=== PATIENT | female | born 1950 | race Caucasian/White ===

== ENCOUNTER 2017-11-17 15:12 | Emergency (ER) | payer MEDICARE ==
[~2017-11-17] VITALS: Ht 167.6 cm; Wt 109.3 kg
[~2017-11-17 15:12] MED LIST: CETIRIZINE HCL10 MG PO; COLACE100 MG PO; FLONASE16 GM INH; FUROSEMIDE40 MG PO; GABAPENTIN300 MG PO; HYDROCHLOROTH12.5 M1 PO; HYDROCODON-ACE1 EA11 PO; LIPITOR20 MG PO; LOPRESSOR25 MG PO; NORVASC5 MG PO; OMEPRAZOLE20 MG PO; POTASSIUM CHLO10 MEQ PO; PREMPRO 0.625-1 EAC1 PO; PREVACID15 M1 PO; PROVENTIL HFA6.7 GM INH; TIZANIDINE HCL4 MG PO; TORSEMIDE20 MG PO; ULTRAM 50MG50 MG PO; VENLAFAXINE H37.5 MG PO
--- OUTSIDE RECORDS SUMMARY | 2017-11-17 15:16 | XMS REPORT ---
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 Allergies, Adverse Reactions, Alerts This patient has no known allergies or adverse reactions. Medications This patient has no known medications. Encounters Start Date/Time End Date/Time Encounter Type Admission Type Attending [facility] Care Department Encounter ID 2017-11-21 00:00:00 2017-11-21 00:00:00 Outpatient [facility] [id number] 2017-10-26 18:53:00 2017-10-27 12:40:00 Outpatient Daljit LOVINGJESSE IGNACIO [facility] [id number] 2017-10-25 00:00:00 2017-10-25 00:00:00 Outpatient [facility] [id number] 2017-10-17 12:36:10 2017-10-17 12:36:10 Outpatient [facility] [id number] 2017-10-17 00:00:00 2017-10-17 00:00:00 Outpatient [facility] [id number] 2017-10-10 15:33:21 2017-10-10 15:33:21 Outpatient [facility] [id number] 2017-10-10 15:11:53 2017-10-10 15:11:53 Outpatient [facility] [id number] 2017-10-10 13:46:59 2017-10-10 13:46:59 Outpatient [facility] [id number] 2017-09-05 13:04:43 2017-09-05 13:04:43 Outpatient [facility] [id number] 2017-08-22 00:00:00 2017-08-22 00:00:00 Outpatient [facility] [id number] 2017-08-01 12:55:54 2017-08-01 12:55:54 Outpatient [facility] [id number] 2017-07-16 00:00:00 2017-07-16 00:00:00 Outpatient [facility] [id number] 2017-06-27 13:20:10 2017-06-27 13:20:10 Outpatient [facility] [id number] 2017-05-23 13:05:08 2017-05-23 13:05:08 Outpatient [facility] [id number] 2017-05-23 00:00:00 2017-05-23 00:00:00 Outpatient [facility] [id number] 2017-04-25 10:42:46 2017-04-25 10:42:46 Outpatient [facility] [id number] 2017-04-25 09:07:51 2017-04-25 09:07:51 Outpatient [facility] [id number] 2017-03-28 00:00:00 2017-03-28 00:00:00 Outpatient [facility] [id number] 2017-03-14 13:04:01 2017-03-14 13:04:01 Outpatient [facility] [id number] 2017-02-15 00:00:00 2017-02-15 00:00:00 Outpatient [facility] [id number] 2017-02-05 00:00:00 2017-02-05 00:00:00 Outpatient [facility] [id number] 2017-01-31 14:04:33 2017-01-31 14:04:33 Outpatient [facility] [id number] Results Test Description Test Time Test Comments Text Results Atomic Results Result Comments CARDIAC PROFILE 2017-10-27 10:29:00 TROPONIN I (test code=A84) <0.015 ng/mL 0.000-0.045 CKMB (test code=A49) <1.0 ng/mL <=3.6 CPK (test code=32A) 60 IU/L 26-192 GLUCOMETER GLUCOSE- LAB USE [id number] 05:54:00* Test Item Value Reference Range Comments GLUCOMETER (test code=GMG) 246 mg/dL 70-100 CLEANED METERMeter ID: [id number]: [id number] [address]RISTI CHAIREZ CARDIAC [id number] 05:17:00* Test Item Value Reference Range Comments TROPONIN I (test code=A84) <0.015 ng/mL 0.000-0.045 CKMB (test code=A49) <1.0 ng/mL <=3.6 CPK (test code=32A) 61 IU/L 26-192 BASIC METABOLIC [id number] 05:10:00* Test Item Value Reference Range Comments GLUCOSE (test code=06D) 203 mg/dL 75-100 SODIUM (test code=01A) 136 mmol/L 136-145 POTASSIUM (test code=01B) 3.5 mmol/L 3.6-5.1 CHLORIDE (test code=04A) 94 mmol/L 98-107 CO2 (test code=02A) 33 mmol/L 22-32 ANION GAP (test code=ANG) 12.5 mmol/L BUN (test code=05D) 24 mg/dL 7-18 CREATININE (test code=03E) 0.9 mg/dL 0.4-1.1 BUN/CREA (test code=BCR) 27 12-20 CALCIUM (test code=09D) 9.1 mg/dL 8.3-9.5 CBC (INCLUDES AUTOMATED DIFFERENTIAL)2017-10-27 05:03:00* Test Item Value Reference Range Comments WBC (test code=WBC) 9.8 10\S\3/uL 4.5-11.0 RBC (test code=RBC) 4.19 10\S\6/uL 3.80-5.80 HGB (test code=HBG) 12.3 g/dL 12.0-15.5 HCT (test code=HCT) 37.0 % 35.0-44.0 MCV (test code=MCV) 88.3 fL 81.0-99.0 MCH (test code=MCH) 29.4 pg 27.0-31.0 MCHC (test code=MCHC) 33.2 g/dL 32.0-36.0 RDW (test code=RDW) 13.2 % 11.5-14.5 PLT (test code=PLT) 243 10\S\3/uL 130-400 MPV (test code=MPV) 11.2 fL 9.4-12.4 NEUTROP # (test code=NE#) 6.7 10\S\3/uL 1.6-8.0 LYMPH # (test code=LY#) 2.0 10\S\3/uL 1.1-3.5 MONOCYTE # (test code=MO#) 0.9 10\S\3/uL 0.0-1.1 EOSINOPH # (test code=EO#) 0.1 10\S\3/uL 0.0-0.7 BASOPHIL # (test code=BA#) 0.1 10\S\3/uL 0.0-0.3 IG # (test code=IG#) 0.04 10\S\3/uL 0.00-0.06 NRBC # (test code=NRBC#) 0.00 10\S\3/uL 0.00-0.01 NEUTROPH % (test code=NE%) 68.4 % 35.0-73.0 LYMPH % (test code=LY%) 20.3 % 20.0-55.0 MONO % (test code=MO%) 8.9 % 2.5-10.0 EOSINOPH % (test code=EO%) 1.2 % 0.0-5.0 BASOPHIL % (test code=BA%) 0.8 % 0.0-2.0 IG % (test code=IG%) 0.4 % 0.0-0.8 NRBC% (test code=NRBC%) 0.0 % 0.0-0.2 MANDIFF (test code=MDIFF) NO NO RBC MORPH (test code=RBCMOR) NORMAL GLUCOMETER GLUCOSE- LAB USE [id number] 20:39:00* Test Item Value Reference Range Comments GLUCOMETER (test code=GMG) 238 mg/dL 70-100 CLEANED METERMeter ID: [id number]: [id number] ABDOMEN AND PELVIS W/O [id number] 19:24:15EXAM: CT ABDOMEN AND PELVIS W/O CONTRASTHISTORY: R52: PAIN, UNSPECIFIED TECHNIQUE: Axial imaging of the abdomen and pelvis from the lung base to thepubic symphysis without administration of intravenous contrast. Sagittal and coronal reconstructions. ACR accredited facility. CT scanperformed using appropriate/ available dose optimization/reductiontechniques.DLP 1222 mGy*cmCOMPARISON: None.FINDINGS:Liver/spleen: The liver is mildly enlarged measuring 20.0 cm in length. Uselow-density of the liver compatible with hepatic steatosis is present. Thespleen is unremarkable.Biliary system: The gallbladder surgically absent. No biliary duct dilatation.Pancreas: Unremarkable.Adrenal glands: Normal. Kidneys: Unremarkable. Vascular: Moderate atherosclerosis normal caliber abdominal aorta. 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 Lymph nodes: No upper abdominal or retroperitoneal lymphadenopathy. Pelvic structures: The urinary bladder is unremarkably distended. No pelviclymphadenopathy or free fluid. The uterus and adnexa are normal for age. Gastrointestinal tract: No abnormal bowel dilatation. No pathologicallydilated appendix or focal inflammatory changes in the right lower quadrant. .No focal fluid collections, ascites or evidence of pneumoperitoneum. Bones and soft tissues: Multilevel degenerative disc disease. Osseousstructures are intact. IMPRESSION: Hepatomegaly and hepatic steatosis.CT CHEST W/O [id number] 19:20:50EXAM : CT CHEST W/O CONTRASTHISTORY: R52: PAIN, UNSPECIFIED TECHNIQUE: Axial imaging of the chest from the base of the neck through theupper abdomen without the administration of intravenous contrast. [place] coronal reconstructions.CT scan performed using appropriate/available dose optimization/ reductiontechniques. DLP 786 mGy*cmCOMPARISON:NoneFINDINGS:The visualized thyroid gland is unremarkable.No mediastinal, hilar or axillary lymphadenopathy.Mild atherosclerosis along the thoracic aorta. The ascending thoracic aorta isnormal in size measuring 4.0 x 4.0 cm above the level of the right pulmonaryartery. The heart size is normal. No pericardial effusion.No pleural effusions.Mild scarring at the lung apices. Patchy groundglass density in the inferiorright upper lobe may be due to atelectasis or developing pneumonia. 5 x 2 mmfissural nodule on the left upper lobe, axial image 27. The lungs are otherwiseclear. The trachea and central bronchi are patent.The visualized portion of the upper abdomen, a 14 mm calcified splenic arteryaneurysms present. There are postsurgical changes of prior cholecystectomy.Probable fatty infiltration of the liver.The osseous structures are intact. IMPRESSION:Patchy groundglass density infiltrate in the inferior right upper lobe mayrepresent atelectasis or developing pneumonia.5 x 2 mm left upper lobe nodule for which [facility]. In a low-risk patient, no specific follow-upis necessary. In a patient with increased risk factors, consider a one-yearinterval follow-up.D- [id number] 18:49:00* Test Item Value Reference Range Comments D-DIMER (test code=DDI) 234 ng/mL D-DU 0-234 D-DIMER COMMENT (test code=DDCOM) *Level to rule out DVT or PE: <235 ng/mL D- DU* CARDIAC [id number] 18:33:00* Test Item Value Reference Range Comments TROPONIN I (test code=A84) <0.015 ng/mL 0.000-0.045 CKMB (test code=A49) <1.0 ng/mL <=3.6 CPK (test code=32A) 84 IU/L 26-192 COMPREHENSIVE METABOLIC [id number] 18:33:00* Test Item Value Reference Range Comments GLUCOSE (test code=06D) 250 mg/dL 75-100 SODIUM (test code=01A) 134 mmol/L 136-145 POTASSIUM (test code=01B) 3.7 mmol/L 3.6-5.1 CHLORIDE (test code=04A) 92 mmol/L 98-107 CO2 (test code=02A) 32 mmol/L 22-32 ANION GAP (test code=ANG) 13.7 mmol/L BUN (test code=05D) 25 mg/dL 7-18 CREATININE (test code=03E) 1.0 mg/dL 0.4-1.1 BUN/CREA (test code=BCR) 26 12-20 CALCIUM (test code=09D) 9.1 mg/dL 8.3-9.5 BILI TOTAL (test code=11A) 0.6 mg/dL 0.2-1.0 PROTEIN (test code=07D) 7.7 g/dL 6.4-8.2 ALBUMIN (test code=08D) 3.7 g/dL 3.5-4.8 GLOBULIN (test code=GLB) 4.0 g/dL 1.5-3.8 ALB/GLOB (test code=AGRR) 0.9 1.0-2.6 ALK PHOS (test code=35A) 96 IU/L 42-121 AST (test code=30A) 20 IU/L <=42 ALT (test code=31A) 20 IU/L <=78 PTT (PARTIAL THROMBOPLASTIN TIME)2017-10-26 18:11:00* Test Item Value Reference Range Comments PTT (test code=PTT) 25.8 s 20.2-38.0 PTTH (test code=PTTH) To monitor the effectiveness of heparin, we offer the Anti-Xa (Heparin Assay). It can be used for either unfractionated or LMW Heparin. Order Code is ANTI-XA PROTHROMBIN [id number] 18:11:00* Test Item Value Reference Range Comments PT (test code=TT) 11.4 s 9.8-13.6 INR (test code=INR) 1.0 INRH (test code=INRH) SUGGESTED THERAPEUTIC RANGE FOR INR: 2.5 - 3.5 For Patients with Prosthetic Valves or Patients with recurrent Thromboembolic Events 2.0 - 3.0 For Most Other Applications CBC (INCLUDES AUTOMATED DIFFERENTIAL)2017-10-26 18:03:00* Test Item Value Reference Range Comments WBC (test code=WBC) 11.7 10\S\3/uL 4.5-11.0 RBC (test code=RBC) 4.61 10\S\6/uL 3.80-5.80 HGB (test code=HBG) 13.4 g/dL 12.0-15.5 HCT (test code=HCT) 40.0 % 35.0-44.0 MCV (test code=MCV) 86.8 fL 81.0-99.0 MCH (test code=MCH) 29.1 pg 27.0-31.0 MCHC (test code=MCHC) 33.5 g/dL 32.0-36.0 RDW (test code=RDW) 13.2 % 11.5-14.5 PLT (test code=PLT) 253 10\S\3/uL 130-400 MPV (test code=MPV) 10.8 fL 9.4-12.4 NEUTROP # (test code=NE#) 8.2 10\S\3/uL 1.6-8.0 LYMPH # (test code=LY#) 2.4 10\S\3/uL 1.1-3.5 MONOCYTE # (test code=MO#) 0.9 10\S\3/uL 0.0-1.1 EOSINOPH # (test code=EO#) 0.2 10\S\3/uL 0.0-0.7 BASOPHIL # (test code=BA#) 0.1 10\S\3/uL 0.0-0.3 IG # (test code=IG#) 0.04 10\S\3/uL 0.00-0.06 NRBC # (test code=NRBC#) 0.00 10\S\3/uL 0.00-0.01 NEUTROPH % (test code=NE%) 70.3 % 35.0-73.0 LYMPH % (test code=LY%) 20.3 % 20.0-55.0 MONO % (test code=MO%) 7.2 % 2.5-10.0 EOSINOPH % (test code=EO%) 1.3 % 0.0-5.0 BASOPHIL % (test code=BA%) 0.6 % 0.0-2.0 IG % (test code=IG%) 0.3 % 0.0-0.8 NRBC% (test code=NRBC%) 0.0 % 0.0-0.2 MANDIFF (test code=MDIFF) NO NO RBC MORPH (test code=RBCMOR) NORMAL XR CHEST 1 VIEW [id number] 18:02:22EXAM: XR CHEST 1 VIEW PORTABLEHISTORY : R07.89: OTHER CHEST PAIN TECHNIQUE: Frontal view of the chest.COMPARISON: None.FINDINGS:The lungs are well inflated and clear. No evidence of pneumothorax or pleural effusion. The heart is normal in size. Atherosclerotic calcification of the thoracicaorta. Osseous structures are intact. IMPRESSION: No evidence of acute cardiopulmonary disease.[facility] [place] [address] Patient Name: DENNY LEIGH MR #: [id number] : Age/Sex: 67/F Req #: [id number] Adm Physician: Ordered by: JANINE CHRISTINA MD Report #: [id number] Location: [facility] Room/ Bed: Procedure: [id number] MG/MAMMOGRAPHY DIGITAL SCR BILAT Exam Date: 06/25/17 Exam Time: 1333 REPORT STATUS: Signed #[id number] - MGSCRBIL #BILATERAL DIGITAL SCREENING MAMMOGRAM WITH CAD: 06/25/2017 CLINICAL: Routine screening. Comparison is made to exams dated: 01/27/2014 mammogram and 07/12/2011 mammogram - [facility]. Current study contains 4 films. The tissue of both breasts is extremely dense, which lowers the sensitivity of mammography. Current study was also evaluated with a Computer Aided Detection (CAD) system. There are benign calcifications in both breasts. There also is a benign density in the left breast seen only on the CC view in the outer aspect that appears stable. No significant masses, calcifications, or other findings are seen in either breast. There has been no significant interval change. IMPRESSION: BENIGN There is no mammographic evidence of malignancy. A 1 year screening mammogram is recommended. The patient will be notified by letter of the results. Angel Juarez Jr., D.O. cw/:07/10/2017 13:37:56 Fence Laborer: Nya SILVA)(M), [facility] letter sent: Compared to Prior B9 Mammogram BI-RADS: 2 Benign Dictated By: ANGEL JUAREZ DO 4073 Transcribed By: VINOD on 07/10/172 COPY TO: JANINE CHRISTINA MD
[2017-11-17 15:57] LABS: BASOPHILS # (AUTO) 0.1 (0.0-0.1); BASOPHILS % 0.4 % (0.0-1.0); EOSINOPHILS # (AUTO) 0.1 (0.0-0.4); EOSINOPHILS % 0.4 % (0.0-6.0); HEMATOCRIT 41.1 % (34.2-44.1); HEMOGLOBIN 13.9 g/dL (12.0-16.0); LYMPHOCYTES % 14.6 % (18.0-39.1); MEAN CORPUSCULAR HEMOGLOBIN 28.8 pg (28-32); MEAN CORPUSCULAR HGB CONC 33.8 g/dL (31-35); MEAN CORPUSCULAR VOLUME 85.1 fL (81-99); MONOCYTES # (AUTO) 0.9 (0.2-0.8); MONOCYTES % 6.3 % (4.4-11.3); NEUTROPHILS # (AUTO) 10.6 (2.1-6.9); NEUTROPHILS % 77.7 % (38.7-80.0); PLATELET COUNT 266 x10e3/uL (140-360); RED BLOOD COUNT 4.83 x10e6/uL (3.6-5.1); RED CELL DISTRIBUTION WIDTH 13.5 % (11.7-14.4)
[2017-11-17] MEDS ORDERED: ONDANSETRON HCL INJ 2 MG/ML VIAL IV STA (16:03)
[2017-11-17 16:17] LABS: ALANINE AMINOTRANSFERASE 22 IU/L (0-55); ALBUMIN 3.6 g/dL (3.5-5.0); ALBUMIN/GLOBULIN RATIO 0.8 (0.8-2.0); ALKALINE PHOSPHATASE 74 IU/L (40-150); AMYLASE 46 U/L (25-125); ANION GAP 16.8 mmol/L (8-16); BLOOD UREA NITROGEN 18 mg/dL (7-26); BUN/CREATININE RATIO 17 (6-25); CALCIUM 9.6 mg/dL (8.4-10.2); CARBON DIOXIDE 29 mmol/L (22-29); CHLORIDE 93 mmol/L (98-107); CREATINE KINASE 49 IU/L (29-168); CREATININE, SERUM 1.07 mg/dL (0.57-1.11); EST GLOMERULAR FILTRATION RATE 51 ML/MIN (60-); GLUCOSE 152 mg/dL (74-118); LIPASE 25 U/L (8-78); POTASSIUM 3.8 mmol/L (3.5-5.1); SODIUM 135 mmol/L (136-145)
[2017-11-17 17:01] LABS: BILIRUBIN,URINE NEGATIVE (NEGATIVE); CLARITY,URINE CLEAR (CLEAR); COLOR,URINE YELLOW (YELLOW); KETONES,URINE NEGATIVE (NEGATIVE); LEUKOCYTE ESTERASE ,URINE NEGATIVE (NEGATIVE); NITRITE,URINE NEGATIVE (NEGATIVE); PROTEIN,URINE DIPSTICK NEGATIVE (NEGATIVE); URINE UROBILINOGEN 0.2 mg/dL (0.2 - 1)
--- NOTE | 2017-11-17 17:56 | Diagnostic Imaging Report ---
EXAMINATION: CHEST SINGLE (PORTABLE) INDICATION: \S\ERMD ORDER \S\Y COMPARISON: CT abdomen and pelvis from 11/17/2017, chest x-ray from 09/15/2015, CT chest from 09/12/2014 FINDINGS: AP view TUBES and LINES: None. LUNGS: Lungs are well inflated. Subsegmental atelectasis in both lung bases, unchanged. There is no evidence of pneumonia or pulmonary edema. PLEURA: No pleural effusion or pneumothorax. HEART AND MEDIASTINUM: The cardiomediastinal silhouette is unremarkable. Tortuous thoracic aorta, unchanged. BONES AND SOFT TISSUES: No acute osseous lesion. Soft tissues are unremarkable. UPPER ABDOMEN: No free air under the diaphragm. IMPRESSION: No acute thoracic abnormality. Signed by: Dr. Vivien Daly M.D. on 11/17/2017 5:52 PM
[2017-11-17] MEDS ORDERED: SODIUM CHLORIDE 0.9% 50ML 50 ML ONE (18:06)
[2017-11-17] MEDS ORDERED: IOPAMIDOL 370 MG/ML 200 ML INFUS..BTL INJ ONE (18:06)
--- NOTE | 2017-11-17 18:22 | Diagnostic Imaging Report ---
EXAM: CT Abdomen and Pelvis WITH contrast INDICATION: Upper abdominal pain COMPARISON: CT abdomen and pelvis from 09/15/2015 TECHNIQUE: Abdomen and pelvis were scanned utilizing a multidetector helical scanner from the lung base to the pubic symphysis after administration of IV contrast. Coronal and sagittal reformations were obtained. Routine protocol was performed. Scan was performed when during portal venous phase. IV CONTRAST: 100 mL of Isovue-370 ORAL CONTRAST: None RADIATION DOSE: Total DLP: 873 mGy*cm Estimated effective dose: (DLP x 0.015 x size factor) mSv COMPLICATIONS: None FINDINGS: LINES and TUBES: Morales catheter within the urinary bladder. LOWER THORAX: Mild scarring in the right middle lobe. HEPATOBILIARY: Hepatomegaly, unchanged. Improved hepatic steatosis. Focal area of low attenuation density in the left lobe of the liver on series 2, image 25 may represent focal area of fatty infiltration. No biliary ductal dilation. GALLBLADDER: Cholecystectomy. SPLEEN: No splenomegaly. PANCREAS: Diffuse fatty replacement of the pancreas. ADRENALS: No adrenal nodules KIDNEYS/URETERS: Kidneys enhance symmetrically. No hydronephrosis. No cystic or solid mass lesions. No stones. GI TRACT: No abnormal distention, wall thickening, or evidence of bowel obstruction. Appendix is nonvisualized. PELVIC ORGANS/BLADDER: The urinary bladder is decompressed with Morales catheter in place. The uterus appears unremarkable. No adnexal masses. LYMPH NODES: No lymphadenopathy. VESSELS: There is moderate atherosclerotic disease in the aorta and major arterial branches. Unchanged peripherally calcified aneurysm of the splenic artery, measuring 1.6 cm (series 2, image 29). Accessory bilateral renal arteries. PERITONEUM / RETROPERITONEUM: No free air or fluid. BONES: Unremarkable. SOFT TISSUES: Soft tissue calcifications noted in the anterior left thigh compartment may represent calcified lymph nodes or myositis ossificans. IMPRESSION: 1. Improvement of hepatic steatosis with persistent focal area of low attenuation liver parenchyma in the left lobe of the liver. Consider follow-up ultrasound in 6 months to demonstrate stability. 2. No acute intra-abdominal or pelvic abnormality. Signed by: Dr. Vivien Daly M.D. on 11/17/2017 6:19 PM
[2017-11-17] MEDS ORDERED: PROMETHAZINE 12.5MG/ NACL 0.9% 12.5 MG/50 ML BAG IV ONE (18:30)
[2017-11-17] MEDS ORDERED: PREGABALIN 50 MG CAP PO ONE (19:30)
== END 2017-11-17 20:00 | disposition home or self-care (01) ==
LOC: ER 15:12
DX: R10.84 Generalized abdominal pain (principal); R19.7 Diarrhea, unspecified; R11.0 Nausea; E87.1 Hypo-osmolality and hyponatremia; I10 Essential (primary) hypertension; E11.65 Type 2 diabetes mellitus with hyperglycemia
CPT/HCPCS: 36415; 51700; 71045; 74177; 80053; 81001; 82150; 82550; 82553; 83690; 83880; 84484; 85025; 93005; 99284; J2405; J2550; Q9967

== ENCOUNTER 2019-04-17 19:13 | Emergency (ER) | payer MEDICARE, OTHER ==
[~2019-04-17] VITALS: Ht 167.6 cm; Wt 109.3 kg
--- OUTSIDE RECORDS SUMMARY | 2019-04-17 19:16 | XMS REPORT | Clinical Summary ---
Author Author [facility] Organization [facility] Address Unknown Phone Unavailable Care Team Providers Care Operations Intern Name Role Phone Alex Forrester MD PCP Allergies No Known Allergies Medications End Date Status Medication Sig Dispensed Refills Start Date Active docusate sodium (COLACE) Take 100 mg 0 100 MG capsule by mouth 2 (two) times a day. Active acetaminophen (TYLENOL) Take 650 mg 0 325 MG tablet by mouth every 6 (six) hours as needed for fever. Active Lactobacillus Take 2 0 acidoph-L.bulgar tablets by (FLORANEX) 1 million cell mouth 2 (two) tablet times a day. Active famotidine (PEPCID) 20 MG Take 20 mg by 0 tablet mouth 2 (two) times a day as needed for heartburn. Active insulin lispro (HumaLOG) Inject under 0 100 unit/mL injection the skin 3 (three) times a day with meals. Per Sliding Scale Active ondansetron (ZOFRAN) 4 MG Take 4 mg by 0 tablet mouth every 6 (six) hours as needed for nausea or vomiting. Active estradiol (ESTRACE) 2 MG Take 2 mg by 0 tablet mouth daily. Active pravastatin (PRAVACHOL) Take 80 mg by 0 80 MG tablet mouth nightly. Active metoprolol succinate XL Take 50 mg by 0 (TOPROL-XL) 50 mg 24 hr mouth 2 (two) tablet times a day. Active insulin detemir U-100 Inject 30 0 (LEVEMIR) 100 unit/mL Units under injection the skin 2 (two) times a day. Active pregabalin (LYRICA) 200 Take 200 mg 0 MG capsule by mouth 2 (two) times a day. Active acetaminophen-codeine Take 1 tablet 0 (TYLENOL WITH CODEINE #3) by mouth 300-30 mg per tablet every 6 (six) hours as needed for moderate pain. Active albuterol (PROAIR Inhale 2 0 HFA,PROVENTIL puffs every 6 HFA,VENTOLIN HFA) 90 (six) hours mcg/actuation inhaler as needed for wheezing or shortness of breath (asthma). Active pantoprazole (PROTONIX) Take 40 mg by 0 40 MG EC tablet mouth daily. Active metFORMIN (GLUCOPHAGE) Take 1,000 mg 0 1,000 mg tablet by mouth 2 (two) times a day with meals. 05/01/2019 Active montelukast (SINGULAIR) Take 1 tablet 30 tablet 0 10 mg tablet (10 mg total) 9 by mouth nightly for 30 days. 05/01/2019 Active montelukast (SINGULAIR) Take 1 tablet 30 tablet 0 10 mg tablet (10 mg total) 9 by mouth nightly for 30 days. 05/01/2019 Active ipratropium-albuterol Take 3 mL by 360 mL 0 (DUO-NEB) 0.5-2.5 mg/3 mL nebulization 9 nebulizer 4 (four) times a day for 30 days. 10/06/2018 Discontinued metoprolol succinate XL Take 200 mg 0 (TOPROL-XL) 200 mg 24 hr by mouth tablet daily. 10/13/2018 Discontinued (Stop Taking at Discharge) polyethylene glycol Take 17 g by 0 (MIRALAX) 17 gram packet mouth daily. 03/31/2019 Discontinued (Med List Cleanup) senna (SENOKOT) 8.6 mg Take 2 0 tablet tablets by mouth daily. 03/31/2019 Discontinued HYDROcodone-acetaminophen Take 1 tablet 0 (NORCO) 10-325 mg per by mouth tablet every 6 (six) hours as needed for moderate pain. 10/13/2018 Discontinued (Stop Taking at Discharge) levoFLOXacin (LEVAQUIN) Take 500 mg 0 500 MG tablet by mouth daily. 10/08/2018 Discontinued (Error) cholestyramine (QUESTRAN) Take 1 packet 0 4 gram packet by mouth 2 (two) times a day with meals. 03/31/2019 Discontinued (Med List Cleanup) dicyclomine (BENTYL) 20 Take 20 mg by 0 mg tablet mouth 3 (three) times a day. 10/08/2018 Discontinued (Error) enoxaparin (LOVENOX) 40 Inject 40 mg 0 mg/0.4 mL syringe under the skin daily. 03/31/2019 Discontinued (Med List Cleanup) pregabalin (LYRICA) 200 Take 150 mg 0 MG capsule by mouth 2 (two) times a day. 03/31/2019 Discontinued (Med List Cleanup) insulin GLARGINE (LANTUS) Inject 14 0 100 unit/mL injection Units under (vial) the skin daily. 03/31/2019 Discontinued (Med List Cleanup) INSULIN LISPRO SUBQ Inject under 0 the skin 3 (three) times a day before meals. Low dose sliding scale 10/08/2018 Discontinued (Error) hydrALAZINE (APRESOLINE) Infuse 10 mg 0 20 mg/mL injection into a venous catheter every 2 (two) hours as needed for high blood pressure. 11/07/2018 lactulose 20 gram/30 mL Take 30 mL 1800 mL 0 solution (20 g total) 9 by mouth 2 (two) times a day for 30 days. 10/22/2018 naproxen (NAPROSYN) 500 Take 1 tablet 28 tablet 0 MG tablet (500 mg 9 total) by mouth 2 (two) times a day with meals for 14 days. 11/07/2018 morPHINE (MS CONTIN) 30 Take 1 tablet 0 MG 12 hr tablet (30 mg total) 9 by mouth every 12 (twelve) hours for 30 days. Max Daily Amount: 60 mg 10/23/2018 oxyCODone-acetaminophen Take 1 tablet 0 (PERCOCET) 10-325 mg per by mouth 9 tablet every 4 (four) hours as needed for moderate pain for up to 15 days. Max Daily Amount: 6 tablets 04/01/2019 Discontinued (Stop Taking at Discharge) montelukast (SINGULAIR) Take 10 mg by 0 10 mg tablet mouth nightly. 04/06/2019 ciprofloxacin (CIPRO) 500 Take 1 tablet 10 tablet 0 MG tablet (500 mg 9 total) by mouth 2 (two) times a day for 5 days. Active Problems Problem Noted Date CHF (congestive heart failure) 04/01/2019 Acute on chronic congestive heart failure 03/31/2019 Severe dehydration 10/06/2018 Chronic bilateral thoracic back pain 10/06/2018 Encounters Care Team Description Date Type Specialty Cornelius Willingham NP-C Acute on chronic diastolic congestive heart failure (HCC) (Primary Dx) 04/06/2019 Orders Only Transplant Tata Foster RN 04/01/2019 Patient Quality Outreach Oren Bolton DO Bavare, Arusha Amod, MD Patel, Latonya Joy MD Acute on chronic congestive heart failure, unspecified heart failure type (HCC) (Primary Dx); Anasarca; Urinary tract infection in female 03/31/2019 Emergency General Internal Medicine - 04/01/2019 Ihsan Babcock MD Joglekar, Swati, MD Patel, MD Nael Escalante Sahar, MD Chronic bilateral thoracic back pain (Primary Dx); Controlled type 2 diabetes mellitus with other specified complication, without long-term current use of insulin (HCC); Chronic hypertension; Chronic bilateral low back pain without sciatica; Leukocytosis, unspecified type; Anemia, unspecified type; Hypoalbuminemia; Tachycardia; SIRS (systemic inflammatory response syndrome) (HCC); Severe dehydration; Abdominal pain, acute, generalized 10/05/2018 Hospital General Internal Medicine - Encounter 10/13/2018 after 04/16/2018 Social History Date Tobacco Use Types Packs/Day Years Used Former Smoker Cigarettes 0.5 Tobacco Cessation: Counseling Given: No Comments: Smoked as teenager ,quit longtime ago Drinks/Week oz/Week Comments Alcohol Use Never Alcohol Habits Answer Date Recorded How often do you have a drink containing alcohol? Never 03/31/2019 How many drinks containing alcohol do you have on Not asked a typical day when you are drinking? How often do you have six or more drinks on one Not asked occasion? Sex Assigned at Date Recorded Not on file Industry Job Start Date Occupation Not on file Not on file Not on file Travel End Travel History Travel Start No recent travel history available. Last Filed Vital Signs Reading Time Taken Comments Vital Sign 145/81 04/01/2019 11:18 AM CDT Blood Pressure 82 04/01/2019 11:18 AM CDT Pulse 36.6 C (97.9 F) 04/01/2019 11:18 AM CDT Temperature 18 04/01/2019 11:18 AM CDT Respiratory Rate 94% 04/01/2019 11:18 AM CDT Oxygen Saturation - - Inhaled Oxygen Concentration 117 kg (256 lb 13.4 oz) 04/01/2019 6:11 AM CDT Weight 157.5 cm (5' 2") 03/31/2019 1:33 AM CDT Height 46.98 03/31/2019 1:33 AM CDT Body Mass Index Plan of Treatment Health Maintenance Due Date Last Done Comments DIABETIC RETINAL EYE EXAM 1950 DIABETIC FOOT EXAM 1960 URINE MICROALBUMIN 1960 BREAST CANCER SCREENING 2000 COLONOSCOPY SCREENING 2000 SHINGLES VACCINES (#1) 2000 65+ PNEUMOCOCCAL VACCINE 2015 (1 of 2 - PCV13) INFLUENZA VACCINE 03/12/2019 Procedures Comments Procedure Name Priority Date/Time Associated Diagnosis POC GLUCOSE Routine 04/01/2019 12:44 PM CDT POC GLUCOSE Routine 04/01/2019 10:31 AM CDT POC GLUCOSE Routine 03/31/2019 5:15 PM CDT US DUPLEX VENOUS LOWER Routine 03/31/2019 EXTREMITY BILATERAL 2:00 PM CDT POC GLUCOSE Routine 03/31/2019 12:11 PM CDT ECHOCARDIOGRAM 2D Routine 03/31/2019 COMPLETE W MMODE SPECTRAL 11:55 AM CDT COLOR DOPPLER (64019) POC GLUCOSE Routine 03/31/2019 9:09 AM CDT URINE CULTURE STAT 03/31/2019 4:10 AM CDT GRAM STAIN STAT 03/31/2019 4:10 AM CDT URINALYSIS SCREEN AND STAT 03/31/2019 MICROSCOPY, WITH REFLEX 3:33 AM CDT TO CULTURE XR CHEST 1 VW PORTABLE STAT 03/31/2019 1:55 AM CDT ESTIMATED GFR STAT 03/31/2019 1:50 AM CDT B NATRIURETIC PEPTIDE STAT 03/31/2019 1:50 AM CDT TROPONIN STAT 03/31/2019 1:50 AM CDT LACTIC ACID LEVEL STAT 03/31/2019 1:50 AM CDT COMPREHENSIVE METABOLIC STAT 03/31/2019 PANEL 1:50 AM CDT PARTIAL THROMBOPLASTIN STAT 03/31/2019 TIME (PTT) 1:50 AM CDT PROTHROMBIN TIME WITH INR STAT 03/31/2019 1:50 AM CDT HC COMPLETE BLD COUNT STAT 03/31/2019 W/AUTO DIFF 1:50 AM CDT ECG 12-LEAD STAT 03/31/2019 1:40 AM CDT ECG ED PRELIMINARY Routine 03/31/2019 INTERPRETATION 1:32 AM CDT POC GLUCOSE Routine 10/13/2018 8:43 PM TELESERVICES REPRESENTATIVE POC GLUCOSE Routine 10/13/2018 5:14 PM TELESERVICES REPRESENTATIVE POC GLUCOSE Routine 10/13/2018 11:27 AM TELESERVICES REPRESENTATIVE POC GLUCOSE Routine 10/13/2018 7:42 AM TELESERVICES REPRESENTATIVE POC GLUCOSE Routine 10/12/2018 8:34 PM TELESERVICES REPRESENTATIVE POC GLUCOSE Routine 10/12/2018 5:27 PM TELESERVICES REPRESENTATIVE POC GLUCOSE Routine 10/12/2018 11:39 AM TELESERVICES REPRESENTATIVE POC GLUCOSE Routine 10/12/2018 7:24 AM TELESERVICES REPRESENTATIVE HC COMPLETE BLD COUNT Routine 10/12/2018 W/AUTO DIFF 5:20 AM TELESERVICES REPRESENTATIVE ESTIMATED GFR Routine 10/12/2018 4:00 AM TELESERVICES REPRESENTATIVE BASIC METABOLIC PANEL Routine 10/12/2018 4:00 AM TELESERVICES REPRESENTATIVE POC GLUCOSE Routine 10/11/2018 9:17 PM TELESERVICES REPRESENTATIVE XR ABDOMEN 1 VW PORTABLE STAT 10/11/2018 5:20 PM TELESERVICES REPRESENTATIVE POC GLUCOSE Routine 10/11/2018 4:35 PM TELESERVICES REPRESENTATIVE POC GLUCOSE Routine 10/11/2018 12:32 PM TELESERVICES REPRESENTATIVE POC GLUCOSE Routine 10/11/2018 7:38 AM TELESERVICES REPRESENTATIVE POC GLUCOSE Routine 10/10/2018 8:58 PM TELESERVICES REPRESENTATIVE POC GLUCOSE Routine 10/10/2018 5:22 PM TELESERVICES REPRESENTATIVE POC GLUCOSE Routine 10/10/2018 11:51 AM TELESERVICES REPRESENTATIVE POC GLUCOSE Routine 10/10/2018 8:18 AM TELESERVICES REPRESENTATIVE POC GLUCOSE Routine 10/09/2018 8:37 PM TELESERVICES REPRESENTATIVE POC GLUCOSE Routine 10/09/2018 3:44 PM TELESERVICES REPRESENTATIVE POC GLUCOSE Routine 10/09/2018 12:30 PM TELESERVICES REPRESENTATIVE POC GLUCOSE Routine 10/09/2018 8:01 AM TELESERVICES REPRESENTATIVE POC GLUCOSE Routine 10/08/2018 8:55 PM TELESERVICES REPRESENTATIVE POC GLUCOSE Routine 10/08/2018 5:18 PM TELESERVICES REPRESENTATIVE POC GLUCOSE Routine 10/08/2018 11:54 AM TELESERVICES REPRESENTATIVE POC GLUCOSE Routine 10/08/2018 9:04 AM TELESERVICES REPRESENTATIVE POC GLUCOSE Routine 10/07/2018 8:15 PM TELESERVICES REPRESENTATIVE POC GLUCOSE Routine 10/07/2018 5:36 PM TELESERVICES REPRESENTATIVE POC GLUCOSE Routine 10/07/2018 12:41 PM TELESERVICES REPRESENTATIVE SMEAR REVIEW Routine 10/07/2018 8:39 AM TELESERVICES REPRESENTATIVE ESTIMATED GFR Routine 10/07/2018 8:39 AM TELESERVICES REPRESENTATIVE COMPREHENSIVE METABOLIC Routine 10/07/2018 PANEL 8:39 AM TELESERVICES REPRESENTATIVE CBC WITH PLATELET AND Routine 10/07/2018 DIFFERENTIAL 8:39 AM TELESERVICES REPRESENTATIVE POC GLUCOSE Routine 10/07/2018 8:29 AM TELESERVICES REPRESENTATIVE MRI LUMBAR SPINE WO Routine 10/07/2018 CONTRAST 7:22 AM TELESERVICES REPRESENTATIVE MRI THORACIC SPINE WO Routine 10/07/2018 CONTRAST 7:02 AM TELESERVICES REPRESENTATIVE POC GLUCOSE Routine 10/06/2018 8:16 PM TELESERVICES REPRESENTATIVE XR PELVIS 3+ VW Routine 10/06/2018 6:23 PM TELESERVICES REPRESENTATIVE XR KNEE 1 OR 2 VW Routine 10/06/2018 BILATERAL 6:22 PM TELESERVICES REPRESENTATIVE POC GLUCOSE Routine 10/06/2018 4:24 PM TELESERVICES REPRESENTATIVE POC GLUCOSE Routine 10/06/2018 12:09 PM TELESERVICES REPRESENTATIVE POC GLUCOSE Routine 10/06/2018 7:52 AM TELESERVICES REPRESENTATIVE B NATRIURETIC PEPTIDE Routine 10/06/2018 5:23 AM TELESERVICES REPRESENTATIVE RESPIRATORY PATHOGEN Routine 10/06/2018 PANEL 3:28 AM TELESERVICES REPRESENTATIVE LACTIC ACID LEVEL Timed 10/06/2018 3:[address] ABDOMEN PELVIS W STAT 10/06/2018 CONTRAST 1:08 AM TELESERVICES REPRESENTATIVE XR CHEST 1 VW PORTABLE STAT 10/06/2018 12:03 AM TELESERVICES REPRESENTATIVE BLOOD CULTURE, AEROBIC & Routine 10/05/2018 ANAEROBIC 11:16 PM TELESERVICES REPRESENTATIVE URINALYSIS SCREEN AND STAT 10/05/2018 MICROSCOPY, WITH REFLEX 11:10 PM TELESERVICES REPRESENTATIVE TO CULTURE URINE CULTURE STAT 10/05/2018 11:10 PM TELESERVICES REPRESENTATIVE BLOOD CULTURE, AEROBIC & Routine 10/05/2018 ANAEROBIC 11:00 PM TELESERVICES REPRESENTATIVE ESTIMATED GFR STAT 10/05/2018 9:45 PM TELESERVICES REPRESENTATIVE COMPREHENSIVE METABOLIC STAT 10/05/2018 PANEL 9:45 PM TELESERVICES REPRESENTATIVE HC COMPLETE BLD COUNT STAT 10/05/2018 W/AUTO DIFF 9:45 PM TELESERVICES REPRESENTATIVE LACTIC ACID LEVEL Timed 10/05/2018 11:34 AM TELESERVICES REPRESENTATIVE after 04/16/2018 Results * POC glucose (04/01/2019 12:44 PM CDT) Only the most recent of 37 results within the time period is included. POC glucose 139 (H) 65 - 99 mg/dL [place] Comment: [facility] RE[facility]ACED BY [facility] Notified RN HOSPITAL Meter ID: [id number] Fashion Marketer: Michael Santa Specimen Performing Organization Address City/State/Zipcode Phone Number [facility] DEPARTMENT OF [address] [place] [address] PATHOLOGY AND GENOMIC MEDICINE [place] [facility] [address] [place] [address] HOSPITAL * Us duplex venous lower extremity (03/31/2019 2:00 PM CDT) Specimen Narrative Performed At [facility] Vascular Ultrasound Laboratory Lower Extremity Venous Report [address] [place] [address] Pat.Name:Nick LEIGH.ID:[id number] .Date: 03/31/2019 Refer.MD:LATONYA CHRISTINA MD Exam Time: 1:38:00 PMStudy Type:LE Venous Height:62inWeight:240lb BSA: 2.07 m2 DOBAge:1950,68Y Sex: FEMALESonogrphr: Gabbie Butcher RVT Pat. Stat.:Inpatient Room:[address] TapeVol: LN, CPT - 4: 06911 Echo Event ID:[id number] Order ID:[id number] Reason for Study:Leg swelling and pain. History of HTN, DM, CHF, and asthma Procedures:Colorflow, Grayscale/2D, Pulsed wave Doppler Race:C SUMMARY: DUPLEX SCAN OBSERVATIONS Deep VeinsSuperficial Veins RightLeft RightLeft GSV (prox) NormalNormal CFV Normal Normal (above knee) Femoral Normal Normal GSV (dist) Normal Not Visualized Profunda Normal Normal (below knee) Popliteal Normal Normal PT (prox) Normal NormalSSV Normal Normal PT (dist) Normal Normal Peroneal Normal Not Visualized Gastrocs Normal Normal RIGHT: There is normal compressibility with no evidence of echogenic material noted within the lumen of the visualized veins. Colorflow and Doppler signals are normal. LEFT: There is normal compressibility with no evidence of echogenic material noted within the lumen of the visualized veins. Colorflow and Doppler signals are normal. The peroneal and below the knee great saphenous veins are not visualized. PRELIMINARY FINDINGS 1. No evidence of venous thrombosis in the visualized veins. 2. Technically difficult study due to legs pain. PHYSICIAN INTERPRETATION Venous examination of the both lower extremities demonstrated no evidence of venous thrombosis in the visualized veins.Normal compressibility and augmentation of all veins visualized. Signed 03/31/2019 02:20 PM Edis Jacobson MD, RPVI Procedure Note Interface, Radiology Results In - 03/31/2019 2:21 PM CDT Vascular Ultrasound Laboratory Lower Extremity Venous Report [address] [place] [address] Pat.Name: HEIDE LEIGH Pat.ID: [id number] St.Date: 03/31/2019 Refer.MD: LATONYA CHRISTINA MD Exam Time: 1:38:00 PM Study Type:LE Venous Height: 62in Weight: 240lb BSA: 2.07 m2 Age: 11 1950,68Y Sex: FEMALE Sonogrphr: Gabbie Butcher RVT Pat. Stat.:Inpatient Room: [address] Tape Vol: LN, CPT - 4: 29177 Echo Event ID:[id number] Order ID: [id number] Reason for Study:Leg swelling and pain. History of HTN, DM, CHF, and asthma Procedures:Colorflow, Grayscale/2D, Pulsed wave Doppler Race: C SUMMARY: DUPLEX SCAN OBSERVATIONS Deep Veins Superficial Veins Right Left Right Left GSV (prox) Normal Normal CFV Normal Normal (above knee) Femoral Normal Normal GSV (dist) Normal Not Visualized Profunda Normal Normal (below knee) Popliteal Normal Normal PT (prox) Normal Normal SSV Normal Normal PT (dist) Normal Normal Peroneal Normal Not Visualized Gastrocs Normal Normal RIGHT: There is normal compressibility with no evidence of echogenic material noted within the lumen of the visualized veins. Colorflow and Doppler signals are normal. LEFT: There is normal compressibility with no evidence of echogenic material noted within the lumen of the visualized veins. Colorflow and Doppler signals are normal. The peroneal and below the knee great saphenous veins are not visualized. PRELIMINARY FINDINGS 1. No evidence of venous thrombosis in the visualized veins. 2. Technically difficult study due to legs pain. PHYSICIAN INTERPRETATION Venous examination of the both lower extremities demonstrated no evidence of venous thrombosis in the visualized veins. Normal compressibility and augmentation of all veins visualized. Signed 03/31/2019 02:20 PM Edis Jacobson MD, RPVI Performing Organization Address [facility]/State/Zipcode Phone Number [facility] [address] [place] [address] * Echocardiogram complete w contrast and 3D if needed (03/31/2019 11:55 AM CDT) Specimen Narrative Performed At [facility] Echocardiography Report [address] [place] [address] Pat.Name:Nick LEIGH.ID:[id number] .Date: 03/31/2019 Refer.:LATONYA CHRISTINA MD Exam Time: 11:12:00 AM Study Type:Routine Echo Height:62inWeight:240lb BSA: 2.07 m2 DOBAge:1950,68Y Sex: FEMALEBP:124/72 HR:87 bpmSonogrphr: SHELDON Hu, RVS Pat. Stat.:Inpatient Room:[facility] Study Status:Final Echo Event ID:[id number] Order ID:[id number] Reason for Study:CHF Procedures:2D Echo, Colorflow Doppler, Strain, Portable Race:C SUMMARY: Hyperdynamic LV systolic function and normal filling pressure. Normal RV systolic function. Normal RAP estimate. Mild aortic root dilation (4.2 cm). FINDINGS: LV: LV size is normal. LV EF is hyperdynamic.Global longitudinal strainaverage is -19% (normal). Overall wall motion is hyperdynamic.Estimated EF is >70%. RV: RV size is normal. RV systolic function is normal. LA: LA size is normal. RA: RA size is normal. AO: Aortic root diameter is mildly enlarged (4.2 cm at SOV). KRYSTAL: No pericardial effusion. SVn:Inferior vena cava is normal. Normal collapse of IVC during inspirationis consistent with normal RA pressure. AV: Focal calcification of AV leaflets. Tri cuspid aortic valve. MV: No structural MV abnormalities noted. PV: No structural PV abnormalities noted. TV: No structural TV abnormalities noted. Gonzalez: LV filling pressure is normal. Other:Insufficient TR jet to estimate PA systolic pressure. MEASUREMENTS: 2D Parasternal Long [place] LVOT 2 cmLA Ds4.3 cm LVIDd3.6 cmIndex1.7 cm/m Ao An2.2 cm LVIDs2 cmAo Rtd 4.2 cm Index2 cm/m LV%fs 44.4 % LV Ccmp686.9 g(87-129) IVSd 1.5 cmLVM Index 86.9 g/m2 LVPWd1.3 cmRWT0.7 LA Sng Plane LA Area 20.5 cm2(8.8-23.4) LA Vol62.5 ml Index30.2 ml/m LA LngAx 5.5 cm DOPPLER LVOT Stroke Vol LVOT 2 cmLVOT CO7.9 l/min LVOT TVI25.3 cmLVOT CI3.8 l/m/m2 LVOT Tm243 msecHR 100 bpm LVOT SV 79.4 ml Signed 03/31/2019 06:51 PM Brayan Marroquin M.D. Procedure Note Interface, Radiology Results In - 03/31/2019 6:53 PM CDT Echocardiography Report [address] [place] [address] Pat.Name: HEIDE LEIGH.ID: [id number] St.Date: 03/31/2019 Refer.MD: LATONYA CHRISTINA MD Exam Time: 11:12:00 AM Study Type:Routine Echo Height: 62in Weight: 240lb BSA: 2.07 m2 Age: 11 1950,68Y Sex: FEMALE BP: 124/72 HR: 87 bpm Sonogrphr: SHELDON Hu RVS Pat. Stat.:Inpatient Room: [facility] Study Status:Final Echo Event ID:[id number] Order ID: [id number] Reason for Study:CHF Procedures:2D Echo, Colorflow Doppler, Strain, Portable Race: C SUMMARY: Hyperdynamic LV systolic function and normal filling pressure. Normal RV systolic function. Normal RAP estimate. Mild aortic root dilation (4.2 cm). FINDINGS: LV: LV size is normal. LV EF is hyperdynamic.Global longitudinal strain average is -19% (normal). Overall wall motion is hyperdynamic. Estimated EF is >70%. RV: RV size is normal. RV systolic function is normal. LA: LA size is normal. RA: RA size is normal. AO: Aortic root diameter is mildly enlarged (4.2 cm at SOV). KRYSTAL: No pericardial effusion. SVn: Inferior vena cava is normal. Normal collapse of IVC during inspiration is consistent with normal RA pressure. AV: Focal calcification of AV leaflets. Tri cuspid aortic valve. MV: No structural MV abnormalities noted. PV: No structural PV abnormalities noted. TV: No structural TV abnormalities noted. Gonzalez: LV filling pressure is normal. Other: Insufficient TR jet to estimate PA systolic pressure. MEASUREMENTS: 2D Parasternal Long [place] LVOT 2 cm LA Ds 4.3 cm LVIDd 3.6 cm Index 1.7 cm/m Ao An 2.2 cm LVIDs 2 cm Ao Rtd 4.2 cm Index 2 cm/m LV%fs 44.4 % LV Mass 179.9 g (87-129) IVSd 1.5 cm LVM Index 86.9 g/m2 LVPWd 1.3 cm RWT 0.7 LA Sng Plane LA Area 20.5 cm2 (8.8-23.4) LA Vol 62.5 ml Index 30.2 ml/m LA LngAx 5.5 cm DOPPLER LVOT Stroke Vol LVOT 2 cm LVOT CO 7.9 l/min LVOT TVI 25.3 cm LVOT CI 3.8 l/m/m2 LVOT Tm 243 msec HR 100 bpm LVOT SV 79.4 ml Signed 03/31/2019 06:51 PM Brayan Marroquin M.D. Performing Organization Address City/State/Zipcode Phone Number [facility] [address] [place] [address] * Gram stain (03/31/2019 4:10 AM CDT) Gram stain Rare WBC's [facility]ERNARD result Moderate Gram negative rods [facility] Comment: HOSPITAL Specimen Information Specimen Source: Urine Specimen Site: Clean catch Specimen Urine Performing Organization Address City/State/Zipcode Phone Number [facility] DEPARTMENT OF [address] [place] [address] PATHOLOGY AND GENOMIC MEDICINE [facility] [address] [place] [address] HOSPITAL * Urine culture (03/31/2019 4:10 AM CDT) Only the most recent of 2 results within the time period is included. Urine culture Escherichia coli [place] isolate >10-5 cfu/ml [facility] The performance HOSPITAL characteristics of this assay on this isolate were validated by the Microbiology Laboratory at [facility].This source has not been approved by the U.S. Food and Drug Administration.The results are not intended to be used as the sole means for clinical diagnosis or patient management.The Microbiology Laboratory is authorized under the clinical Laboratory Improvement Amendments of 1988 (CLIA-88) to perform high complexity testing. This isolate is a national investigative producer of ESBL (extended spectrum beta lactamase).This organism may be clinically resistant to penicillins, cephalosporins or aztreonam despite apparent in vitro susceptibility to some of these agents. (A) Comment: Specimen Information Specimen Source: Urine Specimen Site: Clean catch Specimen Urine Antibiotic Method Susceptibility Organism Ampicillin JAYLEEN >16 mcg/mL: Resistant Escherichia coli Amoxicillin/Clavulanate JAYLEEN 16/8 mcg/mL: Resistant Escherichia coli Amikacin JAYLEEN <=4 mcg/mL: Susceptible Escherichia coli Aztreonam JAYLEEN 8 mcg/mL: Resistant Escherichia coli Ceftazidime JAYLEEN 2 mcg/mL: Resistant Escherichia coli Ciprofloxacin JAYLEEN >2 mcg/mL: Resistant Escherichia coli Ceftriaxone JAYLEEN >32 mcg/mL: Resistant Escherichia coli Cefuroxime Sodium JAYLEEN >16 mcg/mL: Resistant Escherichia coli Cefazolin JAYLEEN >32 mcg/mL: Resistant Escherichia coli Cefepime JAYLEEN 8 mcg/mL: Resistant Escherichia coli Nitrofurantoin JAYLEEN >64 mcg/mL: Resistant Escherichia coli Gentamicin JAYLEEN <=1 mcg/mL: Susceptible Escherichia coli Imipenem JAYLEEN 1 mcg/mL: Susceptible Escherichia coli Levofloxacin JAYLEEN >4 mcg/mL: Resistant Escherichia coli Meropenem JAYLEEN <=0.125 mcg/mL: Susceptible Escherichia coli Tobramycin JAYLEEN 1 mcg/mL: Susceptible Escherichia coli Ampicillin/Sulbactam JAYLEEN >16/8 mcg/mL: Resistant Escherichia coli Trimethoprim/Sulfamethoxazole JAYLEEN <=0.5/9.5 mcg/mL: Susceptible Escherichia coli Tetracycline JAYLEEN <=1 mcg/mL: Susceptible Escherichia coli Ertapenem JAYLEEN <=0.125 mcg/mL: Susceptible Escherichia coli Tigecycline JAYLEEN 1 mcg/mL: Susceptible Escherichia coli Cefotaxime JAYLEEN mcg/mL: Resistant Escherichia coli Cephalothin JAYLEEN mcg/mL: Resistant Escherichia coli Fosfomycin KB mm: Susceptible Escherichia coli Meropenem/Vaborbactam KB mm: Susceptible Escherichia coli Performing Organization Address [facility] Phone Number [facility] [place] [address] PATHOLOGY AND GENOMIC MEDICINE [address] * Urinalysis screen and microscopy, with reflex to culture (03/31/2019 3:33 AM CDT) Only the most recent of 2 results within the time period is included. Specimen site Clean catch [facility] Color, UA Yellow [facility] Appearance, UA Hazy [facility] Specific 1.023 1.001 - 1.035 [place] gravity, [facility] pH, UA 6.0 5.0 - 8.5 [facility] Protein, UA Negative Negative [facility] Glucose, UA Negative Negative [facility] Ketones, UA Negative Negative [facility] Bilirubin, UA Negative Negative [facility] Blood, UA Small (A) Negative [facility] Nitrite, UA Negative Negative [facility] Urobilinogen, <2.0 <2.0 [facility] Leukocyte Negative Negative [place] [facility] Epithelial 2 /HPF [place] cells, [facility] WBC, UA 10 (H) 0 - 4 /HPF [facility] RBC, UA 2 0 - 5 /HPF [facility] Bacteria, UA Moderate (A) None seen [facility] Yeast, UA None seen [facility] Yeast with None seen [place] [facility] Specimen Urine Performing Organization Address [facility] Phone Number [facility] [place] [place] [address] PATHOLOGY AND GENOMIC MEDICINE [address] * XR Chest 1 Vw Portable (03/31/2019 1:55 AM CDT) Only the most recent of 2 results within the time period is included. Specimen Narrative Performed At Examination:XR CHEST 1 VW PORTABLE [facility] Clinical History:SOB Comparison: None. Technique: Single frontal view of the chest is obtained. Findings: Cardiomegaly with mild vascular crowding or congestion are noted. No pleural effusion is seen. No pneumothorax is seen. Impression: Cardiomegaly with mild vascular crowding or congestion. [facility]-[id number] Procedure Note Interface, Radiology Results Incoming - 03/31/2019 2:38 AM CDT Examination: XR CHEST 1 VW PORTABLE Clinical History: SOB Comparison: None. Technique: Single frontal view of the chest is obtained. Findings: Cardiomegaly with mild vascular crowding or congestion are noted. No pleural effusion is seen. No pneumothorax is seen. Impression: Cardiomegaly with mild vascular crowding or congestion. [facility]-[id number] Performing Organization Address City/[facility]/Zipcode [place] [address] * Estimated GFR (03/31/2019 1:50 AM CDT) Only the most recent of 4 results within the time period is included. [facility] Estimated GFR >=90 mL/min/1.73 m2 [place] Comment: [facility] rpretation G1 >=90 Normal or high G2 60-89Mildly decreased [id number] Mildly to moderately decreased [id number] Moderately to severely decreased G4 15-29Severely decreased G5 <15Kidney failure The eGFR was calculated using the Chronic Kidney Disease Epidemiology Collaboration (CKD-EPI) equation. Interpretation is based on recommendations of the National Kidney Foundation-Kidney Disease Outcomes Quality Initiative (NKF-KDOQI) published in 2014. Specimen Plasma specimen Performing Organization Address City/[facility]/Zipcode Phone Number [facility] [place] [address] PATHOLOGY AND GENOMIC MEDICINE [address] * Troponin (03/31/2019 1:50 AM CDT) Pathologist [facility] Troponin <0.006 0.000 - 0.040 ng/mL [place] Comment: [facility] changed methodology effective: 12/16/2018 at 10:00 am The new method has a 99th percentile cutoff of 0.040 ng/mL Specimen Plasma specimen Performing Organization Address City/[facility] Phone Number [facility] [place] [address] PATHOLOGY AND [facility] MEDICINE [address] * Partial thromboplastin time, activated (03/31/2019 1:50 AM CDT) [facility] PTT 27.6 23.0 - 36.0 sec [place] Comment: [facility] PTT therapeutic range for HOSPITAL unfractionated heparin is 61.0-112.0 seconds which corresponds to Anti-Xa 0.3-0.7 U/ml. Specimen Blood Performing Organization Address City/[facility] Phone Number [facility] [place] [address] PATHOLOGY AND [facility] MEDICINE [address] * Prothrombin time with INR (03/31/2019 1:50 AM CDT) [facility] Prothrombin 13.4 11.5 - 14.[address] [facility] INR 1.0 [place] Comment: [facility] The International Normalized HOSPITAL Ratio (INR) is a therapeutic monitoring tool for patients who are stable on oral anticoagulant therapy. An INR of 2.0-3.0 is suggested for deep vein thrombosis/pulmonary embolism. Specimen Blood Performing Organization Address City/[facility] Phone Number [facility] DEPARTMENT OF [address] [place] [address] PATHOLOGY AND [facility] MEDICINE [address] * CBC with platelet and differential (03/31/2019 1:50 AM CDT) Only the most recent of 4 results within the time period is included. [facility] WBC 9.04 4.50 - 11.00 k/uL [facility] RBC 3.99 (L) 4.20 - 5.50 m/uL [facility] HGB 10.9 (L) 12.0 - 16.0 g/dL [facility] HCT 36.6 (L) 37.0 - 47.0 % [facility] MCV 91.7 82.0 - 100.0 fL [facility] MCH 27.3 27.0 - 34.0 pg [facility] MCHC 29.8 (L) 31.0 - 37.0 g/dL [facility] RDW - SD 53.2 37.0 - 55.0 fL [facility] MPV 10.3 8.8 - 13.2 fL [facility] Platelet count 264 150 - 400 k/uL [facility] Nucleated RBC 0.00 /100 WBC [facility] Neutrophils 67.7 39.0 - 69.0 % [facility] Lymphocytes 22.3 (L) 25.0 - 45.0 % [facility] Monocytes 7.2 0.0 - 10.0 % [facility] Eosinophils 1.7 0.0 - 5.0 % [facility] Basophils 0.4 0.0 - 1.0 % [facility] Immature 0.7Comment: "Immature 0.0 - 1.0 % [place] granulocytes granulocytes" (promyelocytes, [facility] myelocytes, metamyelocytes) HOSPITAL Specimen Blood Performing Organization Address City/[facility] Phone Number [facility] [place] [address] PATHOLOGY AND GENOMIC MEDICINE [address] * B natriuretic peptide (03/31/2019 1:50 AM CDT) Only the most recent of 2 results within the time period is included. BNP 13 0 - 100 pg/mL [facility] Specimen Blood Performing Organization Address City/[facility] [place] [address] PATHOLOGY AND GENOMIC MEDICINE [address] * Lactic acid level (03/31/2019 1:50 AM CDT) Only the most recent of 3 results within the time period is included. Lactic acid 2.3 (H) 0.5 - 2.2 mmol/L [facility] Specimen Plasma specimen Performing Organization Address City/[facility] Phone Number [facility] [place] [address] PATHOLOGY AND GENOMIC MEDICINE [address] * Comprehensive metabolic panel (03/31/2019 1:50 AM CDT) Only the most recent of 3 results within the time period is included. Sodium 140 135 - 148 mEq/L [facility] Potassium 4.2 3.5 - 5.0 mEq/L [facility] Chloride 100 98 - 112 mEq/L [facility] CO2 28 24 - 31 mEq/L [facility] Anion gap 12@ANIO 7 - 15 mEq/L [facility] BUN 21 8 - 23 mg/dL [facility] Creatinine 0.66 0.50 - 0.90 mg/dL [facility] Glucose 207 (H) 65 - 99 mg/dL [facility] Calcium 9.3 8.8 - 10.2 mg/dL [facility] Protein 7.2 6.3 - 8.3 g/dL [place] Comment: [facility] HOSPITAL 4.6-7.0 g/dL 1 week 4.4-7.6 g/dL 7 months-1year 5.1-7.3 g/dL 1-2 years5.6-7 .5 g/dL >3 years6.0-8 .0 g/dL 18-150 6.3-8.3 g/dL Albumin 3.1 (L) 3.5 - 5.0 g/dL [facility] A/G ratio 0.8 0.7 - 3.8 [facility] Alkaline 102 35 - 104 U/L [place] phosphatase [facility] AST 20 10 - 35 U/L [facility] ALT 26 5 - 50 U/L [facility] Total bilirubin 0.4 0.0 - 1.2 mg/dL [facility] Specimen Plasma specimen Performing Organization Address City/State/Zipcode Phone Number [facility] DEPARTMENT OF [address] [place] [address] PATHOLOGY AND GENOMIC MEDICINE [address] * ECG 12 lead (03/31/2019 1:40 AM CDT) [facility] Ventricular 108 [facility] MUSE rate Atrial rate 108 [facility] MUSE [place] interval 164 [facility] MUSE QRSD interval 90 [facility] MUSE QT interval 352 [facility] QTC interval 471 [facility] MUSE P axis 1 43 [facility] MUSE QRS axis 1 263 [facility] MUSE T wave axis 34 [facility] MUSE EKG impression Sinus tachycardia-Right [facility] MUSE superior axis deviation-RSR' or QR pattern in V1 suggests right ventricular conduction delay-Poor R Wave Progression-Abnormal ECG-No previous ECGs available- Specimen Narrative Performed At Performing Organization Address City/[facility]/Zipcode Phone Number [facility] [address] [place] [address] * ECG ED Preliminary Interpretation - Not an Order (03/31/2019 1:32 AM CDT) Narrative Performed At Oren Bolton DO 03/31/20195:05 AM ECG ED Preliminary Interpretation - Not an Order Performed by: Oren Bolton DO Authorized by: Oren Bolton DO ECG reviewed by ED Physician in the absence of a clinical team lead: yes Interpretation: Interpretation: abnormal Rate: ECG rate:108 ECG rate assessment: tachycardic Rhythm: Rhythm: sinus tachycardia Ectopy: Ectopy: none QRS: QRS axis:Right QRS intervals:Normal Conduction: Conduction: normal ST segments: ST segments:Normal T waves: T waves: normal * Basic metabolic panel (10/12/2018 4:00 AM TELESERVICES REPRESENTATIVE) Sodium 141 135 - 148 mEq/L [facility] Potassium 4.3 3.5 - 5.0 mEq/L [facility] Chloride 102 98 - 112 mEq/L [facility] CO2 26 24 - 31 mEq/L [facility] Anion gap 13@ANIO 7 - 15 mEq/L [facility] BUN 17 8 - 23 mg/dL [facility] Creatinine 0.72 0.50 - 0.90 mg/dL [facility] Glucose 166 (H) 65 - 99 mg/dL [facility] Calcium 9.1 8.8 - 10.2 mg/dL [facility] Specimen Plasma specimen Performing Organization Address City/[facility]/Zipcode Phone Number [facility] DEPARTMENT OF [address] [place] [address] PATHOLOGY AND GENOMIC MEDICINE [address] * XR Abdomen 1 Vw Portable (10/11/2018 5:20 PM TELESERVICES REPRESENTATIVE) Specimen Narrative Performed At XR ABDOMEN 1 VW PORTABLE [facility] CLINICAL INDICATION:Abdominal distention COMPARISON:None. IMPRESSION: A moderate amount stool is present within the colon. Atherosclerotic changes involving the splenic artery and the left upper quadrant abdomen. The bowel gas pattern is nonspecific. No evidence for free intraperitoneal air. Clips in right upper quadrant abdomen related prior cholecystectomy. [id number] Procedure Note Interface, Radiology Results Incoming - 10/11/2018 5:27 PM TELESERVICES REPRESENTATIVE XR ABDOMEN 1 VW PORTABLE CLINICAL INDICATION: Abdominal distention COMPARISON: None. IMPRESSION: A moderate amount stool is present within the colon. Atherosclerotic changes involving the splenic artery and the left upper quadrant abdomen. The bowel gas pattern is nonspecific. No evidence for free intraperitoneal air. Clips in right upper quadrant abdomen related prior cholecystectomy. [facility]-[id number] Performing Organization Address City/[facility] Phone Number [facility] [address] [place] [address] * Smear review (10/07/2018 8:39 AM TELESERVICES REPRESENTATIVE) Platelet slide Increased (A) [facility] Anisocytosis Moderate [facility] Polychromasia Moderate [facility] Ovalocytes Moderate [facility] Enlarged Moderate (A) [facility] Specimen Performing Organization Address City/[facility] Phone Number [facility] DEPARTMENT OF [address] [place] [address] PATHOLOGY AND GENOMIC MEDICINE [address] * MRI Lumbar Spine Wo Contrast (10/07/2018 7:22 AM TELESERVICES REPRESENTATIVE) Specimen Narrative Performed At EXAMINATION:MRI LUMBAR SPINE WO CONTRAST [facility] CLINICAL HISTORY:severe back pain COMPARISON: None. FINDINGS: Noncontrast MRI lumbar spine is interpreted. The lowest fully formed disc space is designated L5-S1. The conus terminates in a normal position and is normal in signal intensity. There is bone edema in the facet processes about the left L4-5 facet joint and in the adjacent soft tissues. There is bone edema in the facet processes about the right L5-S1 facet joint and in the adjacent soft tissues. L1-2: Moderate disc degenerative changes ventrally. Slight grade 1 anterolisthesis. Minimal disc bulge. Minimal bilateral facet arthrosis. L2-3: Moderate disc degenerative changes. Slight grade 1 retrolisthesis. Minimal disc bulge. Mild canal narrowing. L3-4: Mild disc degenerative changes. Mild disc bulge. Mild bilateral facet arthrosis. Mild canal narrowing. L4-5: Mild disc degenerative changes. Mild disc bulge. Mild/moderate bilateral facet arthrosis. Mild canal narrowing. L5-S1: Mild disc bulge. Mild right facet arthrosis. There is deconditioning of the posterior paraspinous musculature. IMPRESSION: Moderate lumbar spondylosis. No significant canal or foraminal stenosis. Bone edema about the facet processes on the left at L4-5 and on the right at L5-S1. This is likely degenerative or inflammatory. An infectious etiology is not entirely excluded.. [id number] Procedure Note Interface, Radiology Results - 10/07/2018 8:10 AM TELESERVICES REPRESENTATIVE EXAMINATION: MRI LUMBAR SPINE WO CONTRAST CLINICAL HISTORY: severe back pain COMPARISON: None. FINDINGS: Noncontrast MRI lumbar spine is interpreted. The lowest fully formed disc space is designated L5-S1. The conus terminates in a normal position and is normal in signal intensity. There is bone edema in the facet processes about the left L4-5 facet joint and in the adjacent soft tissues. There is bone edema in the facet processes about the right L5-S1 facet joint and in the adjacent soft tissues. L1-2: Moderate disc degenerative changes ventrally. Slight grade 1 anterolisthesis. Minimal disc bulge. Minimal bilateral facet arthrosis. L2-3: Moderate disc degenerative changes. Slight grade 1 retrolisthesis. Minimal disc bulge. Mild canal narrowing. L3-4: Mild disc degenerative changes. Mild disc bulge. Mild bilateral facet arthrosis. Mild canal narrowing. L4-5: Mild disc degenerative changes. Mild disc bulge. Mild/moderate bilateral facet arthrosis. Mild canal narrowing. L5-S1: Mild disc bulge. Mild right facet arthrosis. There is deconditioning of the posterior paraspinous musculature. IMPRESSION: Moderate lumbar spondylosis. No significant canal or foraminal stenosis. Bone edema about the facet processes on the left at L4-5 and on the right at L5- S1. This is likely degenerative or inflammatory. An infectious etiology is not entirely excluded.. [id number] Performing Organization Address City/State/Zipcode Phone Number [facility] [address] [place] [address] * MRI Thoracic Spine Wo Contrast (10/07/2018 7:02 AM TELESERVICES REPRESENTATIVE) Specimen Narrative Performed At [facility] EXAMINATION:MRI THORACIC SPINE WO CONTRAST CLINICAL HISTORY:severe back pain COMPARISON: None. FINDINGS: Noncontrast MRI of the thoracic spine is interpreted. The thoracic cord is normal in volume and in signal intensity. There is bone edema about the left T7-8 facet joint and about the left T11-12 facet joint. Mild edema is noted in the adjacent soft tissues.. Vertebral heights are preserved. Mild multilevel spondylotic changes are present. No significant disc bulge or herniation is seen. No canal or foraminal stenosis is identified. IMPRESSION: Bone edema about the left T7-8 and left T11-12 facet joints, as well as mild edema in the adjacent soft tissues. Differential includes degenerative/inflammatory arthropathy as well as infection. Clinical correlation is recommended. [facility]-[id number] Procedure Note Interface, Radiology Results Incoming - 10/07/2018 8:15 AM TELESERVICES REPRESENTATIVE EXAMINATION: MRI THORACIC SPINE WO CONTRAST CLINICAL HISTORY: severe back pain COMPARISON: None. FINDINGS: Noncontrast MRI of the thoracic spine is interpreted. The thoracic cord is normal in volume and in signal intensity. There is bone edema about the left T7-8 facet joint and about the left T11-12 facet joint. Mild edema is noted in the adjacent soft tissues.. Vertebral heights are preserved. Mild multilevel spondylotic changes are present. No significant disc bulge or herniation is seen. No canal or foraminal stenosis is identified. IMPRESSION: Bone edema about the left T7-8 and left T11-12 facet joints, as well as mild edema in the adjacent soft tissues. Differential includes degenerative/inflammatory arthropathy as well as infection. Clinical correlation is recommended. [facility]-[id number] Performing Organization Address City/State/Zipcode Phone Number [facility] [address] [place] [address] * XR Pelvis 3+ Vw (10/06/2018 6:23 PM TELESERVICES REPRESENTATIVE) Specimen Narrative Performed At EXAMINATION:XR PELVIS 3VW HM [facility] CLINICAL HISTORY:severe hip pain COMPARISON:None. IMPRESSION: There is no evidence of fracture dislocation Degenerative changes present in the hips bilaterally with joint space narrowing and marginal osteophyte formation No evidence of focal lesion [facility]-[id number] Procedure Note Interface, Radiology Results Incoming - 10/06/2018 6:46 PM TELESERVICES REPRESENTATIVE EXAMINATION: XR PELVIS 3 VW CLINICAL HISTORY: severe hip pain COMPARISON: None. IMPRESSION: There is no evidence of fracture dislocation Degenerative changes present in the hips bilaterally with joint space narrowing and marginal osteophyte formation No evidence of focal lesion [facility]-[id number] Performing Organization Address City/[facility]/Zipcode Phone Number [facility] [address] [place] [address] * XR Knee 1 Or 2 Vw Bilateral (10/06/2018 6:22 PM TELESERVICES REPRESENTATIVE) Specimen Narrative Performed At EXAMINATION:XR KNEE 1 OR 2 [facility]W [facility]AL [facility] CLINICAL H[facility]:Knee paininitial exam COMPARISON:None available at this time. IMPRESSION: Marked degenerative change with extensive joint space narrowing in the medial and patellofemoral compartments with extensive osteophyte formation present. Small joint effusion is present No evidence of fracture [facility]-[id number] Procedure Note [facility], Radiology Results Incoming - 10/06/2018 6:46 PM TELESERVICES REPRESENTATIVE EXAMINATION: XR KNEE 1 OR 2 VW BILATERAL CLINICAL HISTORY: Knee pain initial exam COMPARISON: None available at this time. IMPRESSION: Marked degenerative change with extensive joint space narrowing in the medial and patellofemoral compartments with extensive osteophyte formation present. Small joint effusion is present No evidence of fracture [id number] Performing Organization Address [facility] Phone Number [facility] [address] [place] [address] * Respiratory pathogen panel (10/06/2018 3:28 AM TELESERVICES REPRESENTATIVE) Pathologist [facility] Respiratory Negative for all pathogens [place] pathogen panel tested: [facility] Negative for Adenovirus HOSPITAL Negative for Coronavirus HKU1 Negative for Coronavirus NL63 Negative for Coronavirus 229E Negative for Coronavirus OC43 Negative for Human Metapneumovirus Negative for Rhinovirus/Enterovirus Negative for Influenza A Negative for Influenza A/H1 Negative for Influenza A/H3 Negative for Influenza A/H1-2009 Negative for Influenza B Negative for Parainfluenza Virus 1 Negative for Parainfluenza Virus 2 Negative for Parainfluenza Virus 3 Negative for Parainfluenza Virus 4 Negative for Respiratory Syncytial Virus Negative for Bordetella pertussis Negative for Chlamydophila pneumoniae Negative for Mycoplasma pneumoniae This real-time PCR assay detects the presence of nucleic acids (RNA or DNA) for the respiratory pathogens listed. A result of "Not-detected" does not exclude the possibility of the presence of one or more pathogens at concentrations less than the detectable limits of the assay. Comment: Specimen Information Specimen Source: Nares Specimen Site: Right Specimen Nares - Right Performing Organization Address City/State/Zipcode Phone Number [facility] DEPARTMENT OF [address] [place] [address] PATHOLOGY AND GENOMIC MEDICINE [facility] [address] [place] [address] HOSPITAL * CT Abdomen Pelvis W Contrast (10/06/2018 1:08 AM TELESERVICES REPRESENTATIVE) Specimen Narrative Performed At CT ABDOMEN PELVIS W CONTRAST [facility] CLINICAL INDICATION: tachy abd pain TECHNIQUE:Multidetector CT imaging of the abdomen and pelvis was performed following the intravenous administration of iodinated contrast with multiplanar reconstructions.CT imaging was performed with iterative reconstruction technique and/or automated exposure control to reduce radiation dose. COMPARISON:None FINDINGS: LOWER THORAX:Clear. LIVER:Normal. BILIARY:There are surgical changes related to cholecystectomy. There is no abnormal biliary ductal dilation. SPLEEN:Normal. PANCREAS:The pancreas is atrophic. No focal pancreatic lesion is identified. ADRENALS:Normal. KIDNEYS:No mass or hydronephrosis. GI:Large and small bowel are normal in caliber.There are no inflammatory changes.Appendix is visualized and appears normal. VASCULAR:There is calcified atherosclerotic disease of the abdominal aorta and iliac arteries. The abdominal aorta is normal in caliber. There is a peripherally calcified 1.7 cm splenic artery aneurysm. LYMPH NODES:No enlarged lymph nodes in the abdomen or pelvis. PELVIS:The urinary bladder is normal. There is a 1.8 cm fibroid at the posterior aspect of the uterine fundus. BONES:There are no acute osseous abnormalities. OTHER:No ascites or pneumoperitoneum. IMPRESSION: No acute intra-abdominal abnormality is identified. [facility]-[id number] Procedure Note Interface, Radiology Results Incoming - 10/06/2018 1:[address] ABDOMEN PELVIS W CONTRAST CLINICAL INDICATION: tachy abd pain TECHNIQUE: Multidetector CT imaging of the abdomen and pelvis was performed following the intravenous administration of iodinated contrast with multiplanar reconstructions. CT imaging was performed with iterative reconstruction technique and/or automated exposure control to reduce radiation dose. COMPARISON: None FINDINGS: LOWER THORAX: Clear. LIVER: Normal. BILIARY: There are surgical changes related to cholecystectomy. There is no abnormal biliary ductal dilation. SPLEEN: Normal. PANCREAS: The pancreas is atrophic. No focal pancreatic lesion is identified. ADRENALS: Normal. KIDNEYS: No mass or hydronephrosis. GI: Large and small bowel are normal in caliber. There are no inflammatory changes. Appendix is visualized and appears normal. VASCULAR: There is calcified atherosclerotic disease of the abdominal aorta and iliac arteries. The abdominal aorta is normal in caliber. There is a peripherally calcified 1.7 cm splenic artery aneurysm. LYMPH NODES: No enlarged lymph nodes in the abdomen or pelvis. PELVIS: The urinary bladder is normal. There is a 1.8 cm fibroid at the posterior aspect of the uterine fundus. BONES: There are no acute osseous abnormalities. OTHER: No ascites or pneumoperitoneum. IMPRESSION: No acute intra-abdominal abnormality is identified. [facility]-[id number] Performing Organization Address City/[facility] Phone Number [facility] [address] [place] [address] * Blood culture, aerobic & anaerobic (10/05/2018 11:16 PM TELESERVICES REPRESENTATIVE) Only the most recent of 2 results within the time period is included. Blood culture No growth after 5 days of [place] isolate incubation. [facility] Comment: HOSPITAL Specimen Information Specimen Source: Blood Specimen Site: Hand Left Specimen Blood Performing Organization Address City/[facility]ode Phone Number [facility] DEPARTMENT OF [address] [place] [address] PATHOLOGY AND GENOMIC MEDICINE [place] [facility] [address] [place], [place] [id number] HOSPITAL after 04/16/2018 Insurance Type Payer Benefit Subscriber ID Effective Phone Address Plan / Dates Group HMO AETNA MEDICARE AETNA xxxxxxxx [id number] MEDICARE resent HMO PRIME Advance Directives For more information, please contact: [phone] Patient Clothing Presser Explanation Type Date Recorded Medical Power of Land Commissioner- NO BLOOD Advance Directives, 10/05/2018 12:00 AM Living Will and Medical Power of Land Commissioner Advance Directives, 10/24/2018 1:48 AM Living Will and Medical Power of Land Commissioner
--- OUTSIDE RECORDS SUMMARY | 2019-04-17 19:17 | XMS REPORT | Continuity of Care Document ---
Author Author [place] Address Unknown Phone Unavailable Care Team Providers Care Filter Tip Inspector Name Role Phone [employer] Unavailable Unavailable Problems Problem Status Onset Date Classification Date Reported Comments Source Pain in left foot 08/01/2018 02/09/2019 [facility] Left foot pain 07/23/2018 02/09/2019 [facility] FALL Active 07/23/2018 [facility] Constipation, unspecified 03/11/2018 09/21/2018 [facility] Leukocytosis 03/04/2018 09/21/2018 [facility] Acute constipation 03/04/2018 09/21/2018 [facility] Abdominal pain in female. 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 [facility] I72.8 Active 02/20/2018 [facility] R10.9 - UNSPECIFIED ABDOMINAL PAIN Active 09/15/2015 [facility] [place] 571.9 - CHRONIC LIVER D Active 02/16/2015 [facility] [place] Dyspnea Active 09/09/2014 Problem 11/18/2017 [facility] Fever Active 09/09/2014 Problem 11/18/2017 [facility] Leukocytosis Active 09/09/2014 Problem 11/18/2017 [facility] Pneumonia Active 09/09/2014 Problem 11/18/2017 [facility] UTI Active 09/09/2014 Problem 11/18/2017 [facility] FLANK PAIN Active 08/10/2011 [facility] Knee pain Active 07/05/2009 Problem 03/11/2018 [facility] LVH Active 07/05/2009 Problem 03/11/2018 [facility] HTN Active 07/05/2009 Problem 03/11/2018 [facility] URI Active 07/05/2009 Problem 03/11/2018 [facility] Aneurysm1 Active Problem 02/09/2019 [facility] Asthma Active Problem 02/09/2019 [facility] Chronic CHF Active Problem 02/09/2019 [facility] Constipation Active Problem 02/09/2019 [facility] Diabetic neuropathy Active Problem 02/09/2019 [facility] Diabetic nephropathy Active Problem 02/09/2019 [facility] Pedal edema Active Problem 02/09/2019 [facility] Body mass index 45.0-49.9, adult(Confirmed) Active Problem 02/09/2019 [facility] Glaucoma Active Problem 02/09/2019 [facility] Hormone replacement therapy Active Problem 02/09/2019 [facility] Hyperlipidemia Active Problem 02/09/2019 [facility] Hypertension Active Problem 02/09/2019 [facility] Cognitive deficits Active Problem 02/09/2019 [facility] Chronic knee pain Active Problem 02/09/2019 [facility] Post menopausal syndrome Active Problem 02/09/2019 [facility] Physical deconditioning Active Problem 02/09/2019 [facility] Polypharmacy Active Problem 02/09/2019 [facility] Subclinical hypothyroidism Active Problem 02/09/2019 [facility] Uncontrolled type 2 diabetes mellitus Active Problem 02/09/2019 [facility] Unsteady gait Active Problem 02/09/2019 [facility] Aneurysm of other specified arteries 09/21/2018 [facility] Elevated white blood cell count, unspecified 09/21/2018 [facility] Fever, unspecified 09/21/2018 [facility] Hypertensive heart disease with heart failure 02/09/2019 [facility] Heart failure, unspecified 02/09/2019 [facility] Type 2 diabetes mellitus with diabetic nephropathy 09/21/2018 [facility] Type 2 diabetes mellitus with diabetic neuropathy, unspecified 09/21/2018 [facility] Hyperlipidemia, unspecified 02/09/2019 [facility] Obesity, unspecified 09/21/2018 [facility] USP use of insulin 02/09/2019 [facility] Type 2 diabetes mellitus without complications 02/09/2019 [facility] Fall on same level from slipping, tripping and stumbling without subsequent striking against object, initial encounter 02/09/2019 [facility] Bed confinement status 02/09/2019 [facility] Hypothyroidism, unspecified 02/09/2019 [facility] Aneurysm Active Problem 03/11/2018 [facility] Medications Medication Details Route Status Patient Instructions Ordering Provider Order Date Source meloxicam 15 mg oral tablet See Instructions, # 90 unknown unit, Refill(s) 1, 1 tab PO Daily,x90 day,PRN:arthritis, Pharmacy: [facility] Active 04/18/2018 [facility] pantoprazole 40 mg oral enteric coated tablet See Instructions, # 90 unknown unit, Refill(s) 1, Take 1 tablet by mouth daily., Pharmacy: [facility] Active 04/18/[facility] Metoprolol Tartrate 25 mg oral tablet See Instructions, # 180 unknown unit, Refill(s) 1, Take 1 tablet by mouth twice daily., Pharmacy: [facility] Active 04/18/2018 [facility] Furosemide 40 MG Oral Tablet See Instructions, # 270 unknown unit, Refill(s) 1, Take 1 and 1/2 tablets by mouth twice daily., Pharmacy: [facility] Active 04/18/2018 [facility] Clonidine Hydrochloride 0.2 MG Oral Tablet See Instructions, # 90 unknown unit, Refill(s) 1, Take 1 tablet by mouth daily., Pharmacy: [facility] Active 04/18/2018 [facility] spironolactone 25 mg oral tablet See Instructions, # 90 unknown unit, Refill(s) 1, Take 1 tablet by mouth daily., Pharmacy: [facility] Active 04/18/2018 [facility] atorvastatin 20 mg oral tablet See Instructions, # 90 unknown unit, Refill(s) 1, Take 1 tablet by mouth at bedtime., Pharmacy: [facility] Active 04/18/2018 [facility] 3 ML Insulin, Aspart, Human 100 UNT/ML Pen Injector [NovoLog] See Instructions, # 60 unknown unit, Refill(s) 1, Inject 18 units subcutaneously three times daily before meals., Pharmacy: [facility] Active 03/24/2018 [facility] 3 ML Insulin, Aspart, Human 100 UNT/ML Pen Injector [NovoLog] 18 unit, SUB-Q, TID-Before Meals, # 90 unit, 1 Refill(s), Pharmacy: [facility], 90 day rx No Longer Active 03/19/2018 [facility] POLYETHYLENE GLYCOL 3350 142 MG/ML Oral Solution [Miralax] 17 gm, PO, Daily, X 31 day, # 527 gm, 0 Refill(s) No Longer Active 03/05/2018 [facility] Docusate Sodium 100 MG Oral Capsule [Colace] 100 mg=1 cap, PO, BID, PRN Constipation, # 60 cap, 0 Refill(s) Active 03/05/2018 [facility] Metronidazole 500 MG Oral Tablet [Flagyl] 500 mg=1 tab, PO, Q8H, X 10 day, # 30 tab, 0 Refill(s) No Longer Active 03/05/2018 [facility] Fentanyl 50 microgram, 1 mL, Route: IVP, Drug form: INJ, ONCE, Dosing Weight 111.364, kg, Priority: STAT, Start date: 03/04/18 20:10:00 CDT, Stop date: 03/04/18 20:10:00 CDTNotes: (Same as: Sublimaze) Preservative free. Inactive 03/05/2018 [facility] Saline Flush 0.9% 10 mL, Route: IVP, Drug Form: INJ, Dosing Weight 110.455, kg, PRN, PRN Line Flush, Start date: 03/04/18 15:12:00 CDT, Duration: 30 day, Stop date: 04/03/18 15:11:00 CDTNotes: (Same as: BD Posiflush) No Longer Active 03/04/2018 [facility] Ceftriaxone 1 Gram Solution For Injection Intramuscular Inactive 03/03/2018 [facility] Lidocaine 10 Mg/Ml (1 %) Injection Solution Injection Inactive 03/03/2018 [facility] Levofloxacin 500 Mg Tablet Levaquin 500 Mg Tablet Take 1 tablet by mouth daily for 10 days. Oral Active 03/03/2018 [facility] Zolpidem 5 Mg Tablet Ambien 5 Mg Tablet Take 1 tablet by mouth at bedtime nightly. Oral Active 03/03/2018 [facility] Estradiol 0.5 Mg Tablet TAKE 1 TABLET BY MOUTH EVERY DAY Active 02/24/2018 [facility] Medroxyprogesterone 5 Mg Tablet Take 1 tablet by mouth daily. Active 02/21/2018 [facility] Lyrica 200 Mg Capsule TAKE ONE CAPSULE BY MOUTH THREE TIMES DAILY. Active 02/20/2018 [facility] Hydrocodone 10 Mg-Acetaminophen 325 Mg Tablet Take 1.5 tablets by mouth 6 times daily. Oral Active 02/20/2018 [facility] Amoxicillin 875 Mg-Potassium Clavulanate 125 Mg Tablet Augmentin 875 Mg-125 Mg Tablet Take 1 tablet by mouth 2 times daily for 14 days. Oral No Longer Active 02/20/2018 [facility] Metformin 1,000 Mg Tablet Take 1 tablet by mouth twice daily with meals. Active 02/17/2018 [facility] Clopidogrel 75 Mg Tablet Take 1 tablet by mouth daily. Oral Active 02/17/2018 [facility] Diclofenac 3 % Topical Gel APPLY 1-2 GRAMS TOPICALLY TO AFFECTED AREA 2-3 TIMES PER DAY Active 02/13/2018 [facility] Clonidine Hcl 0.2 Mg Tablet TAKE 1 TABLET BY MOUTH DAILY Oral Active 02/11/2018 [facility] Fluocinonide 0.1 % Topical Cream APPLY 1-2 GRAMS TOPICALLY TO AFFECTED AREA 1-2 TIMES PER DAY. Active 02/07/2018 [facility] Levemir Flextouch U-100 Insulin 100 Unit/Ml (3 Ml) Subcutaneous Pen Inject 35 Units under the skin daily for 184 days. Subcutaneous Active 02/07/2018 [facility] Acetaminophen 300 MG / Codeine Phosphate 30 MG Oral Tablet [Tylenol with Codeine #3] 1 tab, PO, TID, PRN Pain, X 10 day, # 30 tab, 0 Refill(s) Active 02/04/2018 [facility] Levemir Flextouch U-100 Insulin 100 Unit/Ml (3 Ml) Subcutaneous Pen Inject 35 Units under the skin daily for 184 days. Subcutaneous No Longer Active 02/04/2018 [facility] Fluocinonide 0.1 % Topical Cream APPLY 1-2 GRAMS TOPICALLY TO AFFECTED AREA 1-2 TIMES PER DAY. No Longer Active 01/31/2018 [facility] Medroxyprogesterone 5 Mg Tablet Take 1 tablet by mouth daily. No Longer Active 01/30/2018 [facility] Metolazone 10 Mg Tablet Take 1 tablet by mouth daily 30 minutes prior to the bumex in the morning. Active 01/29/2018 [facility] Metformin hydrochloride 1000 MG Oral Tablet 1,000 mg=1 tab, PO, BID-Meals, # 180 tab, 0 Refill(s), Pharmacy: [facility] [id number] Active 01/08/2018 [facility] Medroxyprogesterone 5 Mg Tablet Take 1 tablet by mouth daily. No Longer Active 12/18/2017 [facility] Meloxicam 15 Mg Tablet Take 1 tablet by mouth daily. Oral Active 12/17/2017 [facility] meloxicam 15 mg oral tablet 15 mg=1 tab, PO, Daily, PRN arthritis, # 90 tab, 1 Refill(s), Pharmacy: [facility] Active 12/05/2017 [facility] Symbicort 160/4.5 inhalation aerosol with adapter 2 puff, INHALER, BID, # 3 ea, 3 Refill(s), Pharmacy: [facility] Active 12/05/2017 [facility] Fluticasone propionate 0.05 MG/ACTUAT Metered Dose Nasal [place] 1 spray, NASAL, Daily, # 3 ea, 3 Refill(s), Pharmacy: [facility] Active 12/05/2017 [facility] Diclofenac 3 % Topical Gel Apply to affected area 4 times daily. Topical Inactive 12/04/2017 [facility] pantoprazole 40 mg oral enteric coated tablet 40 mg=1 tab, PO, Daily, # 90 tab, 1 Refill(s) Active 11/27/2017 [facility] 3 ML Insulin, Aspart, Human 100 UNT/ML Pen Injector [NovoLog] 18 unit, SUB-Q, TID-Before Meals, # 4 box, 1 Refill(s) Active 11/27/2017 [facility] Linagliptin 5 MG Oral Tablet [Tradjenta] 5 mg=1 tab, PO, Daily, # 90 tab, 1 Refill(s) Active 11/27/2017 [facility] Estradiol 0.5 Mg Tablet TAKE 1 TABLET BY MOUTH EVERY DAY No Longer Active 11/26/2017 [facility] Furosemide 40 MG Oral Tablet 60 mg=1.5 tab, PO, BID, # 270 tab, 1 Refill(s) Active 11/22/2017 [facility] Clonidine Hydrochloride 0.2 MG Oral Tablet 0.2 mg=1 tab, PO, Daily, # 90 tab, 1 Refill(s) Active 11/22/2017 [facility] atorvastatin 20 mg oral tablet 20 mg=1 tab, PO, Bedtime, # 90 tab, 1 Refill(s) Active 11/22/2017 [facility] spironolactone 25 mg oral tablet 25 mg=1 tab, PO, Daily, # 90 tab, 1 Refill(s) Active 11/22/2017 [facility] metoprolol tartrate 25 mg oral tablet 25 mg=1 tab, PO, BID, # 180 tab, 1 Refill(s) Active 11/22/2017 [facility] Tradjenta 5 Mg Tablet Take 1 tablet by mouth daily. Oral Active 11/21/2017 [facility] Meloxicam 15 Mg Tablet Take 1 tablet by mouth daily. Oral No Longer Active 11/21/2017 [facility] Lyrica 200 Mg Capsule TAKE ONE CAPSULE BY MOUTH TWICE DAILY. No Longer Active 11/21/2017 [facility] Hydrocodone 10 Mg-Acetaminophen 325 Mg Tablet Take 1.5 tablets by mouth 6 times daily. Oral No Longer Active 11/21/2017 [facility] Amoxicillin 500 Mg Capsule Take 1 capsule by mouth 3 times daily for 14 days. Oral No Longer Active 11/21/2017 [facility] Phentermine 37.5 Mg Capsule Adipex-P 37.5 Mg Capsule Take 1 capsule by mouth 2 times daily. Oral Active 11/21/2017 [facility] Metformin 1,000 Mg Tablet Take 1 tablet by mouth 2 times daily (with meals). Oral No Longer Active 11/21/2017 [facility] 3 ML Insulin, Aspart, Human 100 UNT/ML Pen Injector [NovoLog] 18 unit, SUB-Q, TID-Before Meals, X 90 day, # 4 box, 1 Refill(s), Pharmacy: [facility] [id number] No Longer Active 11/07/2017 [facility] Metformin hydrochloride 1000 MG Oral Tablet 1,000 mg=1 tab, PO, BID-Meals, # 30 tab, 0 Refill(s) No Longer Active 11/07/2017 [facility] Lyrica 200 Mg Capsule TAKE ONE CAPSULE BY MOUTH TWICE DAILY Inactive 10/25/2017 [facility] Acetaminophen 325 MG / Hydrocodone Bitartrate 10 MG Oral Tablet 1 tab, PO, Q6H, 0 Refill(s) Active 10/18/2017 [facility] Lyrica PO, BID, 0 Refill(s) Active 10/18/2017 [facility] spironolactone 25 mg oral tablet 25 mg=1 tab, PO, Daily, # 30 tab, 3 Refill(s) No Longer Active 10/18/2017 [facility] Glucosamine Chondroitin MSM Complex 0 Refill(s) Active 10/18/2017 [facility] Medroxyprogesterone 2.5 mg, PO, Daily, 0 Refill(s) Active 10/18/2017 [facility] tizanidine 4 mg oral capsule 4 mg=1 cap, PO, Bedtime, PRN for muscle spasm, # 30 cap, 0 Refill(s) No Longer Active 10/18/2017 [facility] Estradiol 0.5 MG Oral Tablet [Estrace] 0.5 mg=1 tab, PO, Daily, # 30 tab, 0 Refill(s) Active 10/18/2017 [facility] Metolazone 10 MG Oral Tablet 10 mg=1 tab, PO, Daily, # 30 tab, 0 Refill(s) Active 10/18/2017 [facility] clopidogrel 75 mg oral tablet 75 mg=1 tab, PO, Daily, # 90 tab, 0 Refill(s) Active 10/18/2017 [facility] Linagliptin 5 MG Oral Tablet [Tradjenta] 5 mg=1 tab, PO, Daily, # 30 tab, 3 Refill(s) No Longer Active 10/18/2017 [facility] Super B Complex oral tablet 1 tab, PO, Daily, 0 Refill(s) Active 10/18/2017 [facility] Humalog 16 unit, SUB-Q, 0 Refill(s) No Longer Active 10/18/2017 [facility] Levemir 40 unit, SUB-Q, BID, 0 Refill(s) Active 10/18/2017 [facility] metoprolol tartrate 25 mg oral tablet 25 mg=1 tab, PO, BID, # 180 tab, 0 Refill(s) No Longer Active 10/18/2017 [facility] atorvastatin 20 mg oral tablet 20 mg=1 tab, PO, Bedtime, # 30 tab, 0 Refill(s) No Longer Active 10/18/2017 [facility] Clonidine Hydrochloride 0.2 MG Oral Tablet 0.2 mg=1 tab, PO, Daily, 0 Refill(s) No Longer Active 10/18/2017 [facility] Furosemide 40 MG Oral Tablet 1.5, PO, BID, 0 Refill(s) No Longer Active 10/18/2017 [facility] pantoprazole 40 mg oral granule =1 Pack, PO, Daily, # 30 ea, 0 Refill(s) No Longer Active 10/18/2017 [facility] meloxicam 15 mg oral tablet 15 mg=1 tab, PO, Daily, # 30 tab, 0 Refill(s) No Longer Active 10/18/2017 [facility] Tradjenta 5 Mg Tablet Take 1 tablet by mouth daily. Oral No Longer Active 10/17/2017 [facility] Bisacodyl 5 Mg Tablet,Delayed Release Dulcolax (Bisacodyl) 5 Mg Tablet,Delayed Release Take 1 tablet by mouth at bedtime nightly. Oral Active 10/17/2017 [facility] Hydrocortisone Acetate 25 Mg Rectal Suppository Anusol-Hc 25 Mg Rectal Suppository Insert 1 Suppository rectally 2 times daily for 10 days. Rectal No Longer Active 10/17/2017 [facility] Hydrocodone 10 Mg-Acetaminophen 325 Mg Tablet Take 1.5 tablets by mouth 6 times daily. Oral No Longer Active 10/17/2017 [facility] Movantik 12.5 Mg Tablet Take 1 tablet by mouth daily. Oral Active 10/17/2017 [facility] Blood Sugar Diagnostic Strips 1 Each 2 times daily to test blood sugar. Active 10/14/2017 [facility] Hydrocodone 10 Mg-Acetaminophen 325 Mg Tablet Take 1.5 tablets by mouth 6 times daily. Oral No Longer Active 10/10/2017 [facility] Medroxyprogesterone 2.5 Mg Tablet Provera 2.5 Mg Tablet Take 1 tablet by mouth daily. Oral Active 10/10/2017 [facility] Metolazone 10 Mg Tablet Take 1 tablet by mouth daily Take one tablet 30 minutes prior to the bumex in the morning. Oral No Longer Active 10/10/2017 [facility] Levemir Flextouch U-100 Insulin 100 Unit/Ml (3 Ml) Subcutaneous Pen Inject 35 Units under the skin daily for 184 days. Subcutaneous No Longer Active 10/10/2017 [facility] Humalog U-100 Insulin 100 Unit/Ml Subcutaneous Solution Inject 20 Units under the skin 2 times daily (before meals). Subcutaneous Active 10/10/2017 [facility] Blood Sugar Diagnostic Strips True Metrix Glucose Test Strip Check blood sugar 3 times daily. Active 10/10/2017 [facility] Omeprazole 40 Mg Capsule,Delayed Release TAKE 1 CAPSULE BY MOUTH TWICE DAILY Active 09/19/2017 [facility] Hydrocodone 10 Mg-Acetaminophen 325 Mg Tablet Take 1.5 tablets by mouth 6 times daily. Oral No Longer Active 09/05/2017 [facility] Sucralfate 100 Mg/Ml Oral Suspension Carafate 100 Mg/Ml Oral Suspension Take 10 mL by mouth 4 times daily. Oral Active 09/05/2017 [facility] Tradjenta 5 Mg Tablet Take 1 tablet by mouth daily. Oral No Longer Active 09/05/2017 [facility] budesonide-formoterol (SYMBICORT HFA) 160-4.5 mcg/actuation inhaler Inhale 2 Puffs by mouth 2 times daily for 360 days. Inhalation Active 09/05/2017 [facility] Hydrocodone 10 Mg-Acetaminophen 325 Mg Tablet Take 1.5 tablets by mouth 6 times daily. Oral No Longer Active 08/01/2017 [facility] Lyrica 200 Mg Capsule Take 1 capsule by mouth 2 times daily. Oral Active 08/01/2017 [facility] Bisacodyl 5 mg Tab Take 10 mg by mouth. Oral Active 08/01/2017 [facility] Lactulose 10 Gram/15 Ml Oral Solution Constulose 10 Gram/15 Ml Oral Solution Take 30 mL by mouth 3 times daily. Oral Active 08/01/2017 [facility] Prempro 0.625 Mg-2.5 Mg Tablet Take 1 tablet by mouth daily. Oral Active 08/01/2017 [facility] Amoxicillin 875 Mg-Potassium Clavulanate 125 Mg Tablet Augmentin 875 Mg-125 Mg Tablet Take 1 tablet by mouth 2 times daily for 14 days. Oral No Longer Active 08/01/2017 [facility] Montelukast 10 Mg Tablet Singulair 10 Mg Tablet Take 1 tablet by mouth at bedtime nightly. Oral Active 08/01/2017 [facility] Fluconazole 200 Mg Tablet Diflucan 200 Mg Tablet Take 2 tablets by mouth 2 times weekly. Oral Active 06/27/2017 [facility] Amoxicillin 875 Mg-Potassium Clavulanate 125 Mg Tablet Augmentin 875 Mg-125 Mg Tablet Take 1 tablet by mouth 2 times daily for 14 days. Oral No Longer Active 06/27/2017 [facility] Hydrocodone 10 Mg-Acetaminophen 325 Mg Tablet Take 1.5 tablets by mouth 6 times daily. Oral No Longer Active 06/27/2017 [facility] Meloxicam 15 Mg Tablet Take 1 tablet by mouth daily. Oral No Longer Active 06/27/2017 [facility] Estradiol 2 Mg Tablet Take 1 tablet by mouth daily. Oral Active 06/27/2017 [facility] Medroxyprogesterone 5 Mg Tablet Provera 5 Mg Tablet Take 1 tablet by mouth daily. Oral No Longer Active 06/27/2017 [facility] Montelukast 10 Mg Tablet Singulair 10 Mg Tablet Take 1 tablet by mouth at bedtime nightly. Oral Active 06/27/2017 [facility] Fluticasone 50 McG/Actuation Nasal [place],Suspension Flonase 50 McG/Actuation Nasal [place],Suspension Use 2 Sprays in each nostril daily. Active 06/27/2017 [facility] Glimepiride 2 Mg Tablet TAKE 1 TABLET BY MOUTH EVERY MORNING BEFORE BREAKFAST Active 06/10/2017 [facility] Ceftriaxone 1 Gram Solution For Injection Intramuscular Inactive 05/23/2017 [facility] Lidocaine 10 Mg/Ml (1 %) Injection Solution Injection Inactive 05/23/2017 [facility] triamcinolone acetonide (KENALOG-40) injection 80 mg Intramuscular Inactive 05/23/2017 [facility] Hydrocodone 10 Mg-Acetaminophen 325 Mg Tablet Take 1.5 tablets by mouth 6 times daily. Oral No Longer Active 05/23/2017 [facility] Azithromycin 500 Mg Tablet Zithromax 500 Mg Tablet Take 1 tablet by mouth daily. Oral Active 05/23/2017 [facility] Blood Sugar Diagnostic Strips 1 Each 2 times daily to test blood sugar. No Longer Active 05/23/2017 [facility] Clopidogrel 75 Mg Tablet Plavix 75 Mg Tablet Take 1 tablet by mouth daily. Oral No Longer Active 05/23/2017 [facility] budesonide-formoterol (SYMBICORT HFA) 160-4.5 mcg/actuation inhaler Inhale 2 Puffs by mouth 2 times daily for 360 days. Inhalation No Longer Active 05/23/2017 [facility] Albuterol Sulfate Hfa 90 McG/Actuation Aerosol Inhaler Inhale 2 Puffs by mouth 4 times daily as needed for Wheezing. Inhalation Active 05/23/2017 [facility] Ergocalciferol (Vitamin D2) 50,000 Unit Capsule Take 1 capsule by mouth weekly. Oral Active 05/23/2017 [facility] Clonidine Hcl 0.2 Mg Tablet Take 1 tablet by mouth daily. Oral Active 05/23/2017 [facility] Mupirocin 2 % Topical Ointment Apply to affected area 3 times daily. Topical Active 05/23/2017 [facility] Albuterol Sulfate 2.5 Mg/3 Ml (0.083 %) Solution For Nebulization Inhale 3 mL by mouth every 4 hours as needed for Wheezing or Shortness of Breath. Inhalation Active 05/23/2017 [facility] Meloxicam 15 Mg Tablet Take 1 tablet by mouth daily. Oral No Longer Active 05/23/2017 [facility] Clonidine Hcl 0.2 Mg Tablet TAKE 1 TABLET BY MOUTH DAILY Oral No Longer Active 05/09/2017 [facility] Hydrocodone 10 Mg-Acetaminophen 325 Mg Tablet Take 1.5 tablets by mouth 6 times daily. Oral No Longer Active 04/25/2017 [facility] Azithromycin 500 Mg Tablet Zithromax 500 Mg Tablet Take 1 tablet by mouth daily. Oral No Longer Active 04/25/2017 [facility] Hydrocodone 10 Mg-Acetaminophen 325 Mg Tablet Take 1.5 tablets by mouth 6 times daily. Oral No Longer Active 03/14/2017 [facility] Movantik 12.5 Mg Tablet Take 12.5 mg by mouth daily as needed. Oral Inactive 03/14/2017 [facility] Ondansetron 4 Mg Disintegrating Tablet Zofran Odt 4 Mg Disintegrating Tablet Take 1 tablet by mouth every 8 hours as needed for Nausea. Oral Inactive 03/14/2017 [facility] Lyrica 200 Mg Capsule Take 1 capsule by mouth 2 times daily. Oral No Longer Active 03/14/2017 [facility] Metformin 1,000 Mg Tablet Take 1 tablet by mouth 2 times daily (with meals). Oral No Longer Active 03/07/2017 [facility] Metolazone 10 Mg Tablet Take 1 tablet by mouth daily Take one tablet 30 minutes prior to the bumex in the morning. Oral No Longer Active 03/07/2017 [facility] Ergocalciferol (Vitamin D2) 50,000 Unit Capsule Take 1 capsule by mouth weekly. Oral No Longer Active 01/31/2017 [facility] Blood-Glucose Meter Any glucometer as allowed by insurance carrier. Active 01/31/2017 [facility] Lancets by MISCELLANEOUS route 2 times daily. Active 01/31/2017 [facility] Blood Sugar Diagnostic Strips 1 Each 2 times daily to test blood sugar. No Longer Active 01/31/2017 [facility] Hydrocodone 10 Mg-Acetaminophen 325 Mg Tablet Take 1.5 tablets by mouth 6 times daily. Oral No Longer Active 01/31/2017 [facility] Clopidogrel 75 Mg Tablet Plavix 75 Mg Tablet Take 1 tablet by mouth daily. Oral No Longer Active 01/31/2017 [facility] Amoxicillin 500 Mg Capsule Take 1 capsule by mouth 3 times daily for 10 days. Oral No Longer Active 01/31/2017 [facility] Estradiol 2 Mg Tablet Take 1 tablet by mouth daily. Oral No Longer Active 10/18/2016 [facility] Medroxyprogesterone 5 Mg Tablet Provera 5 Mg Tablet Take 1 tablet by mouth daily. Oral No Longer Active 10/18/2016 [facility] budesonide-formoterol (SYMBICORT HFA) 160-4.5 mcg/actuation inhaler Inhale 2 Puffs by mouth 2 times daily. Inhalation Active 10/18/2016 [facility] Movantik 12.5 Mg Tablet Take 12.5 mg by mouth daily as needed. Oral No Longer Active 09/13/2016 [facility] Estradiol 0.5 Mg Tablet Take 1 tablet by mouth daily. Oral No Longer Active 09/13/2016 [facility] Ondansetron 4 Mg Disintegrating Tablet Zofran Odt 4 Mg Disintegrating Tablet Take 1 tablet by mouth every 8 hours as needed for Nausea. Oral No Longer Active 09/13/2016 [facility] Azithromycin 500 Mg Tablet Zithromax 500 Mg Tablet Take 1 tablet by mouth daily. Oral No Longer Active 08/09/2016 [facility] Omeprazole 40 Mg Capsule,Delayed Release Take 1 capsule by mouth 2 times daily. Oral Active 08/09/2016 [facility] budesonide-formoterol (SYMBICORT HFA) 160-4.5 mcg/actuation inhaler Inhale 2 Puffs by mouth 2 times daily for 360 days. Inhalation No Longer Active 08/09/2016 [facility] Metoprolol Tartrate 50 Mg Tablet Lopressor 50 Mg Tablet Take 1 tablet by mouth 2 times daily. Oral Active 08/09/2016 [facility] Metformin 1,000 Mg Tablet Take 1 tablet by mouth 2 times daily (with meals). Oral No Longer Active 08/09/2016 [facility] Lyrica 200 Mg Capsule Take 1 capsule by mouth 2 times daily. Oral No Longer Active 08/09/2016 [facility] Montelukast 10 Mg Tablet Singulair 10 Mg Tablet Take 1 tablet by mouth at bedtime nightly. Oral No Longer Active 08/09/2016 [facility] Venlafaxine Er 37.5 Mg Capsule,Extended Release 24 Hr Effexor Xr 37.5 Mg Capsule,Extended Release Take 1 capsule by mouth 2 times daily. Oral Active 08/09/2016 [facility] Potassium Chloride Er 8 Meq Tablet,Extended Release Take 1 tablet by mouth daily. Oral Active 08/09/2016 [facility] Loratadine 10 Mg Tablet Claritin 10 Mg Tablet Take 1 tablet by mouth daily. Oral Active 08/09/2016 [facility] Theophylline Er 200 Mg Tablet,Extended Release,12 Hr Theochron 200 Mg Tablet,Extended Release Take 1 tablet by mouth daily. Oral Active 08/09/2016 [facility] Clonidine Hcl 0.2 Mg Tablet Catapres 0.2 Mg Tablet Take 1 tablet by mouth daily. Oral No Longer Active 04/26/2016 [facility] Medroxyprogesterone 2.5 Mg Tablet Provera 2.5 Mg Tablet Take 1 tablet by mouth daily. Oral No Longer Active 03/08/2016 [facility] Lyrica 200 Mg Capsule Take 1 capsule by mouth 2 times daily. Oral Active 03/08/2016 [facility] Glimepiride 2 Mg Tablet Amaryl 2 Mg Tablet Take 1 tablet by mouth every morning (before breakfast). Oral No Longer Active 03/08/2016 [facility] Theophylline Er 200 Mg Tablet,Extended Release,12 Hr Theochron 200 Mg Tablet,Extended Release Take 1 tablet by mouth 2 times daily. Oral Active 02/02/2016 [facility] Theophylline Er 100 Mg Tablet,Extended Release,12 Hr Theochron 100 Mg Tablet,Extended Release Take 1 tablet by mouth 2 times daily. Oral Active 02/02/2016 [facility] Simethicone 80 Mg Chewable Tablet Chew and swallow 1 tablet by mouth every 6 hours as needed for Flatulence. Active 02/02/2016 [facility] Lyrica 200 Mg Capsule Take 1 capsule by mouth 2 times daily. Oral Active 12/29/2015 [facility] Meclizine 25 Mg Tablet Take 1 tablet by mouth 3 times daily as needed for Other (dizziness). Oral Active 12/29/2015 [facility] Ondansetron Hcl 4 Mg Tablet Zofran 4 Mg Tablet Take 1 tablet by mouth every 6 hours. Oral Active 12/01/2015 [facility] Promethazine 25 Mg Tablet Take 1 tablet by mouth every 8 hours as needed for Nausea or Vomiting. Oral Active 10/27/2015 [facility] Pantoprazole 40 Mg Tablet,Delayed Release Protonix 40 Mg Tablet,Delayed Release Take 1 tablet by mouth daily. Oral Active 10/27/2015 [facility] Premarin 0.625 Mg Tablet Take 1 tablet by mouth daily. Oral Active 10/27/2015 [facility] Estrace 0.01% (0.1 Mg/Gram) Vaginal Cream Insert 1 g vaginally 3 times weekly. Vaginal Active 09/30/2015 [facility] Advair Diskus 250 McG-50 McG/Dose Powder For Inhalation Inhale 1 Puff by mouth 2 times daily. Inhalation Active 09/29/2015 [facility] Premarin 0.625 Mg/Gram Vaginal Cream Insert 1 g vaginally 3 times weekly. Vaginal Active 09/23/2015 [facility] Metolazone 10 Mg Tablet Take 1 tablet by mouth daily Take one tablet 30 minutes prior to the bumex in the morning. Oral No Longer Active 09/01/2015 [facility] Xifaxan 550 Mg Tablet Take 1 tablet by mouth 2 times daily. Oral Active 09/01/2015 [facility] estrogen, conjugated,-medroxyprogesterone (PREMPRO) 0.625-2.5 mg per tablet Take 1 tablet by mouth daily. Oral Active 09/01/2015 [facility] Bumetanide 1 Mg Tablet TAKE 2 TABLET BY MOUTH TWICE DAILY Active 08/25/2015 [facility] Xifaxan 550 Mg Tablet IN BASKET MD FOR FCCTake 1 tablet by mouth 2 times daily. Oral Active 08/01/2015 [facility] Tramadol 50 Mg Tablet Take 1 tablet by mouth every 6 hours as needed for Pain. Oral Active 07/28/2015 [facility] Scalpicin Anti-Itch 1 % Topical Solution Apply to affected area 2 times daily. Topical Active 07/28/2015 [facility] Ergocalciferol (Vitamin D2) 50,000 Unit Capsule Vitamin D2 50,000 Unit Capsule Take 1 capsule by mouth weekly. Oral Active 07/28/2015 [facility] Fluconazole 200 Mg Tablet Diflucan 200 Mg Tablet Take 2 tablets by mouth 2 times weekly. Oral Active 06/23/2015 [facility] Lyrica 100 Mg Capsule Take 1 capsule by mouth 3 times daily. Oral Active 04/28/2015 [facility] Tizanidine 4 Mg Tablet Take 1 tablet by mouth 2 times daily as needed for Muscle Spasms. Oral Active 12/23/2014 [facility] Atorvastatin 20 Mg Tablet Take 1 tablet by mouth at bedtime nightly. Oral Active 12/23/2014 [facility] Cetirizine 10 Mg Tablet Zyrtec 10 Mg Tablet Take 1 tablet by mouth daily. Oral Active 12/23/2014 [facility] Benzonatate 200 Mg Capsule Take 1 capsule by mouth 3 times daily as needed for Cough. Oral Active 12/23/2014 [facility] Albuterol Sulfate Hfa 90 McG/Actuation Aerosol Inhaler Inhale 2 Puffs by mouth every 4 hours as needed for Wheezing or Shortness of Breath. Inhalation Active 11/04/2014 [facility] Qvar 80 McG/Actuation Metered Aerosol Oral Inhaler Inhale 2 Puffs by mouth 2 times daily. Inhalation Active 11/04/2014 [facility] Hydrochlorothiazide 12.5 Mg Capsule, Mg Oral Daily Active 09/19/2014 [facility] Lansoprazole (Prevacid) 15 Mg Tab.rap.dr, Mg Oral Daily Active 09/19/2014 [facility] Torsemide 20 Mg Tablet, 40 Mg Oral Daily Active 09/19/2014 [facility] Gabapentin 300 Mg Capsule, 300 Mg Oral Three Times A Day Active 09/09/2014 [facility] Azithromycin 500 Mg Tablet Take 1 tablet by mouth daily. Oral Active 04/22/2014 [facility] Ergocalciferol (Vitamin D2) 50,000 Unit Capsule Vitamin D2 50,000 Unit Capsule Take 1 capsule by mouth weekly. Oral Active 04/22/2014 [facility] Lidocaine 5 % Topical Patch PLACE ONE PATCH ON EACH KNEE FOR 12 HOURS TO RELIEVE PAIN. Active 04/22/2014 [facility] Spironolactone 25 Mg Tablet Take 1 tablet by mouth daily. Oral Active 12/10/2013 [facility] Tramadol 50 Mg Tablet Take 1 tablet by mouth every 6 hours as needed for Pain. Oral Active 12/10/2013 [facility] Docusate Sodium 100 Mg Capsule Take 1 capsule by mouth 2 times daily as needed for Constipation. Oral Active 12/10/2013 [facility] Albuterol Sulfate (Proventil Hfa) 6.7 Gm Hfa.aer.ad, 90 Mcg Inhalation Every 4 Hours as needed Active 05/06/2013 [facility] Hydrochlorothiazide 12.5 Mg Capsule Take 1 capsule by mouth every morning. Oral Active 04/30/2013 [facility] Mupirocin 2 % Topical Ointment Apply to affected area 3 times daily. Topical Active 03/05/2013 [facility] Atorvastatin 20 Mg Tablet Take 1 tablet by mouth at bedtime. Oral Active 10/16/2012 [facility] Amlodipine 5 Mg Tablet Take 1 tablet by mouth daily. Oral Active 10/16/2012 [facility] esomeprazole (NEXIUM) 40 mg delayed release capsule Take 1 capsule by mouth every morning (before breakfast). Oral Active 10/16/2012 [facility] Mupirocin 2 % Topical Ointment Apply to affected area 3 times daily. Topical Active 05/01/2012 [facility] Lansoprazole 15 Mg Capsule,Delayed Release Take 2 capsules by mouth daily. Oral Active 05/01/2012 [facility] Losartan 50 Mg Tablet Take 1 tablet by mouth daily. Oral Active 01/31/2012 [facility] Dilaudid 1 mg, Route: IV, ONCE, Priority: STAT, Start date: 08/11/11 1:39:00, Stop date: 08/11/11 1:39:00 IV No Longer Active [place] 08/11/2011 [facility] acetaminophen-hydrocodone 500 mg-7.5 mg oral tablet 1 tab, PO, Q6H, 20 tab, Substitution Allowed, Maintenance PO Active [place] 08/11/2011 [facility] Dilaudid 1 mg, 1 mL, Route: IV, Drug form: SOLN, ONCE, Priority: STAT, Start date: 08/10/11 23:03:00, Stop date: 08/10/11 23:03:00 IV No Longer Active [place] 08/11/2011 [facility] Zofran 4 mg, 2 mL, Route: IV, Drug form: INJ, ONCE, Priority: STAT, Start date: 08/10/11 21:27:00, Stop date: 08/10/11 21:27:00 IV No Longer Active [place] 08/11/2011 [facility] Dilaudid 1 mg, 1 mL, Route: IV, Drug form: SOLN, ONCE, Priority: STAT, Start date: 08/10/11 21:27:00, Stop date: 08/10/11 21:27:00 IV No Longer Active [place] 08/11/2011 [facility] Nitroglycerin 0.[address] 1 Tab under tongue every 5 minutes as needed for Chest pain. Sublingual Active 07/13/2010 [facility] Amlodipine Besylate (Norvasc) 5 Mg Tab Twice A Day Active [facility] Atorvastatin Calcium (Lipitor) 20 Mg Tablet Bedtime Active [facility] Cetirizine Hcl 10 Mg Tablet Daily Active [facility] Docusate Sodium (Colace) 100 Mg Cap Daily Active [facility] Estrogen,Con/M-Progest Acet (Prempro 0.625-2.5 Mg Tablet) 1 Each Tablet Daily Active [facility] Fluticasone Propionate (Flonase) 16 Gm [place].susp Twice A Day Active [facility] Furosemide 40 Mg Tablet Twice A Day Active [facility] Hydrocodone Bit/Acetaminophen (Hydrocodon-Acetaminophen 5-325) 1 Each Tablet Every 4-6 Hours Prn Active [facility] Metoprolol Tartrate (Lopressor) 25 Mg Tab Twice A Day [facility] Omeprazole 20 Mg Capsule.dr Before Breakfast [facility] Potassium Chloride 10 Meq Tablet.er Daily Active [facility] Tizanidine Hcl 4 Mg Tablet Bd Active [facility] Tramadol Hcl (Ultram 50MG*) 50 Mg Tab Every 6 Hours as needed [facility] Venlafaxine Hcl 37.5 Mg Tablet Daily [facility] Allergies, Adverse Reactions, Alerts Substance Category Reaction Severity Reaction type Status Date Reported Comments Source Enalapril Propensity to adverse reactions to drug Active 10/04/2009 [facility] No Known Medication Allergies Assertion Drug allergy [facility] Immunizations Immunization Date Given Site Status Last Updated Comments Source Influenza Vaccine, Seasonal, Injectable 06/27/2017 Not Given Deferred: Patient already had this immunization [facility] Influenza Vaccine 06/23/2015 completed [facility] Lidocaine 1% 5ml Inj 12/23/2014 completed [facility] Influenza Vaccine 08/27/2013 Not Given Deferred: Patient Refused [facility] Influenza Vaccine 05/17/2011 completed [facility] Influenza Vaccine 05/25/2010 completed [facility] Results Order Name Results Value Reference Range Date Interpretation Comments Source UA CHEMISTRIES Color Yellow 03/06/2018 [facility] UA CHEMISTRIES Clarity Hazy 03/06/2018 [facility] UA CHEMISTRIES Spec [place] 1.013 1.001 - 1.035 03/06/2018 [facility] UA CHEMISTRIES pH 6.0 5 - 8 03/06/2018 [facility] UA CHEMISTRIES Protein Negative NEG 03/06/2018 [facility] UA CHEMISTRIES Glucose Negative NEG 03/06/2018 [facility] UA CHEMISTRIES Ketone Negative NEG 03/06/2018 [facility] UA CHEMISTRIES Bilirubin Negative NEG 03/06/2018 [facility] UA CHEMISTRIES Nitrate Negative NEG 03/06/2018 [facility] UA CHEMISTRIES Urobilinogen <1.0 0.2 - 1 03/06/2018 [facility] UA CHEMISTRIES Leukocyte 1+ NEG 03/06/2018 Abnormal [facility] UA CHEMISTRIES Blood Negative NEG 03/06/2018 [facility] UA CHEMISTRIES RBC 1 /HPF 0 - 4 03/06/2018 [facility] UA CHEMISTRIES WBC 11 /HPF 0 - 5 03/06/2018 High [facility] UA CHEMISTRIES Epithelial Cell 2 /HPF 03/06/2018 [facility] UA CHEMISTRIES Hyaline Cast 14 /LPF 03/06/2018 [facility] UA CHEMISTRIES Lab Interpretation Abnormal 03/06/2018 [facility] CBC WBC 10.4 4.5 - 11 03/06/2018 [facility] CBC RBC 4.30 M/uL 4.20 - 5.40 03/06/2018 [facility] CBC Hemoglobin 12.8 12 - 16 03/06/2018 [facility] CBC Hematocrit 38.7 37 - 47 03/06/2018 [facility] CBC MCV 90 82 - 92 03/06/2018 [facility] CBC MCH 29.8 27 - 32 03/06/2018 [facility] CBC MCHC 33.1 32 - 36 03/06/2018 [facility] CBC RDW 50.4 36.4 - 46.3 03/06/[address] [facility] CBC Platelet 288 150 - 400 03/06/2018 [facility] CBC Mean Platelet Volume 12.0 9.4 - 12.4 03/06/2018 [facility] CBC Percent NRBC 0.0 03/06/2018 [facility] CBC Absolute NRBC 0.00 03/06/2018 [facility] CBC Lab Interpretation Abnormal 03/06/2018 [facility] ELECTROLYTES Sodium 142 136 - 145 03/06/2018 [facility] ELECTROLYTES Potassium 3.4 3.5 - 5.1 03/06/2018 Low [facility] ELECTROLYTES Chloride 95 98 - 107 03/06/2018 Low [facility] ELECTROLYTES CO2 30 21 - 31 03/06/2018 [facility] ELECTROLYTES Anion Gap 17 03/06/2018 [facility] ELECTROLYTES Lab Interpretation Abnormal 03/06/2018 [facility] GLUCOSE, FASTING Glucose, Fasting 268 74 - 106 03/06/2018 High [facility] GLUCOSE, FASTING Lab Interpretation Abnormal 03/06/2018 [facility] LIPID PROFILE Cholesterol 130 03/06/2018 REFERENCE RANGE:
Desirable: <200 mg/dL
Borderline: 200-240 mg/dL
High Risk: >240 mg/dL

[facility] LIPID PROFILE Triglyceride 513 <150 03/06/2018 High REFERENCE RANGE:
Normal: <150 mg/dL
Borderline High: 150- 199 mg/dL
High: 200-499 mg/dL
Very High: >cc=412 mg/dL

[facility] LIPID PROFILE HDL 22 03/06/2018 Increased CHD risk: <40 mg/dL
Decreased CHD risk: >60 mg/dL

[facility] LIPID PROFILE LDL Calculated LDL unreliable with levels of Triglyceride above 400 mg/dL mg/dL 03/06/2018 REFERENCE RANGE:
Optimal: <100 mg/dL
Near Optimal: 100-129 mg/dL
Borderline High: 130-159 mg/dL
High: 160-189 mg/dL
Very High: >np=305 mg/dL

[facility] LIPID PROFILE Lab Interpretation Abnormal 03/06/2018 [facility] LIVER PROFILE T Protein 6.6 6 - 8.3 03/06/2018 [facility] LIVER PROFILE Albumin 3.8 3.7 - 5.3 03/06/2018 [facility] LIVER PROFILE T Bilirubin 0.3 0.2 - 1.2 03/06/2018 [facility] LIVER PROFILE Alk Phos 82 34 - 104 03/06/2018 [facility] LIVER PROFILE AST 15 13 - 39 03/06/2018 [facility] LIVER PROFILE ALT 15 7 - 52 03/06/2018 [facility] LIVER PROFILE D Bilirubin 0.1 0 - 0.2 03/06/2018 [facility] UREA NITROGEN/CREA Urea Nitrogen 35 7 - 25 03/06/2018 High [facility] UREA NITROGEN/CREA Creatinine 1.30 0.6 - 1.2 03/06/2018 High [facility] UREA NITROGEN/CREA GFR, Estimated 41 mL/min/1.73 m2 03/06/2018 [facility] UREA NITROGEN/CREA GFR, Estim, Afr-Am 49 mL/min/1.73 m2 03/06/2018 [facility] UREA NITROGEN/CREA Lab Interpretation Abnormal 03/06/2018 [facility] URINE AND STOOL UA Color [place] 03/05/2018 [facility] URINE AND STOOL UA Urobilinogen <=1.0 mg/dL 0.1 - 1.0 03/05/2018 [facility] URINE AND STOOL UA Bili Negative *NA* (03/04/18 8:18 PM) Negative 03/05/2018 [facility] URINE AND STOOL UA Ketones Negative mg/dL Negative mg/dL 03/05/2018 [facility] URINE AND STOOL UA Blood Negative (03/04/18 8:18 PM) Negative 03/05/2018 [facility] URINE AND STOOL UA Nitrite Negative (03/04/18 8:18 PM) Negative 03/05/2018 [facility] URINE AND STOOL UA pH 5.0 5.0 - 8.0 03/05/2018 [facility] URINE AND STOOL UA Leuk Est Negative (03/04/18 8:18 PM) Negative 03/05/2018 [facility] URINE AND STOOL UA Sq Epi Occasional /LPF Few /LPF 03/05/2018 [facility] URINE AND STOOL UA Hyal Cast 17 0 - 2 03/05/2018 [facility] URINE AND STOOL UA Glucose Negative mg/dL Negative mg/dL 03/05/2018 [facility] URINE AND STOOL UA Protein Negative mg/dL Negative mg/dL 03/05/2018 [facility] URINE AND STOOL UA Spec Grav 1.013 <=1.030 03/05/2018 [facility] URINE AND STOOL UA Turbidity Marked *ABN* (03/04/18 8:18 PM) Clear 03/05/2018 [facility] URINE AND STOOL UA WBC 2 0 - 5 03/05/2018 [facility] URINE AND STOOL UA Mucus Few /LPF None Seen /LPF 03/05/2018 [facility] CARDIAC ENZYMES Troponin-I <0.02 0.00 - 0.40 03/04/2018 [facility] CHEM PANEL eGFR 37 03/04/2018 Result Comment: The eGFR is calculated using the CKD-EPI formula. In most young, healthy individuals the eGFR will be >90 mL/min/1.73m2. The eGFR declines with age. An eGFR of 60-89 may be normal in some populations, particularly the elderly, for whom the CKD-EPI formula has not been extensively validated. Use of the eGFR is not recommended in the following populations:

Individuals with unstable creatinine concentrations, including patients and those with serious co-morbid conditions.

Patients with extremes in muscle mass or diet.

The data above are obtained from the National Kidney Disease Education Program (NKDEP) which additionally recommends that when the eGFR is used in patients with extremes of body mass index for purposes of drug dosing, the eGFR should be multiplied by the estimated BMI. [facility] CHEM PANEL Bili Total 0.5 0.2 - 1.3 03/04/2018 [facility] CHEM PANEL Total Protein 7.8 6.4 - 8.4 03/04/2018 [facility] CHEM PANEL Calcium Lvl 8.5 8.5 - 10.5 03/04/2018 [facility] CHEM PANEL Chloride Lvl 95 95 - 109 03/04/2018 [facility] CHEM PANEL CO2 30 24 - 32 03/04/2018 [facility] CHEM PANEL Alk Phos 90 39 - 136 03/04/2018 [facility] CHEM PANEL AST 17 0 - 37 03/04/2018 [facility] CHEM PANEL ALT 25 0 - 65 03/04/2018 [facility] CHEM PANEL Albumin Lvl 3.5 3.5 - 5.0 03/04/2018 [facility] CHEM PANEL Glucose Lvl 246 70 - 99 03/04/2018 [facility] CHEM PANEL Sodium Lvl 141 135 - 145 03/04/2018 [facility] CHEM PANEL Potassium Lvl 3.2 3.5 - 5.1 03/04/2018 [facility] CHEM PANEL Creatinine Lvl 1.47 0.50 - 1.40 03/04/2018 [facility] CHEM PANEL BUN 29 7 - 22 03/04/2018 [facility] CHEM PANEL Globulin 4.3 2.7 - 4.2 03/04/2018 [facility] CHEM PANEL A/G Ratio 0.8 0.7 - 1.6 03/04/2018 [facility] CHEM PANEL B/C Ratio 20 6 - 25 03/04/2018 [facility] CHEM PANEL AGAP 19.2 10.0 - 20.0 03/04/2018 [facility] HEMATOLOGY Basophils # 0.1 0.0 - 0.2 03/04/2018 [facility] HEMATOLOGY Lymphocytes 17.6 20.0 - 40.0 03/04/2018 [facility] HEMATOLOGY Segs 75.1 45.0 - 75.0 03/04/2018 [facility] HEMATOLOGY Neutrophils # 10.1 1.5 - 8.1 03/04/2018 [facility] HEMATOLOGY Eosinophils # 0.2 0.0 - 0.5 03/04/2018 [facility] HEMATOLOGY Monocytes # 0.7 0.0 - 0.8 03/04/2018 [facility] HEMATOLOGY Lymphocytes # 2.4 1.0 - 5.5 03/04/2018 [facility] HEMATOLOGY Monocytes 5.5 2.0 - 12.0 03/04/2018 [facility] HEMATOLOGY Eosinophils 1.3 0.0 - 4.0 03/04/2018 [facility] HEMATOLOGY Basophils 0.5 0.0 - 1.0 03/04/2018 [facility] HEMATOLOGY PTT 27.3 22.9 - 35.8 03/04/2018 [facility] INR 1.06 0.85 - 1.17 03/04/2018 [facility] PT 13.8 12.0 - 14.7 03/04/2018 [facility] RDW 15.4 11.5 - 14.5 03/04/2018 [facility] MPV 9.9 7.4 - 10.4 03/04/2018 [facility] Platelet 262 133 - 450 03/04/2018 [facility] Hct 40.7 36.0 - 48.0 03/04/2018 [facility] MCV 87.4 80.0 - 98.0 03/04/2018 [facility] RBC 4.66 4.20 - 5.40 03/04/2018 [facility] MCHC 33.2 32.0 - 36.0 03/04/2018 [facility] MCH 29.0 27.0 - 31.0 03/04/2018 [facility] Hgb 13.5 12.0 - 16.0 03/04/2018 [facility] WBC 13.5 3.7 - 10.4 03/04/2018 [facility] Automated urine sediment leukocyte count by microscopy (number/high power field) Automated urine sediment leukocyte count by microscopy (number/high power field) NONE 0 - 5 11/17/2017 [facility] Bacteria detection in urine sediment by light microscopy Bacteria detection in urine sediment by light microscopy NONE NONE 11/17/2017 [facility] Epithelial cells detection in urine sediment by light microscopy Epithelial cells detection in urine sediment by light microscopy NONE NONE 11/17/2017 [facility] Erythrocytes detection in urine sediment by light microscopy Erythrocytes detection in urine sediment by light microscopy NONE 0 - 5 11/17/2017 [facility] Specific gravity of Urine by Test strip Specific gravity of Urine by Test strip 1.015 1.010 - 1.025 11/17/2017 [facility] Urine clarity Urine clarity CLEAR CLEAR 11/17/2017 [facility] Urine color determination Urine color determination YELLOW YELLOW 11/17/2017 [facility] Urine erythrocytes detection Urine erythrocytes detection NEGATIVE NEGATIVE 11/17/2017 [facility] Urine glucose detection Urine glucose detection NEGATIVE NEGATIVE 11/17/2017 [facility] Urine ketones detection by automated test strip Urine ketones detection by automated test strip NEGATIVE NEGATIVE 11/17/2017 [facility] Urine leukocyte esterase detection by dipstick Urine leukocyte esterase detection by dipstick NEGATIVE NEGATIVE 11/17/2017 [facility] Urine nitrite detection Urine nitrite detection NEGATIVE NEGATIVE 11/17/2017 [facility] Urine pH measurement by automated test strip Urine pH measurement by automated test strip 5 5 - 7 11/17/2017 [facility] Urine protein measurement by test strip (mass/volume) Urine protein measurement by test strip (mass/volume) NEGATIVE NEGATIVE 11/17/2017 [facility] Urine total bilirubin measurement (mass/volume) Urine total bilirubin measurement (mass/volume) NEGATIVE NEGATIVE 11/17/2017 [facility] Urine urobilinogen measurement by test strip (mass/volume) Urine urobilinogen measurement by test strip (mass/volume) 0.2 0.2 - 1 11/17/2017 [facility] Automated blood basophil count (count/volume) Automated blood basophil count (count/volume) 0.1 0.0 - 0.1 11/17/2017 [facility] Automated blood basophil count as percentage of total leukocytes Automated blood basophil count as percentage of total leukocytes 0.4 0.0 - 1.0 11/17/2017 [facility] Automated blood eosinophil count Automated blood eosinophil count 0.1 0.0 - 0.4 11/17/2017 [facility] Automated blood eosinophil count as percentage of total leukocytes Automated blood eosinophil count as percentage of total leukocytes 0.4 0.0 - 6.0 11/17/2017 [facility] Automated blood hematocrit (volume fraction) Automated blood hematocrit (volume fraction) 41.1 34.2 - 44.1 11/17/2017 [facility] Automated blood lymphocyte count as percentage ot total leukocytes Automated blood lymphocyte count as percentage ot total leukocytes 14.6 18.0 - 39.1 11/17/2017 [facility] Automated blood monocyte count as percentage of total leukocytes Automated blood monocyte count as percentage of total leukocytes 6.3 4.4 - 11.3 11/17/2017 [facility] Automated blood neutrophil count Automated blood neutrophil count 10.6 2.1 - 6.9 11/17/2017 [facility] Automated blood platelet count (count/volume) Automated blood platelet count (count/volume) 266 140 - 360 11/17/2017 [facility] Automated blood segmented neutrophil count as percentage of total leukocytes Automated blood segmented neutrophil count as percentage of total leukocytes 77.7 38.7 - 80.0 11/17/2017 [facility] Automated erythrocyte mean corpuscular hemoglobin (mass per erythrocyte) Automated erythrocyte mean corpuscular hemoglobin (mass per erythrocyte) 28.8 28 - 32 11/17/2017 [facility] Automated erythrocyte mean corpuscular hemoglobin concentration measurement (mass/volume) Automated erythrocyte mean corpuscular hemoglobin concentration measurement (mass/volume) 33.8 31 - 35 11/17/2017 [facility] Automated erythrocyte mean corpuscular volume Automated erythrocyte mean corpuscular volume 85.1 81 - 99 11/17/2017 [facility] Blood erythrocytes automated count (number/volume) Blood erythrocytes automated count (number/volume) 4.83 3.6 - 5.1 11/17/2017 [facility] Blood hemoglobin measurement (moles/volume) Blood hemoglobin measurement (moles/volume) 13.9 12.0 - 16.0 11/17/2017 [facility] Blood leukocytes automated count (number/volume) Blood leukocytes automated count (number/volume) 13.63 4.8 - 10.8 11/17/2017 [facility] Blood lymphocytes count (number/volume) Blood lymphocytes count (number/volume) 2.0 1.0 - 3.2 11/17/2017 [facility] Blood monocytes automated count (number/volume) Blood monocytes automated count (number/volume) 0.9 0.2 - 0.8 11/17/2017 [facility] Estimated glomerular filtration rate (GFR) determination Estimated glomerular filtration rate (GFR) determination 51 60 11/17/2017 [facility] Glucose measurement Glucose measurement 152 74 - 118 11/17/2017 [facility] Plasma globulin measurement (mass/volume) Plasma globulin measurement (mass/volume) 4.4 2.3 - 3.5 11/17/2017 [facility] Serum or plasma alanine aminotransferase measurement (enzymatic activity/volume) Serum or plasma alanine aminotransferase measurement (enzymatic activity/volume) 22 0 - 55 11/17/2017 [facility] Serum or plasma albumin measurement (mass/volume) Serum or plasma albumin measurement (mass/volume) 3.6 3.5 - 5.0 11/17/2017 [facility] Serum or plasma albumin/globulin mass ratio Serum or plasma albumin/globulin mass ratio 0.8 0.8 - 2.0 11/17/2017 [facility] Serum or plasma alkaline phosphatase measurement (enzymatic activity/volume) Serum or plasma alkaline phosphatase measurement (enzymatic activity/volume) 74 40 - 150 11/17/2017 [facility] Serum or plasma amylase measurement (enzymatic activity/volume) Serum or plasma amylase measurement (enzymatic activity/volume) 46 25 - 125 11/17/2017 [facility] Serum or plasma anion gap Serum or plasma anion gap 16.8 8 - 16 11/17/2017 [facility] Serum or plasma calcium measurement (mass/volume) Serum or plasma calcium measurement (mass/volume) 9.6 8.4 - 10.2 11/17/2017 [facility] Serum or plasma carbon dioxide, total measurement (moles/volume) Serum or plasma carbon dioxide, total measurement (moles/volume) 29 22 - 29 11/17/2017 [facility] Serum or plasma chloride measurement (moles/volume) Serum or plasma chloride measurement (moles/volume) 93 98 - 107 11/17/2017 [facility] Serum or plasma creatine kinase MB measurement (mass/volume) Serum or plasma creatine kinase MB measurement (mass/volume) 1.00 0 - 5.0 11/17/2017 [facility] Serum or plasma creatine kinase measurement (enzymatic activity/volume) Serum or plasma creatine kinase measurement (enzymatic activity/volume) 49 29 - 168 11/17/2017 [facility] Serum or plasma creatinine measurement (mass/volume) Serum or plasma creatinine measurement (mass/volume) 1.07 0.57 - 1.11 11/17/2017 [facility] Serum or plasma lipase measurement (enzymatic activity/volume) Serum or plasma lipase measurement (enzymatic activity/volume) 25 8 - 78 11/17/2017 [facility] Serum or plasma potassium measurement (moles/volume) Serum or plasma potassium measurement (moles/volume) 3.8 3.5 - 5.1 11/17/2017 [facility] Serum or plasma protein measurement (mass/volume) Serum or plasma protein measurement (mass/volume) 8.0 6.5 - 8.1 11/17/2017 [facility] Serum or plasma sodium measurement (moles/volume) Serum or plasma sodium measurement (moles/volume) 135 136 - 145 11/17/2017 [facility] Serum or plasma total bilirubin measurement (mass/volume) Serum or plasma total bilirubin measurement (mass/volume) 0.5 0.2 - 1.2 11/17/2017 [facility] Serum or plasma urea nitrogen measurement (mass/volume) Serum or plasma urea nitrogen measurement (mass/volume) 18 7 - 26 11/17/2017 [facility] Serum or plasma urea nitrogen/creatinine mass ratio Serum or plasma urea nitrogen/creatinine mass ratio 17 6 - 25 11/17/2017 [facility] Troponin I measurement by highly sensitive enzyme immunoassay Troponin I measurement by highly sensitive enzyme immunoassay <0.001 0 - 0.300 11/17/2017 [facility] Red Cell Distribution Width 13.5 11.7 - 14.4 11/17/2017 [facility] IM GRANULOCYTES % 0.6 0.0 - 1.0 11/17/2017 [facility] Absolute Immature Granulocyte (auto 0.08 0 - 0.1 11/17/2017 [facility] Aspartate Amino Transf (AST/SGOT) 22 5 - 34 11/17/2017 [facility] B-Type Natriuretic Peptide 11.3 0 - 100 11/17/2017 [facility] B NATRIURETIC PEPT B Natriuretic Pept <12 <101 pg/mL 10/10/2017 [facility] CBC WBC 11.4 4.5 - 11 10/10/2017 High [facility] CBC RBC 4.46 M/uL 4.20 - 5.40 10/10/2017 [facility] CBC Hemoglobin 13.0 12 - 16 10/10/2017 [facility] CBC Hematocrit 41.9 37 - 47 10/10/2017 [facility] CBC MCV 94 82 - 92 10/10/2017 High [facility] CBC MCH 29.1 27 - 32 10/10/2017 [facility] CBC MCHC 31.0 32 - 36 10/10/2017 Low [facility] CBC RDW 45.4 36.4 - 46.3 10/10/2017 [facility] CBC Platelet 297 150 - 400 10/10/2017 [facility] CBC Mean Platelet Volume 11.4 9.4 - 12.4 10/10/2017 [facility] CBC Percent NRBC 0.0 10/10/2017 [facility] CBC Absolute NRBC 0.00 10/10/2017 [facility] CBC Lab Interpretation Abnormal 10/10/2017 [facility] ELECTROLYTES Sodium 139 136 - 145 10/10/2017 [facility] ELECTROLYTES Potassium 4.8 3.5 - 5.1 10/10/2017 [facility] ELECTROLYTES Chloride 95 98 - 107 10/10/2017 Low [facility] ELECTROLYTES CO2 32 21 - 31 10/10/[address] [facility] ELECTROLYTES Anion Gap 12 10/10/2017 [facility] ELECTROLYTES Lab Interpretation Abnormal 10/10/2017 [facility] HEMOGLOBIN A1C Hemoglobin A1c 8.1 4.3 - 6.1 10/10/[address] [facility] HEMOGLOBIN A1C Est Average Gluc 185.8 10/10/2017 [facility] HEMOGLOBIN A1C Lab Interpretation Abnormal 10/10/2017 [facility] LIPID PROFILE Cholesterol 168 10/10/2017 REFERENCE RANGE:
Desirable: <200 mg/dL
Borderline: 200-240 mg/dL
High Risk: >240 mg/dL

[facility] LIPID PROFILE Triglyceride 400 <150 10/10/2017 High REFERENCE RANGE:
Normal: <150 mg/dL
Borderline High: 150- 199 mg/dL
High: 200-499 mg/dL
Very High: >xp=030 mg/dL

[facility] LIPID PROFILE HDL 26 10/10/2017 Increased CHD risk: <40 mg/dL
Decreased CHD risk: >60 mg/dL

[facility] LIPID PROFILE LDL 62 10/10/2017 REFERENCE RANGE:
Optimal: <100 mg/dL
Near Optimal: 100-129 mg/dL
Borderline High: 130-159 mg/dL
High: 160-189 mg/dL
Very High: >ks=151 mg/dL

[facility] LIPID PROFILE Lab Interpretation Abnormal 10/10/2017 [facility] LIVER PROFILE T Protein 6.8 6 - 8.3 10/10/2017 [facility] LIVER PROFILE Albumin 4.3 3.7 - 5.3 10/10/2017 [facility] LIVER PROFILE T Bilirubin 0.5 0.2 - 1.2 10/10/2017 [facility] LIVER PROFILE Alk Phos 85 34 - 104 10/10/2017 [facility] LIVER PROFILE AST 18 13 - 39 10/10/2017 [facility] LIVER PROFILE ALT 15 7 - 52 10/10/2017 [facility] LIVER PROFILE D Bilirubin 0.2 0.03 - 0.18 10/10/2017 High [facility] LIVER PROFILE Lab Interpretation Abnormal 10/10/2017 [facility] UREA NITROGEN/CREA Urea Nitrogen 30 7 - 25 10/10/2017 High [facility] UREA NITROGEN/CREA Creatinine 1.00 0.6 - 1.2 10/10/2017 [facility] UREA NITROGEN/CREA GFR, Estimated 55 mL/min/1.73 m2 10/10/2017 [facility] UREA NITROGEN/CREA GFR, Estim, Afr-Am >60 mL/min/1.73 m2 10/10/2017 [facility] UREA NITROGEN/CREA Lab Interpretation Abnormal 10/10/2017 [facility] CHEMISTRY Lipase Lvl 132 73 - 393 08/11/2011 Normal [facility] CHEMISTRY AGAP 19.2 10.0 - 20.0 08/11/2011 Normal [facility] CHEMISTRY B/C Ratio 23 6 - 25 08/11/2011 Normal [facility] CHEMISTRY Globulin 4.6 2.0 - 4.0 08/11/2011 [facility] CHEMISTRY A/G Ratio 0.8 0.7 - 1.6 08/11/2011 Normal [facility] CHEMISTRY Albumin Lvl 3.6 3.5 - 5.0 08/11/2011 Normal [facility] CHEMISTRY ALT 45 0 - 65 08/11/2011 Normal [facility] CHEMISTRY Alk Phos 110 39 - 136 08/11/2011 Normal [facility] CHEMISTRY Bili Total 0.4 0.2 - 1.3 08/11/2011 Normal [facility] CHEMISTRY AST 28 0 - 37 08/11/2011 Normal [facility] CHEMISTRY Total Protein 8.2 6.4 - 8.4 08/11/2011 Normal [facility] CHEMISTRY Calcium Lvl 9.3 8.5 - 10.5 08/11/2011 Normal [facility] CHEMISTRY CO2 21 24 - 32 08/11/2011 LOW [facility] CHEMISTRY Chloride Lvl 102 95 - 109 08/11/2011 Normal [facility] CHEMISTRY Potassium Lvl 4.2 3.5 - 5.1 08/11/2011 Normal [facility] CHEMISTRY Sodium Lvl 138 135 - 145 08/11/2011 Normal [facility] CHEMISTRY Creatinine Lvl 0.7 0.5 - 1.4 08/11/2011 Normal [facility] CHEMISTRY BUN 16 7 - 22 08/11/2011 Normal [facility] CHEMISTRY Glucose Lvl 133 08/11/2011 NA <sup>1</sup>Interpretive Data: Reference Ranges : 0 - 7 days : 41 - 90 mg/dL 7 days - 150 yrs : 70 - 99 mg/dL (fasting), based on the clinical recommendations of the [place] [employer]. [facility] HEMATOLOGY Eosinophils # 0.2 0.0 - 0.5 08/11/2011 Normal [facility] HEMATOLOGY Basophils # 0.0 0.0 - 0.2 08/11/2011 Normal [facility] HEMATOLOGY Monocytes 9.2 2.0 - 12.0 08/11/2011 Normal [facility] HEMATOLOGY Lymphocytes 37.5 20.0 - 40.0 08/11/2011 Normal [facility] HEMATOLOGY Segs 50.8 45.0 - 75.0 08/11/2011 Normal [facility] HEMATOLOGY Monocytes # 0.6 0.0 - 0.8 08/11/2011 Normal [facility] HEMATOLOGY Lymphocytes # 2.5 1.0 - 5.5 08/11/2011 Normal [facility] HEMATOLOGY Eosinophils 2.3 0.0 - 4.0 08/11/2011 Normal [facility] HEMATOLOGY Segs-Bands # 3.4 1.5 - 8.1 08/11/2011 Normal [facility] HEMATOLOGY Basophils 0.2 0.0 - 1.0 08/11/2011 Normal [facility] HEMATOLOGY WBC 6.7 3.7 - 10.4 08/11/2011 Normal [facility] HEMATOLOGY MCHC 34.2 32.0 - 36.0 08/11/2011 Normal [facility] HEMATOLOGY RDW 13.8 11.5 - 14.5 08/11/2011 Normal [facility] HEMATOLOGY Platelet 203 133 - 450 08/11/2011 Normal [facility] HEMATOLOGY MPV 8.4 7.4 - 10.4 08/11/2011 Normal [facility] MCH 30.5 27.0 - 31.0 08/11/2011 Normal [facility] Hct 43.6 36.0 - 48.0 08/11/2011 Normal [facility] MCV 89.4 81.0 - 99.0 08/11/2011 Normal [facility] RBC 4.87 4.20 - 5.40 08/11/2011 Normal [facility] Hgb 14.9 12.0 - 16.0 08/11/2011 Normal [facility] Pathology Reports No Data Provided for This Section Diagnostic Reports Report Value Date Source Foot series DX Patient Name: DENNY LEIGH. : 1950; Age: 68 years y/o; Female. MR: [id number]. Ordering Physician: Maurice Joseph. Left foot 3 views. HISTORY: Fall with left foot pain. COMPARISON: None. FINDINGS: Frontal, oblique and lateral views of the left foot was performed. Mild bunion formation noted. Plantar calcaneal spur also noted. No fracture or dislocation. All joint spaces are well-preserved. No ankle joint effusion. Dorsal forefoot soft tissue swelling and edema/hematoma noted. SL: HOANG 07/23/2018 [facility] Ankle 3 views DX Patient Name: DENNY LEIGH : 1950; Age: 68 years y/o Female MR: [id number] * LEFT ANKLE, 3 views History: Injury, trauma to left ankle. Technique: Frontal, lateral, and oblique radiographs of the left ankle were obtained. FINDINGS: There is no evidence of fracture, dislocation, or acute change. The ankle mortise is intact. There are no degenerative changes or other significant osseous abnormalities. There is a prominent plantar calcaneal spur. There is a prominent plantar calcaneal spur. IMPRESSION: 1. Negative left ankle. 2. Prominent plantar calcaneal spur. SL: [id number] SL: [id number] 07/23/2018 [facility] XRAY CHEST 2 VIEWS IMPRESSION: Low lung volumes with bibasilar atelectasis. Dictated By: Charlie Mar DO, 03/06/2018 9:55 AM I have reviewed the study and agree with the findings in this report. Signed By: Richar Acevedo MD, 10:45 AM EXAM: XRAY CHEST 2 VIEWS DATE: 03/06/2018 9:50 AM INDICATION: short of breath COMPARISON: Chest x-ray 02/20/2018. FINDINGS: Devices, Lines, and Tubes: None. Heart and Mediastinum: The cardiomediastinal silhouette is unremarkable.Tortuous thoracic aorta with mild atherosclerotic calcification. Lungs and Pleura: Low lung volumes. No significant pleural effusion,pneumothorax, or focal consolidation. Bones and Soft Tissues: No acute findings. Interface, Rad/Mammog In - 03/06/2018 10:50 AM CDTEXAM: XRAY CHEST 2 VIEWS DATE: 03/06/2018 9:50 AM INDICATION: short of breath COMPARISON: Chest x-ray 02/20/2018. FINDINGS: Devices, Lines, and Tubes: None. Heart and Mediastinum: The cardiomediastinal silhouette is unremarkable. Tortuous thoracic aorta with mild atherosclerotic calcification. Lungs and Pleura: Low lung volumes. No significant pleural effusion, pneumothorax, or focal consolidation. Bones and Soft Tissues: No acute findings. IMPRESSION IMPRESSION: Low lung volumes with bibasilar atelectasis. Dictated By: Charlie Mar DO, 03/06/2018 9:55 AM I have reviewed the study and agree with the findings in this report. Signed By: Richar Acevedo MD, 03/06/2018 10:45 AM 03/06/2018 [facility] ED Abdomen/Pelvis IV contrast only CT EXAM: CT abdomen and pelvis with IV contrast INDICATION: Abdominal pain, epigastric pain, lethargy COMPARISON: 08/11/2011 CT abdomen and pelvis Technique: Axial CT images through the abdomen and pelvis were obtained with IV contrast. Coronal and sagittal reformats were obtained. Contrast: 75 cc of IV Visipaque contrast material was used for the exam. CT imaging performed at this location utilizes radiation dose optimization techniques which include one or more of the following: -Automated exposure control -Adjustment of the mA and/or kV according to patient size -Use of iterative reconstruction technique CT Radiation Dose DLP 1202.0 mGy-cm FINDINGS: Mild atelectasis involves visualized lung bases. ABDOMEN: Geographic area of decreased attenuation involving the posterior left hepatic lobe (series 2 image 23) represents geographic hepatic steatosis. Vessels course through this lesion. Liver, spleen, adrenal glands, and pancreas are within normal limits otherwise. There is a moderate amount of fatty atrophy involving the pancreatic head and neck. The gallbladder has been removed. No hydroureteronephrosis or urolithiasis identified. No focal renal lesions identified. Small bowel and colon are nondilated. Moderate amount of stool involves a majority of the colon. The appendix is normal. Abdominal aorta is normal in caliber. 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 No threshold enlarged periaortic, retroperitoneal, mesenteric, or inguinal lymph nodes identified. PELVIS: Bladder is normal. No pelvic mass, free fluid, or lymphadenopathy identified. No suspicious lytic or blastic osseous lesions identified. IMPRESSION: No acute intra-abdominal findings. Geographic hepatic steatosis in the left hepatic lobe. Moderate amount stool in colon. Please correlate for constipation. 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 SL: TROY 03/04/2018 [facility] Chest 1view DX XR CHEST 1 VIEW HISTORY: - syncope. COMPARISON: CXR 07/02/2016, 08/10/2011 FINDINGS: The heart, vascular markings and lung mckeon are stable. No pleural fluid. No focal skeletal abnormality. IMPRESSION: 1. Stable chest without evidence of an active process. SL: LAWANDA 03/04/2018 [facility] XRAY CHEST 1 VIEW IMPRESSION: Low lung volumes, body habitus, and soft tissues overlying lung baseslimits evaluation. Questionable basilar opacities could represent edema, atelectasis, withpneumonia not excluded. Ques tionable right apical opacity, not seen previous study. [id number] chest x-ray with additional apical lordotic positioningrecommended. Dictated By: Charlie Mar DO, 02/20/2018 10:54 AM I have reviewed the study and agree with the findings in this report. Signed By: Richar Acevedo MD, 02/20/2018 11:11 AM EXAM: XR CHEST 1 VIEW DATE: 02/20/2018 10:32 AM INDICATION: shortness of breath COMPARISON: Chest x-ray 10/10/2017. FINDINGS: Devices, Lines, and Tubes: None. Heart and Mediastinum: The cardiomediastinal silhouette is unremarkable.Tortuous thoracic aorta with atherosclerotic calcification. Lungs and Pleura: Low lung volumes and body habitus limit. Basilaropacities present. Additional questionable opacity right apex. Bones and Soft Tissues: No acute findings. Interface, Rad/Mammog In - 02/20/2018 11:16 AM CDTEXAM: XR CHEST 1 VIEW DATE: 02/20/2018 10:32 AM INDICATION: shortness of breath COMPARISON: Chest x-ray 10/10/2017. FINDINGS: Devices, Lines, and Tubes: None. Heart and Mediastinum: The cardiomediastinal silhouette is unremarkable. Tortuous thoracic aorta with atherosclerotic calcification. Lungs and Pleura: Low lung volumes and body habitus limit. Basilar opacities present. Additional questionable opacity right apex. Bones and Soft Tissues: No acute findings. IMPRESSION IMPRESSION: Low lung volumes, body habitus, and soft tissues overlying lung bases limits evaluation. Questionable basilar opacities could represent edema, atelectasis, with pneumonia not excluded. Questionable right apical opacity, not seen previous study. Follow-up two-view chest x-ray with additional apical lordotic positioning recommended. Dictated By: Charlie Mar DO, 02/20/2018 10:54 AM I have reviewed the study and agree with the findings in this report. Signed By: Richar Acevedo MD, 02/20/2018 11:11 AM 02/20/2018 [facility] XRAY CHEST 2 VIEWS IMPRESSION: No acute thoracic abnormality. A "PRELIMINARY" report was made available via [employer] at the time ofdictation by the resident indicated below. If the report is described as"FINALIZED" it indicates the attending/staff radiologist below hasreviewed the images and agrees with the resident's interpretation. Dictated By: Antwan Clark MD, 10/10/2017 3:33 PM I have reviewed the study and agree with the findings in this report. Signed By: Vivien Cooper MD, 10/10/2017 4:29 PM EXAMINATION:XRAY CHEST 2 VIEWS INDICATION: shortness of breath COMPARISON:Chest x-ray 04/25/[address] chest 04/07/2014 FINDINGS:PA and lateral views TUBES and LINES:None. LUNGS:Minimal bibasilar atelectasis.Lungs are clear. There is noevidence of pneumonia or pulmonary edema. PLEURA:No pleural effusion or pneumothorax. HEART AND MEDIASTINUM:The cardiomediastinal silhouette is enlarged butunchanged in size. Tortuous descending thoracic aorta. BONES AND SOFT TISSUES:No acute osseous lesion.Soft tissues areunremarkable. UPPER ABDOMEN: No free air under the diaphragm. Interface, Rad/Mammog In - 10/10/2017 4:34 PM CSTEXAMINATION: XRAY CHEST 2 VIEWS INDICATION: shortness of breath COMPARISON: Chest x-ray 04/25/[address] chest 04/07/2014 FINDINGS: PA and lateral views TUBES and LINES: None. LUNGS: Minimal bibasilar atelectasis. Lungs are clear. There is no evidence of pneumonia or pulmonary edema. PLEURA: No pleural effusion or pneumothorax. HEART AND MEDIASTINUM: The cardiomediastinal silhouette is enlarged but unchanged in size. Tortuous descending thoracic aorta. BONES AND SOFT TISSUES: No acute osseous lesion. Soft tissues are unremarkable. UPPER ABDOMEN: No free air under the diaphragm. IMPRESSION IMPRESSION: No acute thoracic abnormality. A "PRELIMINARY" report was made available via [employer] at the time of dictation by the resident indicated below. If the report is described as "FINALIZED" it indicates the attending/staff radiologist below has reviewed the images and agrees with the resident's interpretation. Dictated By: Antwan Clark MD, 10/10/2017 3:33 PM I have reviewed the study and agree with the findings in this report. Signed By: Vivien Cooper MD, 10/10/2017 4:29 PM 10/10/2017 [facility] XRAY ABDOMEN 1 VIEW IMPRESSION: 1.Large stool burden throughout the colon.2.Nonobstructive bowel gas pattern. If the report is "FINALIZED" it indicates that the attending/staffradiologist has reviewed the images and agrees with the resident'sinterpretation. Dictated By: Adrien Lombardi MD, 10/10/2017 3:49 PM I have reviewed the study and agree with the findings in this report. Signed By: Gilbert Myles MD, 10/10/2017 3:57 PM EXAMINATION: X-RAY ABDOMEN - 3 VIEW(S) COMPARISON: Abdomen and pelvis CTA 03/23/2014 08/25/2012. INDICATION: renal dysfunction and possbile bowel distension DISCUSSION: Limited by body habitus. Lines/Tubes: None. Bowel: Non-obstructive bowel gas pattern. No evidence ofpneumoperitoneum. Large stool volume throughout the colon. Lungs/Mediastinum: The lung bases are clear. Kidneys: Renal shadows are unremarkable. Musculoskeletal: No acute osseous abnormalities. Degenerative changes ofspine. Soft tissue: Cholecystectomy clips in the right upper quadrant. Other: No acute abnormalities. Interface, Rad/Mammog In - 10/10/2017 4:02 PM CSTEXAMINATION: X- RAY ABDOMEN - 3 VIEW(S) COMPARISON: Abdomen and pelvis CTA 03/23/2014 08/25/2012. INDICATION: renal dysfunction and possbile bowel distension DISCUSSION: Limited by body habitus. Lines/Tubes: None. Bowel: Non-obstructive bowel gas pattern. No evidence of pneumoperitoneum. Large stool volume throughout the colon. Lungs/Mediastinum: The lung bases are clear. Kidneys: Renal shadows are unremarkable. Musculoskeletal: No acute osseous abnormalities. Degenerative changes of spine. Soft tissue: Cholecystectomy clips in the right upper quadrant. Other: No acute abnormalities. IMPRESSION IMPRESSION: 1. Large stool burden throughout the colon. 2. Nonobstructive bowel gas pattern. If the report is "FINALIZED" it indicates that the attending/staff radiologist has reviewed the images and agrees with the resident's interpretation. Dictated By: Adrien Lombardi MD, 10/10/2017 3:49 PM I have reviewed the study and agree with the findings in this report. Signed By: Gilbert Myles MD, 10/10/2017 3:57 PM 10/10/2017 [facility] XRAY CHEST 1 VIEW IMPRESSION: Probable basilar atelectasis. If the report is "FINALIZED" it indicates that the attending/staffradiologist has reviewed the images and agrees with the resident'sinterpretation. Dictated By: Faisal Paulino MD, 04/25/2017 11:27 AM I have reviewed the study and agree with the findings in this report. Signed By: Richar Acevedo MD, 04/25/2017 12:20 PM EXAMINATION:XRAY CHEST 1 VIEW INDICATION: pulmonary congestion , cough COMPARISON:Chest x-ray 05/26/2015 FINDINGS:PA and lateral views TUBES and LINES:None. LUNGS:Lungs are well inflated. Minimal bibasilar airspace opacities. PLEURA:No pneumothorax. HEART AND MEDIASTINUM:Stable mildly enlarged cardiomediastinalsilhouette. Tortuous thoracic aorta. Atherosclerotic calcifications ofthe arch BONES AND SOFT TISSUES:No acute osseous lesion.Soft tissues areunremarkable. UPPER ABDOMEN: No free air under the diaphragm. Interface, Rad/Mammog In - 04/25/2017 12:25 PM CDTEXAMINATION: XRAY CHEST 1 VIEW INDICATION: pulmonary congestion , cough COMPARISON: Chest x-ray 05/26/2015 FINDINGS: PA and lateral views TUBES and LINES: None. LUNGS: Lungs are well inflated. Minimal bibasilar airspace opacities. PLEURA: No pneumothorax. HEART AND MEDIASTINUM: Stable mildly enlarged cardiomediastinal silhouette. Tortuous thoracic aorta. Atherosclerotic calcifications of the arch BONES AND SOFT TISSUES: No acute osseous lesion. Soft tissues are unremarkable. UPPER ABDOMEN: No free air under the diaphragm. IMPRESSION IMPRESSION: Probable basilar atelectasis. If the report is "FINALIZED" it indicates that the attending/staff radiologist has reviewed the images and agrees with the resident's interpretation. Dictated By: Faisal Paulino MD, 04/25/2017 11:27 AM I have reviewed the study and agree with the findings in this report. Signed By: Richar Acevedo MD, 04/25/2017 12:20 PM 04/25/2017 [facility] Chest 2 views DX EXAM: 2 view(s) of the chest. CLINICAL HX: I50.30 Unspecified diastolic (congestive) heart failure. Shortness of breath. . COMPARISON: Chest x-ray: 08/10/2011. FINDINGS: Support apparatus: None. Cardiac silhouette: Unremarkable. Tierra: Unremarkable. Lobar consolidation: Negative. Pleural effusion: Negative. Pneumothorax: Negative. Other: Negative. Bones: Unremarkable. Other: None. IMPRESSION: 1. No acute cardiopulmonary process. 07/02/2016 [facility] Villagomez Abdomen complete US ULTRASOUND OF THE ABDOMEN History: 65-year-old female with epigastric pain. Technique: Real-time andres-scale imaging supplemented with color Doppler of complete abdomen was performed. Comparison: CT abdomen and pelvis 08/11/2011. Findings: The liver has diffuse increased parenchymal echogenicity suggesting steatosis or chronic liver disease. The hepatic volume is mild increased and long axis of the right lobe is at least 20 cm. Portal vein caliber is increased to 1.5 cm with hepatopetal flow. The gallbladder is absent and the sonographic Marin sign is negative. The common bile duct caliber is 0.3 cm. The pancreas is poorly visualized, segments seen of the head and body appear echogenic and normal. The pancreatic tail is not seen. The spleen is unremarkable measuring 11.8 x 5 x 4.8 cm. The right kidney has a few small echogenic foci but no hydronephrosis. The renal morphology is otherwise normal. Right kidney dimensions are 12 x 5 x 6.1 cm and left kidney dimensions are 11.9 x 4.5 x 5.3 cm. The abdominal aorta was poorly visualized and segments of the IVC seen have normal caliber. IMPRESSION: Hepatomegaly with parenchymal pattern suggesting steatosis. Status post cholecystectomy. No abdominal mass lesion seen. The anterior abdominal rectus muscles are thin and appear suggesting a diastasis and corresponds to the epigastric area of pain per patient. 09/20/2015 K[facility] Villagomez Consultation Notes No Data Provided for This Section Discharge Summaries No Data Provided for This Section History and Physicals No Data Provided for This Section Vital Signs Vital Sign Value Date Comments Source Systolic (mm Hg) 134 07/23/2018 [facility] Diastolic (mm Hg) 74 07/23/2018 [facility] Heart Rate 88 07/23/2018 [facility] Respitory Rate 20 07/23/2018 [facility] Temperature Oral (F) 98.0 F 07/23/2018 [facility] Height 157.48 cm 07/23/2018 [facility] BMI Calculated 44.9 07/23/2018 [facility] Weight 111.364 07/23/2018 [facility] Respitory Rate 20 07/23/2018 [facility] Heart Rate 106 07/23/2018 [facility] Systolic (mm Hg) 129 07/23/2018 [facility] Diastolic (mm Hg) 70 07/23/2018 [facility] Temperature Oral (F) 98 F 07/23/2018 [facility] Respitory Rate 18 03/05/2018 [facility] Systolic (mm Hg) 127 03/05/2018 [facility] Diastolic (mm Hg) 83 03/05/2018 [facility] Temperature Oral (F) 98.7 F 03/05/2018 [facility] Heart Rate 105 03/05/2018 [facility] Temperature Oral (F) 99.7 F 03/04/2018 [facility] Height 160.02 cm 03/04/2018 [facility] BMI Calculated 43.49 03/04/2018 [facility] Weight 111.364 03/04/2018 [facility] Systolic (mm Hg) 129 03/04/2018 [facility] Diastolic (mm Hg) 80 03/04/2018 [facility] Respitory Rate 16 03/04/2018 [facility] Heart Rate 108 03/04/2018 [facility] Systolic (mm Hg) 116 03/03/2018 [facility] Diastolic (mm Hg) 69 03/03/2018 [facility] Heart Rate 108 03/03/2018 [facility] Temperature Oral (F) 36.67 Jacklyn 03/03/2018 [facility] Respitory Rate 24 03/03/2018 [facility] Height 160 cm 03/03/2018 [facility] Weight 111.131 03/03/2018 [facility] BMI Calculated 43.40 03/03/2018 [facility] Respitory Rate 14 02/04/2018 [facility] Heart Rate 99 02/04/2018 [facility] Systolic (mm Hg) 138 02/04/2018 [facility] Diastolic (mm Hg) 78 02/04/2018 [facility] Height 157.48 cm 02/04/2018 [facility] BMI Calculated 44.54 02/04/2018 [facility] Weight 110.455 02/04/2018 [facility] Temperature Oral (F) 98.7 F 02/04/2018 [facility] Respitory Rate 16 02/04/2018 [facility] Heart Rate 117 02/04/2018 [facility] Systolic (mm Hg) 152 02/04/2018 [facility] Diastolic (mm Hg) 82 02/04/2018 [facility] Systolic (mm Hg) 123 11/21/2017 [facility] Diastolic (mm Hg) 78 11/21/2017 [facility] Heart Rate 98 11/21/2017 [facility] Temperature Oral (F) 37.28 Jacklyn 11/21/2017 [facility] Respitory Rate 20 11/21/2017 [facility] Height 160 cm 11/21/2017 [facility] Weight 112.946 11/21/2017 [facility] BMI Calculated 44.11 11/21/2017 [facility] Weight 115.909 11/07/2017 [facility] BMI Calculated 46.74 11/07/2017 [facility] Height 157.48 cm 11/07/2017 [facility] Heart Rate 91 11/07/2017 [facility] Respitory Rate 14 11/07/2017 [facility] Temperature Oral (F) 98.0 F 11/07/2017 [facility] Systolic (mm Hg) 140 11/07/2017 [facility] Diastolic (mm Hg) 82 11/07/2017 [facility] Systolic (mm Hg) 126 10/18/2017 [facility] Diastolic (mm Hg) 82 10/18/2017 [facility] Respitory Rate 14 10/18/2017 [facility] Heart Rate 90 10/18/2017 [facility] Temperature Oral (F) 98.0 F 10/18/2017 [facility] BMI Calculated 46.19 10/18/2017 [facility] Height 157.48 cm 10/18/2017 [facility] Weight 114.545 10/18/2017 [facility] Respitory Rate 18 08/11/2011 [facility] Heart Rate 90 08/11/2011 [facility] Diastolic (mm Hg) 71 08/11/2011 [facility] Systolic (mm Hg) 115 08/11/2011 [facility] Temperature Oral (F) 98.4 F 08/11/2011 [facility] Weight 100.000 08/11/2011 [facility] Height 167.64 cm 08/11/2011 [facility] Diastolic (mm Hg) 91 08/11/2011 [facility] Heart Rate 118 08/11/2011 [facility] Temperature Oral (F) 98.8 F 08/11/2011 [facility] Respitory Rate 26 08/11/2011 [facility] Systolic (mm Hg) 149 08/11/2011 [facility] Encounters Location Location Details Encounter Type Encounter Number Reason For Visit Attending Provider ADM Date DC Date Status Source [facility] Emergency [id number] ARUN BYERS 08/10/2011 08/11/2011 [place] [facility] [place] [facility] [id number] Jose C Byers 09/20/2015 09/21/2015 [facility] [facility] [place] [facility] [id number] Jose C Byers 07/02/2016 07/03/2016 [facility] [place] [facility] Refill [id number] Glucose intolerance (impaired glucose tolerance) Localized edema Alex Forrester MD 03/07/2017 [facility] [place] Office Visit [id number] Chronic bilateral low back pain with right-sided sciatica Constipation due to opioid therapy Hot flashes Nausea Neuropathy Alex Forrester MD 03/14/2017 03/14/2017 [facility] [place] Ancillary Orders [id number] Pulmonary congestion Lung infection Alex Forrester MD 04/25/2017 [facility] [place] Office Visit [id number] Chronic bilateral low back pain with right-sided sciatica Asthmatic bronchitis, moderate persistent, uncomplicated Pulmonary congestion Essential hypertension Lung infection Alex Forrester MD 04/25/2017 04/25/2017 [facility] [place] Ancillary Procedure [id number] Pulmonary congestion Lung infection Alex Forrester MD 04/25/2017 04/25/2017 [facility] [place] Refill [id number] Essential hypertension with goal blood pressure less than 130/85 Alex Forrester MD 05/09/2017 [facility] [place] Office Visit [id number] Chronic bilateral low back pain with right-sided sciatica Lung infection Hyperglycemia Type 2 diabetes mellitus with hyperglycemia, with long-term current use of insulin PAD (peripheral artery disease) Asthmatic bronchitis, moderate persistent, uncomplicated Vitamin D deficiency Essential hypertension with goal blood pressure less than 130/85 Skin infection Arthralgia, unspecified joint Alex Forrester MD 05/23/2017 05/23/2017 [facility] [place] Refill [id number] Type 2 diabetes mellitus with other diabetic arthropathy Alex Forrester MD 06/09/2017 [facility] Registered Clinic [id number] JOSE C BYERS MD 06/25/2017 [facility] [place] Orders Only [id number] Chronic bilateral low back pain with right-sided sciatica Arthralgia, unspecified joint Menopausal syndrome Asthmatic bronchitis, moderate persistent, uncomplicated Shortness of breath Alex Forrester MD 06/27/2017 [facility] [place] Office Visit [id number] Chronic bilateral low back pain with right-sided sciatica Arthralgia, unspecified joint Menopausal syndrome Asthmatic bronchitis, moderate persistent, uncomplicated Shortness of breath Type 2 diabetes mellitus with hyperglycemia, with long-term current use of insulin Need for influenza vaccination Alex Forrester MD 06/27/2017 06/27/2017 [facility] [place] Office Visit [id number] Chronic bilateral low back pain with right-sided sciatica Neuropathy Slow transit constipation Moderate persistent asthmatic bronchitis with acute exacerbation Menopause Acute recurrent maxillary sinusitis Alex Forrester MD 08/01/2017 08/01/2017 [facility] [place] Office Visit [id number] Chronic bilateral low back pain with right-sided sciatica Gastroesophageal reflux disease with esophagitis Type 2 diabetes mellitus with hyperglycemia, with long-term current use of insulin Diabetic foot Asthmatic bronchitis, moderate persistent, uncomplicated Alex Forrester MD 09/05/2017 09/05/2017 [facility] [place] Orders Only [id number] Diabetic foot Alex Forrester MD 09/12/2017 [facility] [place] Refill [id number] Gastroesophageal reflux disease with esophagitis Alex Forrester MD 09/19/2017 [facility] [place] Office Visit [id number] Chronic bilateral low back pain with right-sided sciatica Hot flashes Localized edema Type 2 diabetes mellitus with hyperglycemia, with long-term current use of insulin Abdominal aortic aneurysm (AAA) without rupture Shortness of breath Renal dysfunction Alex Forrester MD 10/10/2017 10/10/2017 [facility] [place] Ancillary Procedure [id number] Alex Forrester MD 10/10/2017 10/10/2017 [facility] [place] Refill [id number] Hyperglycemia Type 2 diabetes mellitus with hyperglycemia, with long-term current use of insulin Blake Gutierrez RN 10/11/2017 [facility] [place] Office Visit [id number] Type 2 diabetes mellitus with hyperglycemia, with long-term current use of insulin Grade III hemorrhoids Slow transit constipation Chronic bilateral low back pain with right-sided sciatica Alex Forretser MD 10/17/2017 10/17/2017 [facility] Outpatient [id number] ELZA CURRIE 10/18/2017 Active [facility] Outpatient [id number] Elza Currie 10/18/2017 10/19/2017 [facility] [place] Refill [id number] Neuropathic pain Alex Forrester MD 10/24/2017 [facility] Refill [id number] Alex Forrester MD 10/25/2017 [facility] [place] Refill [id number] Neuropathic pain Alex Forrester MD 10/25/2017 [facility] [place] Ultrasound Ancillary Procedure [id number] 10/25/2017 10/25/2017 [facility] Outpatient [id number] ELZA CURRIE 11/07/2017 Active [facility] Primary [facility] Outpatient [id number] Elza Currie 11/07/2017 11/08/2017 [facility] Departed Emergency Room [id number] MARQUISE GIORDANO MD 11/17/2017 11/17/2017 [facility] [place] Orders Only [id number] Type 2 diabetes mellitus with hyperglycemia, with long-term current use of insulin Arthralgia, unspecified joint Alex Forrester MD 11/21/2017 [facility] [place] Office Visit [id number] Neuropathic pain Chronic bilateral low back pain with right-sided sciatica Overweight Infection Type 2 diabetes mellitus with hyperglycemia, with long-term current use of insulin Alex Forrester MD 11/21/2017 11/21/2017 [facility] Primary Care [facility] Phone Message [id number] 11/22/2017 11/24/2017 [facility] Primary [facility] Phone Message [id number] 11/22/2017 11/24/2017 [facility] [place] Refill [id number] Hot flashes Alex Forrester MD 11/23/2017 [facility] Phone Message [id number] 11/27/2017 11/29/2017 [facility] [place] Refill [id number] Primary osteoarthritis involving multiple joints Alex Forrester MD 12/04/2017 [facility] [place] Refill [id number] Primary osteoarthritis involving multiple joints Alex Forrester MD 12/04/2017 [facility] Refill [id number] Arthralgia, unspecified joint Alex Forrester MD 12/17/2017 [facility] [place] Refill [id number] Menopause Alex Forrester MD 12/18/2017 [facility] Primary [facility] Phone Message [id number] 01/08/2018 01/10/2018 [facility] Outpatient [id number] ELZA CURRIE 01/14/2018 Active [facility] Primary [facility] Ambulatory Pre-Reg [id number] Elza Currie 01/14/2018 01/14/2018 [facility] Outpatient [id number] ELZA CURRIE 01/21/2018 Active [facility] Ambulatory Pre-Reg [id number] Elza Currie 01/21/2018 01/21/2018 [facility] [place] Refill [id number] Menopause Alex Forrester MD 01/29/2018 [facility] [place] Refill [id number] Localized edema Alex Forrester MD 01/29/2018 [facility] [place] Refill [id number] Rash and other nonspecific skin eruption Alex Forrester MD 01/31/2018 [facility] Refill [id number] Type 2 diabetes mellitus with hyperglycemia, with long-term current use of insulin Alex Forrester MD 02/04/2018 [facility] Orders Only [id number] Type 2 diabetes mellitus with hyperglycemia, with long-term current use of insulin Leighann Weller RN 02/04/2018 [facility] Outpatient [id number] ELZA CURRIE 02/04/2018 [facility] Primary Care [facility] Outpatient [id number] Elza Currie 02/04/2018 02/05/2018 [facility] [place] Refill [id number] Type 2 diabetes mellitus with hyperglycemia, with long-term current use of insulin Alex Forrester MD 02/07/2018 [facility] [place] Refill [id number] Rash and other nonspecific skin eruption Alex Forrester MD 02/07/2018 [facility] [place] Refill [id number] Essential hypertension with goal blood pressure less than 130/85 Alex Forrester MD 02/11/2018 [facility] [place] Refill [id number] Primary osteoarthritis involving multiple joints Alex Forrester MD 02/13/2018 [facility] [place] Refill [id number] Type 2 diabetes mellitus with hyperglycemia, with long-term current use of insulin PAD (peripheral artery disease) Alex Forrester MD 02/17/2018 [facility] [place] Ancillary Orders [id number] Shortness of breath Alex Forrester MD 02/20/2018 [facility] [place] Office Visit [id number] Neuropathic pain Chronic bilateral low back pain with right-sided sciatica Infection Orthostatic dizziness Shortness of breath Alex Forrester MD 02/20/2018 02/20/2018 [facility] [place] Ancillary Procedure [id number] Shortness of breath Alex Forrester MD 02/20/2018 02/20/2018 [facility] [place] Refill [id number] Menopause Alex Forrester MD 02/21/2018 [facility] [place] Refill [id number] Hot flashes Alex Forrester MD 02/23/2018 [facility] [id number] Leighann Weller RN 02/24/2018 [facility] Office Visit [id number] Bronchopneumonia Shortness of breath Type 2 diabetes mellitus with hyperglycemia, with long-term current use of insulin Psychophysiological insomnia Weakness of both lower extremities Alex Forrester MD 03/03/2018 03/03/2018 [facility] Emergency [id number] Lis Butcher 03/04/2018 03/05/2018 [facility] Outpatient [id number] Federico Cardonaa 03/04/2018 03/04/2018 [facility] Radiology [facility] Ancillary Procedure [id number] Bronchopneumonia Shortness of breath Alex Forrester MD 03/06/2018 03/06/2018 [facility] Outpatient [id number] ELZA CAMERONH 03/13/2018 Active [facility] Ambulatory Pre-Reg [id number] Elza Cameronh 03/13/2018 03/13/2018 [facility] Emergency [id number] Chelsie Byers 07/23/2018 07/23/2018 [facility] Phone Message [id number] 11/05/2018 11/07/2018 [facility] Ambulatory Pre-Reg [id number] Jodi Greenberg 11/10/2018 11/10/2018 [facility] Outpatient [id number] Jodi Greenberg 11/13/2018 [facility] Outpatient [id number] Elza Cameronh 01/20/2019 Active [facility] Ambulatory Pre-Reg [id number] Elza Cameronh 01/20/2019 01/20/2019 [facility] Procedures Procedure Code Date Perfomer Comments Source Computed tomography of abdomen and pelvis with contrast [id number] 11/17/2017 [facility] Mammogram - screening [id number] 09/12/2017 [facility] [facility]<sup>1</sup> [id number] 08/12/2016 polyps [facility] Cholecystectomy [id number] [facility] Operation on tonsil [id number] [facility] Assessment and Plan No Data Provided for This Section Plan of Care Plan of Care Date Source DM HGBA1C (Yearly) 10/10/2018 [facility] Upcoming EncountersDateTypeSpecialtyCare TeamDescription 03/20/2018 Office Visit Pulmonology Alex Forrester [id number] [facility] STEPHAN Mireles [phone] (Fax) [facility] DateLast DoneComments DM Foot Exam (Yearly) 1968 DM Retinal Exam (Yearly) 1968 Colorectal Cancer Scrn Annual (FIT/FOBT) Age 50 to 75 2000 Breast Cancer Scrn (Yearly) 01/27/2015 01/27/2014, 07/12/2011, 11/14/2010, Additional history exists IMM Pneumococcal Age 65 and Up 2015 DM HGBA1C (Yearly) 10/10/2018 10/10/2017, 06/27/2010 03/11/2018 [facility] Upcoming EncountersDateTypeSpecialtyCare TeamDescription 02/20/2018 Office Visit PulmonAlex Ramirez [id number] [facility] STEPHAN Mireles [phone] (Fax) [facility] DateLast DoneComments DM FOOT EXAM (YEARLY) 1968 DM MICROALBUMIN URINE SCRN (YEARLY) 1968 DM RETINAL EXAM (YEARLY) 1968 COLORECTAL CANCER SCRN ANNUAL (FIT/FOBT) AGE 50 TO 75 2000 BREAST CANCER SCRN (YEARLY) 01/27/2015 01/27/2014, 07/12/2011, 11/14/2010, Additional history exists IMM PNEUMOCOCCAL AGE 65 AND UP 2015 DM HGBA1C (YEARLY) 10/10/2018 10/10/2017, 06/27/2010 02/04/2018 [facility] Discharge Date 11/17/17 8:00pm Disposition HOME, SELF-CARE Condition at Discharge Stable Instructions/Education Provided Abdominal Pain - Adult Diarrhea - Adult Forms Provided Work/School Excuse Prescriptions See Medication Section Referrals JOSE C BYERS MD Order Date: Call for an appointment Address: [facility] [place] [address] Note: Call tomorrow to schedule follow up next week. Drink plenty of fluids, take your medications as prescribed. Additional Instructions/Education Call for follow up appointment to see your medical provider or the referral listed. Take over the counter Motrin or Tylenol medication as needed for comfort. discussed at the bedside, drink fluids, rest and return to the emergency department for any fever, shortness of breath, chest pain, abdominal pain, trouble handling oral secretions or any new concerns. 11/17/2017 [facility] IMM Pneumococcal Age 65 and Up 2015 [facility] Breast Cancer Scrn (Yearly) 01/27/2015 [facility] Colorectal Cancer Scrn Annual (FIT/FOBT) Age 50 to 75 2000 [facility] DM Foot Exam (Yearly) 1968 [facility] Social History Social History Date Source Tobacco UseTypesPacks/DayYears UsedDate Former Smoker Cigarettes 1 2 Smokeless Tobacco: Never Used Tobacco Cessation: Counseling Given: No Comments: smoked for 2 years at the age of 16 Alcohol UseDrinks/Weekoz/WeekComments No Sex Assigned at BirthDate Recorded Not on file 03/03/2018 [facility] Social History Problem Response Recorded Date/Time Onset Date Status Hx Psychiatric Problems No 09/10/2014 7:00pm Not Applicable Not Applicable Hx Eating Disorder No 09/10/2014 7:00pm Not Applicable Not Applicable Hx Substance Use Disorder No 09/10/2014 7:00pm Not Applicable Not Applicable Hx Depression No 09/10/2014 7:00pm Not Applicable Not Applicable Hx Alcohol Use No 09/10/2014 7:00pm Not Applicable Not Applicable Hx Substance Use Treatment No 09/10/2014 7:00pm Not Applicable Not Applicable Hx Physical Abuse No 09/10/2014 7:00pm Not Applicable Not Applicable Smoking Status Start Date Stop Date Never Smoker 11/17/2017 [facility] Social History TypeResponse Exercise Exercise duration: 0. Employment/School Status: Unemployed. 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 Alcohol Current, Type Liquor. Frequency: 1-2 times per year. Smoking Status Never smoker; Exposure to Tobacco Smoke None; Cigarette Smoking Last 365 Days Yes; Reg Smoking Cessation Counseling No entered on: 07/23/18 10/19/2017 [facility] Social History TypeResponse Exercise Exercise duration: 0. Employment/School Status: Unemployed. 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 Alcohol Current, Type Liquor. Frequency: 1-2 times per year. Smoking Status Never smoker; Exposure to Tobacco Smoke None; Cigarette Smoking Last 365 Days Yes; Reg Smoking Cessation Counseling No entered on: 07/23/18 10/19/2017 [facility] No data available for this section 07/03/2016 OSMAN KIM Villagomez Family History Value Date Source Medical HistoryRelationNameComments Heart Father Cancer Mother Breast cancer at age 50s Heart Mother RelationNameStatusComments Father (Age 47) [place] Mother (Age 70) Renal failure 03/11/2018 [facility] Medical HistoryRelationNameComments Heart Father Cancer Mother Breast cancer at age 50s Heart Mother RelationNameStatusComments Father (Age 47) [place] Mother (Age 70) Renal failure 02/04/2018 [facility] Advance Directives Order Name Results Value Date Source Advance Directives Advance Directives Directive Response Recorded Date/Time Does the patient have an advance directive? No 10/09/16 6:12pm If yes, is advance directive on file with [facility]? No 09/10/14 7:00pm If not on file with [facility] will patient provide a copy? No 10/09/16 6:12pm Do you have a Directive to Physician? No 11/17/17 3:55pm Do you have a Medical Power of Street Sweeper Operator? No 11/17/17 3:55pm Do you have an out of hospital Do Not Resuscitate Order? No 11/17/17 3:55pm Do you have any special needs we should be aware of? No 11/17/17 3:55pm Do you have a support person here with you today? Yes 11/17/17 3:55pm Did patient receive Notice of Privacy Practices? Yes 11/17/17 3:55pm Did patient receive patient rights and responsibilities? Yes 11/17/17 3:55pm 11/17/2017 [facility] Functional Status No Data Provided for This Section
--- OUTSIDE RECORDS SUMMARY | 2019-04-17 19:18 | XMS REPORT | Summary of Care ---
Author Author [facility] [place] Organization [facility] [place] Address Unknown Phone Unavailable Encounter HQ Encntr_alias(FIN) [id number] Date(s): 07/02/16 - 07/02/16 [facility] [place] [address] [place] [phone] Discharge Disposition: Home or Self Care Attending Physician: Jose C Byers MD Vital Signs No data available for this section Problem List No data available for this section Allergies, Adverse Reactions, Alerts Substance Reaction Severity Status NKDA Active Medications No data available for this section Results No data available for this section Immunizations No data available for this section Procedures No data available for this section Social History No data available for this section Assessment and Plan No data available for this section
--- OUTSIDE RECORDS SUMMARY | 2019-04-17 19:18 | XMS REPORT | Summary of Care ---
Author Author [facility] Organization [facility] Address Unknown Phone Unavailable Care Team Providers Care Music Education Adjunct Professor Name Role Phone Bhavya Currie PCP Encounter HQ Andrez_paul([facility]) [id number] Date(s): 07/23/18 - 07/23/18 [facility] [address] [place] [address]- Encounter Diagnosis Pain in left foot (Final) - 07/31/18 Type 2 diabetes mellitus without complications (Final) - Fall on same level from slipping, tripping and stumbling without subsequent stri dusty against object, initial encounter (Final) - Bed confinement status (Final) - 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) - Hypertensive heart disease with heart failure (Final) - Heart failure, unspecified (Final) - Hyperlipidemia, unspecified (Final) - Hypothyroidism, unspecified (Final) - Left foot pain (Discharge Diagnosis) - 07/23/18 Discharge Disposition: Home or Self Care Attending Physician: Chelsie Byers MD Vital Signs Most recent to 1 2 oldest [Reference Range]: Height 157.48 cm (07/23/18 2:25 PM) Temperature Oral 98.0 DegF 98 DegF [96.4-99.1 DegF] (07/23/18 4:46 PM) (07/23/18 2:25 PM) Blood Pressure 134/74 mmHg 129/70 mmHg [90-140/60-90 mmHg] (07/23/18 4:46 PM) (07/23/18 2:25 PM) Respiratory Rate 20 BRMIN 20 BRMIN [14-20 BRMIN] (07/23/18 4:46 PM) (07/23/18 2:25 PM) Peripheral Pulse 88 bpm 106 bpm Rate [60-100 bpm] (07/23/18 4:46 PM) *HI* (07/23/18 2:25 PM) Weight 111.364 kg (07/23/18 2:25 PM) Body Mass Index 44.9 m2 (07/23/18 2:25 PM) Problem List Condition Effective Dates Status Health Status Informant Aneurysm(Confirmed)1 Active Asthma(Confirmed) Active Chronic Active CHF(Confirmed) Constipation(Confirm Active ed) Diabetic Active neuropathy(Confirmed ) Diabetic Active nephropathy(Confirme d) Pedal Active edema(Confirmed) Body mass index Active (BMI) 45.0-49.9, adult(Confirmed) Glaucoma(Confirmed) Active Hormone replacement Active therapy(Confirmed) Hyperlipidemia(Confi Active rmed) Hypertension(Confirm Active ed) Cognitive Active deficits(Confirmed) Chronic knee Active pain(Confirmed) Post menopausal Active syndrome(Confirmed) Physical Active deconditioning(Confi rmed) Polypharmacy(Confirm Active ed) Subclinical Active hypothyroidism(Confi rmed) Uncontrolled type 2 Active diabetes mellitus(Confirmed) Unsteady Active gait(Confirmed) 1splenic Allergies, Adverse Reactions, Alerts No Known Medication Allergies Medications No data available for this section Results No data available for this section Immunizations No data available for this section Procedures Procedure Date Related Diagnosis Body Site Status Mammogram - screening 09/2017 Completed Colonoscopy1 2016 Completed Cholecystectomy Completed Operation on tonsil Completed 1polyps Social History Social History Type Response Exercise Exercise duration: 0. Employment/School Status: Unemployed. 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 Alcohol Current, Type Liquor. Frequency: 1-2 times per year. Smoking Status Never smoker; Exposure to Tobacco Smoke None; Cigarette Smoking Last 365 Days Yes; Reg Smoking Cessation Counseling No entered on: 07/23/18 Assessment and Plan No data available for this section
--- OUTSIDE RECORDS SUMMARY | 2019-04-17 19:18 | XMS REPORT | Summary of Care ---
Author Author [facility] Organization [facility] Address Unknown Phone Unavailable Encounter HQ Janer_paul(FIN) [id number] Date(s): 01/21/18 - 01/21/18 [facility] [address], [address] [place] [address]- [phone] Attending Physician: Bhavya Currie DO Vital Signs No data available for this section Problem List Condition Effective Dates Status Health Status Informant Aneurysm(Confirmed)1 Active Asthma(Confirmed) Active Chronic Active CHF(Confirmed) Constipation(Confirm Active ed) Diabetic Active neuropathy(Confirmed ) Diabetic Active nephropathy(Confirme d) Pedal Active edema(Confirmed) Body mass index Active (BMI) 45.0-49.9, adult(Confirmed) Glaucoma(Confirmed) Active Hormone replacement Active therapy(Confirmed) Hyperlipidemia(Confi Active rmed) Hypertension(Confirm Active ed) Cognitive Active deficits(Confirmed) Chronic knee Active pain(Confirmed) Post menopausal Active syndrome(Confirmed) Polypharmacy(Confirm Active ed) Uncontrolled type 2 Active diabetes mellitus(Confirmed) Unsteady Active gait(Confirmed) 1splenic Allergies, Adverse Reactions, Alerts Substance Reaction Severity Status NKDA Active Medications No data available for this section Results No data available for this section Immunizations No data available for this section Procedures Procedure Date Related Diagnosis Body Site Status Mammogram - screening 09/2017 Completed Cholecystectomy Completed Operation on tonsil Completed Social History Social History Type Response Exercise Exercise duration: 0. Employment/School Status: Unemployed. 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 Alcohol Current, Type Liquor. Frequency: 1-2 times per year. Smoking Status Never smoker; Exposure to Tobacco Smoke None; Cigarette Smoking Last 365 Days Yes; Reg Smoking Cessation Counseling No entered on: 11/07/17 Assessment and Plan No data available for this section
--- OUTSIDE RECORDS SUMMARY | 2019-04-17 19:18 | XMS REPORT | Summary of Care ---
Author Author [facility] Organization [facility] Address Unknown Phone Unavailable Encounter LUIS Montgomery(FIN) [id number] Date(s): 02/04/18 - 02/04/18 [facility] [address], [address] [place] [address]- [phone] Discharge Disposition: Home or Self Care Attending Physician: Bhavya Currie DO Vital Signs Most recent to 1 2 oldest [Reference Range]: Height 157.48 cm (02/04/18 12:55 PM) Temperature Oral 98.7 DegF [96.4-99.1 DegF] (02/04/18 12:55 PM) Blood Pressure 138/78 mmHg 152/82 mmHg [90-140/60-90 mmHg] (02/04/18 1:57 PM) *HI* (02/04/18 12:55 PM) Respiratory Rate 14 BRMIN 16 BRMIN [14-20 BRMIN] (02/04/18 1:57 PM) (02/04/18 12:55 PM) Peripheral Pulse 99 bpm 117 bpm Rate [60-100 bpm] (02/04/18 1:57 PM) *HI* (02/04/18 12:55 PM) Weight 110.455 kg (02/04/18 12:55 PM) Body Mass Index 44.54 m2 (02/04/18 12:55 PM) Problem List Condition Effective Dates Status [...] Substance Reaction Severity Status NKDA Active Medications Tylenol with Codeine #3 oral tablet 1 tab, PO, TID, PRN Pain, X 10 day, # 30 tab, 0 Refill(s) Start Date: 02/04/18 Stop Date: 02/14/18 Status: Ordered Results No data available for this section Immunizations No data available for this section Procedures Procedure Date Related Diagnosis Body Site Status Mammogram - screening 09/2017 Completed Colonoscopy1 2016 Completed Cholecystectomy Completed Operation on tonsil Completed 1polyps Social History Social History Type Response Exercise Exercise duration: 0. Employment/School Status: Unemployed. 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 Alcohol Current, Type Liquor. Frequency: 1-2 times per year. Smoking Status Never smoker; Exposure to Tobacco Smoke None; Cigarette Smoking Last 365 Days Yes; Reg Smoking Cessation Counseling No entered on: 02/04/18 Assessment and Plan No data available for this section
--- OUTSIDE RECORDS SUMMARY | 2019-04-17 19:18 | XMS REPORT | Summary of Care ---
Author Author [facility] [place] Organization [facility] [place] Address Unknown Phone Unavailable Encounter HQ Encntr_alias(FIN) [id number] Date(s): 09/20/15 - 09/20/15 [facility] [place] [address] [facility] [place], [place] [address] [phone] Discharge Disposition: Home Attending Physician: Jose C Byers MD Vital [...]
--- OUTSIDE RECORDS SUMMARY | 2019-04-17 19:18 | XMS REPORT | Summary of Care ---
Author Author [facility] Organization [facility] Address Unknown Phone Unavailable Encounter HQ Valentina(FIN) [id number] Date(s): 03/04/18 - 03/04/18 [facility] [address] [place] [address]- [phone] Encounter Diagnosis Leukocytosis (Discharge Diagnosis) - 03/04/18 Acute constipation (Discharge Diagnosis) - 03/04/18 Abdominal pain in female. 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) - Discharge Disposition: Home or Self Care Attending Physician: Lis Butcher DO Vital Signs Most recent to 1 2 oldest [Reference Range]: Height 160.02 cm (03/04/18 3:09 PM) Temperature Oral 98.7 DegF 99.7 DegF [96.4-99.1 DegF] (03/04/18 11:39 PM) *HI* (03/04/18 3:09 PM) Blood Pressure 127/83 mmHg 129/80 mmHg [90-140/60-90 mmHg] (03/04/18 11:39 PM) (03/04/18 3:09 PM) Respiratory Rate 18 BRMIN 16 BRMIN [14-20 BRMIN] (03/04/18 11:39 PM) (03/04/18 3:09 PM) Peripheral Pulse 105 bpm 108 bpm Rate [60-100 bpm] *HI* *HI* (03/04/18 11:39 PM) (03/04/18 3:09 PM) Weight 111.364 kg (03/04/18 3:09 PM) Body Mass Index 43.49 m2 (03/04/18 3:09 PM) Problem List Condition Effective Dates Status [...] Substance Reaction Severity Status NKDA Active Medications Colace 100 mg oral capsule 100 mg=1 cap, PO, BID, PRN Constipation, # 60 cap, 0 Refill(s) Start Date: 03/04/18 Status: Ordered fentaNYL 50 microgram, 1 mL, Route: IVP, Drug form: INJ, ONCE, Dosing Weight 111.364, kg, Priority: STAT, Start date: 03/04/18 20:10:00 CDT, Stop date: 03/04/18 20:10:00 CDT Notes: (Same as: Sublimaze) Preservative free. Start Date: 03/04/18 Stop Date: 03/04/18 Status: Completed Flagyl 500 mg oral tablet 500 mg=1 tab, PO, Q8H, X 10 day, # 30 tab, 0 Refill(s) Start Date: 03/04/18 Stop Date: 03/14/18 Status: Ordered MiraLax oral powder for reconstitution 17 gm, PO, Daily, X 31 day, # 527 gm, 0 Refill(s) Start Date: 03/04/18 Stop Date: 04/04/18 Status: Ordered Saline Flush 0.9% 10 mL, Route: IVP, Drug Form: INJ, Dosing Weight 110.455, kg, PRN, PRN Line Flus h, Start date: 03/04/18 15:12:00 CDT, Duration: 30 day, Stop date: 04/03/18 15:1 1:00 CDT Notes: (Same as: BD Posiflush) Start Date: 03/04/18 Stop Date: 03/05/18 Status: Discontinued Results ELECTROLYTES Most recent to 1 oldest [Reference Range]: Sodium Lvl [135-145 141 mEq/L mEq/L] (03/04/18 3:25 PM) Potassium Lvl 3.2 mEq/L [3.5-5.1 mEq/L] *LOW* (03/04/18 3:25 PM) Chloride Lvl [95-109 95 mEq/L mEq/L] (03/04/18 3:25 PM) CO2 [24-32 mEq/L] 30 mEq/L (03/04/18 3:25 PM) AGAP [10.0-20.0 19.2 mEq/L mEq/L] (03/04/18 3:25 PM) CHEM PANEL Most recent to 1 oldest [Reference Range]: Creatinine Lvl 1.47 mg/dL [0.50-1.40 mg/dL] *HI* (03/04/18 3:25 PM) eGFR 37 mL/min/1.73m2 1 *NA* (03/04/18 3:25 PM) BUN [7-22 mg/dL] 29 mg/dL *HI* (03/04/18 3:25 PM) B/C Ratio [6-25] 20 (03/04/18 3:25 PM) Glucose Lvl [70-99 246 mg/dL mg/dL] *HI* (03/04/18 3:25 PM) Total Protein 7.8 g/dL [6.4-8.4 g/dL] (03/04/18 3:25 PM) Albumin Lvl [3.5-5.0 3.5 g/dL g/dL] (03/04/18 3:25 PM) Globulin [2.7-4.2 4.3 g/dL g/dL] *HI* (03/04/18 3:25 PM) A/G Ratio [0.7-1.6] 0.8 (03/04/18 3:25 PM) Calcium Lvl 8.5 mg/dL [8.5-10.5 mg/dL] (03/04/18 3:25 PM) ALT [0-65 unit/L] 25 unit/L (03/04/18 3:25 PM) AST [0-37 unit/L] 17 unit/L (03/04/18 3:25 PM) Alk Phos [39-136 90 unit/L unit/L] (03/04/18 3:25 PM) Bili Total [0.2-1.3 0.5 mg/dL mg/dL] (03/04/18 3:25 PM) 1Result Comment: The eGFR is calculated using the [...] from the National Kidney Disease Education Program ( NKDEP) which additionally recommends that when the eGFR is used in patients with extremes of body mass index for purposes of drug dosing, the eGFR should be mul tiplied by the estimated BMI. CARDIAC ENZYMES Most recent to 1 oldest [Reference Range]: Troponin-I <0.02 ng/mL [0.00-0.40 ng/mL] (03/04/18 3:25 PM) URINE AND STOOL Most recent to 1 oldest [Reference Range]: UA Turbidity [Clear] Marked *ABN* (03/04/18 8:18 PM) UA Color Roslyn *NA* (03/04/18 8:18 PM) UA pH [5.0-8.0] 5.0 (03/04/18 8:18 PM) UA Spec Grav 1.013 [<=1.030] (03/04/18 8:18 PM) UA Glucose [Negative Negative mg/dL mg/dL] *NA* (03/04/18 8:18 PM) UA Blood [Negative] Negative (03/04/18 8:18 PM) UA Ketones [Negative Negative mg/dL mg/dL] *NA* (03/04/18 8:18 PM) UA Protein [Negative Negative mg/dL mg/dL] (03/04/18 8:18 PM) UA Urobilinogen <=1.0 mg/dL [0.1-1.0 mg/dL] *NA* (03/04/18 8:18 PM) UA Bili [Negative] Negative *NA* (03/04/18 8:18 PM) UA Leuk Est Negative [Negative] (03/04/18 8:18 PM) UA Nitrite Negative [Negative] (03/04/18 8:18 PM) UA WBC [0-5 /HPF] 2 /HPF (03/04/18 8:18 PM) UA Sq Epi [Few /LPF] Occasional /LPF *NA* (03/04/18 8:18 PM) UA Hyal Cast [0-2 17 /LPF /LPF] *HI* (03/04/18 8:18 PM) UA Mucus [None Seen Few /LPF /LPF] *NA* (03/04/18 8:18 PM) HEMATOLOGY Most recent to 1 oldest [Reference Range]: WBC [3.7-10.4 K/CMM] 13.5 K/CMM *HI* (03/04/18 3:25 PM) RBC [4.20-5.40 4.66 M/CMM M/CMM] (03/04/18 3:25 PM) Hgb [12.0-16.0 g/dL] 13.5 g/dL (03/04/18 3:25 PM) Hct [36.0-48.0 %] 40.7 % (03/04/18 3:25 PM) MCV [80.0-98.0 fL] 87.4 fL (03/04/18 3:25 PM) MCH [27.0-31.0 pg] 29.0 pg (03/04/18 3:25 PM) MCHC [32.0-36.0 33.2 g/dL g/dL] (03/04/18 3:25 PM) RDW [11.5-14.5 %] 15.4 % *HI* (03/04/18 3:25 PM) MPV [7.4-10.4 fL] 9.9 fL (03/04/18 3:25 PM) Platelet [133-450 262 K/CMM K/CMM] (03/04/18 3:25 PM) Segs [45.0-75.0 %] 75.1 % *HI* (03/04/18 3:25 PM) Lymphocytes 17.6 % [20.0-40.0 %] *LOW* (03/04/18 3:25 PM) Monocytes [2.0-12.0 5.5 % %] (03/04/18 3:25 PM) Eosinophils [0.0-4.0 1.3 % %] (03/04/18 3:25 PM) Basophils [0.0-1.0 0.5 % %] (03/04/18 3:25 PM) Segs-Bands # 10.1 K/CMM [1.5-8.1 K/CMM] *HI* (03/04/18 3:25 PM) Lymphocytes # 2.4 K/CMM [1.0-5.5 K/CMM] (03/04/18 3:25 PM) Monocytes # [0.0-0.8 0.7 K/CMM K/CMM] (03/04/18 3:25 PM) Eosinophils # 0.2 K/CMM [0.0-0.5 K/CMM] (03/04/18 3:25 PM) Basophils # [0.0-0.2 0.1 K/CMM K/CMM] (03/04/18 3:25 PM) PT [12.0-14.7 13.8 seconds seconds] (03/04/18 3:25 PM) INR [0.85-1.17] 1.06 (03/04/18 3:25 PM) PTT [22.9-35.8 27.3 seconds seconds] (03/04/18 3:25 PM) Immunizations No data available for this section Procedures Procedure Date Related Diagnosis Body Site Status Mammogram - screening 09/2017 Completed Colonoscopy1 2016 Completed Cholecystectomy Completed Operation on tonsil Completed 1polyps Social History Social History Type Response Exercise Exercise duration: 0. Employment/School Status: Unemployed. 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 Alcohol Current, Type Liquor. Frequency: 1-2 times per year. Smoking Status Never smoker; Exposure to Tobacco Smoke None; Cigarette Smoking Last 365 Days Yes; Reg Smoking Cessation Counseling No entered on: 03/04/18 Assessment and Plan No data available for this section
--- OUTSIDE RECORDS SUMMARY | 2019-04-17 19:18 | XMS REPORT | Summary of Care ---
Author Author [facility] Organization [facility] Address Unknown Phone Unavailable Encounter LUIS Montgomery(FIN) [id number] Date(s): 11/27/17 - 11/28/17 [facility] [address], [address] [place] [address]- [phone] Vital Signs No data available for this [...] Substance Reaction Severity Status NKDA Active Medications NovoLOG FlexPen 100 units/mL subcutaneous solution 18 unit, SUB-Q, TID-Before Meals, # 4 box, 1 Refill(s) Start Date: 11/27/17 Stop Date: 05/26/18 Status: Ordered pantoprazole 40 mg oral enteric coated tablet 40 mg=1 tab, PO, Daily, # 90 tab, 1 Refill(s) Start Date: 11/27/17 Status: Ordered Tradjenta 5 mg oral tablet 5 mg=1 tab, PO, Daily, # 90 tab, 1 Refill(s) Start Date: 11/27/17 Status: Ordered Results No data available for this section Immunizations No data available for this section Procedures Procedure Date Related Diagnosis Body Site Status Mammogram - screening 09/2017 Completed Cholecystectomy Completed Operation on tonsil Completed Social History Social History Type Response Exercise Exercise duration: 0. Employment/School Status: Unemployed. 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 Alcohol Current, Type Liquor. Frequency: 1-2 times per year. Smoking Status Never smoker; Exposure to Tobacco Smoke None; Cigarette Smoking Last 365 Days Yes; Reg Smoking Cessation Counseling No entered on: 11/07/17 Assessment and Plan No data available for this section
--- OUTSIDE RECORDS SUMMARY | 2019-04-17 19:18 | XMS REPORT | Summary of Care ---
Author Author [facility] Primary Care [facility] Organization [facility] Care [facility] Address Unknown Phone Unavailable Care Team Providers Care Long Term Care Administrator Name Role Phone Bhavya Currie PCP Encounter [facility] Encntr_paul(FIN) [id number] Date(s): 01/20/19 - 01/20/19 [facility] [address] [address]- Attending Physician: Bhavya Currie DO Vital Signs [...] Employment/School Status: Unemployed. 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 Alcohol Current, Type Liquor. Frequency: 1-2 times per year. Smoking Status Never smoker; Exposure to Tobacco Smoke None; Cigarette Smoking Last 365 Days Yes; Reg Smoking Cessation Counseling No entered on: 07/23/18 Assessment and Plan No data available for this section
--- OUTSIDE RECORDS SUMMARY | 2019-04-17 19:18 | XMS REPORT | Summary of Care ---
Author Author [facility] Organization [facility] Address Unknown Phone Unavailable Encounter LUIS Montgomery(FIN) [id number] Date(s): 01/14/18 - 01/14/18 [facility] [address] [facility], [address] [place] [address]- [phone] Attending Physician: Bhavya Currie DO Vital Signs [...] Substance Reaction Severity Status NKDA Active Medications fluticasone nasal 0.05 mg/inh spray 1 spray, NASAL, Daily, # 3 ea, 3 Refill(s), Pharmacy: [facility] Start Date: 12/05/17 Stop Date: 04/04/18 Status: Ordered meloxicam 15 mg oral tablet 15 mg=1 tab, PO, Daily, PRN arthritis, # 90 tab, 1 Refill(s), Pharmacy: [facility] Start Date: 12/05/17 Stop Date: 06/03/18 Status: Ordered Symbicort 160/4.5 inhalation aerosol with adapter 2 puff, INHALER, BID, # 3 ea, 3 Refill(s), Pharmacy: [facility] Start Date: 12/05/17 Status: Ordered Results No data available for this section Immunizations No data available for this section Procedures Procedure Date Related Diagnosis Body Site Status Mammogram - screening 09/2017 Completed Cholecystectomy Completed Operation on tonsil Completed Social History Social History Type Response Exercise Exercise duration: 0. Employment/School Status: Unemployed. 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 Alcohol Current, Type Liquor. Frequency: 1-2 times per year. Smoking Status Never smoker; Exposure to Tobacco Smoke None; Cigarette Smoking Last 365 Days Yes; Reg Smoking Cessation Counseling No entered on: 11/07/17 Assessment and Plan No data available for this section
--- OUTSIDE RECORDS SUMMARY | 2019-04-17 19:18 | XMS REPORT | Summary of Care ---
Author Author [facility] Organization [facility] Address Unknown Phone Unavailable Encounter LUIS Montgomery(FIN) [id number] Date(s): 11/07/17 - 11/07/17 [facility] [address] [facility], [address] [place] [address]- [phone] Discharge Disposition: Home or Self Care Attending Physician: Bhavya Currie DO Vital Signs Most recent to 1 oldest [Reference Range]: Height 157.48 cm (11/07/17 12:59 PM) Temperature Oral 98.0 DegF [96.4-99.1 DegF] (11/07/17 12:59 PM) Blood Pressure 140/82 mmHg [90-140/60-90 mmHg] (11/07/17 12:59 PM) Respiratory Rate 14 BRMIN [14-20 BRMIN] (11/07/17 12:59 PM) Peripheral Pulse 91 bpm Rate [60-100 bpm] (11/07/17 12:59 PM) Weight 115.909 kg (11/07/17 12:59 PM) Body Mass Index 46.74 m2 (11/07/17 12:59 PM) Problem List Condition Effective Dates Status [...] Substance Reaction Severity Status NKDA Active Medications metFORMIN 1000 mg oral tablet 1,000 mg=1 tab, PO, BID-Meals, # 30 tab, 0 Refill(s) Start Date: 11/07/17 Stop Date: 01/08/18 Status: Discontinued NovoLOG FlexPen 100 units/mL subcutaneous solution 18 unit, SUB-Q, TID-Before Meals, X 90 day, # 4 box, 1 Refill(s), Pharmacy: [facility] [id number] Start Date: 11/07/17 Stop Date: 11/27/17 Status: Completed Results No data available for this section Immunizations No data available for this section Procedures Procedure Date Related Diagnosis Body Site Status Mammogram - screening 09/2017 Completed Colonoscopy1 2016 Completed Cholecystectomy Completed Operation on tonsil Completed 1polyps Social History Social History Type Response Exercise Exercise duration: 0. Employment/School Status: Unemployed. 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 Alcohol Current, Type Liquor. Frequency: 1-2 times per year. Smoking Status Never smoker; Exposure to Tobacco Smoke None; Cigarette Smoking Last 365 Days Yes; Reg Smoking Cessation Counseling No entered on: 02/04/18 Assessment and Plan No data available for this section
--- OUTSIDE RECORDS SUMMARY | 2019-04-17 19:18 | XMS REPORT | Summary of Care ---
Author Author [facility] Organization [facility] Address Unknown Phone Unavailable Encounter LUIS Montgomery(FIN) [id number] Date(s): 03/13/18 - 03/13/18 [facility] [address] [facility], [address] [place] [address]- [phone] Attending Physician: Bhavya Currie DO Vital Signs [...] Substance Reaction Severity Status NKDA Active Medications atorvastatin 20 mg oral tablet See Instructions, # 90 unknown unit, Refill(s) 1, Take 1 tablet by mouth at bedt kristi., Pharmacy: [facility] Start Date: 04/18/18 Status: Ordered cloNIDine 0.2 mg oral tablet See Instructions, # 90 unknown unit, Refill(s) 1, Take 1 tablet by mouth daily., Pharmacy: [facility] Start Date: 04/18/18 Status: Ordered furosemide 40 mg oral tablet See Instructions, # 270 unknown unit, Refill(s) 1, Take 1 and 1/2 tablets by vickie th twice daily., Pharmacy: [facility] Start Date: 04/18/18 Status: Ordered meloxicam 15 mg oral tablet See Instructions, # 90 unknown unit, Refill(s) 1, 1 tab PO Daily,x90 day,PRN:art hritis, Pharmacy: [facility] Start Date: 04/18/18 Status: Ordered Metoprolol Tartrate 25 mg oral tablet See Instructions, # 180 unknown unit, Refill(s) 1, Take 1 tablet by mouth twice daily., Pharmacy: [facility] Start Date: 04/18/18 Status: Ordered NovoLOG FlexPen 100 units/mL injectable solution See Instructions, # 60 unknown unit, Refill(s) 1, Inject 18 units subcutaneously three times daily before meals., Pharmacy: [facility] Start Date: 03/24/18 Status: Ordered NovoLOG FlexPen 100 units/mL injectable solution 18 unit, SUB-Q, TID-Before Meals, # 90 unit, 1 Refill(s), Pharmacy: [facility], 90 day rx Start Date: 03/19/18 Stop Date: 03/24/18 Status: Completed pantoprazole 40 mg oral enteric coated tablet See Instructions, # 90 unknown unit, Refill(s) 1, Take 1 tablet by mouth daily., Pharmacy: [facility] Start Date: 04/18/18 Status: Ordered spironolactone 25 mg oral tablet See Instructions, # 90 unknown unit, Refill(s) 1, Take 1 tablet by mouth daily., Pharmacy: [facility] Start Date: 04/18/18 Status: Ordered Results No data available for this section Immunizations No data available for this section Procedures Procedure Date Related Diagnosis Body Site Status Mammogram - screening 09/2017 Completed Colonoscopy1 2016 Completed Cholecystectomy Completed Operation on tonsil Completed 1polyps Social History Social History Type Response Exercise Exercise duration: 0. Employment/School Status: Unemployed. 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 Alcohol Current, Type Liquor. Frequency: 1-2 times per year. Smoking Status Never smoker; Exposure to Tobacco Smoke None; Cigarette Smoking Last 365 Days Yes; Reg Smoking Cessation Counseling No entered on: 07/23/18 Assessment and Plan No data available for this section
--- OUTSIDE RECORDS SUMMARY | 2019-04-17 19:18 | XMS REPORT | CCD ---
Author Author [facility] Organization [facility] Address Unknown Phone Unavailable Care Team Providers Care Sander Hand Name Role Phone Jose Alberto Byers CP Allergies, Adverse Reactions, Alerts Substance Reaction Status NKDA Active Medications Medication Instructions Start Date End Date Status Dilaudid 1 mg, Route: IV, ONCE, Priority: 08/11/2011 08/11/2011 Completed STAT, Start date: 08/11/11 1:39:00, Stop date: 08/11/11 1:39:00 Dilaudid 1 mg, 1 mL, Route: IV, Drug form: 08/10/2011 08/10/2011 Completed SOLN, ONCE, Priority: STAT, Start date: 08/10/11 23:03:00, Stop date: 08/10/11 23:03:00 acetaminophen-hydroc 1 tab, PO, Q6H, 20 tab, 08/11/2011 Ordered odone 500 mg-7.5 mg Substitution Allowed, Maintenance oral tablet Zofran 4 mg, 2 mL, Route: IV, Drug form: 08/10/2011 08/10/2011 Completed INJ, ONCE, Priority: STAT, Start date: 08/10/11 21:27:00, Stop date: 08/10/11 21:27:00 Dilaudid 1 mg, 1 mL, Route: IV, Drug form: 08/10/2011 08/10/2011 Completed SOLN, ONCE, Priority: STAT, Start date: 08/10/11 21:27:00, Stop date: 08/10/11 21:27:00 Vital Signs Most recent to oldest [Reference Range]: 1 2 Height 167.64 cm (08/10/2011 21:11:00) Temperature Oral [96.4-99.1 DegF] 98.4 DegF (08/11/2011 01:34:00) 98.8 DegF (08/10/2011:11:00) Systolic Blood Pressure [90-140 mmHg] 115 mmHg (08/11/2011:34:00) 149 mmHg *HI* (08/10/2011:11:00) Diastolic Blood Pressure [60-90 mmHg] 71 mmHg (08/11/2011:34:00) 91 mmHg *HI* (08/10/2011:11:00) Respiratory Rate [14-20 BRMIN] 18 BRMIN (08/11/2011:34:00) 26 BRMIN *HI* (08/10/2011::00) Peripheral Pulse Rate [60-100 bpm] 90 bpm (08/11/2011:34:00) 118 bpm *HI* (08/10/2011::00) Weight 100.000 kg (08/10/2011:11:00) Results CHEMISTRY Most recent to oldest [Reference Range]: 1 Sodium Lvl [135-145 mEq/L] 138 mEq/L (08/10/2011:15:00) Potassium Lvl [3.5-5.1 mEq/L] 4.2 mEq/L (08/10/2011 22:15:00) Chloride Lvl [95-109 mEq/L] 102 mEq/L (08/10/2011 22:15:00) CO2 [24-32 mEq/L] 21 mEq/L *LOW* (08/10/2011 22:15:00) AGAP [10.0-20.0 mEq/L] 19.2 mEq/L (08/10/2011 22:15:00) Creatinine Lvl [0.5-1.4 mg/dL] 0.7 mg/dL (08/10/2011 22:15:00) BUN [7-22 mg/dL] 16 mg/dL (08/10/2011 22:15:00) B/C Ratio [6-25] 23 (08/10/2011 22:15:00) Glucose Lvl 133 mg/dL 1 *NA* (08/10/2011 22:15:00) Total Protein [6.4-8.4 g/dL] 8.2 g/dL (08/10/2011 22:15:00) Albumin Lvl [3.5-5.0 g/dL] 3.6 g/dL (08/10/2011 22:15:00) Globulin [2.0-4.0 g/dL] 4.6 g/dL *HI* (08/10/2011 22:15:00) A/G Ratio [0.7-1.6] 0.8 (08/10/2011 22:15:00) Calcium Lvl [8.5-10.5 mg/dL] 9.3 mg/dL (08/10/2011 22:15:00) ALT [0-65 U/L] 45 U/L (08/10/2011 22:15:00) AST [0-37 U/L] 28 U/L (08/10/2011 22:15:00) Alk Phos [39-136 U/L] 110 U/L (08/10/2011:15:00) Bili Total [0.2-1.3 mg/dL] 0.4 mg/dL (08/10/2011 22:15:00) Lipase Lvl [73-393 U/L] 132 U/L (08/10/2011 22:15:00) 1Interpretive Data: Reference Ranges : 0 - 7 days : 41 - 90 mg/dL7 days - 150 yrs : 70 - 99 mg/dL (fasting), based on the clinical recommendations of the [place] [employer]. HEMATOLOGY Most recent to oldest [Reference Range]: 1 WBC [3.7-10.4 K/CMM] 6.7 K/CMM (08/10/2011 22:15:00) RBC [4.20-5.40 M/CMM] 4.87 M/CMM (08/10/2011 22:15:00) Hgb [12.0-16.0 g/dL] 14.9 g/dL (08/10/2011 22:15:00) Hct [36.0-48.0 %] 43.6 % (08/10/2011 22:15:00) MCV [81.0-99.0 fL] 89.4 fL (08/10/2011 22:15:00) MCH [27.0-31.0 pg] 30.5 pg (08/10/2011 22:15:00) MCHC [32.0-36.0 g/dL] 34.2 g/dL (08/10/2011 22:15:00) RDW [11.5-14.5 %] 13.8 % (08/10/2011 22:15:00) Platelet [133-450 K/CMM] 203 K/CMM (08/10/2011 22:15:00) MPV [7.4-10.4 fL] 8.4 fL (08/10/2011 22:15:00) Segs [45.0-75.0 %] 50.8 % (08/10/2011 22:15:00) Lymphocytes [20.0-40.0 %] 37.5 % (08/10/2011 22:15:00) Monocytes [2.0-12.0 %] 9.2 % (08/10/2011 22:15:00) Eosinophils [0.0-4.0 %] 2.3 % (08/10/2011 22:15:00) Basophils [0.0-1.0 %] 0.2 % (08/10/2011 22:15:00) Segs-Bands # [1.5-8.1 K/CMM] 3.4 K/CMM (08/10/2011 22:15:00) Lymphocytes # [1.0-5.5 K/CMM] 2.5 K/CMM (08/10/2011 22:15:00) Monocytes # [0.0-0.8 K/CMM] 0.6 K/CMM (08/10/2011 22:15:00) Eosinophils # [0.0-0.5 K/CMM] 0.2 K/CMM (08/10/2011 22:15:00) Basophils # [0.0-0.2 K/CMM] 0.0 K/CMM (08/10/2011 22:15:00)
--- OUTSIDE RECORDS SUMMARY | 2019-04-17 19:18 | XMS REPORT | Summary of Care ---
Author Author [facility] Organization [facility] Address Unknown Phone Unavailable Encounter LUIS Montgomery(FIN) [id number] Date(s): 11/10/18 - 11/10/18 [facility] [address] [facility] [address] [place] [address]- [phone] Attending Physician: Jodi Greenberg MD Vital Signs No data available for [...] Employment/School Status: Unemployed. Other: lives alone, has cuff slitter 4 hours/day. Alcohol Current, Type Liquor. Frequency: 1-2 times per year. Smoking Status Never smoker; Exposure to Tobacco Smoke None; Cigarette Smoking Last 365 Days Yes; Reg Smoking Cessation Counseling No entered on: 07/23/18 Assessment and Plan No data available for this section
--- OUTSIDE RECORDS SUMMARY | 2019-04-17 19:18 | XMS REPORT | Summary of Care ---
Author Author [facility] Organization [facility] Address Unknown Phone Unavailable Encounter LUIS Montgomery(FIN) [id number] Date(s): 01/08/18 - 01/09/18 [facility] [address], [address] [place] [address]- [phone] Vital Signs No data available for this [...] tablet 1,000 mg=1 tab, PO, BID-Meals, # 180 tab, 0 Refill(s), Pharmacy: [facility] [id number] Start Date: 01/08/18 Stop Date: 04/08/18 Status: Ordered Results No data available for this section Immunizations No data available for this section Procedures Procedure Date Related Diagnosis Body Site Status Mammogram - screening 09/2017 Completed Cholecystectomy Completed Operation on tonsil Completed Social History Social History Type Response Exercise Exercise duration: 0. Employment/School Status: Unemployed. 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 Alcohol Current, Type Liquor. Frequency: 1-2 times per year. Smoking Status Never smoker; Exposure to Tobacco Smoke None; Cigarette Smoking Last 365 Days Yes; Reg Smoking Cessation Counseling No entered on: 11/07/17 Assessment and Plan No data available for this section
--- OUTSIDE RECORDS SUMMARY | 2019-04-17 19:18 | XMS REPORT | Summary of Care ---
Author Author [facility] Organization [facility] Address Unknown Phone Unavailable Encounter LUIS Montgomery(FIN) [id number] Date(s): 11/22/17 - 11/23/17 [facility] [address] [facility], [address] [place] [address]- [phone] Vital Signs No data available for this [...] Active Medications atorvastatin 20 mg oral tablet 20 mg=1 tab, PO, Bedtime, # 90 tab, 1 Refill(s) Start Date: 11/22/17 Stop Date: 05/21/18 Status: Ordered cloNIDine 0.2 mg oral tablet 0.2 mg=1 tab, PO, Daily, # 90 tab, 1 Refill(s) Start Date: 11/22/17 Stop Date: 05/21/18 Status: Ordered furosemide 40 mg oral tablet 60 mg=1.5 tab, PO, BID, # 270 tab, 1 Refill(s) Start Date: 11/22/17 Stop Date: 05/21/18 Status: Ordered metoprolol tartrate 25 mg oral tablet 25 mg=1 tab, PO, BID, # 180 tab, 1 Refill(s) Start Date: 11/22/17 Stop Date: 05/21/18 Status: Ordered spironolactone 25 mg oral tablet 25 mg=1 tab, PO, Daily, # 90 tab, 1 Refill(s) Start Date: 11/22/17 Stop Date: 05/21/18 Status: Ordered Results No data available for this section Immunizations No data available for this section Procedures Procedure Date Related Diagnosis Body Site Status Mammogram - screening 09/2017 Completed Cholecystectomy Completed Operation on tonsil Completed Social History Social History Type Response Exercise Exercise duration: 0. Employment/School Status: Unemployed. 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 Alcohol Current, Type Liquor. Frequency: 1-2 times per year. Smoking Status Never smoker; Exposure to Tobacco Smoke None; Cigarette Smoking Last 365 Days Yes; Reg Smoking Cessation Counseling No entered on: 11/07/17 Assessment and Plan No data available for this section
--- OUTSIDE RECORDS SUMMARY | 2019-04-17 19:18 | XMS REPORT | Summary of Care ---
Author Author [facility] Organization [facility] Address Unknown Phone Unavailable Encounter [facility] Valentina(FIN) [id number] Date(s): 11/05/18 - 11/06/18 [facility] [address] [facility] [place] [address]- Vital Signs No data available for this [...] Employment/School Status: Unemployed. 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 Alcohol Current, Type Liquor. Frequency: 1-2 times per year. Smoking Status Never smoker; Exposure to Tobacco Smoke None; Cigarette Smoking Last 365 Days Yes; Reg Smoking Cessation Counseling No entered on: 07/23/18 Assessment and Plan No data available for this section
--- OUTSIDE RECORDS SUMMARY | 2019-04-17 19:18 | XMS REPORT | Summary of Care ---
Author Author [facility] Organization [facility] Address Unknown Phone Unavailable Encounter LUIS Montgomery(CHRISSY) [id number] Date(s): 10/18/17 - 10/18/17 [facility] [address] [facility], [address] [place] [address]- [phone] Discharge Disposition: Home or Self Care Attending Physician: Bhavya Currie DO Vital Signs Most recent to 1 oldest [Reference Range]: Height 157.48 cm (10/18/17 1:59 PM) Temperature Oral 98.0 DegF [96.4-99.1 DegF] (10/18/17 1:59 PM) Blood Pressure 126/82 mmHg [90-140/60-90 mmHg] (10/18/17 1:59 PM) Respiratory Rate 14 BRMIN [14-20 BRMIN] (10/18/17 1:59 PM) Peripheral Pulse 90 bpm Rate [60-100 bpm] (10/18/17 1:59 PM) Weight 114.545 kg (10/18/17 1:59 PM) Body Mass Index 46.19 m2 (10/18/17 1:59 PM) Problem List Condition Effective Dates Status [...] Substance Reaction Severity Status NKDA Active Medications acetaminophen-hydrocodone 325 mg-10 mg oral tablet 1 tab, PO, Q6H, 0 Refill(s) Start Date: 10/18/17 Status: Ordered atorvastatin 20 mg oral tablet 20 mg=1 tab, PO, Bedtime, # 30 tab, 0 Refill(s) Start Date: 10/18/17 Stop Date: 11/22/17 Status: Discontinued cloNIDine 0.2 mg oral tablet 0.2 mg=1 tab, PO, Daily, 0 Refill(s) Start Date: 10/18/17 Stop Date: 11/22/17 Status: Discontinued clopidogrel 75 mg oral tablet 75 mg=1 tab, PO, Daily, # 90 tab, 0 Refill(s) Start Date: 10/18/17 Status: Ordered Estrace 0.5 mg oral tablet 0.5 mg=1 tab, PO, Daily, # 30 tab, 0 Refill(s) Start Date: 10/18/17 Status: Ordered furosemide 40 mg oral tablet 1.5, PO, BID, 0 Refill(s) Start Date: 10/18/17 Stop Date: 11/22/17 Status: Discontinued Glucosamine Chondroitin MSM Complex 0 Refill(s) Start Date: 10/18/17 Status: Ordered Humalog 16 unit, SUB-Q, 0 Refill(s) Start Date: 10/18/17 Stop Date: 11/07/17 Status: Discontinued Levemir 40 unit, SUB-Q, BID, 0 Refill(s) Start Date: 10/18/17 Status: Ordered Lyrica PO, BID, 0 Refill(s) Start Date: 10/18/17 Status: Ordered medroxyPROGESTERone 2.5 mg, PO, Daily, 0 Refill(s) Start Date: 10/18/17 Status: Ordered meloxicam 15 mg oral tablet 15 mg=1 tab, PO, Daily, # 30 tab, 0 Refill(s) Start Date: 10/18/17 Stop Date: 12/05/17 Status: Discontinued metolazone 10 mg oral tablet 10 mg=1 tab, PO, Daily, # 30 tab, 0 Refill(s) Start Date: 10/18/17 Status: Ordered metoprolol tartrate 25 mg oral tablet 25 mg=1 tab, PO, BID, # 180 tab, 0 Refill(s) Start Date: 10/18/17 Stop Date: 11/22/17 Status: Discontinued pantoprazole 40 mg oral granule =1 Pack, PO, Daily, # 30 ea, 0 Refill(s) Start Date: 10/18/17 Stop Date: 11/27/17 Status: Discontinued spironolactone 25 mg oral tablet 25 mg=1 tab, PO, Daily, # 30 tab, 3 Refill(s) Start Date: 10/18/17 Stop Date: 11/22/17 Status: Discontinued Super B Complex oral tablet 1 tab, PO, Daily, 0 Refill(s) Start Date: 10/18/17 Status: Ordered tizanidine 4 mg oral capsule 4 mg=1 cap, PO, Bedtime, PRN for muscle spasm, # 30 cap, 0 Refill(s) Start Date: 10/18/17 Stop Date: 11/27/17 Status: Discontinued Tradjenta 5 mg oral tablet 5 mg=1 tab, PO, Daily, # 30 tab, 3 Refill(s) Start Date: 10/18/17 Stop Date: 11/27/17 Status: Discontinued Results No data available for this section Immunizations No data available for this section Procedures Procedure Date Related Diagnosis Body Site Status Mammogram - screening 09/2017 Completed Colonoscopy1 2016 Completed Cholecystectomy Completed Operation on tonsil Completed 1polyps Social History Social History Type Response Exercise Exercise duration: 0. Employment/School Status: Unemployed. 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 Alcohol Current, Type Liquor. Frequency: 1-2 times per year. Smoking Status Never smoker; Exposure to Tobacco Smoke None; Cigarette Smoking Last 365 Days Yes; Reg Smoking Cessation Counseling No entered on: 07/23/18 Assessment and Plan No data available for this section
--- OUTSIDE RECORDS SUMMARY | 2019-04-17 19:18 | XMS REPORT | Summary of Care ---
Author Author [facility] Organization [facility] Address Unknown Phone Unavailable Encounter HQ Andrez_paul(FIN) [id number] Date(s): 11/22/17 - 11/23/17 [facility] [address] [facility], [address] [place] [address]- [phone] Vital Signs No data available for this [...] Employment/School Status: Unemployed. 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 Alcohol Current, Type Liquor. Frequency: 1-2 times per year. Smoking Status Never smoker; Exposure to Tobacco Smoke None; Cigarette Smoking Last 365 Days Yes; Reg Smoking Cessation Counseling No entered on: 11/07/17 Assessment and Plan No data available for this section
--- OUTSIDE RECORDS SUMMARY | 2019-04-17 19:18 | XMS REPORT | Summary of Care ---
Author Author [facility] Organization [facility] Address Unknown Phone Unavailable Encounter LUIS Montgomery(CHRISSY) [id number] Date(s): 10/18/17 - 10/18/17 [facility] [address], [address] [place] [address]- [phone] Discharge Disposition: Home or Self Care Attending [...] 10/18/17 Stop Date: 11/07/17 Status: Discontinued Levemir See Instructions, 45 units in am and 30 units in pm, 0 Refill(s) Start Date: 10/18/17 Status: Ordered [...] Employment/School Status: Unemployed. 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 Alcohol Current, Type Liquor. Frequency: 1-2 times per year. Smoking Status Never smoker; Exposure to Tobacco Smoke None; Cigarette Smoking Last 365 Days Yes; Reg Smoking Cessation Counseling No entered on: 11/07/17 Assessment and Plan No data available for this section
[2019-04-17] MEDS ORDERED: METHYLPREDNISOLONE SOD SUCC 125 MG/2ML VIAL IV ONE (19:19)
[2019-04-17] MEDS ORDERED: IPRATROPIUM BROMIDE 0.02% 2.5 ML NEB NEB ONE (19:19)
[2019-04-17] MEDS ORDERED: ALBUTEROL SULF 0.083% NEB SOLN 3 ML NEB NEB STA (19:19)
--- OUTSIDE RECORDS SUMMARY | 2019-04-17 19:19 | XMS REPORT | Summary of Care ---
Author Author [facility] Organization [facility] Address Unknown Phone Unavailable Encounter LUIS Montgomery(CHRISSY) [id number] Date(s): 03/04/18 - 03/04/18 [facility] [address] [place] [address]- [phone] Attending Physician: Federico Johnson MD Admitting Physician: Federico Johnson MD Referring Physician: Federico Johnson MD Vital Signs No data available for [...] Employment/School Status: Unemployed. 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 Alcohol Current, Type Liquor. Frequency: 1-2 times per year. Smoking Status Never smoker; Exposure to Tobacco Smoke None; Cigarette Smoking Last 365 Days Yes; Reg Smoking Cessation Counseling No entered on: 07/23/18 Assessment and Plan No data available for this section
--- OUTSIDE RECORDS SUMMARY | 2019-04-17 19:19 | XMS REPORT | Clinical Summary ---
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 Disp. Refills Start End Date Status Date nitroGLYCERIN (NITROSTAT) Place 1 Tab under tongue 90 Tab 3 07/13/20 Active 0.4 mg sublingual every 5 minutes as needed 10 tabletIndications: for Chest pain. Angina, Chest pain, unspecified losartan (COZAAR) 50 mg Take 1 tablet by mouth 90 tablet 3 01/31/20 Active tabletIndications: HTN daily. 12 (hypertension) mupirocin (BACTROBAN) 2 % Apply to affected area 3 44 g 3 05/01/20 Active ointmentIndications: Skin times daily. 12 infection lansoprazole (PREVACID) Take 2 capsules by mouth 180 capsule 5 05/01/20 Active 15 mg delayed release daily. 12 capsuleIndications: GERD (gastroesophageal reflux disease) atorvastatin (LIPITOR) 20 Take 1 tablet by mouth at 90 tablet 3 10/17/19 Active mg tabletIndications: bedtime. 13 Other and unspecified hyperlipidemia amLODIPine (NORVASC) 5 mg Take 1 tablet by mouth 90 tablet 3 10/17/19 Active tabletIndications: HTN daily. 13 (hypertension) esomeprazole (NEXIUM) 40 Take 1 capsule by mouth 90 capsule 3 10/17/19 Active mg delayed release every morning (before 13 capsuleIndications: GERD breakfast). (gastroesophageal reflux disease) mupirocin (BACTROBAN) 2 % Apply to affected area 3 44 g 3 03/05/20 Active ointmentIndications: Skin times daily. 13 infection hydrochlorothiazide 12.5 Take 1 capsule by mouth 90 capsule 3 04/30/20 Active mg capsuleIndications: every morning. 13 HTN (hypertension) spironolactone Take 1 tablet by mouth 90 tablet 3 12/11/19 Active (ALDACTONE) 25 mg daily. 14 tabletIndications: Allergic rhinitis, cause unspecified traMADol (ULTRAM) 50 mg Take 1 tablet by mouth 120 tablet 3 12/11/19 Active tabletIndications: DJD every 6 hours as needed 14 (degenerative joint for Pain. disease) of knee docusate sodium (COLACE) Take 1 capsule by mouth 2 120 capsule 3 12/11/19 Active 100 mg times daily as needed for 14 capsuleIndications: Constipation. Unspecified constipation azithromycin (ZITHROMAX) Take 1 tablet by mouth 10 tablet 0 04/22/20 Active 500 mg tabletIndications: daily. 14 Skin infection ergocalciferol (VITAMIN Take 1 capsule by mouth 12 capsule 4 04/22/20 Active D) 50,000 unit weekly. 14 capsuleIndications: DJD (degenerative joint disease) lidocaine (LIDODERM) 5 PLACE ONE PATCH ON EACH 30 Patch 3 04/22/20 Active %(700 mg/patch) KNEE FOR 12 HOURS TO 14 patchIndications: Pain in RELIEVE PAIN. joint, ankle and foot albuterol (VENTOLIN Inhale 2 Puffs by mouth 15 g 8 11/05/19 Active HFA,PROVENTIL HFA,PROAIR every 4 hours as needed 15 HFA) 90 mcg/actuation for Wheezing or Shortness inhalerIndications: of Breath. Asthmatic bronchitis beclomethasone (QVAR) 80 Inhale 2 Puffs by mouth 2 3 Month 3 11/05/19 Active mcg/actuation times daily. Supply 15 inhalerIndications: Asthmatic bronchitis tiZANidine (ZANAFLEX) 4 Take 1 tablet by mouth 2 60 tablet 2 12/24/19 Active mg tabletIndications: times daily as needed for 15 Spasm of muscle Muscle Spasms. atorvastatin (LIPITOR) 20 Take 1 tablet by mouth at 90 tablet 3 12/24/19 Active mg tabletIndications: bedtime nightly. 15 Lipid disorder cetirizine (ZYRTEC) 10 mg Take 1 tablet by mouth 90 tablet 3 12/24/19 Active tabletIndications: daily. 15 Allergic rhinitis, cause unspecified benzonatate (TESSALON) Take 1 capsule by mouth 3 90 capsule 0 05/14/20 Active 200 mg times daily as needed for 15 capsuleIndications: Cough Cough. pregabalin (LYRICA) 100 Take 1 capsule by mouth 3 90 capsule 3 04/28/20 Active mg capsuleIndications: times daily. 15 Neuropathy fluconazole (DIFLUCAN) Take 2 tablets by mouth 2 48 tablet 3 06/23/20 Active 200 mg tabletIndications: times weekly. 15 Toenail fungus traMADol (ULTRAM) 50 mg Take 1 tablet by mouth 120 tablet 2 07/28/20 Active tabletIndications: every 6 hours as needed 15 Chronic pelvic pain in for Pain. female Hydrocortisone (SCALPICIN Apply to affected area 2 1 Bottle 2 07/28/20 Active ANTI-ITCH) 1 % times daily. 15 SolnIndications: Seborrhea capitis ergocalciferol (VITAMIN Take 1 capsule by mouth 12 capsule 3 07/28/20 Active D2) 50,000 unit weekly. 15 capsuleIndications: Hypovitaminosis D rifaximin (XIFAXAN) 550 IN BASKET MD FOR FCC 21 tablet 0 08/01/20 Active mg TabIndications: Take 1 tablet by mouth 2 15 Irritable bowel syndrome times daily. with diarrhea bumetanide (BUMEX) 1 mg TAKE 2 TABLET BY MOUTH 120 tablet 0 08/25/19 Active tabletIndications: TWICE DAILY 16 Localized edema, Essential hypertension rifaximin (XIFAXAN) 550 Take 1 tablet by mouth 2 60 tablet 2 09/01/19 Active mg TabIndications: times daily. 16 Irritable bowel syndrome with diarrhea estrogen, Take 1 tablet by mouth 90 tablet 1 09/01/19 Active conjugated,-medroxyproges daily. 16 terone (PREMPRO) 0.625-2.5 mg per tabletIndications: Menopause conjugated estrogens Insert 1 g vaginally 3 30 g 4 09/23/19 Active (PREMARIN) 0.625 mg/gram times weekly. 16 vaginal creamIndications: Menopause fluticasone-salmeterol Inhale 1 Puff by mouth 2 3 Month 3 09/29/19 Active (ADVAIR DISKUS) 250-50 times daily. Supply 16 mcg/dose diskus inhalerIndications: Asthmatic bronchitis, moderate persistent, uncomplicated estradiol (ESTRACE Insert 1 g vaginally 3 42.5 g 3 09/30/19 Active VAGINAL) 0.01 % (0.1 times weekly. 16 mg/gram) vaginal creamIndications: Postmenopausal atrophic vaginitis promethazine (PHENERGAN) Take 1 tablet by mouth 90 tablet 2 10/27/19 Active 25 mg tabletIndications: every 8 hours as needed 16 Intractable vomiting with for Nausea or Vomiting. nausea, vomiting of unspecified type pantoprazole (PROTONIX) Take 1 tablet by mouth 90 tablet 3 10/27/19 Active 40 mg delayed release daily. 16 tabletIndications: Gastroesophageal reflux disease with esophagitis estrogens, conjugated, Take 1 tablet by mouth 90 tablet 3 10/27/19 Active (PREMARIN) 0.625 mg daily. 16 tabletIndications: Hot flashes ondansetron (ZOFRAN) 4 mg Take 1 tablet by mouth 90 tablet 0 12/01/19 Active tabletIndications: every 6 hours. 16 Cyclical vomiting with nausea, unspecified intactability pregabalin (LYRICA) 200 Take 1 capsule by mouth 2 30 capsule 0 12/29/19 Active mg capsuleIndications: times daily. 16 Neuropathy meclizine (ANTIVERT) 25 Take 1 tablet by mouth 3 90 tablet 0 12/29/19 Active mg TabIndications: times daily as needed for 16 Dizziness Other (dizziness). theophylline (THEOCHRON) Take 1 tablet by mouth 2 60 tablet 3 02/02/20 Active 200 mg extended release times daily. 16 tabletIndications: Asthmatic bronchitis, moderate persistent, uncomplicated, Shortness of breath theophylline (THEOCHRON) Take 1 tablet by mouth 2 60 tablet 4 02/02/20 Active 100 mg extended release times daily. 16 tabletIndications: Asthmatic bronchitis, moderate persistent, uncomplicated, Shortness of breath simethicone (MYLICON) 80 Chew and swallow 1 tablet 120 tablet 3 02/02/20 Active mg chewable by mouth every 6 hours as 16 tabletIndications: needed for Flatulence. Bloating pregabalin (LYRICA) 200 Take 1 capsule by mouth 2 180 capsule 3 03/08/20 Active mg capsuleIndications: times daily. 16 Neuropathy Omeprazole 40 mg Take 1 capsule by mouth 2 180 capsule 3 08/09/20 Active capsuleIndications: times daily. 16 Gastroesophageal reflux disease with esophagitis metoprolol tartrate Take 1 tablet by mouth 2 180 tablet 3 08/09/20 Active (LOPRESSOR) 50 mg times daily. 16 tabletIndications: Essential hypertension with goal blood pressure less than 130/85 venlafaxine (EFFEXOR XR) Take 1 capsule by mouth 2 180 capsule 6 08/09/20 Active 37.5 mg extended release times daily. 16 capsuleIndications: Hot flash, menopausal potassium chloride Take 1 tablet by mouth 90 tablet 2 08/09/20 Active (KLOR-CON) 8 mEq extended daily. 16 release tabletIndications: Hypokalemia loratadine (CLARITIN) 10 Take 1 tablet by mouth 90 tablet 3 08/09/20 Active mg tabletIndications: daily. 16 Other seasonal allergic rhinitis theophylline (THEOCHRON) Take 1 tablet by mouth 90 tablet 2 08/09/20 Active 200 mg extended release daily. 16 tabletIndications: Asthmatic bronchitis, severe persistent, with acute exacerbation budesonide-formoterol Inhale 2 Puffs by mouth 2 3 Month 3 10/19/19 Active (SYMBICORT HFA) 160-4.5 times daily. Supply 17 mcg/actuation inhalerIndications: Asthmatic bronchitis, moderate persistent, uncomplicated blood glucose Any glucometer as allowed 1 Kit 0 02/01/20 Active meterIndications: by insurance carrier. 17 Hyperglycemia, Type 2 diabetes mellitus with hyperglycemia, with long-term current use of insulin lancetsIndications: by MISCELLANEOUS route 2 100 Each 5 02/01/20 Active Hyperglycemia, Type 2 times daily. 17 diabetes mellitus with hyperglycemia, with long-term current use of insulin naloxegol (MOVANTIK) 12.5 Take 12.5 mg by mouth 30 tablet 5 03/14/20 Active mg TabIndications: daily as needed. 17 Constipation due to opioid therapy ondansetron (ZOFRAN ODT) Take 1 tablet by mouth 90 tablet 4 03/14/20 Active 4 mg disintegrating every 8 hours as needed 17 tabletIndications: Nausea for Nausea. azithromycin (ZITHROMAX) Take 1 tablet by mouth 10 tablet 0 05/23/20 Active 500 mg tabletIndications: daily. 17 Lung infection clopidogrel (PLAVIX) 75 Take 1 tablet by mouth 90 tablet 2 05/23/20 Active mg tabletIndications: PAD daily. 17 (peripheral artery disease) albuterol (VENTOLIN Inhale 2 Puffs by mouth 4 3 Month 4 05/23/20 Active HFA,PROVENTIL HFA,PROAIR times daily as needed for Supply 17 HFA) 90 mcg/actuation Wheezing. inhalerIndications: Asthmatic bronchitis, moderate persistent, uncomplicated ergocalciferol (VITAMIN Take 1 capsule by mouth 12 capsule 2 05/23/20 Active D2) 50,000 unit weekly. 17 capsuleIndications: Vitamin D deficiency cloNIDine HCl (CATAPRES) Take 1 tablet by mouth 90 tablet 3 05/23/20 Active 0.2 mg tabletIndications: daily. 17 Essential hypertension with goal blood pressure less than 130/85 mupirocin (BACTROBAN) 2 % Apply to affected area 3 22 g 3 05/23/20 Active ointmentIndications: Skin times daily. 17 infection albuterol (PROVENTIL) 2.5 Inhale 3 mL by mouth 300 mL 3 05/23/20 Active mg /3 mL (0.083 %) every 4 hours as needed 17 nebulizer for Wheezing or Shortness solutionIndications: of Breath. Asthmatic bronchitis, moderate persistent, uncomplicated glimepiride (AMARYL) 2 mg TAKE 1 TABLET BY MOUTH 180 tablet 0 06/10/20 Active tabletIndications: Type 2 EVERY MORNING BEFORE 17 diabetes mellitus with BREAKFAST other diabetic arthropathy fluconazole (DIFLUCAN) Take 2 tablets by mouth 2 48 tablet 3 06/27/20 Active 200 mg tabletIndications: times weekly. 17 Chronic bilateral low back pain with right-sided sciatica, Arthralgia, unspecified joint, Menopausal syndrome, Asthmatic bronchitis, moderate persistent, uncomplicated, Shortness of breath estradiol (ESTRACE) 2 mg Take 1 tablet by mouth 30 tablet 3 06/27/20 Active tabletIndications: daily. 17 Menopausal syndrome montelukast (SINGULAIR) Take 1 tablet by mouth at 90 tablet 3 06/27/20 Active 10 mg tabletIndications: bedtime nightly. 17 Asthmatic bronchitis, moderate persistent, uncomplicated, Shortness of breath fluticasone (FLONASE) 50 Use 2 Sprays in each 16 g 4 06/27/20 Active mcg/actuation nasal nostril daily. 17 sprayIndications: Chronic bilateral low back pain with right-sided sciatica, Arthralgia, unspecified joint, Menopausal syndrome, Asthmatic bronchitis, moderate persistent, uncomplicated, Shortness of breath pregabalin (LYRICA) 200 Take 1 capsule by mouth 2 180 capsule 5 08/01/20 Active mg capsuleIndications: times daily. 17 Neuropathy Bisacodyl 5 mg Take 10 mg by mouth. 60 tablet 3 08/01/20 Active TabIndications: Slow 17 transit constipation lactulose (CONSTULOSE) 10 Take 30 mL by mouth 3 946 mL 5 08/01/20 Active gram/15 mL oral times daily. 17 solutionIndications: Slow transit constipation estrogen, Take 1 tablet by mouth 90 tablet 1 08/01/20 Active conjugated,-medroxyproges daily. 17 terone (PREMPRO) 0.625-2.5 mg per tabletIndications: Menopause montelukast (SINGULAIR) Take 1 tablet by mouth at 90 tablet 2 08/01/20 Active 10 mg tabletIndications: bedtime nightly. 17 Moderate persistent asthmatic bronchitis with acute exacerbation sucralfate (CARAFATE) 100 Take 10 mL by mouth 4 840 mL 2 09/05/19 Active mg/mL oral times daily. 18 suspensionIndications: Gastroesophageal reflux disease with esophagitis budesonide-formoterol Inhale 2 Puffs by mouth 2 30 g 5 09/05/19 08/31/19 Active (SYMBICORT HFA) 160-4.5 times daily for 360 days. 18 19 mcg/actuation inhalerIndications: Asthmatic bronchitis, moderate persistent, uncomplicated Omeprazole 40 mg TAKE 1 CAPSULE BY MOUTH 180 capsule 0 09/19/19 Active capsuleIndications: TWICE DAILY 18 Gastroesophageal reflux disease with esophagitis medroxyPROGESTERone Take 1 tablet by mouth 90 tablet 3 10/11/19 Active (PROVERA) 2.5 mg daily. 18 tabletIndications: Hot flashes insulin detemir U-100 Inject 35 Units under the 5 Pen 3 10/11/19 04/12/20 Active (LEVEMIR FLEXTOUCH U-100 skin daily for 184 days. 18 18 INSULN) 100 unit/mL (3 mL) PenIndications: Type 2 diabetes mellitus with hyperglycemia, with long-term current use of insulin insulin lispro (HUMALOG Inject 20 Units under the 120 mL 3 10/11/19 Active U-100 INSULIN) 100 skin 2 times daily 18 unit/mL (before meals). injectionIndications: Type 2 diabetes mellitus with hyperglycemia, with long-term current use of insulin blood glucose (TRUE Check blood sugar 3 times 100 Each 5 10/11/19 Active METRIX GLUCOSE TEST daily. 18 STRIP) test stripsIndications: Type 2 diabetes mellitus with hyperglycemia, with long-term current use of insulin blood glucose test 1 Each 2 times daily to 100 Each 3 10/15/19 Active stripsIndications: test blood sugar. 18 Hyperglycemia, Type 2 diabetes mellitus with hyperglycemia, with long-term current use of insulin bisacodyl (DULCOLAX, Take 1 tablet by mouth at 30 tablet 2 10/18/19 Active BISACODYL,) 5 mg enteric bedtime nightly. 18 coated tabletIndications: Slow transit constipation naloxegol (MOVANTIK) 12.5 Take 1 tablet by mouth 30 tablet 1 10/18/19 Active mg TabIndications: Slow daily. 18 transit constipation linagliptin (TRADJENTA) 5 Take 1 tablet by mouth 90 tablet 2 11/22/19 Active mg tabletIndications: daily. 18 Type 2 diabetes mellitus with hyperglycemia, with long-term current use of insulin pregabalin (LYRICA) 200 TAKE ONE CAPSULE BY MOUTH 180 capsule 2 11/22/19 Active mg capsuleIndications: TWICE DAILY. 18 Neuropathic pain HYDROcodone-acetaminophen Take 1.5 tablets by mouth 180 tablet 0 11/22/19 Active (NORCO) 10-325 mg 6 times daily. 18 tabletIndications: Chronic bilateral low back pain with right-sided sciatica PHENTERMINE HCL Take 1 capsule by mouth 2 90 capsule 0 11/22/19 Active (ADIPEX-P) 37.5 mg times daily. 18 capsuleIndications: Overweight metFORMIN (GLUCOPHAGE) Take 1 tablet by mouth 2 60 tablet 3 11/22/19 Active 1,000 mg times daily (with meals). 18 tabletIndications: Type 2 diabetes mellitus with hyperglycemia, with long-term current use of insulin estradiol (ESTRACE) 0.5 TAKE 1 TABLET BY MOUTH 90 tablet 0 11/27/19 Active mg tabletIndications: Hot EVERY DAY 18 flashes Diclofenac Sodium 3 % APPLY 1-2 GRAMS TOPICALLY 200 g 5 12/05/19 Active topical gelIndications: TO AFFECTED AREA 4 TIMES 18 Primary osteoarthritis A DAY involving multiple joints Meloxicam 15 mg Take 1 tablet by mouth 30 tablet 3 12/18/19 Active tabletIndications: daily. 18 Arthralgia, unspecified joint metOLazone (ZAROXOLYN) 10 Take 1 tablet by mouth 30 tablet 1 01/30/20 Active mg tabletIndications: daily 30 minutes prior to 18 Localized edema the bumex in the morning. medroxyPROGESTERone Take 1 tablet by mouth 30 tablet 0 01/31/20 Active (PROVERA) 5 mg daily. 18 tabletIndications: Menopause Fluocinonide 0.1 % APPLY 1-2 GRAMS TOPICALLY 120 g 4 02/01/20 Active CreaIndications: Rash and TO AFFECTED AREA 1-2 18 other nonspecific skin TIMES PER DAY. eruption metolazone (ZAROXOLYN) 10 Take 1 tablet by mouth 30 tablet 3 09/01/19 03/07/20 Discontin mg tabletIndications: daily Take one tablet 30 16 17 ued Localized edema minutes prior to the bumex in the morning. medroxyPROGESTERone Take 1 tablet by mouth 90 tablet 3 03/08/20 10/11/19 Discontin (PROVERA) 2.5 mg daily. 16 18 ued tabletIndications: Hot flashes glimepiride (AMARYL) 2 mg Take 1 tablet by mouth 180 tablet 3 03/08/20 06/09/20 Discontin tabletIndications: Type 2 every morning (before 16 17 ued diabetes mellitus with breakfast). other diabetic arthropathy cloNIDine HCl (CATAPRES) Take 1 tablet by mouth 90 tablet 3 04/26/20 05/09/20 Discontin 0.2 mg tabletIndications: daily. 16 17 ued Essential hypertension with goal blood pressure less than 130/85 azithromycin (ZITHROMAX) Take 1 tablet by mouth 10 tablet 0 08/09/20 04/25/20 Discontin 500 mg tabletIndications: daily. 16 17 ued Lung infection budesonide-formoterol Inhale 2 Puffs by mouth 2 30 g 5 08/09/20 05/23/20 Discontin (SYMBICORT HFA) 160-4.5 times daily for 360 days. 16 17 ued mcg/actuation inhalerIndications: Asthmatic bronchitis, severe persistent, with acute exacerbation metFORMIN (GLUCOPHAGE) Take 1 tablet by mouth 2 180 tablet 3 08/09/20 03/07/20 Discontin 1,000 mg times daily (with meals). 16 17 ued tabletIndications: Glucose intolerance (impaired glucose tolerance) pregabalin (LYRICA) 200 Take 1 capsule by mouth 2 180 capsule 5 08/09/20 03/14/20 Discontin mg capsuleIndications: times daily. 16 17 ued Neuropathy montelukast (SINGULAIR) Take 1 tablet by mouth at 90 tablet 3 08/09/20 06/27/20 Discontin 10 mg tabletIndications: bedtime nightly. 16 17 ued Asthmatic bronchitis, moderate persistent, uncomplicated, Shortness of breath naloxegol (MOVANTIK) 12.5 Take 12.5 mg by mouth 30 tablet 3 09/13/19 03/14/20 Discontin mg TabIndications: daily as needed. 17 17 ued Constipation due to opioid therapy estradiol (ESTRACE) 0.5 Take 1 tablet by mouth 90 tablet 3 09/13/19 11/24/19 Discontin mg tabletIndications: Hot daily. 17 18 ued flashes ondansetron (ZOFRAN ODT) Take 1 tablet by mouth 90 tablet 1 09/13/19 03/14/20 Discontin 4 mg disintegrating every 8 hours as needed 17 17 ued tabletIndications: Nausea for Nausea. estradiol (ESTRACE) 2 mg Take 1 tablet by mouth 30 tablet 3 10/19/19 06/27/20 Discontin tabletIndications: daily. 17 17 ued Menopausal syndrome medroxyPROGESTERone Take 1 tablet by mouth 30 tablet 3 10/19/19 06/27/20 Discontin (PROVERA) 5 mg daily. 17 17 ued tabletIndications: Menopausal syndrome ergocalciferol (VITAMIN Take 1 capsule by mouth 12 capsule 2 02/01/20 05/23/20 Discontin D2) 50,000 unit weekly. 17 17 ued capsuleIndications: Vitamin D deficiency blood glucose test 1 Each 2 times daily to 100 Each 3 02/01/20 05/23/20 Discontin stripsIndications: test blood sugar. 17 17 ued Hyperglycemia, Type 2 diabetes mellitus with hyperglycemia, with long-term current use of insulin HYDROcodone-acetaminophen Take 1.5 tablets by mouth 180 tablet 0 02/01/20 03/14/20 Discontin (NORCO) 10-325 mg 6 times daily. 17 17 ued tabletIndications: Chronic bilateral low back pain with right-sided sciatica clopidogrel (PLAVIX) 75 Take 1 tablet by mouth 90 tablet 2 02/01/20 05/23/20 Discontin mg tabletIndications: PAD daily. 17 17 ued (peripheral artery disease) amoxicillin (AMOXIL) 500 Take 1 capsule by mouth 3 30 capsule 0 02/01/20 02/11/20 mg capsuleIndications: times daily for 10 days. 17 17 Acute pharyngitis, unspecified etiology metFORMIN (GLUCOPHAGE) Take 1 tablet by mouth 2 180 tablet 3 03/07/20 05/23/20 Discontin 1,000 mg times daily (with meals). 17 17 ued tabletIndications: Glucose intolerance (impaired glucose tolerance) metOLazone (ZAROXOLYN) 10 Take 1 tablet by mouth 30 tablet 3 03/07/20 10/11/19 Discontin mg tabletIndications: daily Take one tablet 30 17 18 ued Localized edema minutes prior to the bumex in the morning. HYDROcodone-acetaminophen Take 1.5 tablets by mouth 180 tablet 0 03/14/20 04/25/20 Discontin (NORCO) 10-325 mg 6 times daily. 17 17 ued tabletIndications: Chronic bilateral low back pain with right-sided sciatica naloxegol (MOVANTIK) 12.5 Take 12.5 mg by mouth 30 tablet 5 03/14/20 03/14/20 Discontin mg TabIndications: daily as needed. 17 17 ued Constipation due to opioid therapy ondansetron (ZOFRAN ODT) Take 1 tablet by mouth 90 tablet 4 03/14/20 03/14/20 Discontin 4 mg disintegrating every 8 hours as needed 17 17 ued tabletIndications: Nausea for Nausea. pregabalin (LYRICA) 200 Take 1 capsule by mouth 2 180 capsule 5 03/14/20 08/01/20 Discontin mg capsuleIndications: times daily. 17 17 ued Neuropathy HYDROcodone-acetaminophen Take 1.5 tablets by mouth 180 tablet 0 04/25/20 05/23/20 Discontin (NORCO) 10-325 mg 6 times daily. 17 17 ued tabletIndications: Chronic bilateral low back pain with right-sided sciatica azithromycin (ZITHROMAX) Take 1 tablet by mouth 10 tablet 0 04/25/20 05/23/20 Discontin 500 mg tabletIndications: daily. 17 17 ued Lung infection cloNIDine HCl (CATAPRES) TAKE 1 TABLET BY MOUTH 90 tablet 0 05/09/20 05/23/20 Discontin 0.2 mg tabletIndications: DAILY 17 17 ued Essential hypertension with goal blood pressure less than 130/85 HYDROcodone-acetaminophen Take 1.5 tablets by mouth 180 tablet 0 05/23/20 06/27/20 Discontin (NORCO) 10-325 mg 6 times daily. 17 17 ued tabletIndications: Chronic bilateral low back pain with right-sided sciatica blood glucose test 1 Each 2 times daily to 100 Each 3 05/23/20 10/12/19 Discontin stripsIndications: test blood sugar. 17 18 ued Hyperglycemia, Type 2 diabetes mellitus with hyperglycemia, with long-term current use of insulin budesonide-formoterol Inhale 2 Puffs by mouth 2 30 g 5 05/23/20 09/05/19 Discontin (SYMBICORT HFA) 160-4.5 times daily for 360 days. 17 18 ued mcg/actuation inhalerIndications: Asthmatic bronchitis, moderate persistent, uncomplicated Meloxicam 15 mg Take 1 tablet by mouth 30 tablet 3 05/23/20 06/27/20 Discontin tabletIndications: daily. 17 17 ued Arthralgia, unspecified joint amoxicillin-clavulanate Take 1 tablet by mouth 2 28 tablet 0 06/27/20 07/11/20 (AUGMENTIN) 875-125 mg times daily for 14 days. 17 17 per tabletIndications: Chronic bilateral low back pain with right-sided sciatica, Arthralgia, unspecified joint, Menopausal syndrome, Asthmatic bronchitis, moderate persistent, uncomplicated, Shortness of breath HYDROcodone-acetaminophen Take 1.5 tablets by mouth 180 tablet 0 06/27/20 08/01/20 Discontin (NORCO) 10-325 mg 6 times daily. 17 17 ued tabletIndications: Chronic bilateral low back pain with right-sided sciatica Meloxicam 15 mg Take 1 tablet by mouth 30 tablet 3 06/27/20 11/22/19 Discontin tabletIndications: daily. 17 18 ued Arthralgia, unspecified joint medroxyPROGESTERone Take 1 tablet by mouth 30 tablet 3 06/27/20 10/11/19 Discontin (PROVERA) 5 mg daily. 17 18 ued tabletIndications: Menopausal syndrome HYDROcodone-acetaminophen Take 1.5 tablets by mouth 180 tablet 0 08/01/20 09/05/19 Discontin (NORCO) 10-325 mg 6 times daily. 17 18 ued tabletIndications: Chronic bilateral low back pain with right-sided sciatica amoxicillin-clavulanate Take 1 tablet by mouth 2 28 tablet 0 08/01/20 08/15/19 (AUGMENTIN) 875-125 mg times daily for 14 days. 17 18 per tabletIndications: Acute recurrent maxillary sinusitis HYDROcodone-acetaminophen Take 1.5 tablets by mouth 180 tablet 0 09/05/19 10/11/19 Discontin (NORCO) 10-325 mg 6 times daily. 18 18 ued tabletIndications: Chronic bilateral low back pain with right-sided sciatica linagliptin (TRADJENTA) 5 Take 1 tablet by mouth 90 tablet 2 09/05/19 10/18/19 Discontin mg tabletIndications: daily. 18 18 ued Type 2 diabetes mellitus with hyperglycemia, with long-term current use of insulin HYDROcodone-acetaminophen Take 1.5 tablets by mouth 180 tablet 0 10/11/19 10/18/19 Discontin (NORCO) 10-325 mg 6 times daily. 18 18 ued tabletIndications: Chronic bilateral low back pain with right-sided sciatica metOLazone (ZAROXOLYN) 10 Take 1 tablet by mouth 30 tablet 3 10/11/19 01/30/20 Discontin mg tabletIndications: daily Take one tablet 30 18 18 ued Localized edema minutes prior to the bumex in the morning. linagliptin (TRADJENTA) 5 Take 1 tablet by mouth 90 tablet 2 10/18/19 11/22/19 Discontin mg tabletIndications: daily. 18 18 ued Type 2 diabetes mellitus with hyperglycemia, with long-term current use of insulin hydrocortisone Insert 1 Suppository 12 0 10/18/19 10/28/19 (ANUSOL-HC) 25 mg rectal rectally 2 times daily Suppository 18 18 suppositoryIndications: for 10 days. Grade III hemorrhoids HYDROcodone-acetaminophen Take 1.5 tablets by mouth 180 tablet 0 10/18/19 11/22/19 Discontin (NORCO) 10-325 mg 6 times daily. 18 18 ued tabletIndications: Chronic bilateral low back pain with right-sided sciatica LYRICA 200 mg TAKE ONE CAPSULE BY MOUTH 180 capsule 0 10/26/19 10/26/19 Discontin capsuleIndications: TWICE DAILY 18 18 ued Neuropathic pain LYRICA 200 mg TAKE ONE CAPSULE BY MOUTH 180 capsule 0 10/26/19 11/22/19 Discontin capsuleIndications: TWICE DAILY 18 18 ued Neuropathic pain Meloxicam 15 mg Take 1 tablet by mouth 30 tablet 3 11/22/19 12/18/19 Discontin tabletIndications: daily. 18 18 ued Arthralgia, unspecified joint amoxicillin (AMOXIL) 500 Take 1 capsule by mouth 3 42 capsule 0 11/22/19 12/06/19 mg capsuleIndications: times daily for 14 days. 18 18 Infection Diclofenac Sodium 3 % Apply to affected area 4 400 g 3 12/05/19 12/05/19 Discontin topical gelIndications: times daily. 18 18 ued Primary osteoarthritis involving multiple joints medroxyPROGESTERone Take 1 tablet by mouth 30 tablet 0 12/19/19 01/30/20 Discontin (PROVERA) 5 mg daily. 18 18 ued tabletIndications: Menopause Hospital, Clinic, or Ordered Dose Route Frequency Start End Date Status Other Facility Date Administered Medication cefTRIAXone (ROCEPHIN) 1 g IM ONCE 05/23/20 05/23/20 Ended injection 1 gIndications: 17 17 Lung infection lidocaine 1 % (XYLOCAINE) 2 mL IJ ONCE 05/23/20 05/23/20 Ended injection 2 17 17 mLIndications: Asthmatic bronchitis, moderate persistent, uncomplicated triamcinolone acetonide 80 mg IM ONCE 05/23/20 05/23/20 Ended (KENALOG-40) injection 80 17 17 mgIndications: Asthmatic bronchitis, moderate persistent, uncomplicated Active Problems Problem Noted Date Knee pain 07/05/2009 LVH (left ventricular hypertrophy) 07/05/2009 HTN (hypertension) 07/05/2009 URI (upper respiratory infection) 07/05/2009 Aneurysm Overview: splenic artery 10/08/12 Vascular Clinic - aneurysm stable, <2cm in size. PCP can repeat CTA in one year. Encounters Date Type Specialty Care Team Description 01/31/2018 Refill Pulmonology Alex Forrester MD Rash and other nonspecific skin eruption (Primary Dx) 01/29/2018 Refill Pulmonology Alex Forrester MD Menopause 01/29/2018 Refill Pulmonology Alex Forrester MD Localized edema 12/18/2017 Refill PulmonAlex Ramirez MD Menopause (Primary Dx) 12/17/2017 Refill Family Practice Alex Forrester MD Arthralgia, unspecified joint 12/04/2017 Refill PulmonAlex Ramierz MD Primary osteoarthritis involving multiple joints 12/04/2017 Refill PulAlex Morales MD Primary osteoarthritis involving multiple joints (Primary Dx) 11/23/2017 Refill Alex Jamison MD Hot flashes 11/21/2017 Office Visit Alex Jamison MD Overweight (Primary Dx); Neuropathic pain; Chronic bilateral low back pain with right-sided sciatica; Infection; Type 2 diabetes mellitus with hyperglycemia, with long-term current use of insulin 11/21/2017 Orders Only [facility] Alex Forrester MD Type 2 diabetes mellitus with hyperglycemia, with long-term current use of insulin; Arthralgia, unspecified joint 10/25/2017 Ancillary Radiology Canceled (OON Insurance Procedure Coverage) 10/25/2017 Refill [facility] Alex Salmeron MD 10/25/2017 Refill Alex Jamison MD Neuropathic pain 10/24/2017 Refill Alex Jamison MD Neuropathic pain (Primary Dx) 10/17/2017 Office Visit Alex Jamison MD Grade III hemorrhoids (Primary Dx); Type 2 diabetes mellitus with hyperglycemia, with long-term current use of insulin; Slow transit constipation; Chronic bilateral low back pain with right-sided sciatica 10/11/2017 Refill [facility] Blake Kathleen RN Hyperglycemia; Type 2 diabetes mellitus with hyperglycemia, with long-term current use of insulin 10/10/2017 Ancillary Radiology Alex Forrester MD Procedure 10/10/2017 Office Visit Alex Jamison MD Type 2 diabetes mellitus with hyperglycemia, with long-term current use of insulin (Primary Dx); Chronic bilateral low back pain with right-sided sciatica; Hot flashes; Localized edema; Abdominal aortic aneurysm (AAA) without rupture; Shortness of breath; Renal dysfunction 09/19/2017 Refill Alex Jamison MD Gastroesophageal reflux disease with esophagitis 09/12/2017 Orders Only Alex Jamison MD Diabetic foot 09/05/2017 Office Visit Alex Jamison MD Gastroesophageal reflux disease with esophagitis (Primary Dx); Chronic bilateral low back pain with right-sided sciatica; Type 2 diabetes mellitus with hyperglycemia, with long-term current use of insulin; Diabetic foot; Asthmatic bronchitis, moderate persistent, uncomplicated 08/01/2017 Office Visit Pulmonology Alex Forrester MD Slow transit constipation (Primary Dx); Chronic bilateral low back pain with right-sided sciatica; Neuropathy; Moderate persistent asthmatic bronchitis with acute exacerbation; Menopause; Acute recurrent maxillary sinusitis 06/27/2017 Office Visit PulmonAlex Ramirez MD Type 2 diabetes mellitus with hyperglycemia, with long-term current use of insulin (Primary Dx); Chronic bilateral low back pain with right-sided sciatica; Arthralgia, unspecified joint; Menopausal syndrome; Asthmatic bronchitis, moderate persistent, uncomplicated; Shortness of breath; Need for influenza vaccination 06/27/2017 Orders Only PulmonAlex Ramirez MD Chronic bilateral low back pain with right-sided sciatica; Arthralgia, unspecified joint; Menopausal syndrome; Asthmatic bronchitis, moderate persistent, uncomplicated; Shortness of breath 06/09/2017 Refill PulmonAlex Ramirez MD Type 2 diabetes mellitus with other diabetic arthropathy 05/23/2017 Office Visit PulmonAlex Ramirez MD Skin infection (Primary Dx); Chronic bilateral low back pain with right-sided sciatica; Lung infection; Hyperglycemia; Type 2 diabetes mellitus with hyperglycemia, with long-term current use of insulin; PAD (peripheral artery disease); Asthmatic bronchitis, moderate persistent, uncomplicated; Vitamin D deficiency; Essential hypertension with goal blood pressure less than 130/85; Arthralgia, unspecified joint 05/09/2017 Refill Pulmonology Alex Forrester MD Essential hypertension with goal blood pressure less than 130/85 04/25/2017 Ancillary Radiology Alex Forrester MD Pulmonary congestion; Procedure Lung infection 04/25/2017 Office Visit PulmonAlex Ramirez MD Asthmatic bronchitis, moderate persistent, uncomplicated (Primary Dx); Chronic bilateral low back pain with right-sided sciatica; Pulmonary congestion; Essential hypertension; Lung infection 04/25/2017 Ancillary Pulmonology Alex Forrester MD Pulmonary congestion; Orders Lung infection 03/14/2017 Office Visit PulmonAlex Ramirez MD Chronic bilateral low back pain with right-sided sciatica (Primary Dx); Constipation due to opioid therapy; Hot flashes; Nausea; Neuropathy 03/07/2017 Refill Family Practice Alex Forrester MD Glucose intolerance (impaired glucose tolerance) (Primary Dx); Localized edema after 02/03/2017 Immunizations Name Dates Previously Given Next Due Lidocaine 1% 5ml Inj 12/23/2014 Influenza Vaccine 06/23/2015, 08/27/2013 (Deferred: Patient Refused), 05/17/2011, 05/25/2010 Influenza Vaccine, 06/27/2017 (Deferred: Patient already had this Seasonal, Injectable immunization) Family History Medical History Relation Name Comments Heart Father Cancer Mother Breast cancer at age 50s Heart Mother Relation Name Status Comments Father NE (Age 47) Mother Renal failure (Age 70) Social History Tobacco Use Types Packs/Day Years Used Date Former Smoker Cigarettes 1 2 Smokeless Tobacco: Never Used Tobacco Cessation: Counseling Given: No Comments: smoked for 2 years at the age of 16 Alcohol Use Drinks/Week oz/Week Comments No Sex Assigned at Date Recorded Not on file Last Filed Vital Signs Vital Sign Reading Time Taken Blood Pressure 123/78 11/21/2017 3:29 PM CDT Pulse 98 11/21/2017 3:29 PM CDT Temperature 37.3 C (99.1 F) 11/21/2017 3:29 PM CDT Respiratory Rate 20 11/21/2017 3:29 PM CDT Oxygen Saturation 95% 11/21/2017 3:29 PM CDT Inhaled Oxygen - - Concentration Weight 112.9 kg (249 lb) 11/21/2017 3:29 PM CDT Height 160 cm (5' 3") 11/21/2017 3:29 PM CDT Body Mass Index 44.11 11/21/2017 3:29 PM CDT Plan of Treatment Date Type Specialty Care Team Description 02/20/2018 Office Visit Pulmonology Alex Forrester MD [id number] [place], [place] [id number] Health Maintenance Due Date Last Done Comments DM FOOT EXAM (YEARLY) 1968 DM MICROALBUMIN URINE 1968 SCRN (YEARLY) DM RETINAL EXAM (YEARLY) 1968 COLORECTAL CANCER SCRN 2000 ANNUAL (FIT/FOBT) AGE 50 TO 75 BREAST CANCER SCRN 01/27/2015 01/27/2014, 07/12/2011, 11/14/2010, (YEARLY) Additional history exists IMM PNEUMOCOCCAL AGE 65 2015 AND UP DM HGBA1C (YEARLY) 10/10/2018 10/10/2017, 06/27/2010 Goals Patient Goal Type Goal Recent Progress Patient-Stat Author ed? Diet Use plate model No [place], Follow plate model for DM Linette Cuellar, including more LD non-starchy vegetables and no more than 3 carb containing foods for meals and 1 carb for snack; Include mixed nutrient meals and snacks Lifestyle Increase physical No [place], activity Linette Cuellar, Include moderate PA of 30 LD minutes or more such as swimming/water aerobics per discussion (preferably within 1 hour after eating), 5 days per wk, as tolerated and medically advised. Results * XRAY ABDOMEN 1 VIEW (10/10/2017 3:29 PM) Specimen Performing Laboratory SMS Impressions IMPRESSION: 1.Large stool burden throughout the colon. 2.Nonobstructive bowel gas pattern. If the report is "FINALIZED" it indicates that the attending/staff radiologist has reviewed the images and agrees with the resident's interpretation. Dictated By: Adrien Lombardi MD, 10/10/2017 3:49 PM I have reviewed the study and agree with the findings in this report. Signed By: Gilbert Myles MD, 10/10/2017 3:57 PM Narrative EXAMINATION: X-RAY ABDOMEN - 3 VIEW(S) COMPARISON: [...] right upper quadrant. Other: No acute abnormalities. Procedure Note Interface, Rad/Mammog In - 10/10/2017 4:02 PM INDUSTRIAL RENDERER EXAMINATION: X-RAY ABDOMEN - 3 VIEW(S) COMPARISON: [...] By: Gilbert Myles MD, 10/10/2017 3:57 PM * XRAY CHEST 2 VIEWS (10/10/2017 3:29 PM) Specimen Performing Laboratory SMS Impressions IMPRESSION: No acute thoracic abnormality. A "PRELIMINARY" report was made available via [employer] at the time of dictation by the resident indicated below. If the report is described as "FINALIZED" it indicates the attending/staff radiologist below has reviewed the images and agrees with the resident's interpretation. Dictated By: Antwan Clark MD, 10/10/2017 3:33 PM I have reviewed the study and agree with the findings in this report. Signed By: Vivien Cooper MD, 10/10/2017 4:29 PM Narrative EXAMINATION:XRAY CHEST 2 VIEWS INDICATION: shortness of breath COMPARISON:Chest x-ray 04/25/[address] chest 04/07/2014 FINDINGS:PA and lateral views TUBES and LINES:None. LUNGS:Minimal bibasilar atelectasis.Lungs are clear. There is no evidence of pneumonia or pulmonary edema. PLEURA:No pleural effusion or pneumothorax. HEART AND MEDIASTINUM:The cardiomediastinal silhouette is enlarged but unchanged in size. Tortuous descending thoracic aorta. BONES AND SOFT TISSUES:No acute osseous lesion.Soft tissues are unremarkable. UPPER ABDOMEN: No free air under the diaphragm. Procedure Note Interface, Rad/Mammog In - 10/10/2017 4:34 PM INDUSTRIAL RENDERER EXAMINATION: XRAY CHEST 2 VIEWS INDICATION: shortness of [...] A "PRELIMINARY" report was made available via [employer] at the time of dictation by the resident indicated below. If the report is described as "FINALIZED" it indicates the attending/staff radiologist below has reviewed the images and agrees with the resident's interpretation. Dictated By: Antwan Clark MD, 10/10/2017 3:33 PM I have reviewed the study and agree with the findings in this report. Signed By: Vivien Cooper MD, 10/10/2017 4:29 PM * HEMOGLOBIN A1C (10/10/2017 3:05 PM) Component Value Ref Range Hemoglobin A1c 8.1 (H) 4.3 - 6.1 % Est Average Gluc 185.8 mg/dL Specimen Performing Laboratory Blood MISYS * B NATRIURETIC PEPT (10/10/2017 3:05 PM) Component Value Ref Range B Natriuretic Pept <12 <101 pg/mL Specimen Performing Laboratory Blood MISYS * ELECTROLYTES (10/10/2017 3:05 PM) Component Value Ref Range Sodium 139 136 - 145 mmol/L Potassium 4.8 3.5 - 5.1 mmol/L Chloride 95 (L) 98 - 107 mmol/L CO2 32 (H) 21 - 31 mmol/L Anion Gap 12 Specimen Performing Laboratory Blood MISYS * LIVER PROFILE (10/10/2017 3:05 PM) Component Value Ref Range T Protein 6.8 6.0 - 8.3 g/dL Albumin 4.3 3.7 - 5.3 g/dL T Bilirubin 0.5 0.2 - 1.2 mg/dL Alk Phos 85 34 - 104 U/L AST 18 13 - 39 U/L ALT 15 7 - 52 U/L D Bilirubin 0.2 (H) 0.03 - 0.18 mg/dL Specimen Performing Laboratory Blood MISYS * LIPID PROFILE (10/10/2017 3:05 PM) Component Value Ref Range Cholesterol 168 mg/dL Comment: REFERENCE RANGE: Desirable: <200 mg/dL Borderline: 200-240 mg/dL High Risk: >240 mg/dL Triglyceride 400 (H) <150 mg/dL Comment: REFERENCE RANGE: Normal: <150 mg/dL Borderline High: 150-199 mg/dL High: 200-499 mg/dL Very High: >gl=675 mg/dL HDL 26 mg/dL Comment: Increased CHD risk: <40 mg/dL Decreased CHD risk: >60 mg/dL LDL 62 mg/dL Comment: REFERENCE RANGE: Optimal: <100 mg/dL Near Optimal: 100-129 mg/dL Borderline High: 130-159 mg/dL High: 160-189 mg/dL Very High: >ip=972 mg/dL Specimen Performing Laboratory Blood MISYS * CBC (10/10/2017 3:05 PM) Component Value Ref Range WBC 11.4 (H) 4.5 - 11.0 K/uL RBC 4.46 4.20 - 5.40 M/uL Hemoglobin 13.0 12.0 - 16.0 g/dL Hematocrit 41.9 37.0 - 47.0 % MCV 94 (H) 82 - 92 fL MCH 29.1 27.0 - 32.0 pg MCHC 31.0 (L) 32.0 - 36.0 g/dL RDW 45.4 36.4 - 46.3 fL Platelet 297 150 - 400 K/uL Mean Platelet Volume 11.4 9.4 - 12.4 fL Percent NRBC 0.0 Absolute NRBC 0.00 Specimen Performing Laboratory Blood MISYS * UREA NITROGEN/CREA (10/10/2017 3:05 PM) Component Value Ref Range Urea Nitrogen 30 (H) 7 - 25 mg/dL Creatinine 1.00 0.6 - 1.2 mg/dL GFR, Estimated 55 mL/min/1.73 m2 GFR, Estim, Afr-Am >60 mL/min/1.73 m2 Specimen Performing Laboratory Other (Specify in MISYS Comments) * XRAY CHEST 1 VIEW (04/25/2017 10:49 AM) Specimen Performing Laboratory SMS Impressions IMPRESSION: Probable basilar atelectasis. If the report is "FINALIZED" it indicates that the attending/staff radiologist has reviewed the images and agrees with the resident's interpretation. Dictated By: Faisal Paulino MD, 04/25/2017 11:27 AM I have reviewed the study and agree with the findings in this report. Signed By: Richar Acevedo MD, 04/25/2017 12:20 PM Narrative EXAMINATION:XRAY CHEST 1 VIEW INDICATION: pulmonary congestion , cough COMPARISON:Chest x-ray 05/26/2015 FINDINGS:PA and lateral views TUBES and LINES:None. LUNGS:Lungs are well inflated. Minimal bibasilar airspace opacities. PLEURA:No pneumothorax. HEART AND MEDIASTINUM:Stable mildly enlarged cardiomediastinal silhouette. Tortuous thoracic aorta. Atherosclerotic calcifications of the arch BONES AND SOFT TISSUES:No acute osseous lesion.Soft tissues are unremarkable. UPPER ABDOMEN: No free air under the diaphragm. Procedure Note Interface, Rad/Mammog In - 04/25/2017 12:25 PM CDT EXAMINATION: XRAY CHEST 1 VIEW INDICATION: pulmonary congestion [...] By: Richar Acevedo MD, 04/25/2017 12:20 PM after 02/03/2017
--- OUTSIDE RECORDS SUMMARY | 2019-04-17 19:19 | XMS REPORT | Summary of Care ---
Author Author [facility] Organization [facility] Address Unknown Phone Unavailable Encounter HQ Valentina(FIN) [id number] Date(s): 03/04/18 - 03/04/18 [facility] [address] [place] [address]- Encounter Diagnosis Leukocytosis (Discharge Diagnosis) - 03/04/18 Acute constipation (Discharge Diagnosis) - 03/04/18 Abdominal pain in female. 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 Alcohol Current, Type Liquor. Frequency: 1-2 times per year. Smoking Status Never smoker; Exposure to Tobacco Smoke None; Cigarette Smoking Last 365 Days Yes; Reg Smoking Cessation Counseling No entered on: 07/23/18 Assessment and Plan No data available for this section
--- OUTSIDE RECORDS SUMMARY | 2019-04-17 19:20 | XMS REPORT | Clinical Summary ---
Author Author [facility] Organization [facility] Address Unknown Phone Unavailable Care Team Providers Care [employer] [place] Name Role Phone Alex Forrester MD PCP [...] 500 mg tabletIndications: daily. 17 Lung infection albuterol (VENTOLIN Inhale 2 Puffs by mouth 4 3 Month 4 05/23/20 Active HFA,PROVENTIL HFA,PROAIR times daily as needed for Supply 17 HFA) 90 mcg/actuation Wheezing. inhalerIndications: Asthmatic bronchitis, moderate persistent, uncomplicated ergocalciferol (VITAMIN Take 1 capsule by mouth 12 capsule 2 10/12/20 Active D2) 50,000 unit weekly. 17 capsuleIndications: [...] mg daily. 18 tabletIndications: Hot flashes insulin lispro (HUMALOG Inject 20 Units under [...] hyperglycemia, with long-term current use of insulin PHENTERMINE HCL Take 1 capsule by mouth 2 90 capsule 0 11/22/19 Active (ADIPEX-P) 37.5 mg times daily. 18 capsuleIndications: Overweight Meloxicam 15 mg Take 1 tablet by mouth 30 tablet 3 12/18/19 Active tabletIndications: daily. 18 Arthralgia, unspecified joint metOLazone (ZAROXOLYN) 10 Take 1 tablet by mouth 30 tablet 1 01/30/20 Active mg tabletIndications: daily 30 minutes prior to 18 Localized edema the bumex in the morning. Fluocinonide 0.1 % APPLY 1-2 GRAMS TOPICALLY 120 g 4 02/08/20 Active CreaIndications: Rash and TO AFFECTED AREA 1-2 18 other nonspecific skin TIMES PER DAY. eruption insulin detemir U-100 Inject 35 Units under the 5 Pen 3 02/08/20 08/10/20 Active (LEVEMIR FLEXTOUCH U-100 skin daily for 184 days. 18 18 INSULN) 100 unit/mL (3 mL) PenIndications: Type 2 diabetes mellitus with hyperglycemia, with long-term current use of insulin cloNIDine HCl (CATAPRES) TAKE 1 TABLET BY MOUTH 90 tablet 0 02/12/20 Active 0.2 mg tabletIndications: DAILY 18 Essential hypertension with goal blood pressure less than 130/85 Diclofenac Sodium 3 % APPLY 1-2 GRAMS TOPICALLY 200 g 5 02/14/20 Active topical gelIndications: TO AFFECTED AREA 2-3 18 Primary osteoarthritis TIMES PER DAY involving multiple joints metFORMIN (GLUCOPHAGE) Take 1 tablet by mouth 180 tablet 0 02/18/20 Active 1,000 mg twice daily with meals. 18 tabletIndications: Type 2 diabetes mellitus with hyperglycemia, with long-term current use of insulin clopidogrel (PLAVIX) 75 Take 1 tablet by mouth 90 tablet 0 02/18/20 Active mg tabletIndications: PAD daily. 18 (peripheral artery disease) pregabalin (LYRICA) 200 TAKE ONE CAPSULE BY MOUTH 270 capsule 2 02/21/20 Active mg capsuleIndications: THREE TIMES DAILY. 18 Neuropathic pain HYDROcodone-acetaminophen Take 1.5 tablets by mouth 180 tablet 0 02/21/20 Active (NORCO) 10-325 mg 6 times daily. 18 tabletIndications: Chronic bilateral low back pain with right-sided sciatica medroxyPROGESTERone Take 1 tablet by mouth 90 tablet 2 02/22/20 Active (PROVERA) 5 mg daily. 18 tabletIndications: Menopause estradiol (ESTRACE) 0.5 TAKE 1 TABLET BY MOUTH 90 tablet 0 02/25/20 Active mg tabletIndications: Hot EVERY DAY 18 flashes levoFLOXacin (LEVAQUIN) Take 1 tablet by mouth 10 tablet 0 03/03/20 03/13/20 Active 500 mg tabletIndications: daily for 10 days. 18 18 Bronchopneumonia zolpidem (AMBIEN) 5 mg Take 1 tablet by mouth at 30 tablet 2 03/03/20 Active TabIndications: bedtime nightly. 18 Psychophysiological insomnia medroxyPROGESTERone Take 1 tablet by mouth 90 [...] Asthmatic bronchitis, severe persistent, with acute exacerbation pregabalin (LYRICA) 200 Take 1 capsule by [...] daily. 17 17 ued (peripheral artery disease) metFORMIN (GLUCOPHAGE) Take 1 tablet by mouth [...] hyperglycemia, with long-term current use of insulin clopidogrel (PLAVIX) 75 Take 1 tablet by mouth 90 tablet 2 05/23/20 02/18/20 Discontin mg tabletIndications: PAD daily. 17 18 ued (peripheral artery disease) budesonide-formoterol Inhale 2 Puffs by mouth 2 [...] prior to the bumex in the morning. insulin detemir U-100 Inject 35 Units under the 5 Pen 3 10/11/19 02/05/20 Discontin (LEVEMIR FLEXTOUCH U-100 skin daily for 184 days. 18 18 ued INSULN) 100 unit/mL (3 mL) PenIndications: Type 2 diabetes mellitus with hyperglycemia, with long-term current use of insulin linagliptin (TRADJENTA) 5 Take 1 tablet by [...] daily. 18 18 ued Arthralgia, unspecified joint pregabalin (LYRICA) 200 TAKE ONE CAPSULE BY MOUTH 180 capsule 2 11/22/19 02/21/20 Discontin mg capsuleIndications: TWICE DAILY. 18 18 ued Neuropathic pain HYDROcodone-acetaminophen Take 1.5 tablets by mouth 180 tablet 0 11/22/19 02/21/20 Discontin (NORCO) 10-325 mg 6 times daily. 18 18 ued tabletIndications: Chronic bilateral low back pain with right-sided sciatica amoxicillin (AMOXIL) 500 Take 1 capsule by mouth 3 42 capsule 0 11/22/19 12/06/19 mg capsuleIndications: times daily for 14 days. 18 18 Infection metFORMIN (GLUCOPHAGE) Take 1 tablet by mouth 2 60 tablet 3 11/22/19 02/18/20 Discontin 1,000 mg times daily (with meals). 18 18 ued tabletIndications: Type 2 diabetes mellitus with hyperglycemia, with long-term current use of insulin estradiol (ESTRACE) 0.5 TAKE 1 TABLET BY MOUTH 90 tablet 0 11/27/19 02/24/20 Discontin mg tabletIndications: Hot EVERY DAY 18 18 ued flashes Diclofenac Sodium 3 % Apply to affected area 4 400 g 3 12/05/19 12/05/19 Discontin topical gelIndications: times daily. 18 18 ued Primary osteoarthritis involving multiple joints Diclofenac Sodium 3 % APPLY 1-2 GRAMS TOPICALLY 200 g 5 12/05/19 02/14/20 Discontin topical gelIndications: TO AFFECTED AREA 4 TIMES 18 18 ued Primary osteoarthritis A DAY involving multiple joints medroxyPROGESTERone Take 1 tablet by mouth 30 tablet 0 12/19/19 01/30/20 Discontin (PROVERA) 5 mg daily. 18 18 ued tabletIndications: Menopause medroxyPROGESTERone Take 1 tablet by mouth 30 tablet 0 01/31/20 02/22/20 Discontin (PROVERA) 5 mg daily. 18 18 ued tabletIndications: Menopause Fluocinonide 0.1 % APPLY 1-2 GRAMS TOPICALLY 120 g 4 02/01/20 02/08/20 Discontin CreaIndications: Rash and TO AFFECTED AREA 1-2 18 18 ued other nonspecific skin TIMES PER DAY. eruption insulin detemir U-100 Inject 35 Units under the 5 Pen 3 02/05/20 02/08/20 Discontin (LEVEMIR FLEXTOUCH U-100 skin daily for 184 days. 18 18 ued INSULN) 100 unit/mL (3 mL) PenIndications: Type 2 diabetes mellitus with hyperglycemia, with long-term current use of insulin amoxicillin-clavulanate Take 1 tablet by mouth 2 28 tablet 0 02/21/20 03/06/20 (AUGMENTIN) 875-125 mg times daily for 14 days. 18 18 per tabletIndications: Infection Hospital, Clinic, or Ordered Dose Route Frequency [...] 17 mgIndications: Asthmatic bronchitis, moderate persistent, uncomplicated cefTRIAXone (ROCEPHIN) 1 g IM ONCE 03/03/20 03/03/20 Ended injection 1 gIndications: 18 18 Bronchopneumonia lidocaine 1 % (XYLOCAINE) 2 mL IJ ONCE 03/03/20 03/03/20 Ended injection 2 18 18 mLIndications: Bronchopneumonia Active Problems Problem Noted Date Knee pain 07/05/2009 LVH (left ventricular hypertrophy) 07/05/2009 HTN (hypertension) 07/05/2009 URI (upper respiratory infection) 07/05/2009 Aneurysm Overview: splenic artery 10/08/12 Vascular Clinic - aneurysm stable, <2cm in size. PCP can repeat CTA in one year. Encounters Date Type Specialty Care Team Description 03/06/2018 Ancillary Radiology Alex Forrester MD Bronchopneumonia; Procedure Shortness of breath 03/03/2018 Office Visit [facility] Alex Forrester MD Bronchopneumonia (Primary Dx); Shortness of breath; Type 2 diabetes mellitus with hyperglycemia, with long-term current use of insulin; Psychophysiological insomnia; Weakness of both lower extremities 02/24/2018 Telephone [facility] Leighann Weller, RN Pcp Communication 02/23/2018 Refill Pulmonology Alex Forrester MD Hot flashes 02/21/2018 Refill Pulmonology Alex Forrester MD Menopause 02/20/2018 Ancillary Radiology Alex Forrester MD Shortness of breath Procedure 02/20/2018 Office Visit Pulmonology Alex Forrester MD Infection (Primary Dx); Neuropathic pain; Chronic bilateral low back pain with right-sided sciatica; Orthostatic dizziness; Shortness of breath 02/20/2018 Ancillary Pulmonology Alex Forrester MD Shortness of breath Orders 02/17/2018 Refill Pulmonology Alex Forrester MD Type 2 diabetes mellitus with hyperglycemia, with long-term current use of insulin; PAD (peripheral artery disease) 02/13/2018 Refill PulmonAlex Ramirez MD Primary osteoarthritis involving multiple joints 02/11/2018 Refill PulAlex Morales MD Essential hypertension with goal blood pressure less than 130/85 02/07/2018 Refill [facility] Alex Forrester MD Type 2 diabetes mellitus with hyperglycemia, with long-term current use of insulin 02/07/2018 Refill Alex Jamison MD Rash and other nonspecific skin eruption 02/04/2018 Refill [facility] Alex Forrester MD Type 2 diabetes mellitus with hyperglycemia, with long-term current use of insulin 02/04/2018 Orders Only [facility] Leighann Weller, SURY Type 2 diabetes mellitus with hyperglycemia, with long-term current use of insulin 01/31/2018 Refill Alex Jamison MD Rash and other nonspecific skin eruption (Primary Dx) 01/29/2018 Refill PulAlex Morales MD Menopause 01/29/2018 Refill Pulmonology Alex Forrester MD Localized edema 12/18/2017 Refill PulmonAlex Ramirez MD Menopause (Primary Dx) 12/17/2017 Refill [facility] Alex Forrester MD Arthralgia, unspecified joint 12/04/2017 Refill Alex Jamison MD Primary osteoarthritis involving multiple joints 12/04/2017 Refill Alex Jamison MD Primary osteoarthritis involving multiple joints (Primary Dx) 11/23/2017 Refill Alex Jamison MD Hot flashes 11/21/2017 Office Visit PulAlex Morales MD Overweight (Primary Dx); Neuropathic pain; Chronic bilateral low back pain with right-sided sciatica; Infection; Type 2 diabetes mellitus with hyperglycemia, with long-term current use of insulin 11/21/2017 Orders Only [facility] Alex Forrester MD Type 2 diabetes mellitus with hyperglycemia, with long-term current use of insulin; Arthralgia, unspecified joint 10/25/2017 Ancillary Radiology Canceled ([employer] Insurance Procedure Coverage) 10/25/2017 Refill [facility] Alex Forrester MD 10/25/2017 Refill Alex Jamison MD Neuropathic pain 10/24/2017 Refill Alex Jamison MD Neuropathic pain (Primary Dx) 10/17/2017 Office Visit Alex Jamison MD Grade III hemorrhoids (Primary Dx); Type 2 diabetes mellitus with hyperglycemia, with long-term current use of insulin; Slow transit constipation; Chronic bilateral low back pain with right-sided sciatica 10/11/2017 Refill [facility] Blake Gutierrez RN Hyperglycemia; Type 2 diabetes mellitus with hyperglycemia, with long-term current use of insulin 10/10/2017 Ancillary Radiology Alex Forrester MD Procedure 10/10/2017 Office Visit PulAlex Morales MD Type 2 diabetes mellitus with hyperglycemia, with long-term current use of insulin (Primary Dx); Chronic bilateral low back pain with right-sided sciatica; Hot flashes; Localized edema; Abdominal aortic aneurysm (AAA) without rupture; Shortness of breath; Renal dysfunction 09/19/2017 Refill Alex Jamison MD Gastroesophageal reflux disease with esophagitis 09/12/2017 Orders Only Aelx Jamison MD Diabetic foot 09/05/2017 Office Visit Pulmonology Alex Forrester MD Gastroesophageal reflux disease with esophagitis (Primary [...] Acute recurrent maxillary sinusitis 06/27/2017 Office Visit Pulmonology Alex Forrester MD Type 2 diabetes mellitus with hyperglycemia, with long-term current use of insulin (Primary Dx); Chronic bilateral low back pain with right-sided sciatica; Arthralgia, unspecified joint; Menopausal syndrome; Asthmatic bronchitis, moderate persistent, uncomplicated; Shortness of breath; Need for influenza vaccination 06/27/2017 Orders Only Pulmonology Alex Forrester MD Chronic bilateral low back pain with right-sided sciatica; Arthralgia, unspecified joint; Menopausal syndrome; Asthmatic bronchitis, moderate persistent, uncomplicated; Shortness of breath 06/09/2017 Refill Pulmonology Alex Frorester MD Type 2 diabetes mellitus with other diabetic arthropathy 05/23/2017 Office Visit Pulmonology Alex Forrester MD Skin infection (Primary Dx); Chronic bilateral [...] congestion; Orders Lung infection 03/14/2017 Office Visit Pulmonology Alex Forrester MD Chronic bilateral low back pain with right-sided sciatica (Primary Dx); Constipation due to opioid therapy; Hot flashes; Nausea; Neuropathy after 03/10/2017 Immunizations Name Dates Previously Given Next Due Lidocaine 1% 5ml Inj 12/23/2014 Influenza Vaccine 06/23/2015, 08/27/2013 (Deferred: Patient Refused), 05/17/2011, 05/25/2010 Influenza Vaccine, 06/27/2017 (Deferred: Patient already had this Seasonal, Injectable immunization) Family History Medical History Relation Name Comments Heart Father Cancer Mother Breast cancer at age 50s Heart Mother Relation Name Status Comments Father MS (Age 47) Mother Renal failure (Age 70) [...] Vital Sign Reading Time Taken Blood Pressure 116/69 03/03/2018 10:03 AM CDT Pulse 108 03/03/2018 10:03 AM CDT Temperature 36.7 C (98 F) 03/03/2018 10:03 AM CDT Respiratory Rate 24 03/03/2018 10:03 AM CDT Oxygen Saturation 94% 02/20/2018 8:53 AM CDT Inhaled Oxygen - - Concentration Weight 111.1 kg (245 lb) 03/03/2018 10:03 AM CDT Height 160 cm (5' 3") 03/03/2018 10:03 AM CDT Body Mass Index 43.4 03/03/2018 10:03 AM CDT Plan of Treatment Date Type Specialty Care Team Description 03/20/2018 Office Visit Pulmonology Alex Forrester MD [id number] [facility] [place] [id number] Health Maintenance Due Date Last Done Comments DM Foot Exam (Yearly) 1968 DM Retinal Exam (Yearly) 1968 Colorectal Cancer Scrn 2000 Annual (FIT/FOBT) Age 50 to 75 Breast Cancer Scrn 01/27/2015 01/27/2014, 07/12/2011, 11/14/2010, (Yearly) Additional history exists IMM Pneumococcal Age 65 2015 and Up DM HGBA1C (Yearly) 10/10/2018 10/10/2017, 06/27/2010 Goals Patient Goal Type Goal Recent Progress Patient-Stat Author ed? Diet Use plate model No Zamzam, Follow plate model for DM Linette Alisa, including more LD non-starchy vegetables and no more than 3 carb containing foods for meals and 1 carb for snack; Include mixed nutrient meals and snacks Lifestyle Increase physical No Zamzam, activity Linettericky Cuellar, Include moderate PA of 30 LD minutes or more such as swimming/water aerobics per discussion (preferably within 1 hour after eating), 5 days per wk, as tolerated and medically advised. Results * XRAY CHEST 2 VIEWS (03/06/2018 9:50 AM) Only the most recent of 2 results within the time period is included. Specimen Performing Laboratory SMS Impressions IMPRESSION: Low lung volumes with bibasilar atelectasis. Dictated By: Charlie Mar DO, 03/06/2018 9:55 AM I have reviewed the study and agree with the findings in this report. Signed By: Richar Acevedo MD, 03/06/2018 10:45 AM Narrative EXAM: XRAY CHEST 2 VIEWS DATE: 03/06/2018 9:50 AM INDICATION: short of breath COMPARISON: Chest x-ray 02/20/2018. FINDINGS: Devices, Lines, and Tubes: None. Heart and Mediastinum: The cardiomediastinal silhouette is unremarkable. Tortuous thoracic aorta with mild atherosclerotic calcification. Lungs and Pleura: Low lung volumes. No significant pleural effusion, pneumothorax, or focal consolidation. Bones and Soft Tissues: No acute findings. Procedure Note Interface, Rad/Mammog In - 03/06/2018 10:50 AM CDT EXAM: XRAY CHEST 2 VIEWS DATE: 03/06/2018 [...] By: Richar Acevedo MD, 03/06/2018 10:45 AM * UA CHEMISTRIES (03/06/2018 9:22 AM) Component Value Ref Range Color Yellow Clarity Hazy Spec Deloit 1.013 1.001 - 1.035 pH 6.0 5 - 8 Protein Negative NEG Glucose Negative NEG Ketone Negative NEG Bilirubin Negative NEG Nitrate Negative NEG Urobilinogen <1.0 0.2 - 1.0 EU/dL Leukocyte 1+ (A) NEG Blood Negative NEG RBC 1 0 - 4 /HPF WBC 11 (H) 0 - 5 /HPF Epithelial Cell 2 /HPF Hyaline Cast 14 /LPF Specimen Performing Laboratory Urine MISYS * ELECTROLYTES (03/06/2018 9:21 AM) Only the most recent of 2 results within the time period is included. Component Value Ref Range Sodium 142 136 - 145 mmol/L Potassium 3.4 (L) 3.5 - 5.1 mmol/L Chloride 95 (L) 98 - 107 mmol/L CO2 30 21 - 31 mmol/L Anion Gap 17 Specimen Performing Laboratory Blood MISYS * LIVER PROFILE (03/06/2018 9:21 AM) Only the most recent of 2 results within the time period is included. Component Value Ref Range T Protein 6.6 6.0 - 8.3 g/dL Albumin 3.8 3.7 - 5.3 g/dL T Bilirubin 0.3 0.2 - 1.2 mg/dL Alk Phos 82 34 - 104 U/L AST 15 13 - 39 U/L ALT 15 7 - 52 U/L D Bilirubin 0.1 0.0 - 0.2 mg/dL Specimen Performing Laboratory Blood MISYS * LIPID PROFILE (03/06/2018 9:21 AM) Only the most recent of 2 results within the time period is included. Component Value Ref Range Cholesterol 130 mg/dL Comment: REFERENCE RANGE: Desirable: <200 mg/dL Borderline: 200-240 mg/dL High Risk: >240 mg/dL Triglyceride 513 (H) <150 mg/dL Comment: REFERENCE RANGE: Normal: <150 mg/dL Borderline High: 150-199 mg/dL High: 200-499 mg/dL Very High: >cw=386 mg/dL HDL 22 mg/dL Comment: Increased CHD risk: <40 mg/dL Decreased CHD risk: >60 mg/dL LDL Calculated LDL unreliable with levels of mg/dL Triglyceride above 400 mg/dL Comment: REFERENCE RANGE: Optimal: <100 mg/dL Near Optimal: 100-129 mg/dL Borderline High: 130-159 mg/dL High: 160-189 mg/dL Very High: >ot=170 mg/dL Specimen Performing Laboratory Blood MISYS * GLUCOSE, FASTING (03/06/2018 9:21 AM) Component Value Ref Range Glucose, Fasting 268 (H) 74 - 106 mg/dL Specimen Performing Laboratory Blood MISYS * CBC (03/06/2018 9:21 AM) Only the most recent of 2 results within the time period is included. Component Value Ref Range WBC 10.4 4.5 - 11.0 K/uL RBC 4.30 4.20 - 5.40 M/uL Hemoglobin 12.8 12.0 - 16.0 g/dL Hematocrit 38.7 37.0 - 47.0 % MCV 90 82 - 92 fL MCH 29.8 27.0 - 32.0 pg MCHC 33.1 32.0 - 36.0 g/dL RDW 50.4 (H) 36.4 - 46.3 fL Platelet 288 150 - 400 K/uL Mean Platelet Volume 12.0 9.4 - 12.4 fL Percent NRBC 0.0 Absolute NRBC 0.00 Specimen Performing Laboratory Blood MISYS * UREA NITROGEN/CREA (03/06/2018 9:21 AM) Only the most recent of 2 results within the time period is included. Component Value Ref Range Urea Nitrogen 35 (H) 7 - 25 mg/dL Creatinine 1.30 (H) 0.6 - 1.2 mg/dL GFR, Estimated 41 mL/min/1.73 m2 GFR, Estim, Afr-Am 49 mL/min/1.73 m2 Specimen Performing Laboratory Other (Specify in MISYS Comments) * XRAY CHEST 1 VIEW (02/20/2018 10:32 AM) Specimen Performing Laboratory SMS Impressions IMPRESSION: Low lung volumes, body habitus, and [...] By: Richar Acevedo MD, 02/20/2018 11:11 AM Narrative EXAM: XR CHEST 1 VIEW DATE: 02/20/2018 10:32 AM INDICATION: shortness of breath COMPARISON: Chest x-ray 10/10/2017. FINDINGS: Devices, Lines, and Tubes: None. Heart and Mediastinum: The cardiomediastinal silhouette is unremarkable. Tortuous thoracic aorta with atherosclerotic calcification. Lungs and Pleura: Low lung volumes and body habitus limit. Basilar opacities present. Additional questionable opacity right apex. Bones and Soft Tissues: No acute findings. Procedure Note Interface, Rad/Mammog In - 02/20/2018 11:16 AM CDT EXAM: XR CHEST 1 VIEW DATE: 02/20/2018 [...] By: Richar Acevedo MD, 02/20/2018 11:11 AM * XRAY ABDOMEN 1 VIEW (10/10/2017 3:29 [...] Interface, Rad/Mammog In - 10/10/2017 4:02 PM COLLECTIONS TECHNICIAN EXAMINATION: X-RAY ABDOMEN - 3 VIEW(S) COMPARISON: [...] Gilbert Myles MD, 10/10/2017 3:57 PM * HEMOGLOBIN A1C (10/10/2017 3:05 PM) Component Value Ref Range Hemoglobin A1c 8.1 (H) 4.3 - 6.1 % Est Average Gluc 185.8 mg/dL Specimen Performing Laboratory Blood MISYS * B NATRIURETIC PEPT (10/10/2017 3:05 PM) Component Value Ref Range B Natriuretic Pept <12 <101 pg/mL Specimen Performing Laboratory Blood MISYS * XRAY CHEST 1 VIEW (04/25/2017 10:49 [...] Richar Acevedo MD, 04/25/2017 12:20 PM after 03/10/2017
[2019-04-17 19:43] LABS: BASOPHILS % 0.5 % (0.0-1.0); EOSINOPHILS # (AUTO) 0.1 (0.0-0.4); EOSINOPHILS % 1.4 % (0.0-6.0); HEMATOCRIT 36.4 % (34.2-44.1); HEMOGLOBIN 11.5 g/dL (12.0-16.0); LYMPHOCYTES # (AUTO) 2.1 (1.0-3.2); LYMPHOCYTES % 26.6 % (18.0-39.1); MEAN CORPUSCULAR HEMOGLOBIN 27.4 pg (28-32); MEAN CORPUSCULAR HGB CONC 31.6 g/dL (31-35); MEAN CORPUSCULAR VOLUME 86.9 fL (81-99); MONOCYTES # (AUTO) 0.7 (0.2-0.8); MONOCYTES % 8.8 % (4.4-11.3); NEUTROPHILS # (AUTO) 4.9 (2.1-6.9); NEUTROPHILS % 62.4 % (38.7-80.0); PLATELET COUNT 236 x10e3/uL (140-360); RED BLOOD COUNT 4.19 x10e6/uL (3.6-5.1)
[2019-04-17 19:53] LABS: INR 0.93; PARTIAL THROMBOPLASTIN TIME 27.5 seconds (23.8-35.5)
[2019-04-17 20:00] LABS: ALANINE AMINOTRANSFERASE 8 IU/L (0-55); ALBUMIN 3.1 g/dL (3.5-5.0); ALBUMIN/GLOBULIN RATIO 0.8 (0.8-2.0); ALKALINE PHOSPHATASE 90 IU/L (40-150); ANION GAP 15.9 mmol/L (8-16); BLOOD UREA NITROGEN 20 mg/dL (7-26); BUN/CREATININE RATIO 24 (6-25); CALCIUM 9.3 mg/dL (8.4-10.2); CARBON DIOXIDE 27 mmol/L (22-29); CHLORIDE 99 mmol/L (98-107); CREATINE KINASE 29 IU/L (29-168); CREATININE, SERUM 0.82 mg/dL (0.57-1.11); EST GLOMERULAR FILTRATION RATE > 60 ML/MIN (60-); GLUCOSE 170 mg/dL (74-118); POTASSIUM 3.9 mmol/L (3.5-5.1); SODIUM 138 mmol/L (136-145)
[2019-04-17 20:10] LABS: B-TYPE NATRIURETIC PEPTIDE2 21.4 pg/mL (0-100)
--- NOTE | 2019-04-17 20:18 | Diagnostic Imaging Report ---
Examination: Single AP view of the chest. COMPARISON: None. INDICATION: Shortness of breath DISCUSSION: Lines/tubes: None. Lungs: The lungs are well inflated and clear. No pneumonia or pulmonary edema. Pleura: No pleural effusion or pneumothorax. Heart and mediastinum: The heart and the mediastinum are unremarkable. Bones and soft tissues: No acute bony abnormalities. IMPRESSION: 1. No acute cardiopulmonary abnormalities. Signed by: Dr. Siddharth Rodrigues M.D. on 04/17/2019 8:15 PM
[2019-04-17] MEDS ORDERED: PREDNISONE20 MG PO (20:59)
[2019-04-17 22:12] VITALS: BP 119/64
[2019-04-17] MEDS ORDERED: ALBUTEROL SULF 0.083% NEB SOLN 3 ML NEB ONE (23:00)
[2019-04-17] MEDS ORDERED: IPRATROPIUM BROMIDE 0.02% 2.5 ML NEB ONE (23:01)
== END 2019-04-17 23:40 | disposition home or self-care (01) ==
LOC: ER 19:13
DX: R06.00 Dyspnea, unspecified (principal); J44.1 Chronic obstructive pulmonary disease with (acute) exacerbation; I10 Essential (primary) hypertension; E11.9 Type 2 diabetes mellitus without complications; I50.9 Heart failure, unspecified; Z87.891 Personal history of nicotine dependence
CPT/HCPCS: 36415; 71045; 80053; 82550; 82553; 83605; 83880; 84484; 85025; 85610; 85730; 87040; 93005; 96374; 99284; J2930

== ENCOUNTER 2020-03-14 20:35 | Emergency (ER) | payer MEDICARE ==
[~2020-03-14] VITALS: Ht 167.6 cm; Wt 109.3 kg
[~2020-03-14 20:35] MED LIST changes: +PREDNISONE20 MG PO
[2020-03-14] MEDS ORDERED: VALTREX500 MG PO (20:44)
[2020-03-14] MEDS ORDERED: BACTRIM DS TAB1 EACH PO (20:44)
[2020-03-14] MEDS ORDERED: FLUCONAZOLE100 MG PO (20:44)
--- OUTSIDE RECORDS SUMMARY | 2020-03-14 21:29 | XMS REPORT | Continuity of Care Document ---
Author Author Dorothy Double DoodsDENNY Organization [facility] Address Unknown Phone Unavailable Care Team Providers Care Instrumentation Technician Name Role Phone [employer] Unavailable Un available Problems Problem Status Onset Date Classification Date Reported Comments Source Pain in left foot 08/01/2018 02/09/2019 [facility] FALL Active 07/23/2018 [facility] Elevated white blood cell count, unspecified 03/04/2018 09/21/2018 [facility] Constipation, unspecified 03/04/2018 09/21/2018 [facility] Unspecified abdominal pain 03/04/2018 09/21/2018 [facility] Aneurysm of other specified arteries 03/04/2018 09/21/2018 [facility] 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 [facility] I72.8 Active 02/20/2018 [facility] R10.9 - UNSPECIFIED ABDOMINAL PAIN Active 09/15/2015 [facility] [place] 571.9 - CHRONIC LIVER D Active 02/16/2015 [facility] [place] FLANK PAIN Active 08/10/2011 [facility] Type 2 diabetes mellitus without complications 02/09/2019 [facility] Fall on same level from slipping, trippi ng and stumbling without subsequent striking against object, initial encounter 02/09/2019 [facility] Bed confinement status 02/09/2019 [facility] long term care administrator (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 Chronic congestive heart failure (disorder) Active Problem 02/09/2019 [facility] Constipation (disorder) Active Problem 02/09/2019 [facility] [place] Diabetic neuropathy (disorder) Active Problem 08/2018 [facility] [place] Diabetic renal disease (disorder) Active Problem 08/2018 [facility] [place] Edema of foot (finding) Active Problem 02/09/2019 [facility] [place] Finding of body mass index (finding) Active Problem 08/2018 [facility] [place] Glaucoma (disorder) Active Problem 02/09/2019 [facility] [place] Hormone replacement therapy requested (c ontext-dependent category) Active Prob elan 02/09/2019 [facility] Hyperlipidemia (disorder) Acti ve Problem 08/2018 [facility] [place] Hypertensive disorder, systemic arterial (disorder) Active Problem 02/09/2019 [facility] Impaired cognition (finding) A ctive Problem 08/2018 [facility] [place] Knee pain (finding) Active Problem 02/09/2019 [facility] [place] [facility] Menopausal and postmenopausal disorders (disorder) Active Problem 02/09/2019 [facility] Physical deconditioning (finding) Active Problem 08/2018 [facility] [place] Polypharmacy (finding) Active Problem 02/09/2019 [facility] [place] [facility] Subclinical hypothyroidism (disorder) Active Problem 08/2018 [facility] [place] Diabetes mellitus type 2 (disorder) Active Problem 08/2018 [facility] [place] Unsteady when walking (finding) Active Problem 08/2018 [facility] [place] Fever, unspecified 09/21/2018 [facility] Type 2 diabetes mellitus with diabetic nephropathy 09/21/2018 [facility] Type 2 diabetes mellitus with diabetic n europathy, unspecified 09/21/2018 [facility] Obesity, unspecified 09/21/2018 [facility] Medications Medication Details Route Status Patient Instructions Ordering Provider Order Date Source meloxicam 15 mg oral tablet Se e Instructions, # 90 unknown unit, Refill(s) 1, 1 tab PO Daily,x90 day,PRN:arthritis, [facility]acy: [facility] Active 04/18/[facility] pantoprazole 40 mg oral enteric coated tablet See Instructions, # 90 unknown unit, Refill(s) 1, Take 1 tablet by mouth daily., Pharmacy: [facility] Active 04/18/[facility] Metoprolol Tartrate 25 mg oral tablet See Instructions, # 180 unknown unit, Refill(s) 1, Take 1 tablet by mouth twice daily., Pharmacy: [facility] Active 04/18/2018 [facility] Furosemide 40 MG Oral Tablet S ee Instructions, # 270 unknown unit, Refill(s) 1, Take 1 and 1/2 tablets by mouth twice daily., Pharmacy: [facility] Active 04/18/2018 [facility] Clonidine Hydrochloride 0.2 MG Oral Tablet See Instructions, # 90 unknown unit, Refill(s) 1, Take 1 tablet by mouth daily., Pharmacy: [facility] Active 04/18/2018 [facility] spironolactone 25 mg oral tablet See Instructions, # 90 unknown unit, Refill(s) 1, Take 1 tablet by mouth daily., Pharmacy: [facility] Active 04/18/2018 [facility] atorvastatin 20 mg oral tablet See Instructions, # 90 unknown unit, Refill(s) 1, Take 1 tablet by mouth at bedtime., Pharmacy: [facility] Active 04/18/2018 [facility] 3 ML Insulin, Aspart, Human 100 UNT/ML P en Injector [NovoLog] See Instructions, # 60 unknown unit, Ref ill(s) 1, Inject 18 units subcutaneously three times daily before meals., Pharmacy: [facility] Active 03/24/2018 [facility] 3 ML Insulin, Aspart, Human 100 UNT/ML P en Injector [NovoLog] 18 unit, SUB-Q, TID-Before Meals, # 90 u nit, 1 Refill(s), Pharmacy: [facility], 90 day rx No Longer Active 03/19/2018 [facility] POLYETHYLENE GLYCOL 3350 142 MG/ML Oral Solution [Miralax] 17 gm, PO, Daily, X 31 day, # 527 gm, 0 Refill(s) No Longer Active 03/05/2018 [facility] Docusate Sodium 100 MG Oral Capsule [Colace] 100 mg = 1 cap, PO, BID, PRN Constipation, # 60 cap, 0 Refill(s) Active 03/05/2018 [facility] Metronidazole 500 MG Oral Tablet [Flagyl] 500 mg = 1 tab, PO, Q8H, X 10 day, # 30 tab, 0 Refill(s) No Longer Active 03/05/2018 [facility] Fentanyl Notes: (Same as: Subl imaze) Preservative free. Inactive 03/05/2018 [facility] Saline Flush 0.9% Notes: (Same as: BD Posiflush) No Longer Active 03/04/2018 [facility] Acetaminophen 300 MG / Codeine Phosphate 30 MG Oral Tablet [Tylenol with Codeine #3] 1 tab, PO, TID, PRN Pain, X 10 day, # 30 tab, 0 Refill(s) Active 02/04/2018 [facility] Metformin hydrochloride 1000 MG Oral Tablet 1,000 mg = 1 tab, PO, BID-Meals, # 180 tab, 0 Refill(s), Pharmacy: [id number] Active 01/08/2018 [facility] meloxicam 15 mg oral tablet 15 mg = 1 tab, PO, Daily, PRN arthritis, # 90 tab, 1 Refill(s), Pharmacy: [facility] Active 12/05/2017 [facility] Symbicort 160/4.5 inhalation aerosol with adapter 2 puff, INHALER, BID, # 3 ea, 3 Refill(s), Pharmacy: [facility] Active 12/05/2017 [facility] Fluticasone propionate 0.05 MG/ACTUAT Me tered Dose Nasal [place] 1 spray, NASAL, Daily, # 3 ea, 3 Refill( s), Pharmacy: [facility] Active 12/05/2017 [facility] pantoprazole 40 mg oral enteric coated tablet 40 mg = 1 tab, PO, Daily, # 90 tab, 1 Refill(s) Active 11/27/2017 [facility] 3 ML Insulin, Aspart, Human 100 UNT/ML P en Injector [NovoLog] 18 unit, SUB-Q, TID-Before Meals, # 4 naita x, 1 Refill(s) Active 11/27/2017 [facility] Linagliptin 5 MG Oral Tablet [Tradjenta] 5 mg = 1 tab, PO, Daily, # 90 tab, 1 Refill(s) Active 11/27/2017 [facility] Furosemide 40 MG Oral Tablet 6 0 mg = 1.5 tab, PO, BID, # 270 tab, 1 Refill(s) Active 11/22/2017 [facility] Clonidine Hydrochloride 0.2 MG Oral Tablet 0.2 mg = 1 tab, PO, Daily, # 90 tab, 1 Refill(s) Active 11/22/2017 [facility] atorvastatin 20 mg oral tablet 20 mg = 1 tab, PO, Bedtime, # 90 tab, 1 Refill(s) Active 11/22/2017 [facility] spironolactone 25 mg oral tablet 25 mg = 1 tab, PO, Daily, # 90 tab, 1 Refill(s) Active 11/22/2017 [facility] metoprolol tartrate 25 mg oral tablet 25 mg = 1 tab, PO, BID, # 180 tab, 1 Refill(s) Active 11/22/2017 [facility] 3 ML Insulin, Aspart, Human 100 UNT/ML P en Injector [NovoLog] 18 unit, SUB-Q, TID-Before Meals, X 90 d ay, # 4 box, 1 Refill(s), Pharmacy: [facility] [id number] No Longer Active 11/07/2017 [facility] Metformin hydrochloride 1000 MG Oral Tablet 1,000 mg = 1 tab, PO, BID-Meals, # 30 tab, 0 Refill(s) No Longer Active 11/07/2017 [facility] Acetaminophen 325 MG / Hydrocodone [place] trate 10 MG Oral Tablet 1 tab, PO, Q6H, 0 Refill(s) Active 10/18/2017 [facility] Lyrica PO, BID, 0 Refill(s) Active 10/18/2017 [facility] spironolactone 25 mg oral tablet 25 mg = 1 tab, PO, Daily, # 30 tab, 3 Refill(s) N o Longer Active 10/18/2017 [facility] Glucosamine Chondroitin MSM Complex 0 Refill(s) Active 10/18/2017 [facility] Medroxyprogesterone 2.5 mg, PO , Daily, 0 Refill(s) Active 10/18/2017 [facility] tizanidine 4 mg oral capsule 4 mg = 1 cap, PO, Bedtime, PRN for muscle spasm, # 30 cap, 0 Refill(s) No Longer Active 10/18/2017 [facility] Estradiol 0.5 MG Oral Tablet [Estrace] 0.5 mg = 1 tab, PO, Daily, # 30 tab, 0 Refill(s) Active 10/18/2017 [facility] Metolazone 10 MG Oral Tablet 1 0 mg = 1 tab, PO, Daily, # 30 tab, 0 Refill(s) Active 10/18/2017 [facility] clopidogrel 75 mg oral tablet 75 mg = 1 tab, PO, Daily, # 90 tab, 0 Refill(s) Active 10/18/2017 [facility] Linagliptin 5 MG Oral Tablet [Tradjenta] 5 mg = 1 tab, PO, Daily, # 30 tab, 3 Refill(s) No Longer Active 10/18/2017 [facility] Super B Complex oral tablet 1 tab, PO, Daily, 0 Refill(s) Active 10/18/2017 [facility] Humalog 16 unit, SUB-Q, 0 Refi ll(s) No Longer Active 10/18/2017 [facility] Levemir 40 unit, SUB-Q, BID, 0 Refill(s) Active 10/18/2017 [facility] metoprolol tartrate 25 mg oral tablet 25 mg = 1 tab, PO, BID, # 180 tab, 0 Refill(s) N o Longer Active 10/18/2017 [facility] atorvastatin 20 mg oral tablet 20 mg = 1 tab, PO, Bedtime, # 30 tab, 0 Refill(s) No Longer Active 10/18/2017 [facility] Clonidine Hydrochloride 0.2 MG Oral Tablet 0.2 mg = 1 tab, PO, Daily, 0 Refill(s) No Longer Active 10/18/2017 [facility] Furosemide 40 MG Oral Tablet 1 .5, PO, BID, 0 Refill(s) No Longer Active 10/18/2017 [facility] pantoprazole 40 mg oral granule = 1 Pack, PO, Daily, # 30 ea, 0 Refill(s) No Longer Active 10/18/2017 [facility] meloxicam 15 mg oral tablet 15 mg = 1 tab, PO, Daily, # 30 tab, 0 Refill(s) No Longer Active 10/18/2017 [facility] Dilaudid 1 mg, Route: IV, ONCE , Priority: STAT, Start date: 08/11/11 1:39:00, Stop date: 08/11/11 1:39:00 IV No Longer Active [place] 08/11/2011 [facility] acetaminophen-hydrocodone 500 mg-7.5 mg oral tablet 1 tab, PO, Q6H, 20 tab, Substitution Allowed, Maintenance PO Active [facility] 08/11/2011 [facility] Dilaudid 1 mg, 1 mL, Route: IV , Drug form: SOLN, ONCE, Priority: STAT, Start date: 08/10/11 23:03:00, Stop date: 08/10/11 23:03:00 IV No Longer Active [facility] 08/11 [facility] Zofran 4 mg, 2 mL, Route: IV, Drug form: INJ, ONCE, Priority: STAT, Start date: 08/10/11 21:27:00, Stop date: 08/10/11 21:27:00 IV No Longer Active [facility] 08/11 [facility] Dilaudid 1 mg, 1 mL, Route: IV , Drug form: SOLN, ONCE, Priority: STAT, Start date: 08/10/11 21:27:00, Stop date: 08/10/11 21:27:00 IV No Longer Active [facility] 08/11 [facility] Allergies, Adverse Reactions, Alerts Substance Category Reaction Severity Reaction type Status Date Reported Comments Source No Known Medication Allergies Assertion Drug aller gy [facility] Immunizations No Data Provided for This Section Results Order Name Results Value Reference Range Date Interpretation Comments Source URINE AND STOOL UA Color [place] 03/05/2018 [facility] URINE AND STOOL UA Urobilinogen <=1.0 mg/dL 0.1 - 1.0 03/05/2018 [facility] URINE AND STOOL UA Bili Negative *NA* (03/04/18 8:18 PM) Negative 03/05/2018 [facility] URINE AND STOOL UA Ketones Negative mg/dL Negative mg/dL 03/05/2018 [facility] URINE AND STOOL UA Blood Negative (03/04/18 8:18 PM) Negative 03/05/2018 [facility] URINE AND STOOL UA Nitrite Negative (03/04/18 8:18 PM) Negative 03/05/2018 [facility] URINE AND STOOL UA pH 5.0 5.0 - 8.0 03/05/2018 [facility] URINE AND STOOL UA Leuk Est Negative (03/04/18 8:18 PM) Negative 03/05/2018 [facility] URINE AND STOOL UA Sq Epi Occasional /LPF Few /LPF 03/05/2018 [facility] URINE AND STOOL UA Hyal Cast 17 0 - 2 03/05/2018 [facility] URINE AND STOOL UA Glucose Negative mg/dL Negative mg/dL 03/05/2018 [facility] URINE AND STOOL UA Protein Negative mg/dL Negative mg/dL 03/05/2018 [facility] URINE AND STOOL UA Spec Grav 1.013 <=1.030 03/05/2018 [facility] URINE AND STOOL UA Turbidity Marked *ABN* (03/04/18 8:18 PM) Clear 03/05/2018 [facility] URINE AND STOOL UA WBC 2 0 - 5 03/05/2018 [facility] URINE AND STOOL UA Mucus Few /LPF None Seen /LPF 03/05/2018 [facility] CARDIAC ENZYMES Troponin-I <0.02 0.00 - 0.40 03/04/2018 [facility] CHEM PANEL eGFR 37 03/04/2018 Result [...] should be multiplied by the estimated BMI. [facility] CHEM PANEL Bili Total 0.5 0.2 - 1.3 03/04/2018 [facility] CHEM PANEL Total Protein 7.8 6.4 - 8.4 03/04/2018 [facility] CHEM PANEL Calcium Lvl 8.5 8.5 - 10.5 03/04/2018 [facility] CHEM PANEL Chloride Lvl 95 95 - 109 03/04/2018 [facility] CHEM PANEL CO2 30 24 - 32 03/04/2018 [facility] CHEM PANEL Alk Phos 90 39 - 136 03/04/2018 [facility] CHEM PANEL AST 17 0 - 37 03/04/2018 [facility] CHEM PANEL ALT 25 0 - 65 03/04/2018 [facility] CHEM PANEL Albumin Lvl 3.5 3.5 - 5.0 03/04/2018 [facility] CHEM PANEL Glucose Lvl 246 70 - 99 03/04/2018 [facility] CHEM PANEL Sodium Lvl 141 135 - 145 03/04/2018 [facility] CHEM PANEL Potassium Lvl 3.2 3.5 - 5.1 03/04/2018 [facility] CHEM PANEL Creatinine Lvl 1.47 0.50 - 1.40 03/04/2018 [facility] CHEM PANEL BUN 29 7 - 22 03/04/2018 [facility] CHEM PANEL Globulin 4.3 2.7 - 4.2 03/04/2018 [facility] CHEM PANEL A/G Ratio 0.8 0.7 - 1.6 03/04/2018 [facility] CHEM PANEL B/C Ratio 20 6 - 25 03/04/2018 [facility] CHEM PANEL AGAP 19.2 10.0 - 20.0 03/04/2018 [facility] HEMATOLOGY Basophils # 0.1 0.0 - 0.2 03/04/2018 [facility] HEMATOLOGY Lymphocytes 17.6 20.0 - 40.0 03/04/2018 [facility] HEMATOLOGY Segs 75.1 45.0 - 75.0 03/04/2018 [facility] Neutrophils # 10.1 1.5 - 8.1 03/04/2018 [facility] HEMATOLOGY Eosinophils # 0.2 0.0 - 0.5 03/04/2018 [facility] HEMATOLOGY Monocytes # 0.7 0.0 - 0.8 03/04/2018 [facility] Lymphocytes # 2.4 1.0 - 5.5 03/04/2018 [facility] HEMATOLOGY Monocytes 5.5 2.0 - 12.0 03/04/2018 [facility] HEMATOLOGY Eosinophils 1.3 0.0 - 4.0 03/04/2018 [facility] Basophils 0.5 0.0 - 1.0 03/04/2018 [facility] HEMATOLOGY PTT 27.3 22.9 - 35.8 03/04/2018 [facility] HEMATOLOGY INR 1.06 0.85 - 1.17 03/04/2018 [facility] HEMATOLOGY PT 13.8 12.0 - 14.7 03/04/2018 [facility] HEMATOLOGY RDW 15.4 11.5 - 14.5 03/04/2018 [facility] HEMATOLOGY MPV 9.9 7.4 - 10.4 03/04/2018 [facility] HEMATOLOGY Platelet 262 133 - 450 03/04/2018 [facility] HEMATOLOGY Hct 40.7 36.0 - 48.0 03/04/2018 [facility] HEMATOLOGY MCV 87.4 80.0 - 98.0 03/04/2018 [facility] HEMATOLOGY RBC 4.66 4.20 - 5.40 03/04/2018 [facility] MCHC 33.2 32.0 - 36.0 03/04/2018 [facility] HEMATOLOGY MCH 29.0 27.0 - 31.0 03/04/2018 [facility] HEMATOLOGY Hgb 13.5 12.0 - 16.0 03/04/2018 [facility] HEMATOLOGY WBC 13.5 3.7 - 10.4 03/04/2018 [facility] CHEMISTRY Lipase Lvl 132 73 - 393 08/11/2011 [facility] CHEMISTRY AGAP 19.2 10.0 - 20.0 08/11/2011 [facility] CHEMISTRY B/C Ratio 23 6 - 25 08/11/2011 [facility] CHEMISTRY Globulin 4.6 2.0 - 4.0 08/11/2011 [...] based on the clinical recommendations of the [place] [employer]. [facility] HEMATOLOGY Eosinophils # 0.2 0.0 - 0.5 08/11/2011 Normal [facility] HEMATOLOGY Basophils # 0.0 0.0 - 0.2 08/11/2011 Normal [facility] HEMATOLOGY Monocytes 9.2 2.0 - 12.0 08/11/2011 Normal [facility] HEMATOLOGY Lymphocytes 37.5 20.0 - 40.0 08/11/2011 Normal [facility] HEMATOLOGY Segs 50.8 45.0 - 75.0 08/11/2011 Normal [facility] HEMATOLOGY Monocytes # 0.6 0.0 - 0.8 08/11/2011 Normal [facility] HEMATOLOGY Lymphocytes # 2.5 1.0 - 5.5 08/11/2011 Normal [facility] HEMATOLOGY Eosinophils 2.3 0.0 - 4.0 08/11/2011 Normal [facility] HEMATOLOGY Segs-Bands # 3.4 1.5 - 8.1 08/11/2011 Normal [facility] HEMATOLOGY Basophils 0.2 0.0 - 1.0 08/11/2011 Normal [facility] WBC 6.7 3.7 - 10.4 08/11/2011 Normal [facility] MCHC 34.2 32.0 - 36.0 08/11/2011 Normal [facility] RDW 13.8 11.5 - 14.5 08/11/2011 Normal [facility] HEMATOLOGY Platelet 203 133 - 450 08/11/2011 Normal [facility] MPV 8.4 7.4 - 10.4 08/11/2011 Normal [facility] MCH 30.5 27.0 - 31.0 08/11/2011 Normal [facility] Hct 43.6 36.0 - 48.0 08/11/2011 Normal [facility] MCV 89.4 81.0 - 99.0 08/11/2011 Normal [facility] RBC 4.87 4.20 - 5.40 08/11/2011 Normal [facility] Hgb 14.9 12.0 - 16.0 08/11/2011 Normal [facility] Pathology Reports No Data Provided for This Section Diagnostic Reports Report Value Date Source Ankle 3 views DX Patient Name: DENNY LEIGH : 1950; Age: 68 years y/o Female MR: [id number] * LEFT ANKLE, 3 views History: Injury, [...] ankle. 2. Prominent plantar calcaneal spur. SL: [id number] SL: [id number] 07/23/2018 [facility] Foot series DX Patient Name: Cleveland LEIGH. : 1950; Age: 68 years y/o; Female. MR: [id number]. Ordering Physician: Maurice Joseph. Left foot 3 views. HISTORY: Fall with left foot pain. COMPARISON: None. FINDINGS: Frontal, oblique and lateral views of the left foot was performed. Mild bunion formation noted. Plantar calcaneal spur also noted. No fracture or dislocation. All joint spaces are well-preserved. No ankle joint effusion. Dorsal forefoot soft tissue swelling and edema/hematoma noted. SL: HOANG 07/23/2018 [facility] ED Abdomen/Pelvis IV contrast only CT [...] control -Adjustment of the mA and/or kV accordin g to patient size -Use of iterative reconstruction technLocalCustomer ue CT Radiation Dose DLP 1202.0 mGy-cm FINDINGS: [...] for constipation. 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 SL: ANABELROSSY 03/04/2018 [facility] Chest 1view DX XR CHEST 1 VIEW HISTORY: - syncope. COMPARISON: CXR 07/02/2016, 08/10/2011 FINDINGS: The heart, vascular markings and lung mckeon are stable. No pleural fluid. No focal skeletal abnormality. IMPRESSION: 1. Stable chest without evidence of an active process. SL: TEO-Yordan 03/04/2018 [facility] Chest 2 views DX EXAM: 2 view(s) of the chest. CLINICAL HX: I50.30 Unspecified diastolic (congestive) heart failure. Shortness of breath. . COMPARISON: Chest x-ray: 08/10/2011. FINDINGS: Support apparatus: None. Cardiac silhouette: Unremarkable. Tierra: Unremarkable. Lobar consolidation: Negative. Pleural effusion: Negative. Pneumothorax: Negative. Other: Negative. Bones: Unremarkable. Other: None. IMPRESSION: 1. No acute cardiopulmonary process. 07/02/2016 [facility] [place] Abdomen complete US ULTRASOUND OF THE ABDOMEN [...] Comments Source Systolic (mm Hg) 134 07/23/2018 [facility] Diastolic (mm Hg) 74 07/23/2018 [facility] Heart Rate 88 07/23/2018 [facility] Respitory Rate 20 07/23/2018 [facility] Temperature Oral (F) 98.0 F 07/23/2018 [facility] Height 157.48 cm 07/23/2018 [facility] BMI Calculated 44.9 07/23/2018 [facility] Weight 111.364 07/23/2018 [facility] Respitory Rate 20 07/23/2018 [facility] Heart Rate 106 07/23/2018 [facility] Systolic (mm Hg) 129 07/23/2018 [facility] Diastolic (mm Hg) 70 07/23/2018 [facility] Temperature Oral (F) 98 F 07/23/2018 [facility] Respitory Rate 18 03/05/2018 [facility] Systolic (mm Hg) 127 03/05/2018 [facility] Diastolic (mm Hg) 83 03/05/2018 [facility] Temperature Oral (F) 98.7 F 03/05/2018 [facility] Heart Rate 105 03/05/2018 [facility] Temperature Oral (F) 99.7 F 03/04/2018 [facility] Height 160.02 cm 03/04/2018 [facility] BMI Calculated 43.49 03/04/2018 [facility] Weight 111.364 03/04/2018 [facility] Systolic (mm Hg) 129 03/04/2018 [facility] Diastolic (mm Hg) 80 03/04/2018 [facility] Respitory Rate 16 03/04/2018 [facility] Heart Rate 108 03/04/2018 [facility] Respitory Rate 14 02/04/2018 [facility] Heart Rate 99 02/04/2018 [facility] Systolic (mm Hg) 138 02/04/2018 [facility] Diastolic (mm Hg) 78 02/04/2018 [facility] Height 157.48 cm 02/04/2018 [facility] BMI Calculated 44.54 02/04/2018 [facility] Weight 110.455 02/04/2018 [facility] Temperature Oral (F) 98.7 F 02/04/2018 [facility] Respitory Rate 16 02/04/2018 [facility] Heart Rate 117 02/04/2018 [facility] Systolic (mm Hg) 152 02/04/2018 [facility] Diastolic (mm Hg) 82 02/04/2018 [facility] Weight 115.909 11/07/2017 [facility] BMI Calculated [...] 10/18/2017 [facility] Respitory Rate 18 08/11/2011 [facility] Heart Rate 90 08/11/2011 [facility] Diastolic (mm Hg) 71 08/11/2011 [facility] Systolic (mm Hg) 115 08/11/2011 [facility] Temperature Oral (F) 98.4 F 08/11/2011 [facility] Weight 100.000 08/11/2011 [facility] Height 167.64 cm 08/11/2011 [facility] Diastolic (mm Hg) 91 08/11/2011 [facility] Heart Rate 118 08/11/2011 [facility] Temperature Oral (F) 98.8 F 08/11/2011 [facility] Respitory Rate 26 08/11/2011 [facility] Systolic (mm Hg) 149 08/11/2011 [facility] Encounters Location Location Details Encounter Type Encounter Number Reason For Visit Attending Provider ADM Date DC Date Status Source [facility] Emergency [id number] ARUN BYERS 08/10/2011 08/11/2011 Discharged [facility] [place] [facility] [id number] Jose C Byers 09/20/2015 09/21/2015 [facility] [place] [facility] [place] [facility] [id number] Jose C Byers 07/02/2016 07/03/2016 [facility] [place] Outpatient [id number] ELZA LONDON 10/18/[address] [facility] Outpatient [id number] Elza London 10/18/2017 10/19/2017 [facility] Outpatient [id number] ELZA LONDON 11/07/[address] [facility] Outpatient [id number] Elza London 11/07/2017 11/08/2017 [facility] Phone Message [id number] 11/22/2017 11/24/2017 [facility] Phone Message [id number] 11/22/2017 11/24/2017 [facility] Phone Message [id number] 11/27/2017 11/29/2017 [facility] Phone Message [id number] 01/08/2018 01/10/2018 [facility] Outpatient [id number] ELZA LONDON 01/14/[address] [facility] Ambulatory Pre-Reg [id number] Elza London 01/14/2018 01/14/2018 [facility] Outpatient [id number] ELZA LONDON 01/21/[address] [facility] Ambulatory Pre-Reg [id number] Elza London 01/21/2018 01/21/2018 [facility] Outpatient [id number] ELZA LONDON 02/04/[address] [facility] Outpatient [id number] Elza London 02/04/2018 02/05/2018 [facility] Emergency [id number] Lis Butcher 03/04/2018 03/05/2018 [facility] Outpatient [id number] Federico Johnson 03/04/2018 03/04/2018 [facility] Outpatient [id number] ELZA LONDON 03/13/2018 Active [facility] Ambulatory Pre-Reg [id number] Elza Kush 03/13/2018 03/13/2018 [facility] Emergency [id number] Chelsie Byers 07/23/2018 07/23/2018 [facility] Phone Message [id number] 11/05/2018 11/07/2018 [facility] Ambulatory Pre-Reg [id number] Jodi Greenberg 11/10/2018 11/10/2018 [facility] Outpatient [id number] Jodi Greenberg 11/13/[address] [facility] Outpatient [id number] Elza Kush 01/20/2019 Active [facility] Ambulatory Pre-Reg [id number] Elza Kush 01/20/2019 01/20/2019 [facility] Procedures Procedure Code Date Perfomer Comments Source Mammogram - screening [id number] 09/12/2017 [facility] Colonoscopy<sup>1</sup> [id number] 08/12/2016 polyps [facility] Cholecystectomy [id number] [facility] Operation on tonsil [id number] [facility] Assessment and Plan No Data Provided for This Section Plan of Care No Data Provided for This Section Social History Social History Date Source Social History TypeResponse Exercise Exercise duration: 0. Employment/School Status: Unemployed. 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 Alcohol Current, Type Liquor. Frequency: 1-2 times per year. Smoking Status Never smoker; Exposure to Tobacco Smoke None; Cigarette Smoking Last 365 Days Yes; Reg Smoking Cessation Counseling No entered on: 07/23/18 10/19/2017 [facility] Social History TypeResponse Exercise Exercise duration: 0. Employment/School Status: Unemployed. 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 Alcohol Current, Type Liquor. Frequency: 1-2 times per year. Smoking Status Never smoker; Exposure to Tobacco Smoke None; Cigarette Smoking Last 365 Days Yes; Reg Smoking Cessation Counseling No entered on: 07/23/18 10/19/2017 [facility] No data available for this section 07/03/2016 [facility] [place] Family History No Data Provided for This Section Advance Directives No Data Provided for This Section Functional Status No Data Provided for This Section
--- NOTE | 2020-03-14 22:30 | Emergency Department Note ---
History of Present Illnes History of Present Illness Chief Complaint: Skin Rash or Abscess History of Present Illness This is a 69 year old female arrived to the ED with complaints of several week history of a rash over her left groin and left abdomen. Patient states she has been applying topical hydrocortisone with no relief. Historian: Patient, [employer] Arrival Mode: [place] Onset (how long ago): week(s) Radiation: Reports non-radiation Onset quality: gradual Duration (how long): week(s) Timing of current episode: constant Progression: unchanged Chronicity: new Relieving factors: none Exacerbating factors: none Past Medical/Family History Physician Review I have reviewed the patient's past medical and family history. Any updates have been documented here. Past Medical History Recent Fever: No Clinical Suspicion of Infectio: No New/Unexplained Change in Ment: No Past Medical History: Hypertension, Diabetes, CHF, A-Fib Other Medical History: RA HX OF PNEUMONIA SPLENIC ANEURYSM neuropathy Past Surgical History: Cholecysctectomy Social History Smoking Cessation: Never Smoker Counseling Performed: No Alcohol Use: None Any Illegal Drug Use: No Other Last Tetanus: UNK Any Pre-Existing Lines (PICC,: No Review of Systems Review of Systems Constitutional: Reports no symptoms EENTM: Reports no symptoms Cardiovascular: Reports no symptoms Respiratory: Reports no symptoms Gastrointestinal: Reports no symptoms Genitourinary: Reports no symptoms Musculoskeletal: Reports no symptoms Integumentary: Reports as per HPI Neurological: Reports no symptoms Psychological: Reports no symptoms Endocrine: Reports no symptoms Hematological/Lymphatic: Reports no symptoms Physical Exam Related Data Allergies: Coded Allergies: No Known Allergies (Unverified , 05/06/13) Triage Vital Signs Vital Signs Date Time Temp Pulse Resp B/P (MAP) Pulse Ox O2 Delivery O2 Flow Rate FiO2 03/14/20 20:43 99.3 117 20 127/75 98 Room Air Vital signs reviewed: Yes Physical Exam CONSTITUTIONAL Constitutional: Present well-developed, Present well-nourished, Present morbidly obese (vesicular rash noted over left inguinal area and stomach, excoriated erythematous) HENT HENT: Present normocephalic, Present atraumatic, Present oropharynx clear/moist, Present nose normal HENT L/R: Present left ext ear normal, Present right ext ear normal EYES Eyes: Reports PERRL, Reports conjunctivae normal NECK Neck: Present ROM normal PULMONARY Pulmonary: Present effort normal, Present breath sounds normal CARDIOVASCULAR Cardiovascular: Present regular rhythm, Present heart sounds normal, Present capillary refill normal, Present normal rate GASTROINTESTINAL Abdominal: Present soft, Present nontender, Present bowel sounds normal GENITOURINARY Genitourinary: Present exam deferred SKIN Skin: Present warm, Present erythema MUSCULOSKELETAL Musculoskeletal: Present ROM normal NEUROLOGICAL Neurological: Present alert, Present oriented x 3, Present no gross motor or sensory deficits PSYCHOLOGICAL Psychological: Present mood/affect normal, Present judgement normal Assessment & Plan Medical Decision Making MDM 69-year-old female arrives to the ED with a rash present over left groin and stomach, rash appeared vesicular in nature or superimposed bacterial infection. Basement membrane intact, no concerns of Beck Dorian, TEN or staphylococcal skin syndrome. Patient is morbidly obese and it appears majority of the rashes under her pannus since the likelihood of this also being superimposed fungal in nature. Patient discharged home on antiviral, antibiotic and antifungal. Patient hemodynamically stable and afebrile at time of discharge. Assessment & Plan Final Impression: (1) Zoster (2) Fungal infection (3) Bacterial infection Depart Disposition: HOME, SELF-CARE Last Vital Signs Date Time Temp Pulse Resp B/P (MAP) Pulse Ox O2 Delivery O2 Flow Rate FiO2 03/14/20 20:43 99.3 117 20 127/75 98 Room Air Home Meds Active Scripts Valacyclovir Hcl (VALTREX) 500 Mg Tab, 1000 MG PO Q8HR for 7 Days, #56 TAB Prov:SAMREEN PEDRAZA, DO 03/14/20 Sulfamethoxazole/Trimethoprim (BACTRIM DS TABLET) 1 Each Tablet, 1 TAB PO BID, #20 TAB 0 Refills Prov:SAMREEN PEDRAZA, DO 03/14/20 Fluconazole (FLUCONAZOLE) 100 Mg Tablet, 100 MG PO DAILY for 10 Days, TAB Prov:SAMREEN PEDRAZA, DO 03/14/20 Prednisone (PREDNISONE) 20 Mg Tab, 40 MG PO DAILY for 4 Days, #4 TAB Prov:SAMREEN PEDRAZA, DO 04/17/19 Reported Medications Docusate Sodium (COLACE) 100 Mg Cap, 100 MG PO DAILY, #30 CAP 09/09/14 Venlafaxine Hcl (VENLAFAXINE HCL) 37.5 Mg Tablet, MG PO DAILY 09/09/14 Tizanidine Hcl (TIZANIDINE HCL) 4 Mg Tablet, 4 MG PO BD, TAB 09/09/14 Furosemide (FUROSEMIDE) 40 Mg Tablet, 40 MG PO BID, #30 TAB 09/09/14 Hydrocodone Bit/Acetaminophen (HYDROCODON-ACETAMINOPHEN 5-325) 1 Each Tablet, 1 TAB PO EVERY 4-6 HOURS PRN 05/06/13 Fluticasone Propionate (FLONASE) 16 Gm Snow.susp, 1 SPRAYS INH BID 12/12/12 Potassium Chloride (POTASSIUM CHLORIDE) 10 Meq Tablet.er, 10 MEQ PO DAILY 12/12/12 Metoprolol Tartrate (LOPRESSOR) 25 Mg Tab, 25 MG PO BID 12/12/12 Estrogen,Con/M-Progest Acet (PREMPRO 0.625-2.5 MG TABLET) 1 Each Tablet, 0.625- 2.5 MG PO DAILY 12/09/12 Omeprazole (OMEPRAZOLE) 20 Mg Capsule.dr, 20 MG PO ACB 12/09/12 Amlodipine Besylate (NORVASC) 5 Mg Tab, 5 MG PO BID, 0 Refills 12/09/12 Cetirizine Hcl (CETIRIZINE HCL) 10 Mg Tablet, 10 MG PO DAILY 12/09/12 Atorvastatin Calcium (LIPITOR) 20 Mg Tablet, 20 MG PO HS 12/09/12 Tramadol Hcl* (ULTRAM 50MG*) 50 Mg Tab, 50 MG PO Q6 PRN 12/09/12 SAMREEN PEDRAZA DO Mar 14, 2020 22:30
== END 2020-03-14 22:07 | disposition home or self-care (01) ==
LOC: ER 20:37
DX: B02.9 Zoster without complications (principal); B48.8 Other specified mycoses; A48.8 Other specified bacterial diseases; I10 Essential (primary) hypertension; E11.40 Type 2 diabetes mellitus with diabetic neuropathy, unspecified; I50.9 Heart failure, unspecified; M06.9 Rheumatoid arthritis, unspecified
CPT/HCPCS: 99282

== ENCOUNTER 2021-03-18 09:35 | Inpatient (IN) | payer MEDICARE ==
[~2021-03-18] VITALS: Ht 167.6 cm; Wt 109.3 kg
[~2021-03-18 09:35] MED LIST changes: +BACTRIM DS TAB1 EACH PO; +FLUCONAZOLE100 MG PO; +VALTREX500 MG PO
[2021-03-18] MEDS ORDERED: SODIUM CHLORIDE 0.9% 1000ML 1,000 ML IV STA (10:26)
[2021-03-18 10:33] LABS: BASOPHILS # (AUTO) 0.1 (0.0-0.1); BASOPHILS % 0.4 % (0.0-1.0); HEMOGLOBIN 14.5 g/dL (12.0-16.0); LYMPHOCYTES # (AUTO) 1.2 (1.0-3.2); MEAN CORPUSCULAR HEMOGLOBIN 28.6 pg (28-32); MEAN CORPUSCULAR VOLUME 86.8 fL (81-99); MONOCYTES # (AUTO) 1.4 (0.2-0.8); MONOCYTES % 6.9 % (4.4-11.3); NEUTROPHILS % 85.8 % (38.7-80.0); PLATELET COUNT 251 x10e3/uL (140-360); RED BLOOD COUNT 5.07 x10e6/uL (3.6-5.1); RED CELL DISTRIBUTION WIDTH 14.6 % (11.7-14.4)
[2021-03-18 10:47] LABS: ALBUMIN 3.4 g/dL (3.5-5.0); ALBUMIN/GLOBULIN RATIO 0.7 (0.8-2.0); ANION GAP 20.7 mmol/L (8-16); CALCIUM 9.3 mg/dL (8.4-10.2); CREATININE, SERUM 0.91 mg/dL (0.57-1.11)
[2021-03-18 10:48] LABS: MAGNESIUM 1.1 MG/DL (1.3-2.1)
[2021-03-18 10:49] LABS: POTASSIUM 2.7 mmol/L (3.5-5.1)
[2021-03-18] MEDS ORDERED: IOPAMIDOL 370 MG/ML 200 ML INFUS..BTL INJ ONE (11:11)
[2021-03-18] MEDS ORDERED: POTASSIUM CHLORIDE 10MEQ/100ML 300 ML IV ONE (11:15)
[2021-03-18] MEDS ORDERED: VANCOMYCIN 1GM/NS 250 ML 250 ML IV SCH (11:15)
[2021-03-18] MEDS ORDERED: POTASSIUM CHLORIDE 20MEQ/15ML UDC PO ONE (11:15)
[2021-03-18] MEDS ORDERED: MAGNESIUM SULFATE 2GM/50ML 50 ML IV ONE (11:15)
[2021-03-18 11:19] LABS: INR 1.08; PROTHROMBIN TIME 14.2 seconds (11.9-14.5)
[2021-03-18 11:20] LABS: PARTIAL THROMBOPLASTIN TIME 29.6 seconds (23.8-35.5)
[2021-03-18 11:25] LABS: CLARITY,URINE CLEAR (CLEAR); COLOR,URINE AMBER (YELLOW); KETONES,URINE 1+ (NEGATIVE); LEUKOCYTE ESTERASE ,URINE NEGATIVE (NEGATIVE); NITRITE,URINE NEGATIVE (NEGATIVE); PROTEIN,URINE DIPSTICK 1+ (NEGATIVE)
[2021-03-18 11:26] LABS: URINE UROBILINOGEN 0.2 mg/dL (0.2 - 1)
[2021-03-18 11:34] LABS: CREATINE KINASE MB 0.6 ng/mL (0-5.0)
[2021-03-18 11:35] LABS: BACTERIA,URINE RARE /HPF; EPITHELIAL CELLS,URINE FEW /LPF; RBC,URINE 0-5 /HPF (0-5); WBC,URINE (MAN) 0-5 /HPF (0-5)
[2021-03-18] MEDS: PIPERACILLIN/TAZOBACTAM 3.375 GM in SODIUM CHLORIDE 0.9% 50ML 50 ML IV SCH ×2 (11:47→19:28)
[2021-03-18] MEDS: Vancomycin IV 1 GM in SODIUM CHLORIDE 0.9% 250ML 250 ML IV SCH (13:25)
[2021-03-18] MEDS ORDERED: KCL 20MEQ/.9 SOD CHL 1,000 ML IV SCH (13:30)
[2021-03-18] MEDS ORDERED: ONDANSETRON HCL INJ 2MG/ML 2ML 2 MG/ML VIAL IV PRN (14:00)
[2021-03-18 16:00] VITALS: BP 104/56
[2021-03-18 17:24] LABS: CREATINE KINASE MB 0.8 ng/mL (0-5.0)
[2021-03-18 18:07] VITALS: BP 104/56
[2021-03-18 18:42] VITALS: BP 104/56
[2021-03-18 20:00] VITALS: BP 94/56
[2021-03-18] MEDS ORDERED: BENZONATATE 100 MG CAP PO PRN (21:45)
[2021-03-18] MEDS ORDERED: HYDRALAZINE HCL 20 MG/ML VIAL IV PRN (21:45)
[2021-03-18] MEDS ORDERED: CHLORASEPTIC SPRAY 177 ML BTL MM PRN (21:45)
[2021-03-18] MEDS ORDERED: DIPHENHYDRAMINE HCL 25 MG CAP PO PRN (21:45)
[2021-03-18] MEDS ORDERED: DOCUSATE SODIUM 100 MG CAP PO PRN (21:45)
[2021-03-18] MEDS ORDERED: ALBUTEROL/IPRATROPIUM 3 ML NEB NEB PRN (21:45)
[2021-03-18] MEDS ORDERED: LIDOCAINE 4% PATCH TP PRN (21:45)
[2021-03-18] MEDS ORDERED: DEXTROSE 50% SYRINGE 50 ML IV PRN (21:45)
[2021-03-18] MEDS ORDERED: SIMETHICONE 80 MG CHEW PO PRN (21:45)
[2021-03-18] MEDS ORDERED: FLUCONAZOLE 100 MG/NS 50 ML 50 ML IV SCH (22:30)
[2021-03-18] MEDS: MORPHINE SULFATE INJ 2 MG/ML SYR IV PRN (23:31)
[2021-03-18] MEDS ORDERED: LYRICA100 MG PO (23:47)
[2021-03-19] VITALS (9 sets, daily range): BP systolic 96–122; BP diastolic 53–68
[2021-03-19] MEDS: SODIUM CHLORIDE 0.9% 1000ML 1,000 ML IV SCH ×3 (00:27→19:02)
[2021-03-19] MEDS: Vancomycin IV 1 GM in SODIUM CHLORIDE 0.9% 250ML 250 ML IV SCH ×2 (00:29→12:21)
[2021-03-19] MEDS: PREGABALIN 50 MG CAP PO SCH ×2 (00:29→09:43)
[2021-03-19] MEDS: PIPERACILLIN/TAZOBACTAM 3.375 GM in SODIUM CHLORIDE 0.9% 50ML 50 ML IV SCH (03:45)
[2021-03-19 06:05] LABS: BASOPHILS # (AUTO) 0.1 (0.0-0.1); BASOPHILS % 0.5 % (0.0-1.0); EOSINOPHILS # (AUTO) 0.1 (0.0-0.4); EOSINOPHILS % 0.5 % (0.0-6.0); HEMOGLOBIN 12.1 g/dL (12.0-16.0); LYMPHOCYTES # (AUTO) 1.4 (1.0-3.2); LYMPHOCYTES % 12.8 % (18.0-39.1); MEAN CORPUSCULAR HEMOGLOBIN 27.9 pg (28-32); MEAN CORPUSCULAR VOLUME 89.9 fL (81-99); MONOCYTES # (AUTO) 0.9 (0.2-0.8); MONOCYTES % 8.1 % (4.4-11.3); NEUTROPHILS # (AUTO) 8.3 (2.1-6.9); NEUTROPHILS % 77.5 % (38.7-80.0); PLATELET COUNT 190 x10e3/uL (140-360); RED BLOOD COUNT 4.34 x10e6/uL (3.6-5.1); RED CELL DISTRIBUTION WIDTH 14.7 % (11.7-14.4)
[2021-03-19 06:37] LABS: ALBUMIN 2.8 g/dL (3.5-5.0); ALBUMIN/GLOBULIN RATIO 0.8 (0.8-2.0); ANION GAP 14.5 mmol/L (8-16); CALCIUM 8.2 mg/dL (8.4-10.2); CREATININE, SERUM 0.66 mg/dL (0.57-1.11)
[2021-03-19 06:45] LABS: POTASSIUM 2.5 mmol/L (3.5-5.1)
[2021-03-19 07:00] LABS: MAGNESIUM 1.6 MG/DL (1.3-2.1); PHOSPHORUS 2.5 MG/DL (2.3-4.7)
[2021-03-19] MEDS ORDERED: FLUCONAZOLE 100 MG/NS 50 ML 50 ML IV SCH (07:00)
[2021-03-19 07:32] LABS: CREATINE KINASE MB 0.9 ng/mL (0-5.0)
[2021-03-19] MEDS: PANTOPRAZOLE SOD 40 MG TABEC PO SCH (09:43)
[2021-03-19] MEDS ORDERED: PIPERACILLIN/TAZOBACTAM 3.375 GM in SODIUM CHLORIDE 0.9% 50ML 50 ML IV SCH (10:00)
[2021-03-19] MEDS: VENLAFAXINE HCL 37.5 MG TAB PO SCH (10:24)
[2021-03-19] MEDS: POTASSIUM CHLORIDE 20 MEQ TAB CR PO PRN (10:25)
[2021-03-19] MEDS ORDERED: POTASSIUM CHLORIDE 20MEQ/100ML 200 ML IV ONE (13:15)
[2021-03-19] MEDS: MORPHINE SULFATE INJ 2 MG/ML SYR IV PRN ×3 (14:25→22:54)
[2021-03-19] MEDS: ACETAMINOPHEN 325 MG TAB PO PRN ×2 (14:25→21:07)
[2021-03-19] MEDS ORDERED: SODIUM CHLORIDE 0.9% 250ML 250 ML ONE ×2 (14:26→20:02)
[2021-03-19] MEDS: PHENAZOPYRIDINE HCL 100 MG TAB PO SCH (19:02)
[2021-03-19] MEDS: B&O 60MG R/S 60 MG SUPP PR PRN (19:46)
[2021-03-19] MEDS: ATORVASTATIN 20 MG TAB PO SCH (21:00)
[2021-03-19] MEDS: METRONIDAZOLE 500MG/NS 100ML 100 ML IV SCH (21:07)
[2021-03-19] MEDS ORDERED: BISACODYL 5 MG TAB EC PO ONE ×2 (22:00→22:30)
[2021-03-19] MEDS: ONDANSETRON HCL INJ 2MG/ML 2ML 2 MG/ML VIAL IV PRN (22:54)
[2021-03-19] MEDS ORDERED: CITRATE OF MAGNESIA 300ML BOTTLE PO ONE (23:00)
[2021-03-20] VITALS (9 sets, daily range): BP systolic 94–119; BP diastolic 47–65
[2021-03-20] MEDS: SODIUM CHLORIDE 0.9% 1000ML 1,000 ML IV SCH ×2 (03:15→14:30)
[2021-03-20 04:42] LABS: BASOPHILS # (AUTO) 0.1 (0.0-0.1); EOSINOPHILS # (AUTO) 0.3 (0.0-0.4); EOSINOPHILS % 3.7 % (0.0-6.0); HEMATOCRIT 39.4 % (34.2-44.1); HEMOGLOBIN 11.8 g/dL (12.0-16.0); LYMPHOCYTES # (AUTO) 1.6 (1.0-3.2); LYMPHOCYTES % 21.5 % (18.0-39.1); MEAN CORPUSCULAR HEMOGLOBIN 27.6 pg (28-32); MEAN CORPUSCULAR HGB CONC 29.9 g/dL (31-35); MEAN CORPUSCULAR VOLUME 92.1 fL (81-99); MONOCYTES # (AUTO) 0.7 (0.2-0.8); MONOCYTES % 9.6 % (4.4-11.3); NEUTROPHILS # (AUTO) 4.6 (2.1-6.9); NEUTROPHILS % 63.5 % (38.7-80.0); PLATELET COUNT 198 x10e3/uL (140-360); RED BLOOD COUNT 4.28 x10e6/uL (3.6-5.1); RED CELL DISTRIBUTION WIDTH 14.8 % (11.7-14.4)
[2021-03-20] MEDS ORDERED: CITRATE OF MAGNESIA 300ML BOTTLE PO ONE (05:00)
[2021-03-20 05:04] LABS: CALCIUM 7.9 mg/dL (8.4-10.2); CREATININE, SERUM 0.61 mg/dL (0.57-1.11)
[2021-03-20] MEDS: METRONIDAZOLE 500MG/NS 100ML 100 ML IV SCH ×3 (05:05→22:24)
[2021-03-20] MEDS: PHENAZOPYRIDINE HCL 100 MG TAB PO SCH ×3 (05:05→22:24)
[2021-03-20] MEDS: POTASSIUM CHLORIDE 20 MEQ TAB CR PO PRN (07:00)
[2021-03-20] MEDS: PANTOPRAZOLE SOD 40 MG TABEC PO SCH (07:30)
[2021-03-20] MEDS: VENLAFAXINE HCL 37.5 MG TAB PO SCH (09:00)
[2021-03-20] MEDS: PREGABALIN 50 MG CAP PO SCH (09:00)
[2021-03-20] MEDS: ACETAMINOPHEN 325 MG TAB PO PRN (09:37)
[2021-03-20] MEDS: ONDANSETRON HCL INJ 2MG/ML 2ML 2 MG/ML VIAL IV PRN (09:43)
[2021-03-20] MEDS ORDERED: POTASSIUM CHLORIDE 20 MEQ TAB CR PO ONE ×2 (12:30→20:00)
[2021-03-20] MEDS ORDERED: PROPOFOL IV EMULSION 10 MG/ML 20 ML VIAL ONE (12:41)
[2021-03-20] MEDS ORDERED: GLUCAGON FOR INJ 1 MG VIAL ONE (12:41)
[2021-03-20] MEDS ORDERED: HYOSCYAMINE SULFATE 0.5 MG/ML INJ ONE (12:41)
[2021-03-20] MEDS ORDERED: POVIDONE IODINE 0.05% 0.05 % ML PO ONE (12:41)
[2021-03-20] MEDS: MORPHINE SULFATE INJ 2 MG/ML SYR IV PRN (12:43)
[2021-03-20 17:58] LABS: WBC,FECAL (FECAL LACTOFERRIN) NEGATIVE (NEGATIVE)
[2021-03-20] MEDS: NYSTATIN 15 GM POWDER UD BTL TOP SCH (22:23)
[2021-03-20] MEDS: SUCRALFATE 1 GM TAB PO SCH (22:23)
[2021-03-20] MEDS: ATORVASTATIN 20 MG TAB PO SCH (22:23)
[2021-03-21] VITALS (7 sets, daily range): BP systolic 94–123; BP diastolic 46–65
[2021-03-21] MEDS: ONDANSETRON HCL INJ 2MG/ML 2ML 2 MG/ML VIAL IV PRN ×2 (00:19→08:46)
[2021-03-21] MEDS: SODIUM CHLORIDE 0.9% 1000ML 1,000 ML IV SCH ×3 (03:13→20:30)
[2021-03-21] MEDS: PHENAZOPYRIDINE HCL 100 MG TAB PO SCH ×3 (05:22→21:47)
[2021-03-21] MEDS: METRONIDAZOLE 500MG/NS 100ML 100 ML IV SCH ×3 (05:22→21:53)
[2021-03-21 06:02] LABS: BASOPHILS # (AUTO) 0.1 (0.0-0.1); BASOPHILS % 0.6 % (0.0-1.0); EOSINOPHILS # (AUTO) 0.3 (0.0-0.4); EOSINOPHILS % 3.8 % (0.0-6.0); HEMATOCRIT 37.5 % (34.2-44.1); HEMOGLOBIN 11.3 g/dL (12.0-16.0); LYMPHOCYTES # (AUTO) 1.5 (1.0-3.2); LYMPHOCYTES % 19.4 % (18.0-39.1); MEAN CORPUSCULAR HEMOGLOBIN 27.8 pg (28-32); MEAN CORPUSCULAR HGB CONC 30.1 g/dL (31-35); MEAN CORPUSCULAR VOLUME 92.4 fL (81-99); MONOCYTES # (AUTO) 0.5 (0.2-0.8); MONOCYTES % 6.8 % (4.4-11.3); NEUTROPHILS # (AUTO) 5.4 (2.1-6.9); NEUTROPHILS % 68.4 % (38.7-80.0); PLATELET COUNT 208 x10e3/uL (140-360); RED BLOOD COUNT 4.06 x10e6/uL (3.6-5.1); RED CELL DISTRIBUTION WIDTH 14.6 % (11.7-14.4)
[2021-03-21 06:40] LABS: ANION GAP 14.3 mmol/L (8-16); CALCIUM 8.2 mg/dL (8.4-10.2); CREATININE, SERUM 0.57 mg/dL (0.57-1.11); MAGNESIUM 2.2 MG/DL (1.3-2.1); POTASSIUM 3.3 mmol/L (3.5-5.1)
[2021-03-21] MEDS: MORPHINE SULFATE INJ 2 MG/ML SYR IV PRN (08:46)
[2021-03-21] MEDS: PANTOPRAZOLE SOD 40 MG TABEC PO SCH (09:12)
[2021-03-21] MEDS: SUCRALFATE 1 GM TAB PO SCH ×4 (09:12→21:47)
[2021-03-21] MEDS: VENLAFAXINE HCL 37.5 MG TAB PO SCH (09:12)
[2021-03-21] MEDS: PREGABALIN 50 MG CAP PO SCH (09:13)
[2021-03-21] MEDS: NYSTATIN 15 GM POWDER UD BTL TOP SCH ×2 (09:54→17:00)
[2021-03-21 15:22] LABS: C DIFFICILE TOXIN A&B AMP PROB NEGATIVE (NEGATIVE)
[2021-03-21] MEDS: ATORVASTATIN 20 MG TAB PO SCH (21:47)
[2021-03-22] VITALS (8 sets, daily range): BP systolic 111–128; BP diastolic 55–73
[2021-03-22] MEDS ORDERED: ONDANSETRON HCL INJ 2MG/ML 2ML 2 MG/ML VIAL IV STA (01:00)
[2021-03-22] MEDS: METOCLOPRAMIDE HCL 10 MG/2ML VIAL IV SCH ×6 (01:06→21:23)
[2021-03-22] MEDS: SODIUM CHLORIDE 0.9% 1000ML 1,000 ML IV SCH (04:50)
[2021-03-22 04:54] LABS: BASOPHILS % 0.5 % (0.0-1.0); EOSINOPHILS # (AUTO) 0.2 (0.0-0.4); EOSINOPHILS % 2.7 % (0.0-6.0); HEMOGLOBIN 11.3 g/dL (12.0-16.0); LYMPHOCYTES # (AUTO) 1.6 (1.0-3.2); LYMPHOCYTES % 20.7 % (18.0-39.1); MEAN CORPUSCULAR HEMOGLOBIN 27.8 pg (28-32); MEAN CORPUSCULAR HGB CONC 30.5 g/dL (31-35); MEAN CORPUSCULAR VOLUME 90.9 fL (81-99); MONOCYTES # (AUTO) 0.5 (0.2-0.8); NEUTROPHILS # (AUTO) 5.2 (2.1-6.9); NEUTROPHILS % 67.7 % (38.7-80.0); PLATELET COUNT 199 x10e3/uL (140-360); RED BLOOD COUNT 4.07 x10e6/uL (3.6-5.1); RED CELL DISTRIBUTION WIDTH 14.5 % (11.7-14.4)
[2021-03-22 05:19] LABS: ANION GAP 11.3 mmol/L (8-16); CREATININE, SERUM 0.58 mg/dL (0.57-1.11); POTASSIUM 3.3 mmol/L (3.5-5.1)
[2021-03-22] MEDS: METRONIDAZOLE 500MG/NS 100ML 100 ML IV SCH ×3 (06:21→21:22)
[2021-03-22] MEDS: PHENAZOPYRIDINE HCL 100 MG TAB PO SCH ×3 (06:21→21:23)
[2021-03-22] MEDS: ONDANSETRON HCL INJ 2MG/ML 2ML 2 MG/ML VIAL IV PRN ×2 (06:42→17:21)
[2021-03-22] MEDS ORDERED: POTASSIUM CHLORIDE 20 MEQ TAB CR PO ONE (08:30)
[2021-03-22] MEDS: VENLAFAXINE HCL 37.5 MG TAB PO SCH (09:19)
[2021-03-22] MEDS: PANTOPRAZOLE SOD 40 MG TABEC PO SCH (09:19)
[2021-03-22] MEDS: NYSTATIN 15 GM POWDER UD BTL TOP SCH ×2 (09:19→16:49)
[2021-03-22] MEDS: SUCRALFATE 1 GM TAB PO SCH ×4 (09:19→21:22)
[2021-03-22] MEDS: PREGABALIN 50 MG CAP PO SCH (09:19)
[2021-03-22] MEDS ORDERED: ZINC OXIDE / BALSAM PERU 30 GM TUBE TOP PRN (12:15)
[2021-03-22] MEDS: FLUCONAZOLE 100 MG TAB PO SCH (14:37)
[2021-03-22] MEDS ORDERED: HYDROXYZINE HCL 10 MG TAB PO PRN (18:30)
[2021-03-22] MEDS: ATORVASTATIN 20 MG TAB PO SCH (21:22)
[2021-03-22] MEDS: TRIAMCINOLONE ACET 0.1% CREAM 15 GM TUBE TOP SCH (21:28)
[2021-03-23] VITALS (8 sets, daily range): BP systolic 96–133; BP diastolic 56–73
[2021-03-23] MEDS: SODIUM CHLORIDE 0.9% 1000ML 1,000 ML IV SCH ×2 (00:30→12:36)
[2021-03-23] MEDS: METOCLOPRAMIDE HCL 10 MG/2ML VIAL IV SCH ×4 (00:30→17:44)
[2021-03-23] MEDS ORDERED: DONNATAL/LIDOCAINE/MAALOX 30 ML SUSP PO ONE (02:15)
[2021-03-23] MEDS ORDERED: LIDOCAINE VISC 2% SOLN 15 ML UDC ONE (03:14)
[2021-03-23] MEDS ORDERED: BELLADONNA ALK/PHENOBARBITAL 5 ML UDC ONE (03:14)
[2021-03-23] MEDS ORDERED: MAGNESIUM/ALUMINUM/SIMETHICONE 30 ML UDC ONE (03:14)
[2021-03-23] MEDS: ONDANSETRON HCL INJ 2MG/ML 2ML 2 MG/ML VIAL IV SCH ×3 (05:41→17:44)
[2021-03-23] MEDS: METRONIDAZOLE 500MG/NS 100ML 100 ML IV SCH (05:41)
[2021-03-23] MEDS: PHENAZOPYRIDINE HCL 100 MG TAB PO SCH ×3 (05:42→21:34)
[2021-03-23] MEDS ORDERED: ONDANSETRON HCL INJ 2MG/ML 2ML 2 MG/ML VIAL IV PRN (06:00)
[2021-03-23] MEDS: SUCRALFATE 1 GM TAB PO SCH ×5 (07:30→21:34)
[2021-03-23] MEDS ORDERED: FLUCONAZOLE 100 MG TAB PO SCH (09:00)
[2021-03-23] MEDS: PREGABALIN 50 MG CAP PO SCH ×2 (09:00→11:20)
[2021-03-23] MEDS: VENLAFAXINE HCL 37.5 MG TAB PO SCH ×2 (09:00→11:20)
[2021-03-23] MEDS: PREDNISONE 20 MG TAB PO SCH ×2 (09:00→11:20)
[2021-03-23] MEDS: FLUCONAZOLE 100 MG TAB PO SCH ×2 (09:00→11:20)
[2021-03-23] MEDS: NYSTATIN 15 GM POWDER UD BTL TOP SCH ×2 (10:42→17:41)
[2021-03-23] MEDS: TRIAMCINOLONE ACET 0.1% CREAM 15 GM TUBE TOP SCH ×2 (10:42→17:39)
[2021-03-23] MEDS ORDERED: BISMUTH SUBSALICYLATE 262 MG/15 ML 8OZ BTL PO PRN (13:15)
[2021-03-23] MEDS ORDERED: POTASSIUM CHLORIDE 20MEQ/100ML 200 ML IV ONE (14:00)
[2021-03-23 15:22] LABS: BASOPHILS # (AUTO) 0.1 (0.0-0.1); BASOPHILS % 0.5 % (0.0-1.0); EOSINOPHILS # (AUTO) 0.1 (0.0-0.4); HEMATOCRIT 38.7 % (34.2-44.1); HEMOGLOBIN 11.8 g/dL (12.0-16.0); LYMPHOCYTES # (AUTO) 1.3 (1.0-3.2); LYMPHOCYTES % 11.4 % (18.0-39.1); MEAN CORPUSCULAR HEMOGLOBIN 27.9 pg (28-32); MEAN CORPUSCULAR HGB CONC 30.5 g/dL (31-35); MEAN CORPUSCULAR VOLUME 91.5 fL (81-99); MONOCYTES # (AUTO) 0.6 (0.2-0.8); MONOCYTES % 5.3 % (4.4-11.3); NEUTROPHILS # (AUTO) 9.4 (2.1-6.9); NEUTROPHILS % 79.4 % (38.7-80.0); PLATELET COUNT 217 x10e3/uL (140-360); RED BLOOD COUNT 4.23 x10e6/uL (3.6-5.1); RED CELL DISTRIBUTION WIDTH 14.2 % (11.7-14.4)
[2021-03-23 15:40] LABS: ALANINE AMINOTRANSFERASE 18 IU/L (0-55); ALBUMIN 3.1 g/dL (3.5-5.0); ALKALINE PHOSPHATASE 43 IU/L (40-150); BLOOD UREA NITROGEN < 5 mg/dL (7-26); CALCIUM 8.2 mg/dL (8.4-10.2); CARBON DIOXIDE 33 mmol/L (22-29); CHLORIDE 96 mmol/L (98-107); CREATININE, SERUM 0.63 mg/dL (0.57-1.11); EST GLOMERULAR FILTRATION RATE 93 ML/MIN (60-); GLUCOSE 135 mg/dL (74-118); SODIUM 142 mmol/L (136-145)
[2021-03-23 15:43] LABS: BUN/CREATININE RATIO 8 (6-25)
[2021-03-23] MEDS: POTASSIUM CHLORIDE 20 MEQ TAB CR PO PRN (16:07)
[2021-03-23] MEDS ORDERED: SODIUM CHLORIDE 0.9% 50ML 50 ML ONE (18:57)
[2021-03-23] MEDS ORDERED: IOPAMIDOL 370 MG/ML 200 ML INFUS..BTL INJ ONE (18:57)
[2021-03-23] MEDS ORDERED: LOPERAMIDE HCL 2 MG CAP PO PRN (19:30)
[2021-03-23] MEDS: ATORVASTATIN 20 MG TAB PO SCH (21:34)
[2021-03-23] MEDS: HYDROCODONE/APAP 5MG-325MG TAB PO PRN (21:35)
[2021-03-23] MEDS: MELATONIN 5 MG TABLET PO PRN (21:35)
[2021-03-24] VITALS (9 sets, daily range): BP systolic 98–134; BP diastolic 51–74
[2021-03-24] MEDS: SODIUM CHLORIDE 0.9% 1000ML 1,000 ML IV SCH ×3 (02:02→16:11)
[2021-03-24 04:51] LABS: BASOPHILS % 0.5 % (0.0-1.0); EOSINOPHILS # (AUTO) 0.1 (0.0-0.4); EOSINOPHILS % 1.7 % (0.0-6.0); HEMATOCRIT 37.4 % (34.2-44.1); HEMOGLOBIN 11.3 g/dL (12.0-16.0); LYMPHOCYTES # (AUTO) 1.7 (1.0-3.2); LYMPHOCYTES % 20.5 % (18.0-39.1); MEAN CORPUSCULAR HEMOGLOBIN 27.6 pg (28-32); MEAN CORPUSCULAR HGB CONC 30.2 g/dL (31-35); MEAN CORPUSCULAR VOLUME 91.4 fL (81-99); MONOCYTES # (AUTO) 0.6 (0.2-0.8); MONOCYTES % 7.3 % (4.4-11.3); NEUTROPHILS # (AUTO) 5.5 (2.1-6.9); PLATELET COUNT 198 x10e3/uL (140-360); RED BLOOD COUNT 4.09 x10e6/uL (3.6-5.1); RED CELL DISTRIBUTION WIDTH 14.1 % (11.7-14.4)
[2021-03-24 05:15] LABS: ANION GAP 12.9 mmol/L (8-16); CALCIUM 7.9 mg/dL (8.4-10.2); CARBON DIOXIDE 37 mmol/L (22-29); CHLORIDE 98 mmol/L (98-107); CREATININE, SERUM 0.58 mg/dL (0.57-1.11); EST GLOMERULAR FILTRATION RATE 103 ML/MIN (60-); GLUCOSE 106 mg/dL (74-118); SODIUM 145 mmol/L (136-145)
[2021-03-24 05:37] LABS: BUN/CREATININE RATIO 9 (6-25)
[2021-03-24 05:38] LABS: BLOOD UREA NITROGEN < 5 mg/dL (7-26); POTASSIUM 2.9 mmol/L (3.5-5.1)
[2021-03-24] MEDS: HYDROCODONE/APAP 5MG-325MG TAB PO PRN ×2 (06:15→18:00)
[2021-03-24] MEDS: METOCLOPRAMIDE HCL 10 MG/2ML VIAL IV SCH ×4 (06:26→17:22)
[2021-03-24] MEDS: ONDANSETRON HCL INJ 2MG/ML 2ML 2 MG/ML VIAL IV SCH ×4 (06:26→17:22)
[2021-03-24] MEDS: PHENAZOPYRIDINE HCL 100 MG TAB PO SCH ×3 (06:26→20:44)
[2021-03-24] MEDS: POTASSIUM CHLORIDE 20 MEQ TAB CR PO PRN (06:27)
[2021-03-24 07:20] LABS: EOSINOPHILS % (MANUAL) 3 % (0-7); LYMPHOCYTES % (MANUAL) 20 % (19-48); MONOCYTES % (MANUAL) 9 % (3.4-9.0); NEUTROPHILS % (MANUAL) 67 % (40-74)
[2021-03-24 07:21] LABS: PLATELET ESTIMATE ADEQUATE; PLATELET MORPHOLOGY COMMENT NORMAL; RBC MORPHOLOGY COMMENT NORMAL
[2021-03-24] MEDS: SUCRALFATE 1 GM TAB PO SCH ×4 (08:30→20:44)
[2021-03-24] MEDS: PREGABALIN 50 MG CAP PO SCH (09:00)
[2021-03-24] MEDS: VENLAFAXINE HCL 37.5 MG TAB PO SCH (09:00)
[2021-03-24] MEDS: PREDNISONE 20 MG TAB PO SCH (09:36)
[2021-03-24] MEDS: NYSTATIN 15 GM POWDER UD BTL TOP SCH ×2 (09:37→17:22)
[2021-03-24] MEDS: TRIAMCINOLONE ACET 0.1% CREAM 15 GM TUBE TOP SCH ×2 (09:37→17:16)
[2021-03-24] MEDS ORDERED: POTASSIUM CHLORIDE 20 MEQ TAB CR PO ONE (12:00)
[2021-03-24] MEDS: PIPERACILLIN/TAZOBACTAM 3.375 GM in SODIUM CHLORIDE 0.9% 50ML 50 ML IV SCH ×2 (13:03→22:00)
[2021-03-24] MEDS: ATORVASTATIN 20 MG TAB PO SCH (20:44)
[2021-03-25] VITALS (7 sets, daily range): BP systolic 126–144; BP diastolic 66–81
[2021-03-25] MEDS: MESALAMINE 400 MG CAP PO SCH ×4 (00:09→18:08)
[2021-03-25] MEDS: CHLORDIAZEPOXIDE/CLIDINIUM 1 CAP PO SCH ×4 (00:09→21:47)
[2021-03-25] MEDS: HYDROCODONE/APAP 5MG-325MG TAB PO PRN ×3 (00:10→18:08)
[2021-03-25] MEDS: METOCLOPRAMIDE HCL 10 MG/2ML VIAL IV SCH ×4 (00:12→18:08)
[2021-03-25] MEDS: SODIUM CHLORIDE 0.9% 1000ML 1,000 ML IV SCH ×4 (00:12→18:51)
[2021-03-25] MEDS: ONDANSETRON HCL INJ 2MG/ML 2ML 2 MG/ML VIAL IV SCH ×2 (00:12→06:22)
[2021-03-25 06:08] LABS: BASOPHILS # (AUTO) 0.1 (0.0-0.1); BASOPHILS % 0.6 % (0.0-1.0); EOSINOPHILS # (AUTO) 0.1 (0.0-0.4); EOSINOPHILS % 1.1 % (0.0-6.0); HEMATOCRIT 40.1 % (34.2-44.1); HEMOGLOBIN 12.2 g/dL (12.0-16.0); LYMPHOCYTES # (AUTO) 1.7 (1.0-3.2); LYMPHOCYTES % 21.6 % (18.0-39.1); MEAN CORPUSCULAR HGB CONC 30.4 g/dL (31-35); MONOCYTES # (AUTO) 0.6 (0.2-0.8); MONOCYTES % 7.6 % (4.4-11.3); NEUTROPHILS # (AUTO) 5.2 (2.1-6.9); NEUTROPHILS % 65.5 % (38.7-80.0); PLATELET COUNT 194 x10e3/uL (140-360); RED BLOOD COUNT 4.36 x10e6/uL (3.6-5.1)
[2021-03-25] MEDS: PIPERACILLIN/TAZOBACTAM 3.375 GM in SODIUM CHLORIDE 0.9% 50ML 50 ML IV SCH ×3 (06:22→22:38)
[2021-03-25] MEDS: PHENAZOPYRIDINE HCL 100 MG TAB PO SCH ×3 (06:25→22:39)
[2021-03-25 06:29] LABS: ANION GAP 14.1 mmol/L (8-16); BLOOD UREA NITROGEN < 5 mg/dL (7-26); CALCIUM 8.1 mg/dL (8.4-10.2); CARBON DIOXIDE 36 mmol/L (22-29); CHLORIDE 98 mmol/L (98-107); EST GLOMERULAR FILTRATION RATE 99 ML/MIN (60-); GLUCOSE 113 mg/dL (74-118); MAGNESIUM 1.2 MG/DL (1.3-2.1); POTASSIUM 3.1 mmol/L (3.5-5.1); SODIUM 145 mmol/L (136-145)
[2021-03-25 06:35] LABS: BUN/CREATININE RATIO 8 (6-25)
[2021-03-25] MEDS ORDERED: POTASSIUM CHLORIDE 20 MEQ TAB CR PO STA (07:56)
[2021-03-25] MEDS ORDERED: MAGNESIUM SULFATE 2GM/50ML 50 ML IV ONE (08:00)
[2021-03-25] MEDS: VENLAFAXINE HCL 37.5 MG TAB PO SCH (08:38)
[2021-03-25] MEDS: NYSTATIN 15 GM POWDER UD BTL TOP SCH ×2 (08:38→16:51)
[2021-03-25] MEDS: PREDNISONE 20 MG TAB PO SCH (08:38)
[2021-03-25] MEDS: TRIAMCINOLONE ACET 0.1% CREAM 15 GM TUBE TOP SCH ×2 (08:38→16:51)
[2021-03-25] MEDS: SUCRALFATE 1 GM TAB PO SCH ×4 (08:38→21:47)
[2021-03-25] MEDS: ONDANSETRON HCL INJ 2MG/ML 2ML 2 MG/ML VIAL IV PRN ×2 (08:45→19:35)
[2021-03-25 09:07] LABS: BAND NEUTROPHILS % (MANUAL) 1 %; EOSINOPHILS % (MANUAL) 1 % (0-7); LYMPHOCYTES % (MANUAL) 23 % (19-48); MONOCYTES % (MANUAL) 7 % (3.4-9.0); NEUTROPHILS % (MANUAL) 67 % (40-74)
[2021-03-25 09:08] LABS: PLATELET ESTIMATE ADEQUATE; PLATELET MORPHOLOGY COMMENT NORMAL; RBC MORPHOLOGY COMMENT NORMAL
[2021-03-25] MEDS: B&O 60MG R/S 60 MG SUPP PR PRN (15:26)
[2021-03-25] MEDS: ATORVASTATIN 20 MG TAB PO SCH (21:47)
[2021-03-26] VITALS (7 sets, daily range): BP systolic 125–147; BP diastolic 69–89
[2021-03-26] MEDS: METOCLOPRAMIDE HCL 10 MG/2ML VIAL IV SCH ×4 (00:27→16:47)
[2021-03-26] MEDS: HYDROCODONE/APAP 5MG-325MG TAB PO PRN ×3 (00:28→16:28)
[2021-03-26] MEDS: SODIUM CHLORIDE 0.9% 1000ML 1,000 ML IV SCH ×4 (01:45→21:31)
[2021-03-26] MEDS: PHENAZOPYRIDINE HCL 100 MG TAB PO SCH ×3 (06:00→22:55)
[2021-03-26] MEDS: PIPERACILLIN/TAZOBACTAM 3.375 GM in SODIUM CHLORIDE 0.9% 50ML 50 ML IV SCH ×3 (06:15→22:55)
[2021-03-26] MEDS: MESALAMINE 400 MG CAP PO SCH ×5 (06:39→16:47)
[2021-03-26 07:26] LABS: BASOPHILS # (AUTO) 0.1 (0.0-0.1); BASOPHILS % 0.6 % (0.0-1.0); EOSINOPHILS # (AUTO) 0.1 (0.0-0.4); EOSINOPHILS % 1.4 % (0.0-6.0); HEMATOCRIT 39.3 % (34.2-44.1); HEMOGLOBIN 11.9 g/dL (12.0-16.0); LYMPHOCYTES % 24.4 % (18.0-39.1); MEAN CORPUSCULAR HEMOGLOBIN 27.5 pg (28-32); MEAN CORPUSCULAR HGB CONC 30.3 g/dL (31-35); MONOCYTES # (AUTO) 0.7 (0.2-0.8); MONOCYTES % 8.3 % (4.4-11.3); NEUTROPHILS # (AUTO) 5.1 (2.1-6.9); PLATELET COUNT 179 x10e3/uL (140-360); RED BLOOD COUNT 4.32 x10e6/uL (3.6-5.1)
[2021-03-26 07:41] LABS: ANION GAP 15.6 mmol/L (8-16); BLOOD UREA NITROGEN < 5 mg/dL (7-26); CALCIUM 7.9 mg/dL (8.4-10.2); CARBON DIOXIDE 35 mmol/L (22-29); CHLORIDE 93 mmol/L (98-107); CREATININE, SERUM 0.61 mg/dL (0.57-1.11); EST GLOMERULAR FILTRATION RATE 97 ML/MIN (60-); GLUCOSE 101 mg/dL (74-118); POTASSIUM 3.6 mmol/L (3.5-5.1); SODIUM 140 mmol/L (136-145)
[2021-03-26 07:42] LABS: BUN/CREATININE RATIO 8 (6-25)
[2021-03-26] MEDS: CHLORDIAZEPOXIDE/CLIDINIUM 1 CAP PO SCH ×3 (09:14→21:55)
[2021-03-26] MEDS: NYSTATIN 15 GM POWDER UD BTL TOP SCH ×2 (09:14→16:47)
[2021-03-26] MEDS: SUCRALFATE 1 GM TAB PO SCH ×4 (09:14→21:03)
[2021-03-26] MEDS: VENLAFAXINE HCL 37.5 MG TAB PO SCH (09:14)
[2021-03-26] MEDS: PREDNISONE 20 MG TAB PO SCH (09:14)
[2021-03-26] MEDS: TRIAMCINOLONE ACET 0.1% CREAM 15 GM TUBE TOP SCH ×2 (09:14→16:47)
[2021-03-26] MEDS: ONDANSETRON HCL INJ 2MG/ML 2ML 2 MG/ML VIAL IV PRN ×3 (10:34→23:21)
[2021-03-26] MEDS: ATORVASTATIN 20 MG TAB PO SCH (21:55)
[2021-03-26] MEDS: MELATONIN 5 MG TABLET PO PRN (23:21)
[2021-03-27] VITALS (8 sets, daily range): BP systolic 122–144; BP diastolic 74–80
[2021-03-27] MEDS: HYDROCODONE/APAP 5MG-325MG TAB PO PRN ×3 (00:03→19:54)
[2021-03-27] MEDS: ONDANSETRON HCL INJ 2MG/ML 2ML 2 MG/ML VIAL IV SCH ×6 (00:06→23:25)
[2021-03-27] MEDS: METOCLOPRAMIDE HCL 10 MG/2ML VIAL IV SCH ×5 (00:55→23:25)
[2021-03-27] MEDS: MESALAMINE 400 MG CAP PO SCH ×5 (00:55→23:25)
[2021-03-27] MEDS: SODIUM CHLORIDE 0.9% 1000ML 1,000 ML IV SCH ×3 (04:11→23:26)
[2021-03-27 04:59] LABS: BASOPHILS % 0.5 % (0.0-1.0); EOSINOPHILS # (AUTO) 0.1 (0.0-0.4); EOSINOPHILS % 0.9 % (0.0-6.0); HEMATOCRIT 39.8 % (34.2-44.1); HEMOGLOBIN 12.1 g/dL (12.0-16.0); LYMPHOCYTES # (AUTO) 1.5 (1.0-3.2); LYMPHOCYTES % 18.3 % (18.0-39.1); MEAN CORPUSCULAR HEMOGLOBIN 27.4 pg (28-32); MEAN CORPUSCULAR HGB CONC 30.4 g/dL (31-35); MEAN CORPUSCULAR VOLUME 90.2 fL (81-99); MONOCYTES # (AUTO) 0.6 (0.2-0.8); MONOCYTES % 7.4 % (4.4-11.3); NEUTROPHILS # (AUTO) 5.6 (2.1-6.9); NEUTROPHILS % 69.8 % (38.7-80.0); PLATELET COUNT 245 x10e3/uL (140-360); RED BLOOD COUNT 4.41 x10e6/uL (3.6-5.1); RED CELL DISTRIBUTION WIDTH 13.8 % (11.7-14.4)
[2021-03-27 05:31] LABS: CALCIUM 8.1 mg/dL (8.4-10.2); CARBON DIOXIDE 39 mmol/L (22-29); CHLORIDE 90 mmol/L (98-107); EST GLOMERULAR FILTRATION RATE 99 ML/MIN (60-); GLUCOSE 126 mg/dL (74-118); MAGNESIUM 1.2 MG/DL (1.3-2.1); PHOSPHORUS 2.6 MG/DL (2.3-4.7); SODIUM 141 mmol/L (136-145)
[2021-03-27 05:59] LABS: BLOOD UREA NITROGEN < 5 mg/dL (7-26); BUN/CREATININE RATIO 8 (6-25)
[2021-03-27] MEDS: PIPERACILLIN/TAZOBACTAM 3.375 GM in SODIUM CHLORIDE 0.9% 50ML 50 ML IV SCH ×3 (06:07→22:00)
[2021-03-27] MEDS: PHENAZOPYRIDINE HCL 100 MG TAB PO SCH ×3 (06:08→22:00)
[2021-03-27] MEDS: VENLAFAXINE HCL 37.5 MG TAB PO SCH (09:00)
[2021-03-27] MEDS: CHLORDIAZEPOXIDE/CLIDINIUM 1 CAP PO SCH ×3 (09:00→20:35)
[2021-03-27] MEDS: SUCRALFATE 1 GM TAB PO SCH ×2 (09:00→11:15)
[2021-03-27] MEDS: PREDNISONE 20 MG TAB PO SCH (09:00)
[2021-03-27] MEDS ORDERED: POTASSIUM CHLORIDE 20 MEQ TAB CR PO ONE ×2 (09:15→12:00)
[2021-03-27] MEDS: NYSTATIN 15 GM POWDER UD BTL TOP SCH ×2 (09:29→18:13)
[2021-03-27] MEDS: TRIAMCINOLONE ACET 0.1% CREAM 15 GM TUBE TOP SCH ×2 (09:29→18:13)
[2021-03-27] MEDS: ACETAMINOPHEN 325 MG TAB PO PRN (11:16)
[2021-03-27] MEDS: SUCRALFATE 1 GM/10 ML SUSP PO SCH ×2 (14:33→20:35)
[2021-03-27] MEDS: ATORVASTATIN 20 MG TAB PO SCH (20:35)
[2021-03-28] VITALS (8 sets, daily range): BP systolic 105–148; BP diastolic 62–84
[2021-03-28] MEDS: ONDANSETRON HCL INJ 2MG/ML 2ML 2 MG/ML VIAL IV SCH ×3 (05:20→17:40)
[2021-03-28] MEDS: METOCLOPRAMIDE HCL 10 MG/2ML VIAL IV SCH ×3 (05:20→17:40)
[2021-03-28] MEDS: PIPERACILLIN/TAZOBACTAM 3.375 GM in SODIUM CHLORIDE 0.9% 50ML 50 ML IV SCH ×3 (05:20→22:13)
[2021-03-28] MEDS: MESALAMINE 400 MG CAP PO SCH ×3 (05:20→17:40)
[2021-03-28] MEDS: PHENAZOPYRIDINE HCL 100 MG TAB PO SCH ×3 (05:20→22:13)
[2021-03-28] MEDS: CHLORDIAZEPOXIDE/CLIDINIUM 1 CAP PO SCH ×3 (09:00→22:13)
[2021-03-28] MEDS: PREGABALIN 50 MG CAP PO SCH ×2 (09:00→16:30)
[2021-03-28] MEDS: VENLAFAXINE HCL 37.5 MG TAB PO SCH (09:00)
[2021-03-28] MEDS: SUCRALFATE 1 GM/10 ML SUSP PO SCH ×4 (09:00→22:13)
[2021-03-28] MEDS: TRIAMCINOLONE ACET 0.1% CREAM 15 GM TUBE TOP SCH ×2 (09:58→16:30)
[2021-03-28] MEDS: SODIUM CHLORIDE 0.9% 1000ML 1,000 ML IV SCH ×2 (11:36→12:07)
[2021-03-28] MEDS: ATORVASTATIN 20 MG TAB PO SCH (22:13)
[2021-03-29] VITALS: BP 121/69
[2021-03-29] MEDS: ONDANSETRON HCL INJ 2MG/ML 2ML 2 MG/ML VIAL IV SCH ×3 (00:47→13:14)
[2021-03-29] MEDS: MESALAMINE 400 MG CAP PO SCH ×3 (00:47→13:14)
[2021-03-29] MEDS: METOCLOPRAMIDE HCL 10 MG/2ML VIAL IV SCH ×3 (00:47→13:13)
[2021-03-29] MEDS: SODIUM CHLORIDE 0.9% 1000ML 1,000 ML IV SCH (02:03)
[2021-03-29 04:00] VITALS: BP 113/63
[2021-03-29 04:49] LABS: BASOPHILS # (AUTO) 0.1 (0.0-0.1); BASOPHILS % 0.6 % (0.0-1.0); EOSINOPHILS # (AUTO) 0.3 (0.0-0.4); HEMATOCRIT 40.6 % (34.2-44.1); LYMPHOCYTES # (AUTO) 1.8 (1.0-3.2); LYMPHOCYTES % 20.7 % (18.0-39.1); MEAN CORPUSCULAR HEMOGLOBIN 27.4 pg (28-32); MEAN CORPUSCULAR HGB CONC 29.6 g/dL (31-35); MEAN CORPUSCULAR VOLUME 92.7 fL (81-99); MONOCYTES # (AUTO) 0.7 (0.2-0.8); MONOCYTES % 8.5 % (4.4-11.3); NEUTROPHILS # (AUTO) 5.5 (2.1-6.9); PLATELET COUNT 207 x10e3/uL (140-360); RED BLOOD COUNT 4.38 x10e6/uL (3.6-5.1); RED CELL DISTRIBUTION WIDTH 14.1 % (11.7-14.4)
[2021-03-29 05:06] LABS: ALBUMIN 2.9 g/dL (3.5-5.0); CALCIUM 8.5 mg/dL (8.4-10.2); CREATININE, SERUM 0.63 mg/dL (0.57-1.11)
[2021-03-29 05:38] LABS: MAGNESIUM 1.2 MG/DL (1.3-2.1); PHOSPHORUS 4.1 MG/DL (2.3-4.7)
[2021-03-29] MEDS: PIPERACILLIN/TAZOBACTAM 3.375 GM in SODIUM CHLORIDE 0.9% 50ML 50 ML IV SCH (06:00)
[2021-03-29] MEDS: PHENAZOPYRIDINE HCL 100 MG TAB PO SCH (06:00)
[2021-03-29] MEDS: POTASSIUM CHLORIDE 20 MEQ TAB CR PO PRN (06:37)
[2021-03-29] MEDS: SUCRALFATE 1 GM/10 ML SUSP PO SCH ×2 (06:47→13:12)
[2021-03-29 07:37] VITALS: BP 119/66
[2021-03-29 08:21] VITALS: BP 119/66
[2021-03-29] MEDS ORDERED: POTASSIUM CHLORIDE 20 MEQ TAB CR PO ONE (08:30)
[2021-03-29] MEDS: PREGABALIN 50 MG CAP PO SCH (09:31)
[2021-03-29] MEDS: CHLORDIAZEPOXIDE/CLIDINIUM 1 CAP PO SCH (09:31)
[2021-03-29] MEDS: TRIAMCINOLONE ACET 0.1% CREAM 15 GM TUBE TOP SCH (09:32)
[2021-03-29] MEDS: VENLAFAXINE HCL 37.5 MG TAB PO SCH (09:35)
[2021-03-29 11:40] VITALS: BP 119/60
[2021-03-29] MEDS ORDERED: LIALDA1.2 GM PO (13:34)
[2021-03-29] MEDS ORDERED: CARAFATE1 GM PO (13:35)
[2021-03-29] MEDS ORDERED: PROTONIX40 MG PO (13:35)
[2021-03-29] MEDS ORDERED: CIPRO500 MG PO (13:37)
[2021-03-29] MEDS ORDERED: FLAGYL500 MG PO (13:37)
[2021-03-29] MEDS: ACETAMINOPHEN 325 MG TAB PO PRN (13:47)
== END 2021-03-29 17:20 | disposition home or self-care (01) | DRG 372 ==
LOC: ER 12:30 → MED/SURG2 14:03 → ER 15:59 → MED/SURG3 03-28 11:26
PROVIDERS: ADMIT Internal Medicine; ATTEND Internal Medicine
PROC: 0DB68ZX Excision of Stomach, Via Natural or Artificial Opening Endoscopic, Diagnostic (ICD-10-PCS; 2021-03-20)
PROC: 0DBH8ZX Excision of Cecum, Via Natural or Artificial Opening Endoscopic, Diagnostic (ICD-10-PCS; 2021-03-20)
PROC: 0DBB8ZX Excision of Ileum, Via Natural or Artificial Opening Endoscopic, Diagnostic (ICD-10-PCS; 2021-03-20)
PROC: 0D758ZZ Dilation of Esophagus, Via Natural or Artificial Opening Endoscopic (ICD-10-PCS; 2021-03-20)
PROC: 0DB98ZX Excision of Duodenum, Via Natural or Artificial Opening Endoscopic, Diagnostic (ICD-10-PCS; principal; 2021-03-20 16:00)
PROC: 0DB78ZX Excision of Stomach, Pylorus, Via Natural or Artificial Opening Endoscopic, Diagnostic (ICD-10-PCS; 2021-03-20 16:00)
DX: A04.9 Bacterial intestinal infection, unspecified (principal); N17.9 Acute kidney failure, unspecified; L03.116 Cellulitis of left lower limb; E87.3 Alkalosis; I11.0 Hypertensive heart disease with heart failure; I50.9 Heart failure, unspecified; I48.91 Unspecified atrial fibrillation; E11.42 Type 2 diabetes mellitus with diabetic polyneuropathy; E66.9 Obesity, unspecified; R21 Rash and other nonspecific skin eruption; E87.6 Hypokalemia; E83.42 Hypomagnesemia; Z74.01 Bed confinement status; M06.9 Rheumatoid arthritis, unspecified; K20.90 Esophagitis, unspecified without bleeding; K29.70 Gastritis, unspecified, without bleeding; K31.89 Other diseases of stomach and duodenum; Z68.38 Body mass index [BMI] 38.0-38.9, adult; L53.8 Other specified erythematous conditions; Z83.3 Family history of diabetes mellitus; Z82.49 Family history of ischemic heart disease and other diseases of the circulatory system; Z90.49 Acquired absence of other specified parts of digestive tract; I72.8 Aneurysm of other specified arteries; B37.2 Candidiasis of skin and nail; B36.8 Other specified superficial mycoses; E86.0 Dehydration; K58.9 Irritable bowel syndrome, unspecified; Z20.822 Contact with and (suspected) exposure to COVID-19; R13.10 Dysphagia, unspecified
CPT/HCPCS: 36415; 43450; 45380; 74018; 74160; 74177; 80048; 80053; 81001; 82150; 82270; 82308; 82550; 82553; 82948; 83605; 83630; 83690; 83735; 83993; 84100; 84132; 84484; 85025; 85610; 85730; 87040; 87045; 87086; 87177; 87328; 87493; 88304; 88305; 88312; 88342; 93005; 96361; 97139; 99284; J1450; J1610; J1980; J2270; J2405; J2543; J2765; J3370; J3410; J3475; J3480; J7030; J7050; J7512; Q9967; U0002

== ENCOUNTER 2022-09-12 13:32 | Emergency (ER) | payer MEDICARE ==
[~2022-09-12] VITALS: Ht 167.6 cm; Wt 109.3 kg
[~2022-09-12 13:32] MED LIST changes: +CARAFATE1 GM PO; +CIPRO500 MG PO; +FLAGYL500 MG PO; +LIALDA1.2 GM PO; +LYRICA100 MG PO; +PROTONIX40 MG PO
[2022-09-12] MEDS ORDERED: ONDANSETRON HCL INJ 2MG/ML 2ML 2 MG/ML VIAL IV ONE (13:56)
[2022-09-12] MEDS ORDERED: Morphine 4mg INJECTION 4 MG/ML INJ IV ONE (13:56)
[2022-09-12] MEDS ORDERED: SODIUM CHLORIDE 0.9% 1000ML 1,000 ML IV STA (13:56)
[2022-09-12] MEDS ORDERED: Doxycycline IV 100 MG in SODIUM CHLORIDE 0.9% 100 ML IV SCH (14:02)
[2022-09-12 14:34] LABS: BASOPHILS # (AUTO) 0.1 (0.0-0.1); BASOPHILS % 0.5 % (0.0-1.0); EOSINOPHILS # (AUTO) 0.1 (0.0-0.4); EOSINOPHILS % 1.1 % (0.0-6.0); HEMATOCRIT 48.6 % (34.2-44.1); HEMOGLOBIN 14.5 g/dL (12.0-16.0); LYMPHOCYTES # (AUTO) 1.5 (1.0-3.2); LYMPHOCYTES % 14.4 % (18.0-39.1); MEAN CORPUSCULAR HEMOGLOBIN 27.7 pg (28-32); MEAN CORPUSCULAR HGB CONC 29.8 g/dL (31-35); MEAN CORPUSCULAR VOLUME 92.9 fL (81-99); MONOCYTES # (AUTO) 0.7 (0.2-0.8); MONOCYTES % 6.9 % (4.4-11.3); NEUTROPHILS # (AUTO) 7.8 (2.1-6.9); NEUTROPHILS % 76.6 % (38.7-80.0); PLATELET COUNT 220 x10e3/uL (140-360); RED BLOOD COUNT 5.23 x10e6/uL (3.6-5.1); RED CELL DISTRIBUTION WIDTH 14.6 % (11.7-14.4)
[2022-09-12 14:55] LABS: CLARITY,URINE CLOUDY (CLEAR); COLOR,URINE YELLOW (YELLOW); KETONES,URINE TRACE (NEGATIVE); LEUKOCYTE ESTERASE ,URINE SMALL (NEGATIVE); NITRITE,URINE POSITIVE (NEGATIVE); PROTEIN,URINE DIPSTICK 2+ (NEGATIVE); URINE UROBILINOGEN 0.2 mg/dL (0.2 - 1)
[2022-09-12 15:00] LABS: ALANINE AMINOTRANSFERASE 11 IU/L (0-55); ALBUMIN 3.3 g/dL (3.5-5.0); ALBUMIN/GLOBULIN RATIO 0.8 (0.8-2.0); ALKALINE PHOSPHATASE 66 IU/L (40-150); ANION GAP 15.7 mmol/L (8-16); BLOOD UREA NITROGEN 17 mg/dL (7-26); BUN/CREATININE RATIO 22 (6-25); CALCIUM 9.5 mg/dL (8.4-10.2); CARBON DIOXIDE 32 mmol/L (22-29); CHLORIDE 98 mmol/L (98-107); CREATINE KINASE 12 IU/L (29-168); CREATININE, SERUM 0.77 mg/dL (0.57-1.11); GLUCOSE 162 mg/dL (74-118); POTASSIUM 3.7 mmol/L (3.5-5.1); SODIUM 142 mmol/L (136-145)
[2022-09-12 15:11] LABS: BACTERIA,URINE MANY /HPF; WBC,URINE (MAN) 21-50 /HPF (0-5)
[2022-09-12] MEDS ORDERED: CEFTRIAXONE 1 GM VIAL IM ONE (15:45)
[2022-09-12] MEDS ORDERED: CEFDINIR300 MG PO (15:47)
[2022-09-12] MEDS ORDERED: PYRIDIUM100 MG PO (15:47)
[2022-09-12] MEDS ORDERED: LIDOCAINE 1% 10 ML MULTIDOSE VIAL IJ ONE (16:04)
[2022-09-12 18:41] VITALS: BP 120/66
== END 2022-09-12 18:44 | disposition home or self-care (01) ==
LOC: ER 13:38
DX: R09.02 Hypoxemia (principal); N39.0 Urinary tract infection, site not specified; R30.0 Dysuria; I10 Essential (primary) hypertension; E11.65 Type 2 diabetes mellitus with hyperglycemia; J44.9 Chronic obstructive pulmonary disease, unspecified; I50.9 Heart failure, unspecified; I48.91 Unspecified atrial fibrillation; M06.9 Rheumatoid arthritis, unspecified; R94.31 Abnormal electrocardiogram [ECG] [EKG]
CPT/HCPCS: 36415; 71045; 80053; 81001; 82550; 82553; 83880; 84484; 85025; 93005; 94799; 99284; J0696

== ENCOUNTER 2022-12-12 17:22 | Inpatient (IN) | payer MEDICARE ==
[~2022-12-12] VITALS: Ht 177.8 cm; Wt 106.1 kg
[~2022-12-12 17:22] MED LIST changes: +CEFDINIR300 MG PO; +PYRIDIUM100 MG PO
[2022-12-12] MEDS ORDERED: SODIUM CHLORIDE 0.9% 500ML 500 ML IV ONE (17:45)
[2022-12-12 17:52] LABS: BASOPHILS % 0.4 % (0.0-1.0); EOSINOPHILS % 0.2 % (0.0-6.0); HEMATOCRIT 45.8 % (34.2-44.1); HEMOGLOBIN 14.7 g/dL (12.0-16.0); LYMPHOCYTES # (AUTO) 1.5 (1.0-3.2); LYMPHOCYTES % 14.7 % (18.0-39.1); MEAN CORPUSCULAR HEMOGLOBIN 27.4 pg (28-32); MEAN CORPUSCULAR HGB CONC 32.1 g/dL (31-35); MEAN CORPUSCULAR VOLUME 85.3 fL (81-99); MONOCYTES # (AUTO) 0.7 (0.2-0.8); MONOCYTES % 7.1 % (4.4-11.3); NEUTROPHILS % 77.1 % (38.7-80.0); PLATELET COUNT 215 x10e3/uL (140-360); RED BLOOD COUNT 5.37 x10e6/uL (3.6-5.1); RED CELL DISTRIBUTION WIDTH 14.6 % (11.7-14.4)
[2022-12-12 17:57] LABS: INR 0.95; PROTHROMBIN TIME 13.2 seconds (11.9-14.5)
[2022-12-12 17:58] LABS: PARTIAL THROMBOPLASTIN TIME 27.9 seconds (23.8-35.5)
[2022-12-12 17:58] LABS: CLARITY,URINE CLOUDY (CLEAR); COLOR,URINE YELLOW (YELLOW); KETONES,URINE 1+ (NEGATIVE); LEUKOCYTE ESTERASE ,URINE NEGATIVE (NEGATIVE); NITRITE,URINE NEGATIVE (NEGATIVE); PROTEIN,URINE DIPSTICK >=300 (NEGATIVE); URINE UROBILINOGEN 0.2 mg/dL (0.2 - 1)
[2022-12-12 18:01] LABS: AMPHETAMINES SCREEN,URINE NEGATIVE (NEGATIVE); BENZODIAZEPINES SCREEN,URINE NEGATIVE (NEGATIVE); PHENCYCLIDINE SCREEN,URINE NEGATIVE (NEGATIVE)
[2022-12-12 18:05] LABS: SALICYLATE < 5.0 mg/dL (0-30)
[2022-12-12 18:06] LABS: AMORPHOUS SEDIMENT,URINE MODERATE (FEW); BACTERIA,URINE MANY /HPF
[2022-12-12 18:07] LABS: ALBUMIN 3.4 g/dL (3.5-5.0); ALBUMIN/GLOBULIN RATIO 0.9 (0.8-2.0); ANION GAP 16.7 mmol/L (8-16); CALCIUM 9.4 mg/dL (8.4-10.2); CREATININE, SERUM 0.81 mg/dL (0.57-1.11); MAGNESIUM 1.7 MG/DL (1.3-2.1); POTASSIUM 3.7 mmol/L (3.5-5.1)
[2022-12-12 18:15] VITALS: PULSE 72; RESP 20; O2SAT 96
[2022-12-12 18:16] LABS: CREATINE KINASE MB 0.6 ng/mL (0-5.0)
[2022-12-12 18:21] LABS: ABG PH 7.35 (7.35-7.45)
[2022-12-12 18:22] LABS: ABG HCO3 37 mmol/L (22-26); ABG PCO2 66 mmHg (35-45); ABG PO2 87 mmHg (80-105); ABG TCO2 39
[2022-12-12 20:00] VITALS: BP 133/67; PULSE 72; RESP 20; O2SAT 96
[2022-12-12] MEDS ORDERED: DEXTROSE 50% SYRINGE 50 ML IV PRN (21:15)
[2022-12-12] MEDS ORDERED: ONDANSETRON HCL INJ 2MG/ML 2ML 2 MG/ML VIAL IV PRN (21:15)
[2022-12-12 23:27] VITALS: BP 131/73; PULSE 95; RESP 17; TEMP 97.5; O2SAT 98
[2022-12-13] VITALS: BP 131/73; PULSE 95; RESP 17; TEMP 97.5; O2SAT 98
[2022-12-13] MEDS ORDERED: LIDOCAINE 4% PATCH TP PRN (01:45)
[2022-12-13] MEDS ORDERED: BENZONATATE 100 MG CAP PO PRN (01:45)
[2022-12-13] MEDS ORDERED: DOCUSATE SODIUM 100 MG CAP PO PRN (01:45)
[2022-12-13] MEDS ORDERED: ONDANSETRON HCL INJ 2MG/ML 2ML 2 MG/ML VIAL IV PRN (01:45)
[2022-12-13] MEDS ORDERED: DEXTROSE 50% SYRINGE 50 ML IV PRN (01:45)
[2022-12-13] MEDS ORDERED: CHLORASEPTIC SPRAY 177 ML BTL MM PRN (01:45)
[2022-12-13] MEDS ORDERED: DIPHENHYDRAMINE HCL 25 MG CAP PO PRN (01:45)
[2022-12-13] MEDS ORDERED: MECLIZINE HCL 12.5 MG TAB PO PRN (01:45)
[2022-12-13] MEDS ORDERED: SIMETHICONE 80 MG CHEW PO PRN (01:45)
[2022-12-13] MEDS ORDERED: HYDRALAZINE HCL 20 MG/ML VIAL IV PRN (01:45)
[2022-12-13 04:00] VITALS: BP 132/67; PULSE 98; RESP 17; TEMP 97.7; O2SAT 96
[2022-12-13 05:01] LABS: BASOPHILS % 0.4 % (0.0-1.0); EOSINOPHILS % 0.1 % (0.0-6.0); HEMATOCRIT 43.9 % (34.2-44.1); HEMOGLOBIN 14.2 g/dL (12.0-16.0); LYMPHOCYTES # (AUTO) 1.5 (1.0-3.2); LYMPHOCYTES % 16.2 % (18.0-39.1); MEAN CORPUSCULAR HEMOGLOBIN 27.4 pg (28-32); MEAN CORPUSCULAR HGB CONC 32.3 g/dL (31-35); MEAN CORPUSCULAR VOLUME 84.6 fL (81-99); MONOCYTES # (AUTO) 0.9 (0.2-0.8); MONOCYTES % 8.9 % (4.4-11.3); NEUTROPHILS % 73.6 % (38.7-80.0); PLATELET COUNT 203 x10e3/uL (140-360); RED BLOOD COUNT 5.19 x10e6/uL (3.6-5.1)
[2022-12-13 05:32] LABS: ALBUMIN 3.3 g/dL (3.5-5.0); ALBUMIN/GLOBULIN RATIO 0.8 (0.8-2.0); ANION GAP 19.4 mmol/L (8-16); CALCIUM 9.5 mg/dL (8.4-10.2); CREATININE, SERUM 0.72 mg/dL (0.57-1.11); POTASSIUM 3.4 mmol/L (3.5-5.1)
[2022-12-13 05:54] VITALS: BP 132/67; PULSE 98; RESP 17; TEMP 97.7; O2SAT 96
[2022-12-13] MEDS: IPRATROPIUM BROMIDE 0.02% 2.5 ML NEB NEB SCH ×4 (07:00→23:16)
[2022-12-13 07:10] VITALS: PULSE 106; RESP 20; O2SAT 95
[2022-12-13] MEDS: INSULIN REGULAR, HUMAN 100 UNIT/1 ML SQ SCH ×4 (07:30→21:00)
[2022-12-13 08:00] VITALS: BP 132/67; PULSE 98; RESP 17; TEMP 97.7; O2SAT 96
[2022-12-13] MEDS: SUCRALFATE 1 GM TAB PO SCH ×2 (12:15→16:30)
[2022-12-13 13:35] VITALS: PULSE 102; RESP 20; O2SAT 96
[2022-12-13] MEDS: ENOXAPARIN SOD INJ 40 MG/0.4 ML SYR SC SCH (17:00)
[2022-12-13] MEDS: PREGABALIN 75 MG CAP PO SCH (17:00)
[2022-12-13] MEDS ORDERED: PREGABALIN 50 MG CAP PO SCH (17:00)
[2022-12-13] MEDS: PANTOPRAZOLE SOD 40 MG TABEC PO SCH (17:00)
[2022-12-13] MEDS: METOPROLOL TARTRATE 25 MG TAB PO SCH (17:00)
[2022-12-13] MEDS: AMLODIPINE BESYLATE 5 MG TAB PO SCH (17:00)
[2022-12-13] MEDS: ATORVASTATIN 20 MG TAB PO SCH (21:00)
[2022-12-14] VITALS (8 sets, daily range): BP systolic 114–132; BP diastolic 67–84; PULSE 75–115; RESP 17–20; TEMP 97.7–98.9; O2SAT 95–98
[2022-12-14] MEDS: IPRATROPIUM BROMIDE 0.02% 2.5 ML NEB NEB SCH ×4 (06:14→23:57)
[2022-12-14] MEDS: INSULIN REGULAR, HUMAN 100 UNIT/1 ML SQ SCH ×4 (07:30→21:00)
[2022-12-14] MEDS: PANTOPRAZOLE SOD 40 MG TABEC PO SCH ×2 (07:30→16:48)
[2022-12-14] MEDS: SUCRALFATE 1 GM TAB PO SCH ×3 (07:30→16:47)
[2022-12-14] MEDS: AMLODIPINE BESYLATE 5 MG TAB PO SCH ×2 (09:00→16:48)
[2022-12-14] MEDS: PREGABALIN 75 MG CAP PO SCH ×2 (09:00→16:47)
[2022-12-14] MEDS: METOPROLOL TARTRATE 25 MG TAB PO SCH ×2 (09:00→16:47)
[2022-12-14] MEDS ORDERED: POTASSIUM CHLORIDE 10MEQ EA PO SCH (09:00)
[2022-12-14] MEDS: FLUCONAZOLE 100 MG TAB PO SCH (13:05)
[2022-12-14] MEDS: ONDANSETRON HCL 4 MG ORAL DISINTEGRATING TAB PO PRN (16:47)
[2022-12-14] MEDS: ENOXAPARIN SOD INJ 40 MG/0.4 ML SYR SC SCH (16:48)
[2022-12-14] MEDS: ATORVASTATIN 20 MG TAB PO SCH (21:00)
[2022-12-15] VITALS (12 sets, daily range): BP systolic 95–124; BP diastolic 58–76; PULSE 82–94; RESP 17–20; TEMP 98.1–98.6; O2SAT 91–100
[2022-12-15] MEDS: ACETAMINOPHEN 325 MG TAB PO PRN (01:59)
[2022-12-15] MEDS: INSULIN REGULAR, HUMAN 100 UNIT/1 ML SQ SCH ×4 (07:30→21:32)
[2022-12-15] MEDS: AMLODIPINE BESYLATE 5 MG TAB PO SCH ×2 (07:41→17:13)
[2022-12-15] MEDS: TRAMADOL HCL 50 MG TAB PO PRN ×2 (07:41→21:23)
[2022-12-15] MEDS: FLUCONAZOLE 100 MG TAB PO SCH (07:41)
[2022-12-15] MEDS: SUCRALFATE 1 GM TAB PO SCH ×3 (07:42→17:13)
[2022-12-15] MEDS: PREGABALIN 75 MG CAP PO SCH ×2 (07:42→17:12)
[2022-12-15] MEDS: METOPROLOL TARTRATE 25 MG TAB PO SCH ×2 (07:42→17:13)
[2022-12-15] MEDS: PANTOPRAZOLE SOD 40 MG TABEC PO SCH ×2 (07:42→17:14)
[2022-12-15 08:30] LABS: BASOPHILS # (AUTO) 0.1 (0.0-0.1); BASOPHILS % 0.8 % (0.0-1.0); EOSINOPHILS # (AUTO) 0.1 (0.0-0.4); EOSINOPHILS % 1.2 % (0.0-6.0); HEMATOCRIT 48.2 % (34.2-44.1); HEMOGLOBIN 15.4 g/dL (12.0-16.0); LYMPHOCYTES # (AUTO) 2.1 (1.0-3.2); LYMPHOCYTES % 23.8 % (18.0-39.1); MEAN CORPUSCULAR HEMOGLOBIN 27.3 pg (28-32); MEAN CORPUSCULAR VOLUME 85.5 fL (81-99); MONOCYTES # (AUTO) 0.8 (0.2-0.8); MONOCYTES % 9.2 % (4.4-11.3); NEUTROPHILS # (AUTO) 5.6 (2.1-6.9); NEUTROPHILS % 64.7 % (38.7-80.0); PLATELET COUNT 187 x10e3/uL (140-360); RED BLOOD COUNT 5.64 x10e6/uL (3.6-5.1); RED CELL DISTRIBUTION WIDTH 14.9 % (11.7-14.4)
[2022-12-15] MEDS: IPRATROPIUM BROMIDE 0.02% 2.5 ML NEB NEB SCH ×3 (08:42→21:15)
[2022-12-15 08:51] LABS: ANION GAP 20.7 mmol/L (8-16); CALCIUM 9.5 mg/dL (8.4-10.2); CREATININE, SERUM 0.97 mg/dL (0.57-1.11); POTASSIUM 3.7 mmol/L (3.5-5.1)
[2022-12-15] MEDS: LACTULOSE SYRUP 20 GM/30 ML UDC PO SCH ×3 (09:54→21:24)
[2022-12-15] MEDS ORDERED: BISACODYL 10 MG SUPP PR PRN (14:30)
[2022-12-15] MEDS: DOCUSATE SODIUM 100 MG CAP PO SCH (17:13)
[2022-12-15] MEDS: ENOXAPARIN SOD INJ 40 MG/0.4 ML SYR SC SCH (17:14)
[2022-12-15] MEDS: ATORVASTATIN 20 MG TAB PO SCH (21:22)
[2022-12-15] MEDS: MELATONIN 5 MG TABLET PO PRN (21:23)
[2022-12-16] VITALS (14 sets, daily range): BP systolic 92–157; BP diastolic 47–76; PULSE 56–103; RESP 17–21; TEMP 97.7–98.5; O2SAT 92–100
[2022-12-16] MEDS: IPRATROPIUM BROMIDE 0.02% 2.5 ML NEB NEB SCH ×4 (02:25→19:43)
[2022-12-16] MEDS: LACTULOSE SYRUP 20 GM/30 ML UDC PO SCH (08:28)
[2022-12-16] MEDS: SUCRALFATE 1 GM TAB PO SCH ×3 (08:28→16:24)
[2022-12-16] MEDS: AMLODIPINE BESYLATE 5 MG TAB PO SCH ×2 (08:28→16:24)
[2022-12-16] MEDS: DOCUSATE SODIUM 100 MG CAP PO SCH ×2 (08:28→16:31)
[2022-12-16] MEDS: PREGABALIN 75 MG CAP PO SCH ×2 (08:28→16:24)
[2022-12-16] MEDS: METOPROLOL TARTRATE 25 MG TAB PO SCH ×2 (08:30→16:29)
[2022-12-16] MEDS: FLUCONAZOLE 100 MG TAB PO SCH (08:30)
[2022-12-16] MEDS: PANTOPRAZOLE SOD 40 MG TABEC PO SCH ×2 (08:30→16:24)
[2022-12-16] MEDS: INSULIN REGULAR, HUMAN 100 UNIT/1 ML SQ SCH ×4 (09:25→21:58)
[2022-12-16] MEDS: TRAMADOL HCL 50 MG TAB PO PRN ×2 (09:48→21:56)
[2022-12-16] MEDS ORDERED: PHENAZOPYRIDINE HCL 100 MG TAB PO PRN (11:45)
[2022-12-16] MEDS: PHENAZOPYRIDINE HCL 100 MG TAB PO PRN ×3 (12:19→21:44)
[2022-12-16] MEDS ORDERED: LACTULOSE SYRUP 20 GM/30 ML UDC PO PRN (15:00)
[2022-12-16] MEDS: ENOXAPARIN SOD INJ 40 MG/0.4 ML SYR SC SCH (16:30)
[2022-12-16] MEDS: NYSTATIN 100,000 UNITS/GM CRM 30GM TUBE TOP SCH (18:00)
[2022-12-16] MEDS: ATORVASTATIN 20 MG TAB PO SCH (21:44)
[2022-12-17] VITALS (10 sets, daily range): BP systolic 97–113; BP diastolic 57–81; PULSE 77–94; RESP 18–20; TEMP 98.1–99.7; O2SAT 86–98
[2022-12-17] MEDS: IPRATROPIUM BROMIDE 0.02% 2.5 ML NEB NEB SCH ×4 (00:40→19:55)
[2022-12-17 05:43] LABS: BASOPHILS # (AUTO) 0.1 (0.0-0.1); BASOPHILS % 0.9 % (0.0-1.0); EOSINOPHILS # (AUTO) 0.2 (0.0-0.4); EOSINOPHILS % 2.6 % (0.0-6.0); HEMATOCRIT 43.9 % (34.2-44.1); HEMOGLOBIN 14.5 g/dL (12.0-16.0); LYMPHOCYTES # (AUTO) 1.9 (1.0-3.2); MEAN CORPUSCULAR HEMOGLOBIN 27.6 pg (28-32); MEAN CORPUSCULAR VOLUME 83.6 fL (81-99); MONOCYTES # (AUTO) 0.8 (0.2-0.8); NEUTROPHILS # (AUTO) 5.1 (2.1-6.9); NEUTROPHILS % 62.9 % (38.7-80.0); PLATELET COUNT 153 x10e3/uL (140-360); RED BLOOD COUNT 5.25 x10e6/uL (3.6-5.1); RED CELL DISTRIBUTION WIDTH 14.6 % (11.7-14.4)
[2022-12-17 06:24] LABS: ANION GAP 17.1 mmol/L (8-16); CALCIUM 9.5 mg/dL (8.4-10.2); CREATININE, SERUM 0.74 mg/dL (0.57-1.11); POTASSIUM 3.1 mmol/L (3.5-5.1)
[2022-12-17] MEDS: DOCUSATE SODIUM 100 MG CAP PO SCH (09:14)
[2022-12-17] MEDS: SUCRALFATE 1 GM TAB PO SCH ×3 (09:14→17:26)
[2022-12-17] MEDS: AMLODIPINE BESYLATE 5 MG TAB PO SCH ×2 (09:14→17:00)
[2022-12-17] MEDS: PANTOPRAZOLE SOD 40 MG TABEC PO SCH ×2 (09:14→17:26)
[2022-12-17] MEDS: PREGABALIN 75 MG CAP PO SCH ×2 (09:15→17:26)
[2022-12-17] MEDS: METOPROLOL TARTRATE 25 MG TAB PO SCH ×2 (09:15→17:00)
[2022-12-17] MEDS: INSULIN REGULAR, HUMAN 100 UNIT/1 ML SQ SCH ×3 (09:16→17:02)
[2022-12-17] MEDS: FLUCONAZOLE 100 MG TAB PO SCH (09:21)
[2022-12-17] MEDS: NYSTATIN 100,000 UNITS/GM CRM 30GM TUBE TOP SCH ×2 (09:21→17:26)
[2022-12-17] MEDS: CEPHALEXIN 500 MG CAP PO SCH ×2 (13:14→20:55)
[2022-12-17] MEDS: ONDANSETRON HCL 4 MG ORAL DISINTEGRATING TAB PO PRN (13:14)
[2022-12-17] MEDS: POLYETHYLENE GLYCOL 3350 17 GM PACK PO SCH (17:25)
[2022-12-17] MEDS: ENOXAPARIN SOD INJ 40 MG/0.4 ML SYR SC SCH (17:26)
[2022-12-17] MEDS: ATORVASTATIN 20 MG TAB PO SCH (20:55)
[2022-12-17] MEDS: TRAMADOL HCL 50 MG TAB PO PRN (20:55)
[2022-12-18] VITALS (13 sets, daily range): BP systolic 95–123; BP diastolic 56–70; PULSE 85–122; RESP 17–20; TEMP 97.5–98.7; O2SAT 88–100
[2022-12-18] MEDS: IPRATROPIUM BROMIDE 0.02% 2.5 ML NEB NEB SCH ×4 (00:50→19:30)
[2022-12-18] MEDS: TRAMADOL HCL 50 MG TAB PO PRN ×2 (02:48→20:12)
[2022-12-18] MEDS: POTASSIUM CHLORIDE 20 MEQ TAB CR PO PRN (02:51)
[2022-12-18] MEDS: INSULIN REGULAR, HUMAN 100 UNIT/1 ML SQ SCH ×5 (02:59→20:14)
[2022-12-18] MEDS: CEPHALEXIN 500 MG CAP PO SCH ×3 (05:31→20:08)
[2022-12-18] MEDS: AMLODIPINE BESYLATE 5 MG TAB PO SCH ×2 (09:00→17:07)
[2022-12-18] MEDS: FLUCONAZOLE 100 MG TAB PO SCH (10:32)
[2022-12-18] MEDS: PREGABALIN 75 MG CAP PO SCH ×2 (10:32→17:11)
[2022-12-18] MEDS: PANTOPRAZOLE SOD 40 MG TABEC PO SCH ×2 (10:33→16:59)
[2022-12-18] MEDS: SUCRALFATE 1 GM TAB PO SCH ×3 (10:33→16:59)
[2022-12-18] MEDS: METOPROLOL TARTRATE 25 MG TAB PO SCH ×2 (10:33→17:08)
[2022-12-18] MEDS: NYSTATIN 100,000 UNITS/GM CRM 30GM TUBE TOP SCH ×2 (10:34→17:28)
[2022-12-18] MEDS: POLYETHYLENE GLYCOL 3350 17 GM PACK PO SCH (10:34)
[2022-12-18] MEDS: ALBUTEROL SULF 0.083% NEB SOLN 3 ML NEB NEB PRN (13:30)
[2022-12-18] MEDS: ENOXAPARIN SOD INJ 40 MG/0.4 ML SYR SC SCH (16:59)
[2022-12-18] MEDS: ATORVASTATIN 20 MG TAB PO SCH (20:13)
[2022-12-18] MEDS: MELATONIN 5 MG TABLET PO PRN (23:47)
[2022-12-18] MEDS: ACETAMINOPHEN 325 MG TAB PO PRN (23:47)
[2022-12-19] VITALS (13 sets, daily range): BP systolic 98–123; BP diastolic 57–70; PULSE 77–102; RESP 18–20; TEMP 97.5–99; O2SAT 92–99
[2022-12-19] MEDS: IPRATROPIUM BROMIDE 0.02% 2.5 ML NEB NEB SCH ×4 (02:25→19:10)
[2022-12-19 04:58] LABS: BASOPHILS # (AUTO) 0.1 (0.0-0.1); BASOPHILS % 0.9 % (0.0-1.0); EOSINOPHILS # (AUTO) 0.2 (0.0-0.4); HEMOGLOBIN 12.8 g/dL (12.0-16.0); LYMPHOCYTES # (AUTO) 2.2 (1.0-3.2); LYMPHOCYTES % 31.5 % (18.0-39.1); MEAN CORPUSCULAR HEMOGLOBIN 27.5 pg (28-32); MEAN CORPUSCULAR VOLUME 85.8 fL (81-99); MONOCYTES # (AUTO) 0.9 (0.2-0.8); MONOCYTES % 12.8 % (4.4-11.3); NEUTROPHILS # (AUTO) 3.6 (2.1-6.9); NEUTROPHILS % 51.4 % (38.7-80.0); PLATELET COUNT 190 x10e3/uL (140-360); RED BLOOD COUNT 4.66 x10e6/uL (3.6-5.1); RED CELL DISTRIBUTION WIDTH 14.7 % (11.7-14.4)
[2022-12-19 05:29] LABS: ANION GAP 12.3 mmol/L (8-16); CALCIUM 9.5 mg/dL (8.4-10.2); CREATININE, SERUM 0.67 mg/dL (0.57-1.11); POTASSIUM 3.3 mmol/L (3.5-5.1)
[2022-12-19] MEDS: CEPHALEXIN 500 MG CAP PO SCH (05:51)
[2022-12-19] MEDS: TRAMADOL HCL 50 MG TAB PO PRN ×3 (05:52→23:52)
[2022-12-19] MEDS: FLUCONAZOLE 100 MG TAB PO SCH (08:47)
[2022-12-19] MEDS: INSULIN REGULAR, HUMAN 100 UNIT/1 ML SQ SCH ×4 (08:47→21:32)
[2022-12-19] MEDS: AMLODIPINE BESYLATE 5 MG TAB PO SCH ×2 (08:47→17:08)
[2022-12-19] MEDS: SUCRALFATE 1 GM TAB PO SCH ×3 (08:47→16:35)
[2022-12-19] MEDS: METOPROLOL TARTRATE 25 MG TAB PO SCH ×2 (08:48→17:08)
[2022-12-19] MEDS: PANTOPRAZOLE SOD 40 MG TABEC PO SCH ×2 (08:48→17:08)
[2022-12-19] MEDS: POLYETHYLENE GLYCOL 3350 17 GM PACK PO SCH (08:49)
[2022-12-19] MEDS: PREGABALIN 75 MG CAP PO SCH ×2 (08:49→17:09)
[2022-12-19] MEDS: NYSTATIN 100,000 UNITS/GM CRM 30GM TUBE TOP SCH ×2 (09:00→17:09)
[2022-12-19] MEDS ORDERED: KCL 20 MEQ PACKET/ ORAL SOLN NG PRN (11:00)
[2022-12-19] MEDS: POTASSIUM CHLORIDE 20 MEQ TAB CR PO PRN (11:42)
[2022-12-19] MEDS: ENOXAPARIN SOD INJ 40 MG/0.4 ML SYR SC SCH (16:35)
[2022-12-19] MEDS: PHENAZOPYRIDINE HCL 100 MG TAB PO PRN (17:40)
[2022-12-19] MEDS: ATORVASTATIN 20 MG TAB PO SCH (21:30)
[2022-12-19] MEDS: MELATONIN 5 MG TABLET PO PRN (21:31)
[2022-12-19] MEDS: LIDOCAINE 4% PATCH TP SCH (21:41)
[2022-12-20] VITALS (11 sets, daily range): BP systolic 102–118; BP diastolic 57–81; PULSE 69–102; RESP 16–21; TEMP 97.6–99; O2SAT 92–99
[2022-12-20] MEDS: IPRATROPIUM BROMIDE 0.02% 2.5 ML NEB NEB SCH ×4 (01:00→19:30)
[2022-12-20] MEDS: ACETAMINOPHEN 325 MG TAB PO PRN ×2 (06:04→17:21)
[2022-12-20] MEDS: TRAMADOL HCL 50 MG TAB PO PRN (07:22)
[2022-12-20] MEDS: INSULIN REGULAR, HUMAN 100 UNIT/1 ML SQ SCH ×4 (07:30→21:00)
[2022-12-20] MEDS: AMLODIPINE BESYLATE 5 MG TAB PO SCH ×2 (09:00→17:14)
[2022-12-20] MEDS: PREGABALIN 75 MG CAP PO SCH ×2 (09:22→17:15)
[2022-12-20] MEDS: SUCRALFATE 1 GM TAB PO SCH ×3 (09:22→17:17)
[2022-12-20] MEDS: PANTOPRAZOLE SOD 40 MG TABEC PO SCH ×2 (09:22→17:14)
[2022-12-20] MEDS: POLYETHYLENE GLYCOL 3350 17 GM PACK PO SCH (09:23)
[2022-12-20] MEDS: LIDOCAINE 4% PATCH TP SCH (09:34)
[2022-12-20] MEDS: NYSTATIN 100,000 UNITS/GM CRM 30GM TUBE TOP SCH ×2 (09:34→17:15)
[2022-12-20] MEDS: METOPROLOL TARTRATE 25 MG TAB PO SCH ×2 (09:35→17:14)
[2022-12-20] MEDS ORDERED: FUROSEMIDE INJ 10 MG/ML 4 ML VIAL IV ONE (13:25)
[2022-12-20] MEDS: HYDROXYZINE HCL 25 MG TAB PO PRN (17:15)
[2022-12-20] MEDS: ATORVASTATIN 20 MG TAB PO SCH (21:09)
[2022-12-20] MEDS: MELATONIN 5 MG TABLET PO PRN (21:09)
[2022-12-20] MEDS: PHENAZOPYRIDINE HCL 100 MG TAB PO PRN (22:11)
[2022-12-21] VITALS (11 sets, daily range): BP systolic 91–116; BP diastolic 49–65; PULSE 75–91; RESP 16–20; TEMP 97.1–98.7; O2SAT 92–98
[2022-12-21] MEDS: IPRATROPIUM BROMIDE 0.02% 2.5 ML NEB NEB SCH ×4 (00:25→19:58)
[2022-12-21 06:28] LABS: ANION GAP 15.6 mmol/L (8-16); CREATININE, SERUM 0.68 mg/dL (0.57-1.11); POTASSIUM 3.6 mmol/L (3.5-5.1)
[2022-12-21 06:37] LABS: CALCIUM 9.6 mg/dL (8.4-10.2)
[2022-12-21] MEDS: POLYETHYLENE GLYCOL 3350 17 GM PACK PO SCH (09:00)
[2022-12-21] MEDS: ONDANSETRON HCL 4 MG ORAL DISINTEGRATING TAB PO PRN (09:31)
[2022-12-21] MEDS: HYDROXYZINE HCL 25 MG TAB PO PRN ×2 (09:32→17:26)
[2022-12-21] MEDS: METOPROLOL TARTRATE 25 MG TAB PO SCH ×2 (09:33→15:44)
[2022-12-21] MEDS: AMLODIPINE BESYLATE 5 MG TAB PO SCH ×2 (09:33→15:44)
[2022-12-21] MEDS: SUCRALFATE 1 GM TAB PO SCH ×3 (09:33→15:44)
[2022-12-21] MEDS: PREGABALIN 75 MG CAP PO SCH ×2 (09:33→15:44)
[2022-12-21] MEDS: PANTOPRAZOLE SOD 40 MG TABEC PO SCH ×2 (09:33→15:44)
[2022-12-21] MEDS: LIDOCAINE 4% PATCH TP SCH (09:34)
[2022-12-21] MEDS: NYSTATIN 100,000 UNITS/GM CRM 30GM TUBE TOP SCH ×2 (09:35→15:46)
[2022-12-21] MEDS: INSULIN REGULAR, HUMAN 100 UNIT/1 ML SQ SCH ×4 (09:38→20:18)
[2022-12-21] MEDS: TRAMADOL HCL 50 MG TAB PO PRN ×2 (14:00→20:11)
[2022-12-21] MEDS: ATORVASTATIN 20 MG TAB PO SCH (20:11)
[2022-12-21] MEDS: ACETAMINOPHEN 325 MG TAB PO PRN (20:12)
[2022-12-21] MEDS: MELATONIN 5 MG TABLET PO PRN (20:13)
[2022-12-22] VITALS (10 sets, daily range): BP systolic 92–122; BP diastolic 53–75; PULSE 63–89; RESP 17–20; TEMP 98–98.9; O2SAT 92–99
[2022-12-22] MEDS: IPRATROPIUM BROMIDE 0.02% 2.5 ML NEB NEB SCH ×3 (02:10→19:30)
[2022-12-22] MEDS: SUCRALFATE 1 GM TAB PO SCH ×3 (08:32→16:57)
[2022-12-22] MEDS: PANTOPRAZOLE SOD 40 MG TABEC PO SCH ×2 (08:33→16:57)
[2022-12-22] MEDS: METOPROLOL TARTRATE 25 MG TAB PO SCH ×2 (08:33→16:58)
[2022-12-22] MEDS: PREGABALIN 75 MG CAP PO SCH ×2 (08:34→16:58)
[2022-12-22] MEDS: LIDOCAINE 4% PATCH TP SCH (08:34)
[2022-12-22] MEDS: POLYETHYLENE GLYCOL 3350 17 GM PACK PO SCH (08:34)
[2022-12-22] MEDS: AMLODIPINE BESYLATE 5 MG TAB PO SCH ×2 (08:34→16:58)
[2022-12-22] MEDS: TRAMADOL HCL 50 MG TAB PO PRN ×2 (08:35→17:06)
[2022-12-22] MEDS: HYDROXYZINE HCL 25 MG TAB PO PRN ×2 (08:35→16:03)
[2022-12-22] MEDS: NYSTATIN 100,000 UNITS/GM CRM 30GM TUBE TOP SCH ×2 (08:36→16:58)
[2022-12-22] MEDS: INSULIN REGULAR, HUMAN 100 UNIT/1 ML SQ SCH ×4 (08:44→21:11)
[2022-12-22] MEDS: ATORVASTATIN 20 MG TAB PO SCH (21:09)
[2022-12-23] VITALS (11 sets, daily range): BP systolic 108–120; BP diastolic 62–95; PULSE 64–88; RESP 16–22; TEMP 97–98.7; O2SAT 92–98
[2022-12-23] MEDS: HYDROXYZINE HCL 25 MG TAB PO PRN ×3 (00:01→15:14)
[2022-12-23] MEDS: TRAMADOL HCL 50 MG TAB PO PRN ×3 (00:02→15:14)
[2022-12-23] MEDS: IPRATROPIUM BROMIDE 0.02% 2.5 ML NEB NEB SCH ×4 (01:35→19:10)
[2022-12-23] MEDS: POLYETHYLENE GLYCOL 3350 17 GM PACK PO SCH (08:47)
[2022-12-23] MEDS: LIDOCAINE 4% PATCH TP SCH (08:47)
[2022-12-23] MEDS: SUCRALFATE 1 GM TAB PO SCH ×3 (08:47→15:50)
[2022-12-23] MEDS: METOPROLOL TARTRATE 25 MG TAB PO SCH ×2 (08:48→16:35)
[2022-12-23] MEDS: AMLODIPINE BESYLATE 5 MG TAB PO SCH ×2 (08:48→16:35)
[2022-12-23] MEDS: PREGABALIN 75 MG CAP PO SCH ×2 (08:48→16:35)
[2022-12-23] MEDS: PANTOPRAZOLE SOD 40 MG TABEC PO SCH ×2 (08:48→15:50)
[2022-12-23] MEDS: NYSTATIN 100,000 UNITS/GM CRM 30GM TUBE TOP SCH ×2 (08:49→16:43)
[2022-12-23] MEDS: INSULIN REGULAR, HUMAN 100 UNIT/1 ML SQ SCH ×4 (08:49→20:08)
[2022-12-23] MEDS: ACETAMINOPHEN 325 MG TAB PO PRN (20:03)
[2022-12-23] MEDS: ATORVASTATIN 20 MG TAB PO SCH (20:03)
[2022-12-23] MEDS: MELATONIN 5 MG TABLET PO PRN (20:03)
[2022-12-24] VITALS (12 sets, daily range): BP systolic 102–128; BP diastolic 49–65; PULSE 72–87; RESP 16–21; TEMP 97.1–98.7; O2SAT 94–99
[2022-12-24] MEDS: IPRATROPIUM BROMIDE 0.02% 2.5 ML NEB NEB SCH ×3 (00:30→19:20)
[2022-12-24 05:57] LABS: BASOPHILS # (AUTO) 0.1 (0.0-0.1); BASOPHILS % 0.9 % (0.0-1.0); EOSINOPHILS # (AUTO) 0.2 (0.0-0.4); EOSINOPHILS % 3.1 % (0.0-6.0); HEMATOCRIT 41.7 % (34.2-44.1); HEMOGLOBIN 13.1 g/dL (12.0-16.0); LYMPHOCYTES # (AUTO) 2.7 (1.0-3.2); LYMPHOCYTES % 39.6 % (18.0-39.1); MEAN CORPUSCULAR HEMOGLOBIN 27.5 pg (28-32); MEAN CORPUSCULAR HGB CONC 31.4 g/dL (31-35); MEAN CORPUSCULAR VOLUME 87.6 fL (81-99); MONOCYTES # (AUTO) 0.7 (0.2-0.8); MONOCYTES % 10.7 % (4.4-11.3); NEUTROPHILS # (AUTO) 3.1 (2.1-6.9); NEUTROPHILS % 45.3 % (38.7-80.0); PLATELET COUNT 239 x10e3/uL (140-360); RED BLOOD COUNT 4.76 x10e6/uL (3.6-5.1); RED CELL DISTRIBUTION WIDTH 14.9 % (11.7-14.4)
[2022-12-24 06:15] LABS: ANION GAP 13.6 mmol/L (8-16); CALCIUM 9.7 mg/dL (8.4-10.2); CREATININE, SERUM 0.66 mg/dL (0.57-1.11); POTASSIUM 4.6 mmol/L (3.5-5.1)
[2022-12-24] MEDS: LIDOCAINE 4% PATCH TP SCH (09:00)
[2022-12-24] MEDS: HYDROCORTISONE .5% 30 GM TUBE TOP SCH ×2 (09:00→10:55)
[2022-12-24] MEDS: PREGABALIN 75 MG CAP PO SCH ×2 (09:22→16:47)
[2022-12-24] MEDS: PANTOPRAZOLE SOD 40 MG TABEC PO SCH ×2 (09:22→16:47)
[2022-12-24] MEDS: POLYETHYLENE GLYCOL 3350 17 GM PACK PO SCH (09:22)
[2022-12-24] MEDS: SUCRALFATE 1 GM TAB PO SCH ×3 (09:22→16:47)
[2022-12-24] MEDS: METOPROLOL TARTRATE 25 MG TAB PO SCH ×2 (09:22→16:48)
[2022-12-24] MEDS: AMLODIPINE BESYLATE 5 MG TAB PO SCH ×2 (09:23→16:48)
[2022-12-24] MEDS: INSULIN REGULAR, HUMAN 100 UNIT/1 ML SQ SCH ×4 (09:27→21:13)
[2022-12-24] MEDS: ATORVASTATIN 20 MG TAB PO SCH (21:12)
[2022-12-24] MEDS: HYDROXYZINE HCL 25 MG TAB PO PRN (21:12)
[2022-12-24] MEDS: TRAMADOL HCL 50 MG TAB PO PRN (21:17)
[2022-12-25] VITALS (10 sets, daily range): BP systolic 104–124; BP diastolic 56–71; PULSE 76–102; RESP 16–21; TEMP 97.1–98.5; O2SAT 94–98
[2022-12-25] MEDS: IPRATROPIUM BROMIDE 0.02% 2.5 ML NEB NEB SCH ×4 (01:00→19:25)
[2022-12-25] MEDS: ALBUTEROL SULF 0.083% NEB SOLN 3 ML NEB NEB PRN ×3 (07:30→19:25)
[2022-12-25] MEDS: INSULIN REGULAR, HUMAN 100 UNIT/1 ML SQ SCH ×4 (07:30→20:24)
[2022-12-25] MEDS: SUCRALFATE 1 GM TAB PO SCH ×3 (10:23→17:30)
[2022-12-25] MEDS: PANTOPRAZOLE SOD 40 MG TABEC PO SCH ×2 (10:23→17:31)
[2022-12-25] MEDS: AMLODIPINE BESYLATE 5 MG TAB PO SCH ×2 (10:23→17:31)
[2022-12-25] MEDS: LIDOCAINE 4% PATCH TP SCH (10:23)
[2022-12-25] MEDS: PREGABALIN 75 MG CAP PO SCH ×2 (10:24→17:31)
[2022-12-25] MEDS: HYDROCORTISONE .5% 30 GM TUBE TOP SCH (10:24)
[2022-12-25] MEDS: METOPROLOL TARTRATE 25 MG TAB PO SCH ×2 (10:24→17:31)
[2022-12-25] MEDS: POLYETHYLENE GLYCOL 3350 17 GM PACK PO SCH (10:31)
[2022-12-25] MEDS: HYDROXYZINE HCL 25 MG TAB PO PRN (19:29)
[2022-12-25] MEDS: ATORVASTATIN 20 MG TAB PO SCH (20:20)
[2022-12-26] VITALS (9 sets, daily range): BP systolic 106–123; BP diastolic 58–80; PULSE 77–96; RESP 17–20; TEMP 97.5–98.6; O2SAT 93–97
[2022-12-26] MEDS: IPRATROPIUM BROMIDE 0.02% 2.5 ML NEB NEB SCH ×3 (00:15→13:30)
[2022-12-26] MEDS: ALBUTEROL SULF 0.083% NEB SOLN 3 ML NEB NEB PRN (07:13)
[2022-12-26] MEDS: PREGABALIN 75 MG CAP PO SCH (08:18)
[2022-12-26] MEDS: METOPROLOL TARTRATE 25 MG TAB PO SCH (08:18)
[2022-12-26] MEDS: SUCRALFATE 1 GM TAB PO SCH ×2 (08:18→11:52)
[2022-12-26] MEDS: PANTOPRAZOLE SOD 40 MG TABEC PO SCH (08:18)
[2022-12-26] MEDS: POLYETHYLENE GLYCOL 3350 17 GM PACK PO SCH (08:19)
[2022-12-26] MEDS: AMLODIPINE BESYLATE 5 MG TAB PO SCH (08:19)
[2022-12-26] MEDS: LIDOCAINE 4% PATCH TP SCH (08:19)
[2022-12-26] MEDS: INSULIN REGULAR, HUMAN 100 UNIT/1 ML SQ SCH ×2 (08:20→11:53)
[2022-12-26] MEDS: HYDROCORTISONE .5% 30 GM TUBE TOP SCH (08:20)
== END 2022-12-26 15:00 | disposition home or self-care (01) | DRG 689 ==
LOC: ER 17:25 → ERHOLD 21:17 → MED/SURG2 22:13
PROVIDERS: ADMIT Internal Medicine; ATTEND Internal Medicine
DX: N39.0 Urinary tract infection, site not specified (principal); G92.8 Other toxic encephalopathy; E66.2 Morbid (severe) obesity with alveolar hypoventilation; I48.20 Chronic atrial fibrillation, unspecified; T40.2X1A Poisoning by other opioids, accidental (unintentional), initial encounter; Y92.009 Unspecified place in unspecified non-institutional (private) residence as the place of occurrence of the external cause; J44.9 Chronic obstructive pulmonary disease, unspecified; I11.0 Hypertensive heart disease with heart failure; I50.9 Heart failure, unspecified; M19.90 Unspecified osteoarthritis, unspecified site; M06.9 Rheumatoid arthritis, unspecified; I45.10 Unspecified right bundle-branch block; M25.561 Pain in right knee; M54.9 Dorsalgia, unspecified; E11.42 Type 2 diabetes mellitus with diabetic polyneuropathy; Z68.33 Body mass index [BMI] 33.0-33.9, adult; G89.4 Chronic pain syndrome; R06.89 Other abnormalities of breathing; I71.21 Aneurysm of the ascending aorta, without rupture; Z20.822 Contact with and (suspected) exposure to COVID-19; Z90.49 Acquired absence of other specified parts of digestive tract; Z99.81 Dependence on supplemental oxygen; Z91.199 Patient's noncompliance with other medical treatment and regimen due to unspecified reason
CPT/HCPCS: 36415; 36600; 70450; 71045; 71250; 80048; 80053; 80307; 80320; 80329; 81001; 82550; 82553; 82805; 82948; 83605; 83735; 83880; 84484; 85025; 85610; 85730; 87040; 87086; 93005; 94060; 94640; 94660; 94799; 99285; J0692; J0696; J1650; J3410; J7040; Q0162

== ENCOUNTER 2024-03-11 14:13 | Emergency (ER) | payer MEDICARE ==
[~2024-03-11] VITALS: Ht 320 cm; Wt 99.8 kg
[~2024-03-11 14:13] MED LIST changes: +DOXYCYCLINE HY100 MG PO; +LASIX20 MG PO; +LEVEMIR100 UNIT/1 SC; +LEVOTHYROXINE50 MCG PO; +MEDROL DOSE PACK PO; +MELATONIN PO; +PREGABALIN75 MG PO; +PROAIR INH; +SPIRONOLACTONE25 MG PO; +TESSALON PERLES PO
[2024-03-11 19:17] VITALS: PULSE 90; RESP 20; TEMP 98.2; O2SAT 97
== END 2024-03-11 20:00 | disposition home or self-care (01) ==
LOC: ER 14:33
DX: R06.00 Dyspnea, unspecified (principal); J44.1 Chronic obstructive pulmonary disease with (acute) exacerbation; R06.2 Wheezing; I10 Essential (primary) hypertension; E11.9 Type 2 diabetes mellitus without complications; I50.9 Heart failure, unspecified
CPT/HCPCS: 71045; 99284

== ENCOUNTER 2025-03-04 15:06 | Emergency (ER) | payer MEDICARE ==
[~2025-03-04] VITALS: Ht 167.6 cm; Wt 99.8 kg
[~2025-03-04 15:06] MED LIST changes: +FLUCONAZOLE150 MG PO; +METRONIDAZOLE500 MG PO; +NYSTATIN15 G2 TOP
[2025-03-04 17:27] LABS: BASOPHILS % 0.5 % (0.0-1.0); EOSINOPHILS % 0.3 % (0.0-6.0); LYMPHOCYTES % 10.3 % (18.0-39.1); MONOCYTES % 7.2 % (4.4-11.3); NEUTROPHILS % 81.2 % (38.7-80.0); RED CELL DISTRIBUTION WIDTH 14.1 % (11.7-14.4)
[2025-03-04 17:58] LABS: EST GLOMERULAR FILTRATION RATE 62.0 ML/MIN (>=60)
[2025-03-04] MEDS ORDERED: IOPAMIDOL 370 MG/ML 100 ML INFUS..BTL INJ ONE (18:25)
[2025-03-04] MEDS ORDERED: ONDANSETRON HCL INJ 2MG/ML 2ML 2 MG/ML VIAL ONE (20:05)
[2025-03-04] MEDS ORDERED: SODIUM CHLORIDE 0.9% 1000ML 1,000 ML ONE (20:06)
[2025-03-04] MEDS ORDERED: Morphine 2mg Syringe 2 MG/ML SYR ONE (20:06)
[2025-03-04 20:10] VITALS: PULSE 93; RESP 20; TEMP 98.7
[2025-03-04] MEDS: SODIUM CHLORIDE 0.9% 1000ML 1,000 ML IV STA (20:12)
[2025-03-04] MEDS: ONDANSETRON HCL INJ 2MG/ML 2ML 2 MG/ML VIAL IV STA (20:13)
[2025-03-04] MEDS: Morphine 4mg INJECTION 4 MG/ML INJ IV STA (20:13)
[2025-03-04] MEDS ORDERED: INSULIN REGULAR, HUMAN 100 UNIT/1 ML ONE (22:26)
[2025-03-04] MEDS: INSULIN REGULAR, HUMAN 100 UNIT/1 ML IV STA (22:33)
[2025-03-04 22:34] VITALS: BP 106/79; PULSE 88; RESP 16; TEMP 98.7; O2SAT 97
== END 2025-03-04 22:36 | disposition home or self-care (01) ==
LOC: ER 16:50
DX: R10.12 Left upper quadrant pain (principal); R09.02 Hypoxemia; E11.65 Type 2 diabetes mellitus with hyperglycemia; R11.2 Nausea with vomiting, unspecified; I10 Essential (primary) hypertension; I50.9 Heart failure, unspecified; Z99.81 Dependence on supplemental oxygen; R94.31 Abnormal electrocardiogram [ECG] [EKG]
CPT/HCPCS: 36415; 71260; 74177; 80053; 82550; 82948; 83690; 84484; 85025; 93005; 99284; J2270; J2405; J7030; Q9967